=== PATIENT | female | born 1975 | race Caucasian/White ===

== ENCOUNTER 2016-05-30 12:47 | Emergency (ER) | payer OTHER ==
[2016-05-30 13:06] VITALS: BP 102/58
--- NOTE | 2016-05-30 13:10 | EDM.PDOC ---
ED HPI GENERAL MEDICAL PROBLEM - General Chief Complaint: General Stated Complaint: Not feeling well Time Seen by Provider: 05/30/16 13:00 Source of Information: Reports: Patient, Old records ([facility] chart/EMR) History Limitations: Reports: No limitations - History of Present Illness INITIAL COMMENTS - FREE TEXT/NARRATIVE: The patient drove herself to the emergency room for evaluation of nonspecific bilateral frontal 2/10 headache stated with nonspecific fatigue and just not feeling well with symptoms starting about 9 a.m. this morning. Her symptoms are similar to previous episodes with hypokalemia. She states that she has been compliant with all of her medications, including supplements. No recent history of abdominal pain, heartburn, nausea, diarrhea, melena, gross hematochezia, or any food intolerance, including fatty foods, etc.. The patient also denies any recent fever, cough, wheezing, dyspnea, etc.. No history of visual changes, diplopia, change in mental status, or other change in neurological status. The patient denies any chest pain/pressure, heart flutter, orthostasis, orthopnea, diaphoresis, paresthesias, recent decreased exercise tolerance, or any other anginal-type symptoms, although some nonspecific dizziness since this morning. She has not taken any medications for her symptoms this point. The patient did get an influenza booster this past season. Onset: today, gradual Onset Date: 05/30/16 Onset Time: 09:00 Duration: Constant, Getting worse Location: Reports: head Quality: Reports: Ache, Same as previous episode Severity: mild Improves with: Reports: None Worsens with: Reports: None Context: Reports: Other (As above) Associated Symptoms: Reports: headaches. 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 (see below) (None) Bilateral Head Pain Score (Numeric/FACES): 2 - Related Data Allergies Allergy/AdvReac Type Severity Reaction Status Date / Time Latex, Natural Rubber Allergy Hives Verified 05/30/16 12:48 ondansetron Allergy Shaking,Tac Verified 05/30/16 12:50 hycardia promethazine HCl Allergy Irritabilit Verified 05/30/16 12:48 [From Phenergan] y Home Meds: Home Meds Ferrous Sulfate 325 mg PO QPM #100 tablet 05/30/16 [Rx] Folic Acid 1 mg PO QPM #100 tablet 05/30/16 [Rx] Levothyroxine [Synthroid] 50 mcg PO ACBREAKFAST #60 tablet 05/30/16 [Rx] Magnesium Oxide 400 mg PO QPM #100 tablet 05/30/16 [Rx] Non-Formulary Medication [NF Drug] 1 tab PO DAILY 05/30/16 [History] Non-Formulary Medication [NF Drug] 2 tab PO DAILY 05/30/16 [History] Potassium Chloride 20 meq PO TID #20 tablet.er 05/30/16 [Rx] Past Medical History HEENT History: Reports: Impaired vision, Sinusitis, Other (see below). Denies: Allergic rhinitis, Cataract, Glaucoma, Hard of hearing, Macular degeneration, Otitis media, Retinal detachment Other HEENT History: Soft contact lenses, glasses Cardiovascular History: Reports: High cholesterol, Syncope, Other (see below). Denies: Afib, Aneurysm, Arrhythmia, Blood clots/VTE/DVT, CAD, Heart Failure, Heart murmur, Hypertension, AR, PVD Other Cardiovascular History: History of obesity and hyperlipidemia with fatty liver including post gastric bypass, previous recurrent syncope of unknown etiology with last episode in July 2014, chronic hypotension Respiratory History: Reports: Intubation, previous, Other (see below). Denies: Asthma, COPD, Intubation, difficult, PE, Pneumothorax, Sleep apnea Other Respiratory History: Right lower lobe stable benign pulmonary nodules Gastrointestinal History: Reports: Bowel obstruction, Chronic diarrhea, Gastritis, GERD, GI bleed, PUD, Other (see below). Denies: Celiac disease, Cholelithiasis, Chronic constipation, Colon polyp, Diverticulosis, Hepatitis, Helicobacter pylori, Hiatal hernia, Irritable bowel syndrome, Jaundice, Pancreatitis Other Gastrointestinal History: History of fatty liver with LFTs elevation including post gastric bypass surgery, upper GI bleed secondary to gastric ulcer in her mid 30s with no blood transfusion required, multiple previous small bowel obstruction secondary to previous gastric bypass surgery, nonspecific malabsorption syndrome Genitourinary History: Reports: None. Denies: Acute renal failure, Chronic renal insuffiency, Renal calculus, STD, Urinary incontinence, UTI, recurrent HYBRID [employer]IC History: Reports: . Denies: Dysfunctional uterine bleeding, Endometriosis, Spontaneous : 3 Para: 3 (Full term deliveries by as below without complications during pregnancies or deliveries) LMP (Approximate): other Other OB/BYN History: Bilateral ovarian cysts Musculoskeletal History: Reports: None. Denies: Amputation, Arthritis, Back pain, chronic, Fracture, Gout, Neck pain, chronic, Osteoarthritis, RA, SLE Neurological History: Reports: None. Denies: Cerebral aneurysms, Concussion, CVA, Headaches, chronic, Head trauma, Migraines, Seizure, TIA Psychiatric History: Reports: Anxiety, Depression. Denies: Abuse, victim of, ADD, ADHD, Addiction, Panic attack, Psych Hospitalization(s), PTSD, Suicide attempt, Suicidal ideation Endocrine/Metabolic History: Reports: Hypothyroidism, Multinodular thyroid, Obesity/BMI 30+, Other (see below). Denies: Diabetes, type I, Diabetes, type II , IDDM Other Endocrine/Metabolic History: Previous borderline hyperglycemia secondary to obesity, hypokalemia, vitamin D deficiency, borderline hypothyroidism with history of multiple benign thyroid nodules Hematologic History: Reports: Anemia, B12 deficiency, Iron deficiency. Denies: Blood transfusion(s) Immunologic History: Reports: None. Denies: AIDS, SLE Oncologic (Cancer) History: Reports: None. Denies: Basal cell carcinoma, Cervix , Hodgkin's Lymphoma, Lymphoma, Malignant melanoma, Non-Hodgkin's Lymphoma, Squamous cell carcinoma Dermatologic History: Reports: None. Denies: Eczema, Psoriasis - Infectious Disease History Infectious Disease History: Reports: Chicken pox. Denies: C-difficile, Helicobacter pylori, Measles, Meningitis, Mononucleosis, MRSA, Mumps, Pertussis (whooping cough), Rubella, Scarlet fever, Shingles, TB, VRE - Past Surgical History Head Surgeries/Procedures: Reports: None HEENT Surgical History: Reports: Oral surgery, Other (see below). Denies: Adenoidectomy, Cataract surgery, Eye surgery, Laser surgery, LASIK, Myringotomy w tube(s), Naso-sinus surgery, Tonsillectomy Other HEENT Surgeries/Procedures: Collins teeth extraction x2 at age 20 Cardiovascular Surgical History: Reports: None. Denies: Varicose, Vascular surgery Respiratory Surgical History: Reports: None. Denies: Lung Biopsies, Thoracentesis GI Surgical History: Reports: Bariatric procedure, Cholecystectomy, EGD, Hernia , abdominal, Hernia, inguinal, Hernia repair/other, Other (see below). Denies: Colonoscopy Other GI Surgeries/Procedures: Gastric bypass surgery with concomitant cholecystectomy in August 2006, patient denies previous gastric bypass revisions as per medical records although evidence of anastomosis dilatations in the past by EGD, last EGD in 2015 with previous evaluation in 2007 with concomitant gastric feeding tube placement at that time, umbilical hernia repair in November 2015, right inguinal hernia repair in 2004 Female Surgical History: Reports: section, Other (see below). Denies: Tubal ligation Other Female Surgeries/Procedures: in 1996, 1999, 2000, patient denies previous tubal ligation despite medical records Endocrine Surgical History: Reports: Thyroid biopsy, Other (see below) Other Endocrine Surgeries/Procedures: Thyroid biopsy in 2014 Neurological Surgical History: Reports: None Musculoskeletal Surgical History: Reports: None Oncologic Surgical History: Reports: None Dermatological Surgical History: Reports: None - Past Imaging History Past Imaging History: Reports: Cardiac echo (07/29/09 with ejection fraction of 68 %), CAT scan (CT of the brain on 06/20/08, CT of the abdomen and pelvis with contrast on 06/12/11, 09/08/10, and 06/20/08, CT of the head and cervical region on 07/24/09), Ultrasound ([place] ultrasound on 11/06/08) Social & Family History - Family History Cardiac: Reports: High cholesterol, Hypertension, Other (see below) Other Cardiac Family History: Father with hyperlipidemia, hypertension in father and maternal grandfather GI: Reports: GERD, Other (see below) Other GI Family History: GERD in mother Psychiatric: Reports: Anxiety, Depression, Other (see below) Other Psychiatric Family History: Anxiety depression disorder in mother, maternal great grandmother and paternal great-grandmother Endocrine/Metabolic: Reports: Diabetes, type II, IDDM, Other (see below) Other Endocrine/Metabolic Family History: IDDM in paternal grandmother, maternal grandfather, and maternal great-grandmother with brother with possible hyperglycemia Oncologic: Reports: Leukemia, Other (see below) Other Oncologic Family History: Cousins with leukemia, mother with multiple myeloma - Tobacco Use Smoking Status *Q: Never Smoker Smoking Cessation Information Provided To Patient: No Second Hand Smoke Exposure: No Second Hand Smoke Education Provided: No - Caffeine Use Caffeine Use: Reports: Soda (2 sodas per day). 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 Denies: fever, chills, malaise , weakness, night sweats, diaphoresis, decreased appetite, weight loss, weight gain HEENT: Reports: Contact Lenses. Denies: Dental pain, Ear discharge, Ear pain, Eye discharge, Eye pain, Glasses, Hearing loss, Nosebleed, Nose pain, Rhinitis, Sinus problem, Throat pain, Vertigo Cardiovascular: Reports: Lightheadedness. Denies: Chest pain, Blood pressure problem, Claudication, Dyspnea on exertion, Edema, Orthopnea, Palpitations, PND , Syncope Endocrine: Reports: fatigue GI/Abdominal: Reports: No symptoms. Denies: Abdominal pain, Anorexia, Black stool, Bloody stool, Constipation, Diarrhea, Decreased appetite, Difficulty swallowing, Distension, Flatus, Hematemesis, Hematochezia, Melena, Nausea, Stool incontinence, Vomiting : Reports: no symptoms. Denies: discharge, dysuria, flank pain, frequency, hematuria, incontinence, irregular menses, pain, urgency, urinary retention Musculoskeletal: Reports: no symptoms. Denies: neck pain, shoulder pain, arm pain, back pain, leg pain Skin: Reports: no symptoms. Denies: jaundice, pallor, diaphoresis, bruising, pruritis, wound Neurological: Reports: Dizziness, Headache, Weakness (Nonspecific). Denies: Confusion, Numbness, Paresthesia, Syncope, Tingling, Trouble Speaking, Difficulty Walking, Change in Speech Psychiatric: Reports: No symptoms. Denies: Agitation, Anxiety, Confusion, Depression, Hallucinations Hematologic/Lymphatic: Reports: no symptoms Immunologic: Reports: no symptoms ED EXAM, GENERAL - Physical Exam Exam: See Below Exam Limited By: No limitations General Appearance: alert, WD/WN, no apparent distress, anxious (Mild) Eye Exam: bilateral eye: EOMI, normal inspection (No nystagmus), PERRL Ears: normal external exam, normal canal, hearing grossly normal, normal TMs Nose: normal inspection, normal mucosa, no blood. No: clear rhinorrhea Throat/Mouth: Normal inspection, Normal lips, Normal teeth, Normal gums, Normal oropharynx, Normal voice, No airway compromise. No: Dysphagia, Perioral cyanosis Head: atraumatic, normocephalic. No: facial swelling, facial tenderness, sinus tenderness Neck: normal inspection, supple, non-tender, full range of motion. No: carotid bruit, lymphadenopathy (L), lymphadenopathy (R), thyromegaly Respiratory/Chest: no respiratory distress, lungs clear, normal breath sounds, no accessory muscle use, chest non-tender. No: pleural rub, retractions Cardiovascular: normal peripheral pulses, regular rate, rhythm, no edema, no gallop, no JVD, no murmur, no rub. No: gallop/S3, gallop/S4, friction rub Peripheral Pulses: 4+: radial (L), radial (R) GI/Abdominal: normal bowel sounds, soft, non tender, no organomegaly, no distention, no abnormal bruit, no mass. No: guarding (Female) Exam: Deferred Rectal (Female) Exam: Deferred Back Exam: normal inspection, full range of motion. No: CVA tenderness (L), CVA tenderness (R), muscle spasm Extremities: normal inspection, normal range of motion, non-tender, normal capillary refill, no pedal edema Neurological: alert, oriented, CN II-XII intact, normal cognition, normal gait, no motor/sensory deficits, other (No clinical orthostasis) Psychiatric: anxious (Mild), depressed mood (Borderline with adequate eye contact) Skin Exam: Warm, Dry, Intact, No rash, Pallor (Mild). No: Diaphoretic, Ecchymosis, Jaundice, Petechiae, Wound/incision Lymphatic: no adenopathy Course - Vital Signs Last Recorded V/S: Last Vital Signs Temp 36.6 C 05/30/16 13:05 Pulse 80 05/30/16 13:05 Resp 16 05/30/16 13:05 BP 102/58 L 05/30/16 13:05 Pulse Ox 100 05/30/16 13:05 Vital Signs - 24 hr 05/30/16 13:05 Temperature [ 36.6 C Oral] Pulse, 80 Peripheral [ Right Pulse Oximetry] Respiratory 16 Rate Blood Pressure 102/58 L [Left Upper Arm ] O2 Sat by Pulse 100 Oximetry - Orders/Labs/Meds Orders: Active Orders 24 hr Category Date Time Status Obtain Past Medical Record [OM.PC] Routine Oth 05/30/16 13:11 Active Labs: Laboratory Tests 05/30/16 05/30/16 05/30/16 Range/Units 13:20 13:20 13:20 WBC 6.3 (4.0-10.2) K/uL RBC 3.90 (3.77-5.09) M/uL Hgb 9.3 L (11.7-15.5) g/dL Hct 30.4 L (34.0-46.0) % MCV 77.9 L (84.0-98.0) fL MCH 23.8 L (28.2-33.3) pg MCHC 30.6 L (31.7-36.0) g/dL RDW 16.9 H (11.2-14.1) % Plt Count 295 (150-350) K/uL Neut % (Auto) 63.3 (45.0-80.0) % Lymph % (Auto) 26.9 (10.0-50.0) % Zapata % (Auto) 7.6 (2.0-14.0) % Eos % (Auto) 1.7 (0.0-5.0) % Baso % (Auto) 0.5 (0.0-2.0) % Neut # (Auto) 3.98 (1.40-7.00) K/uL Lymph # (Auto) 1.69 (0.50-3.50) K/uL [place] # (Auto) 0.48 (0.00-1.00) K/uL Eos # (Auto) 0.11 (0.00-0.50) K/uL Baso # (Auto) 0.03 (0.00-0.20) K/uL Sodium 140 (136-145) mmol/L Potassium 2.9 L* (3.5-5.1) mmol/L Chloride 106 (98-107) mmol/L Carbon Dioxide 24.1 (21.0-32.0) mmol/L BUN 9 (7-18) mg/dL Creatinine 0.75 (0.51-1.17) mg/dL Est Cr Clr Drug Dosing TNP Estimated GFR (MDRD) > 60 mL/min Glucose 94 (74-106) mg/dL Lactic Acid (0.4-2.0) mmol/L Uric Acid (2.6-7.2) mg/dL Calcium 8.1 L (8.5-10.1) mg/dL Magnesium (1.8-2.4) mg/dL Iron 18 L (50-175) ug/dL TIBC 439 (250-450) ug/dL % Saturation 4.66876 Ferritin 4 L (8-388) ng/mL Total Bilirubin 0.4 (0.2-1.0) mg/dL AST 37 (15-37) U/L ALT 59 (12-78) U/L Alkaline Phosphatase 114 (46-116) IU/L Total Protein 6.5 (6.4-8.2) g/dL Albumin 3.2 L (3.4-5.0) g/dL Vitamin B12 (193-986) pg/mL Folate 7.9 L (8.6-58.9) ng/mL TSH, Ultra Sensitive (0.358-3.740) mIU/mL 05/30/16 05/30/16 Range/Units 13:20 13:20 WBC (4.0-10.2) K/uL RBC (3.77-5.09) M/uL Hgb (11.7-15.5) g/dL Hct (34.0-46.0) % MCV (84.0-98.0) fL MCH (28.2-33.3) pg MCHC (31.7-36.0) g/dL RDW (11.2-14.1) % Plt Count (150-350) K/uL Neut % (Auto) (45.0-80.0) % Lymph % (Auto) (10.0-50.0) % Zapata % (Auto) (2.0-14.0) % Eos % (Auto) (0.0-5.0) % Baso % (Auto) (0.0-2.0) % Neut # (Auto) (1.40-7.00) K/uL Lymph # (Auto) (0.50-3.50) K/uL Z[place]ata # (Auto) (0.00-1.00) K/uL Eos # (Auto) (0.00-0.50) K/uL Baso # (Auto) (0.00-0.20) K/uL Sodium (136-145) mmol/L Potassium (3.5-5.1) mmol/L Chloride (98-107) mmol/L Carbon Dioxide (21.0-32.0) mmol/L BUN (7-18) mg/dL Creatinine (0.51-1.17) mg/dL Est Cr Clr Drug Dosing Estimated GFR (MDRD) mL/min Glucose (74-106) mg/dL Lactic Acid 1.0 (0.4-2.0) mmol/L Uric Acid 3.9 (2.6-7.2) mg/dL Calcium (8.5-10.1) mg/dL Magnesium 1.5 L (1.8-2.4) mg/dL Iron (50-175) ug/dL TIBC (250-450) ug/dL % Saturation Ferritin (8-388) ng/mL Total Bilirubin (0.2-1.0) mg/dL AST (15-37) U/L ALT (12-78) U/L Alkaline Phosphatase (46-116) IU/L Total Protein (6.4-8.2) g/dL Albumin (3.4-5.0) g/dL Vitamin B12 365 (193-986) pg/mL Folate (8.6-58.9) ng/mL TSH, Ultra Sensitive 4.328 H (0.358-3.740) mIU/mL Meds: Medications Discontinued Medications Generic Name Dose Route Start Last Admin Trade Name Freq PRN Reason Stop Dose Admin Potassium Chloride 40 meq 05/30/16 14:04 05/30/16 14:16 Klor-Con M20 PO 05/30/16 14:05 40 meq ONETIME ONE Administration - Radiology Interpretation Free Text/Narrative:: None Departure - Departure Time of Disposition: 14:45 Disposition: Home, Self-Care 01 Condition: good Clinical Impression: Hypokalemia, Hypothyroidism, Hypomagnesemia, Hypoalbuminemia, Peptic reflux disease, Mixed anxiety depressive disorder, Hyperlipidemia, Folic acid deficiency, Iron deficiency Anemia Qualifiers: Anemia type: other cause Other causes of anemia: nutritional, unspecified Qualified Code(s): D53.9 - Nutritional anemia, unspecified Prescriptions: Ferrous Sulfate 325 mg PO QPM #100 tablet Folic Acid 1 mg PO QPM #100 tablet Levothyroxine [Synthroid] 50 mcg PO ACBREAKFAST #60 tablet Magnesium Oxide 400 mg PO QPM #100 tablet Potassium Chloride 20 meq PO TID #20 tablet.er Instructions: Potassium Content of Foods, Hypokalemia, Iron Deficiency Anemia, Adult, Hypothyroidism Referrals: PCP,None [Primary Care Provider] - Forms: ED Department Discharge, Return to Work/School Form Additional Instructions: 1. Followup with your regular provider in 2 days as directed for reevaluation and recommended CBC, magnesium level, and basic metabolic panel. 2. Work excuse- See Form 3. Discuss further instructions for your potassium supplementation including adjusted recommended long-term use, multiple supplemental changes today, etc. as discussed at time of the above followup visit with your regular provider 4. TSH, folic acid, magnesium level, CBC and iron studies should also be repeated in 4 weeks - Problem List & Annotations (1) Hypothyroidism SNOMED Code(s): 22226040 Code(s): E03.9 - HYPOTHYROIDISM, UNSPECIFIED Status: Acute Current Visit : Yes Onset Date: 12/06/13 Annotation/Comment:: Initially diagnosed in this facility on 12/06/13 with no apparent medical therapy to this point. Various therapeutic options were discussed with the patient, who now agrees to initiation of low-dose thyroid supplementation. Close followup by her regular provider, including repeat TSH, etc. in about 4 weeks as per discharge instructions. (2) Hypokalemia SNOMED Code(s): 03717029 Code(s): E87.6 - HYPOKALEMIA Status: Acute Priority: High Current Visit : Yes Onset Date: 05/30/16 Annotation/Comment:: Previous history of nonspecific malabsorption syndrome with recurrent hypokalemia. Patient's current post gastric bypass multivitamin preparations aren't sufficient at this point. Various therapeutic options were discussed with the patient, who has elected to initiate aggressive outpatient therapy for the time being. Potassium chloride 40 mg given in the emergency room with additional potassium supplementation as per discharge instructions with close followup by her regular provider (3) Anemia SNOMED Code(s): 349602019 Code(s): D64.9 - ANEMIA, UNSPECIFIED Status: Acute Priority: High Current Visit: Yes Onset Date: ~05/30/16 Annotation/Comment:: Multifactorial etiologies to patient's current anemia, including malabsorption syndrome, iron deficiency, vitamin D B12 deficiency, and folic acid deficiency with status post gastric bypass surgery as above. Her vitamin B 12 level is normal today, although the patient will need additional folic acid and iron supplementation in addition to her current gastric bypass supplement regimen. Close followup by her regular providers as per discharge instructions with decreased iron levels and folic acid levels today Qualifiers: Anemia type: other cause Other causes of anemia: nutritional, unspecified Qualified Code(s): D53.9 - Nutritional anemia, unspecified (4) Hypomagnesemia SNOMED Code(s): 717229398 Code(s): E83.42 - HYPOMAGNESEMIA Status: Acute Priority: Medium Current Visit: Yes Onset Date: 05/30/16 Annotation/Comment:: Initiate magnesium oxide therapy with close followup by regular provider (5) Hypoalbuminemia SNOMED Code(s): 374992976 Code(s): E88.09 - OTH DISORDERS OF PLASMA-PROTEIN METABOLISM, NEC Status: Chronic Priority: Medium Current Visit: Yes Annotation/Comment:: Consider high-protein Glucerna supplements with close followup by regular provider (6) Folic acid deficiency SNOMED Code(s): 260103178 Code(s): E53.8 - DEFICIENCY OF OTHER SPECIFIED B GROUP VITAMINS Status: Acute Priority: High Current Visit: Yes Onset Date: 05/30/16 Annotation/ Comment:: As above (7) Hyperlipidemia SNOMED Code(s): 95092970 Code(s): E78.5 - HYPERLIPIDEMIA, UNSPECIFIED Status: Chronic Current Visit: Yes Annotation/Comment:: Not currently under therapy with history of fatty liver and previous LFTs elevation including after gastric bypass surgery. Consider lipid profile by her regular providers in the near future Qualifiers: Hyperlipidemia type: unspecified Qualified Code(s): E78.5 - Hyperlipidemia , unspecified (8) Iron deficiency SNOMED Code(s): 23950084 Code(s): E61.1 - IRON DEFICIENCY Status: Acute Priority: High Current Visit: Yes Onset Date: 05/30/16 Annotation/Comment:: As above (9) Mixed anxiety depressive disorder SNOMED Code(s): 660284522 Code(s): F41.8 - OTHER SPECIFIED ANXIETY DISORDERS Status: Chronic Priority: Medium Current Visit: Yes Annotation/Comment:: Stable by patient history (10) Peptic reflux disease SNOMED Code(s): 45073252 Code(s): K21.9 - GASTRO-ESOPHAGEAL REFLUX DISEASE WITHOUT ESOPHAGITIS Status: Acute Current Visit: Yes Annotation/Comment:: Stable by patient history - Problem List Review Problem List Initiated/Reviewed/Updated: Yes - My Orders Last 24 Hours: My Active Orders 05/30/16 13:11 Obtain Past Medical Record [OM.PC] Routine - Assessment/Plan Last 24 Hours: My Active Orders 05/30/16 13:11 Obtain Past Medical Record [OM.PC] Routine Assessment:: As above Plan: As above. Extensive precautions were given to the patient, who is in agreement with the treatment plan. See Patient Instructions for further treatment and plan.
[2016-05-30 13:56] LABS: CHLORIDE,CL 106 mmol/L (98-107); SODIUM,NA 140 mmol/L (136-145)
[2016-05-30] MEDS ORDERED: Potassium Chloride 20 MEQ Tab.ER PO ONE (14:04)
== END 2016-05-30 14:45 | disposition home or self-care (01) ==
LOC: LL.ED 12:47
DX: E87.6 Hypokalemia (principal); E03.9 Hypothyroidism, unspecified; E83.42 Hypomagnesemia; E78.5 Hyperlipidemia, unspecified; D64.9 Anemia, unspecified; K21.9 Gastro-esophageal reflux disease without esophagitis; E53.8 Deficiency of other specified B group vitamins; Z91.040 Latex allergy status; Z88.8 Allergy status to other drugs, medicaments and biological substances; Z79.899 Other long term (current) drug therapy; H54.7 Unspecified visual loss; E78.00 Pure hypercholesterolemia, unspecified
CPT/HCPCS: 36415; 80053; 82607; 82728; 82746; 83540; 83550; 83605; 83735; 84443; 84550; 85025; 99284; A9270

== ENCOUNTER 2016-09-19 21:47 | Inpatient (IN) | payer OTHER ==
[2016-09-19] MEDS ORDERED: Lactated Ringers 1,000 ML IV ONE (21:49)
[2016-09-19] MEDS ORDERED: Famotidine 20 MG/2 ML SDV IVPUSH ONE (21:49)
[2016-09-19] MEDS ORDERED: Pantoprazole 40 MG Vial IVPUSH ONE (21:49)
--- NOTE | 2016-09-19 21:49 | EDM.PDOC ---
ED HPI GENERAL MEDICAL PROBLEM - General Chief Complaint: Abdominal Pain Stated Complaint: BOWEL OBSTRUCTION Time Seen by Provider: 09/19/16 21:49 Source of Information: Reports: Patient, Family (Daughter), Old Records ([facility] chart/EMR) History Limitations: Reports: No Limitations - History of Present Illness INITIAL COMMENTS - FREE TEXT/NARRATIVE: Patient was brought to the emergency room via private automobile by her daughter for evaluation of progressive diffuse abdominal cramping since about 16 :30 hours this afternoon with symptoms usually occurring after oral intake. She has been noncompliant with multiple medications. The patient did have an excellent bowel movement earlier this morning and has not taken any medications for her symptoms to this point. No recent history of heartburn, nausea, melena, gross hematochezia, or any food intolerance, including fatty foods, etc.. Her symptoms are typical for previous bowel obstructions. She normally has chronic diarrhea with patient averaging 3-6 bowel movements per day with patient taking one dose of Imodium 2 days ago. The patient also denies any recent fever, cough , wheezing, dyspnea, etc.. She currently rates her pain at 7/10 with previous episodes of 10/10 earlier this afternoon Onset: Today, Gradual Onset Date: 09/19/16 Onset Time: 16:30 Duration: Constant, Getting Worse Location: Reports: Abdomen. 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) Upper Abdominal Pain Score (Numeric/FACES): 7 - Related Data Allergies Allergy/AdvReac Type Severity Reaction Status Date / Time Latex, Natural Rubber Allergy Hives Verified 09/19/16 21:53 ondansetron Allergy Shaking,Tac Verified 09/19/16 21:53 hycardia promethazine HCl Allergy Irritabilit Verified 09/19/16 21:53 [From Phenergan] y Home Meds: Home Meds Folic Acid 1 mg PO QPM #100 tablet 05/30/16 [Rx] Levothyroxine [Synthroid] 50 mcg PO ACBREAKFAST #60 tablet 05/30/16 [Rx] Magnesium Oxide 400 mg PO QPM #100 tablet 05/30/16 [Rx] Non-Formulary Medication [NF Drug] 1 tab PO DAILY 05/30/16 [History] Non-Formulary Medication [NF Drug] 2 tab PO DAILY 05/30/16 [History] Potassium Chloride 20 meq PO TID #20 tablet.er 05/30/16 [Rx] Past Medical History HEENT History: Reports: Impaired Vision, Sinusitis, Other (See Below). Denies: Allergic Rhinitis, Cataract, Glaucoma, Hard of Hearing, Macular Degeneration, Retinal Detachment Other HEENT History: Soft contact lenses, glasses Cardiovascular History: Reports: High Cholesterol, Syncope, Other (See Below). Denies: Afib, Aneurysm, Arrhythmia, Blood Clots/VTE/DVT, CAD, Heart Murmur, Hypertension, IN, PVD Other Cardiovascular History: History of obesity and hyperlipidemia with fatty liver including post gastric bypass, previous recurrent syncope of unknown etiology with last episode in July 2014, chronic hypotension Respiratory History: Reports: Asthma, Intubation, Previous, Other (See Below). Denies: COPD, PE, Pneumothorax, Sleep Apnea Other Respiratory History: Right lower lobe stable benign pulmonary nodules Gastrointestinal History: Reports: Bowel Obstruction, Chronic Diarrhea, Gastritis, GERD, GI Bleed, PUD, Other (See Below). Denies: Celiac Disease, Cholelithiasis, Chronic Constipation, Colon Polyp, Fecal Incontinence, Hepatitis , Hiatal Hernia, Inflammatory Bowel Disease, Irritable Bowel Syndrome, Jaundice , Pancreatitis Other Gastrointestinal History: History of fatty liver with LFTs elevation including post gastric bypass surgery, upper GI bleed secondary to gastric ulcer in her mid 30s with no blood transfusion required, multiple previous small bowel obstruction secondary to previous gastric bypass surgery, nonspecific malabsorption syndrome Genitourinary History: Reports: None. 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 Denies: Dysfunctional Uterine Bleeding, Endometriosis, Spontaneous : 3 Para: 3 (Full term without complications during pregnancies or deliveries) LMP (Approximate): 2 Weeks (Normal by patient history) Other OB/BYN History: Bilateral ovarian cysts Musculoskeletal History: Reports: None. Denies: Amputation, Arthritis, Back Pain, Chronic, Fracture, Gout, Neck Pain, Chronic, Osteoarthritis, RA, SLE Neurological History: Reports: None. Denies: Cerebral Aneurysms, Concussion, CVA, Headaches, Chronic, Head Trauma, Migraines, Seizure, TIA Psychiatric History: Reports: Anxiety, Depression. Denies: Abuse, Victim of, ADD, ADHD, Addiction, Panic Attack, Psych Hospitalization(s), PTSD, Suicide Attempt, Suicidal Ideation Endocrine/Metabolic History: Reports: Hypothyroidism, Multinodular Thyroid, Obesity/BMI 30+, Other (See Below). Denies: Diabetes, Type I, Diabetes, Type II , IDDM Other Endocrine/Metabolic History: Previous borderline hyperglycemia secondary to obesity, hypokalemia, vitamin D deficiency, borderline hypothyroidism with history of multiple benign thyroid nodules Hematologic History: Reports: Anemia, B12 Deficiency, Folic Acid, Iron Deficiency. Denies: Blood Transfusion(s) Immunologic History: Reports: None. Denies: AIDS, HIV, SLE Oncologic (Cancer) History: Reports: None. Denies: Basal Cell Carcinoma, Cervix , Hodgkin's Lymphoma, Lymphoma, Malignant Melanoma, Non-Hodgkin's Lymphoma, Squamous Cell Carcinoma Dermatologic History: Reports: None. Denies: Eczema, Psoriasis - Infectious Disease History Infectious Disease History: Reports: Chicken Pox. Denies: C-Difficile, Helicobacter Pylori, Measles, Meningitis, Mononucleosis, MRSA, Mumps, Pertussis (Whooping Cough), Rubella, Scarlet Fever, Shingles, TB - Past Surgical History Head Surgeries/Procedures: Reports: None HEENT Surgical History: Reports: Oral Surgery, Other (See Below). Denies: Adenoidectomy, Cataract Surgery, Eye Surgery, Laser Surgery, LASIK, Myringotomy w Tube(s), Naso-Sinus Surgery, Tonsillectomy Other HEENT Surgeries/Procedures: [place] teeth extraction 2 at age 20 Cardiovascular Surgical History: Reports: None. Denies: Varicose, Vascular Surgery Respiratory Surgical History: Reports: None. Denies: Lung Biopsies, Thoracentesis GI Surgical History: Reports: Bariatric Procedure, Cholecystectomy, EGD, Hernia , Abdominal, Hernia, Inguinal, Hernia Repair/Other, Other (See Below). Denies: Appendectomy, Colonoscopy Other GI Surgeries/Procedures: Gastric bypass surgery with concomitant cholecystectomy in August 2006, patient denies previous gastric bypass revisions as per medical records although evidence of anastomosis dilatations in the past EGD, last EGD in 2015 with previous evaluation in 2007 with concomitant gastric feeding tube placement at that time, umbilical hernia repair in November 2015, right inguinal hernia repair in 2004 Female Surgical History: Reports: Section, Other (See Below). Denies: Hysterectomy, Salpingo-Oophorectomy, Tubal Ligation Other Female Surgeries/Procedures: in 1996, 1999, 2000, patient denies previous tubal ligation despite medical records Endocrine Surgical History: Reports: Thyroid Biopsy, Other (See Below) Other Endocrine Surgeries/Procedures: Thyroid biopsy in 2014 Neurological Surgical History: Reports: None. Denies: C-Spine, Discectomy, Laminectomy, Lumbar Spine, Spinal Fusion, Vertebroplasty Musculoskeletal Surgical History: Reports: None. Denies: Arthroscopic Procedure , Carpal Tunnel, Ganglion Cyst, Joint Replacement, ORIF, Shoulder Surgery Oncologic Surgical History: Reports: None Dermatological Surgical History: Reports: None - Past Imaging History Past Imaging History: Reports: Cardiac Echo (07/29/09 with ejection fraction of 68 %), CAT Scan (CT of the brain on 06/20/08, CT of the abdomen and pelvis with contrast on 06/12/11, 09/08/10, and 06/20/08, CT of the head and cervical region on 07/24/09), Ultrasound (Abdominal ultrasound on 11/06/08) Social & Family History - Family History HEENT: Reports: None. Denies: Allergic Rhinitis, Glaucoma, Macular Degeneration , Retinal Detachment Cardiac: Reports: High Cholesterol, Hypertension, Other (See Below). Denies: Afib, Aneurysm, Arrhythmia, Blood Clots/VTE/DVT, CAD, Heart Failure, IN, PVD/COD , Syncope Other Cardiac Family History: Father with hyperlipidemia, hypertension in father and maternal grandfather Respiratory: Reports: Sleep Apnea, Other (See Below). Denies: Asthma, COPD, PE Other Respiratory Family Hisory: Father with sleep apnea and history of tobacco use GI: Reports: Colon Polyps, GERD, PUD, Other (See Below). Denies: Bowel Obstruction, Celiac Disease, Cholelithiasis, Chronic Constipation, Chronic Diarrhea, Diverticulosis, GI bleed, Inflammatory Bowel Disease, Irritable Bowel Syndrome Other GI Family History: GERD in mother, father with colonic polyps and peptic ulcer disease : Denies: Dialysis, Renal Calculus, Renal Disease/Insufficiency OBGYN: Reports: Dysfunctional uterine bleeding, Fibroids, Recurrent Spontaneous , Other (See Below). Denies: Endometriosis Other OBGYN Family History: Other with dysfunctional uterine bleeding requiring hysterectomy with additional history of recurrent SAB Musculoskeletal: Reports: Gout, Osteoarthritis, Other (See Below). Denies: RA, SLE Other Musculoskeletal Family History: Father with gout Neurological: Reports: None. Denies: Alzheimers Disease, Cerebral Aneurysms, CVA, Dementia, Migraines, MS, Parkinson's, Seizure, TIA Psychiatric: Reports: Anxiety, Depression, Other (See Below) Other Psychiatric Family History: Anxiety depression disorder in mother, maternal great grandmother and paternal great-grandmother Endocrine/Metabolic: Reports: Diabetes, type II, Hypothyroidism, IDDM, Other ( See Below) Other Endocrine/Metabolic Family History: IDDM in maternal grandmother, paternal grandmother, maternal grandfather, and maternal great-grandmother with brother with possible hyperglycemia, father with hypothyroidism secondary to thyroid resection from metastatic renal cancer as below Hematologic: Reports: Anemia. Denies: SLE, Transfusion Reaction Immunologic: Reports: None. Denies: AIDS, HIV, SLE Dermatologic: Reports: None. Denies: Eczema, Psoriasis Oncologic: Reports: Leukemia, Metastatic, Renal, Skin, Thyroid, Other (See Below ). Denies: Breast, Colon, Hodgkin's Lymphoma, Lymphoma, Non-Hodgkin's Lymphoma , Ovarian, Prostate, Uterine Other Oncologic Family History: Mother with melanoma, paternal grandmother with basal cell carcinoma, maternal aunt with basal cell carcinoma, Cousin with leukemia, mother with multiple myeloma, father with metastatic renal cancer with metastases to the thyroid gland and lungs - Tobacco Use Smoking Status *Q: Never Smoker Smoking Cessation Information Provided To Patient: No Second Hand Smoke Exposure: No Second Hand Smoke Education Provided: No - Caffeine Use Caffeine Use: Reports: Soda (2 sodas per day). 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 Denies: Fever, Chills, Malaise, Weakness , Fatigue, Night Sweats, Diaphoresis, Decreased Appetite, Weight Loss, Weight Gain HEENT: Reports: Glasses. Denies: Dental Pain, Ear Discharge, Ear Pain, Eye Discharge, Eye Pain, Hearing Loss, Rhinitis, Throat Pain, Throat Swelling, Vertigo, Vision Change Respiratory: Reports: No Symptoms. Denies: Shortness of Breath, Wheezing, Pleuritic Chest Pain, Cough Cardiovascular: Reports: No Symptoms. Denies: Chest Pain, Blood Pressure Problem, Claudication, Dyspnea on Exertion, Edema, Lightheadedness, Orthopnea, Palpitations, PND, Syncope Endocrine: Reports: No Symptoms. Denies: Fatigue GI/Abdominal: Reports: Abdominal Pain. Denies: Anorexia, Black Stool, Bloody Stool, Constipation, Diarrhea, Decreased Appetite, Difficulty Swallowing, Distension, Flatus, Hematemesis, Hematochezia, Melena, Mucous in Stool, Nausea, Stool Incontinence, Vomiting : Reports: No Symptoms. Denies: Discharge, Dysuria, Flank Pain, Frequency, Hematuria, Incontinence, Irregular Menses, Pain, Urgency, Urinary Retention Musculoskeletal: Reports: No Symptoms. Denies: Neck Pain, Shoulder Pain, Arm Pain, Back Pain, Leg Pain, Joint Swelling Skin: Reports: No Symptoms. Denies: Cyanosis, Jaundice, Pallor, Diaphoresis, Bruising, Wound Neurological: Reports: No Symptoms. Denies: Confusion, Dizziness, Headache, Numbness, Paresthesia, Syncope, Tingling, Weakness Psychiatric: Reports: No Symptoms. Denies: Agitation, Anxiety, Confusion, Depression, Hallucinations, Mood Lability Hematologic/Lymphatic: Reports: No Symptoms Immunologic: Reports: No Symptoms ED EXAM, GI/ABD - Physical Exam Exam: See Below Exam Limited By: No Limitations General Appearance: Alert, WD/WN, No Apparent Distress Eyes: Bilateral: Normal Appearance (No nystagmus, glasses), EOMI (PERRLA) Ears: Normal External Exam, Normal Canal, Hearing Grossly Normal, Normal TMs Nose: Normal Inspection, Normal Mucosa, No Blood. No: Clear Rhinorrhea Throat/Mouth: Normal Inspection, Normal Lips, Normal Teeth, Normal Gums, Normal Oropharynx, Normal Voice, No Airway Compromise. No: Dysphagia, Perioral Cyanosis Head: Atraumatic, Normocephalic. No: Facial Swelling, Facial Tenderness, Sinus Tenderness Neck: Normal Inspection, Supple, Non-Tender, Full Range of Motion. No: Carotid Bruit, Lymphadenopathy (L), Lymphadenopathy (R), Thyromegaly Respiratory/Chest: No Respiratory Distress, No Accessory Muscle Use, Chest Non- Tender, Rhonchi (Very occasional), Wheezing (Very occasional). No: Rales, Pleural Rub, Retractions Cardiovascular: Normal Peripheral Pulses, Regular Rate, Rhythm, No Edema, No Gallop, No JVD, No Murmur, No Rub. No: Gallop/S3, Gallop/S4, Friction Rub GI/Abdominal Exam: No Organomegaly, No Distention, No Abnormal Bruit, No Mass, Pelvis Stable, Tender (Mild diffuse nonspecific palpation pain), Abnormal Bowel Sounds (Somewhat hyperreactive diffuse bowel sounds not high-pitched in nature) , Other (Multiple abdominal incisions). No: Guarding, Rebound, Hernia (Female) Exam: Deferred Rectal (Female) Exam: Heme - Stool (Minimal stool in rectal vault). No: Normal Rectal Tone (Mild rectal canal stenosis), Black Stool, Bloody Stool, Fecal Impaction, Hemorrhoids, Mass, Perirectal Abscess, Rectal Fissure, Tenderness ( No Gabriel space tenderness) Back Exam: Normal Inspection, Full Range of Motion. No: CVA Tenderness (L), CVA Tenderness (R), Muscle Spasm Extremities: Normal Inspection, Normal Range of Motion, Non-Tender, No Pedal Edema, Normal Capillary Refill. No: Saturnino's Sign Neurological: Alert, Oriented, CN II-XII Intact, Normal Cognition, Normal Gait, No Motor/Sensory Deficits Psychiatric: Normal Affect, Normal Mood Skin Exam: Warm, Dry, Intact, Normal Color, No Rash. No: Diaphoretic, Ecchymosis, Jaundice, Pallor, Wound/Incision Lymphatic: No Adenopathy Course - Vital Signs Last Recorded V/S: Last Vital Signs Temp 36.6 C 09/20/16 08:00 Pulse 95 09/20/16 08:00 Resp 20 09/20/16 01:06 BP 114/66 09/20/16 08:00 Pulse Ox 98 09/20/16 08:00 - Orders/Labs/Meds Orders: Active Orders 24 hr Category Date Time Status Peripheral IV Care [RC] . DIRECTED Care 09/19/16 21:49 Active Abdomen Series w Chest 1V [CR] Stat Exams 09/19/16 21:49 Taken CULTURE URINE [RM] Stat Lab 09/19/16 22:05 Received Sodium Chloride 0.9% [Saline Flush] Med 09/19/16 21:49 Active 10 ml FLUSH ASDIRECTED PRN Nasogastric Orogastric Tube Insertion [OM.PC] Routine Oth 09/19/16 23:34 Ordered Peripheral IV Insertion Adult [OM.PC] Stat Oth 09/19/16 21:49 Ordered Resuscitation Status Stat Resus Stat 09/19/16 21:49 Ordered Medication Orders Diazepam (Valium) 2.5 mg IVPUSH Q4H PRN PRN Reason: Agitation Last Admin: 09/20/16 09:13 Dose: 2.5 mg Admin: 09/20/16 03:56 Dose: 2.5 mg Famotidine (Pepcid) 20 mg IVPUSH Q12H [facility] Potassium Chloride/Dextrose/Sod Cl (D5 1/2 Ns W/ 40 Meq/L Kcl) 1,000 mls @ 100 mls/hr IV ASDIRECTED [facility] Last Admin: 09/20/16 01:51 Dose: 100 mls/hr Ceftriaxone Sodium 1 gm/ (Sodium Chloride) 100 mls @ 200 mls/hr IV Q12H [facility] Last Admin: 09/20/16 01:54 Dose: 200 mls/hr Metronidazole 500 mg/ Premix 100 mls @ 100 mls/hr IV Q8H [facility] Last Admin: 09/20/16 02:56 Dose: 100 mls/hr Pantoprazole Sodium (Protonix Iv) 40 mg IVPUSH Q12H [facility] Phenol/Menthol (Chloraseptic Throat [place]) 1 ml MUCMEM Q2H PRN PRN Reason: Pain Last Admin: 09/20/16 09:11 Dose: 1 spray Admin: 09/20/16 01:53 Dose: 1 spray Sodium Chloride (Saline Flush) 10 ml FLUSH ASDIRECTED PRN PRN Reason: Keep Vein Open Last Admin: 09/20/16 09:12 Dose: 10 ml Sodium Chloride (Saline Flush) 10 ml FLUSH Q12HR [facility] Labs: Laboratory Tests 09/19/16 09/19/16 09/19/16 Range/Units 21:49 22:05 22:20 WBC 7.7 (4.0-10.2) K/uL RBC 3.75 L (3.77-5.09) M/uL Hgb 9.1 L (11.7-15.5) g/dL Hct 28.9 L (34.0-46.0) % MCV 77.1 L (84.0-98.0) fL MCH 24.3 L (28.2-33.3) pg MCHC 31.5 L (31.7-36.0) g/dL RDW 15.2 H (11.2-14.1) % Plt Count 249 (150-350) K/uL Neut % (Auto) 53.3 (45.0-80.0) % Lymph % (Auto) 34.5 (10.0-50.0) % [place] % (Auto) 10.1 (2.0-14.0) % Eos % (Auto) 1.7 (0.0-5.0) % Baso % (Auto) 0.4 (0.0-2.0) % Neut # (Auto) 4.10 (1.40-7.00) K/uL Lymph # (Auto) 2.65 (0.50-3.50) K/uL [place] # (Auto) 0.78 (0.00-1.00) K/uL Eos # (Auto) 0.13 (0.00-0.50) K/uL Baso # (Auto) 0.03 (0.00-0.20) K/uL PT (9.8-11.7) SEC INR APTT (23.5-30.0) SEC Sodium (136-145) mmol/L Potassium (3.5-5.1) mmol/L Chloride (98-107) mmol/L Carbon Dioxide (21.0-32.0) mmol/L BUN (7-18) mg/dL Creatinine (0.51-1.17) mg/dL Est Cr Clr Drug Dosing mL/min Estimated GFR (MDRD) mL/min Glucose (74-106) mg/dL Lactic Acid (0.4-2.0) mmol/L Uric Acid (2.6-7.2) mg/dL Calcium (8.5-10.1) mg/dL Magnesium (1.8-2.4) mg/dL Total Bilirubin (0.2-1.0) mg/dL AST (15-37) U/L ALT (12-78) U/L Alkaline Phosphatase (46-116) IU/L Total Protein (6.4-8.2) g/dL Albumin (3.4-5.0) g/dL Amylase 72 (25-115) U/L Lipase (73-393) U/L TSH, Ultra Sensitive (0.358-3.740) mIU/mL HCG, Qual (NEGATIVE) Specimen Type Urincc Urine Color Yellow Urine Appearance Clear Urine pH 5.5 (5.0-9.0) Ur Specific [place] 1.020 (1.005-1.030) Urine Protein Negative (NEGATIVE) mg/dL Urine Glucose (UA) Negative (NEGATIVE) mg/dL Urine Ketones Negative (NEGATIVE) mg/dL Urine Occult Blood Negative (NEGATIVE) Urine Nitrite Negative (NEGATIVE) Urine Bilirubin Negative (NEGATIVE) Urine Urobilinogen 0.2 (0.2-1.0) E.U./dL Ur Leukocyte Esterase Negative (NEGATIVE) Urine RBC 0-5 /HPF Urine WBC 0-5 /HPF Ur Epithelial Cells Few /LPF Urine Bacteria Occasional (NONE TO FEW) /HPF Hyaline Casts Occasional H (NEGATIVE) /LPF 09/19/16 09/19/16 09/19/16 Range/Units 22:20 22:20 22:20 WBC (4.0-10.2) K/uL RBC (3.77-5.09) M/uL Hgb (11.7-15.5) g/dL Hct (34.0-46.0) % MCV (84.0-98.0) fL MCH (28.2-33.3) pg MCHC (31.7-36.0) g/dL RDW (11.2-14.1) % Plt Count (150-350) K/uL Neut % (Auto) (45.0-80.0) % Lymph % (Auto) (10.0-50.0) % [place] % (Auto) (2.0-14.0) % Eos % (Auto) (0.0-5.0) % Baso % (Auto) (0.0-2.0) % Neut # (Auto) (1.40-7.00) K/uL Lymph # (Auto) (0.50-3.50) K/uL [place] # (Auto) (0.00-1.00) K/uL Eos # (Auto) (0.00-0.50) K/uL Baso # (Auto) (0.00-0.20) K/uL PT 10.5 (9.8-11.7) SEC INR 1.0 APTT [id number] H* (23.5-30.0) SEC Sodium 138 (136-145) mmol/L Potassium 3.5 (3.5-5.1) mmol/L Chloride 107 (98-107) mmol/L Carbon Dioxide 22.0 (21.0-32.0) mmol/L BUN 18 (7-18) mg/dL Creatinine 0.71 (0.51-1.17) mg/dL Est Cr Clr Drug Dosing 83.30 mL/min Estimated GFR (MDRD) > 60 mL/min Glucose 102 (74-106) mg/dL Lactic Acid 0.5 (0.4-2.0) mmol/L Uric Acid 3.3 (2.6-7.2) mg/dL Calcium 8.2 L (8.5-10.1) mg/dL Magnesium 1.4 L (1.8-2.4) mg/dL Total Bilirubin 0.2 (0.2-1.0) mg/dL AST 36 (15-37) U/L ALT 43 (12-78) U/L Alkaline Phosphatase 113 (46-116) IU/L Total Protein 6.8 (6.4-8.2) g/dL Albumin 3.3 L (3.4-5.0) g/dL Amylase (25-115) U/L Lipase 138 (73-393) U/L TSH, Ultra Sensitive 8.906 H (0.358-3.740) mIU/mL HCG, Qual (NEGATIVE) Specimen Type Urine Color Urine Appearance Urine pH (5.0-9.0) Ur Specific [place] (1.005-1.030) Urine Protein (NEGATIVE) mg/dL Urine Glucose (UA) (NEGATIVE) mg/dL Urine Ketones (NEGATIVE) mg/dL Urine Occult Blood (NEGATIVE) Urine Nitrite (NEGATIVE) Urine Bilirubin (NEGATIVE) Urine Urobilinogen (0.2-1.0) E.U./dL Ur Leukocyte Esterase (NEGATIVE) Urine RBC /HPF Urine WBC /HPF Ur Epithelial Cells /LPF Urine Bacteria (NONE TO FEW) /HPF Hyaline Casts (NEGATIVE) /LPF 09/19/16 Range/Units 22:20 WBC (4.0-10.2) K/uL RBC (3.77-5.09) M/uL Hgb (11.7-15.5) g/dL Hct (34.0-46.0) % MCV (84.0-98.0) fL MCH (28.2-33.3) pg MCHC (31.7-36.0) g/dL RDW (11.2-14.1) % Plt Count (150-350) K/uL Neut % (Auto) (45.0-80.0) % Lymph % (Auto) (10.0-50.0) % [place] % (Auto) (2.0-14.0) % Eos % (Auto) (0.0-5.0) % Baso % (Auto) (0.0-2.0) % Neut # (Auto) (1.40-7.00) K/uL Lymph # (Auto) (0.50-3.50) K/uL [place] # (Auto) (0.00-1.00) K/uL Eos # (Auto) (0.00-0.50) K/uL Baso # (Auto) (0.00-0.20) K/uL PT (9.8-11.7) SEC INR APTT (23.5-30.0) SEC Sodium (136-145) mmol/L Potassium (3.5-5.1) mmol/L Chloride (98-107) mmol/L Carbon Dioxide (21.0-32.0) mmol/L BUN (7-18) mg/dL Creatinine (0.51-1.17) mg/dL Est Cr Clr Drug Dosing mL/min Estimated GFR (MDRD) mL/min Glucose (74-106) mg/dL Lactic Acid (0.4-2.0) mmol/L Uric Acid (2.6-7.2) mg/dL Calcium (8.5-10.1) mg/dL Magnesium (1.8-2.4) mg/dL Total Bilirubin (0.2-1.0) mg/dL AST (15-37) U/L ALT (12-78) U/L Alkaline Phosphatase (46-116) IU/L Total Protein (6.4-8.2) g/dL Albumin (3.4-5.0) g/dL Amylase (25-115) U/L Lipase (73-393) U/L TSH, Ultra Sensitive (0.358-3.740) mIU/mL HCG, Qual Negative (NEGATIVE) Specimen Type Urine Color Urine Appearance Urine pH (5.0-9.0) Ur Specific [place] (1.005-1.030) Urine Protein (NEGATIVE) mg/dL Urine Glucose (UA) (NEGATIVE) mg/dL Urine Ketones (NEGATIVE) mg/dL Urine Occult Blood (NEGATIVE) Urine Nitrite (NEGATIVE) Urine Bilirubin (NEGATIVE) Urine Urobilinogen (0.2-1.0) E.U./dL Ur Leukocyte Esterase (NEGATIVE) Urine RBC /HPF Urine WBC /HPF Ur Epithelial Cells /LPF Urine Bacteria (NONE TO FEW) /HPF Hyaline Casts (NEGATIVE) /LPF Urine specimen set up for culture and sensitivity Microbiology 09/19/16 21:49 Stool Occult Blood (DAVID) - Final Stool / Feces NEGATIVE OCCULT BLOOD Meds: Medications Generic Name Dose Route Start Last Admin Trade Name Freq PRN Reason Stop Dose Admin Diazepam 2.5 mg 09/20/16 03:39 09/20/16 09:13 Valium IVPUSH 2.5 mg Q4H PRN Administration Agitation Famotidine 20 mg 09/20/16 21:00 Pepcid IVPUSH Q12H [facility] Potassium Chloride/Dextrose/Sod Cl 1,000 mls @ 100 mls/hr 09/20/16 01:15 03/08 01:51 D5 1/2 Ns W/ 40 Meq/L Kcl IV 100 mls/hr ASDIRECTED [facility] Administration Ceftriaxone Sodium 1 gm/ 100 mls @ 200 mls/hr 09/20/16 01:28 09/20/16 01:54 Sodium Chloride IV 200 mls/hr Q12H [facility] Administration Metronidazole 500 mg/ Premix 100 mls @ 100 mls/hr 09/20/16 02:00 09/20/16 02: 56 IV 100 mls/hr Q8H [facility] Administration Pantoprazole Sodium 40 mg 09/20/16 10:00 Protonix Iv IVPUSH Q12H [facility] Phenol/Menthol 1 ml 09/20/16 01:04 09/20/16 09:11 Chloraseptic Throat [place] MUCMEM 1 spray Q2H PRN Administration Pain Sodium Chloride 10 ml 09/19/16 21:49 09/20/16 09:12 Saline Flush FLUSH 10 ml ASDIRECTED PRN Administration Keep Vein Open Sodium Chloride 10 ml 09/20/16 08:00 Saline Flush FLUSH Q12HR [facility] Discontinued Medications Generic Name Dose Route Start Last Admin Trade Name Freq PRN Reason Stop Dose Admin Diazepam 2.5 mg 09/19/16 23:51 09/19/16 23:58 Valium IVPUSH 09/19/16 23:52 2.5 mg ONETIME ONE Administration Famotidine 40 mg 09/19/16 21:49 09/19/16 22:19 Pepcid IVPUSH 09/19/16 21:50 40 mg ONETIME ONE Administration Lactated Ringer's 1,000 mls @ 999 mls/hr 09/19/16 21:49 09/19/16 22:20 Ringers, Lactated IV 09/19/16 22:49 999 mls/hr .BOLUS ONE Administration Ceftriaxone Sodium 1 gm/ 100 mls @ 200 mls/hr 09/21/16 01:06 Sodium Chloride IV Q12H [facility] Metronidazole 500 mg/ Premix 100 mls @ 100 mls/hr 09/21/16 01:06 IV Q8H [facility] Pantoprazole Sodium 40 mg 09/19/16 21:49 09/19/16 22:19 Protonix Iv IVPUSH 09/19/16 21:50 40 mg ONETIME ONE Administration - Radiology Interpretation Free Text/Narrative:: Acute abdominal x-rays showed severe diffuse bowel gaseous distention including multiple fluid levels, however no free air. Probable threatening obstruction versus ileus with status post gastric bypass. Otherwise moderate pulmonary obstructive disease with no cardiomegaly, CHF, or pulmonary infiltrates Departure - Departure Time of Disposition: 01:00 Disposition: Admitted As Inpatient 67 Condition: Good Clinical Impression: Abdominal pain, Hypothyroidism, Peptic reflux disease, Mixed anxiety depressive disorder, Hypomagnesemia, Anemia, Hypoalbuminemia, Folic acid deficiency, Iron deficiency, Asthma - Discharge Information - Problem List & Annotations (1) Abdominal pain SNOMED Code(s): 39996957 Code(s): R10.9 - UNSPECIFIED ABDOMINAL PAIN Status: Acute Priority: High Current Visit: Yes Onset Date: 09/19/16 Annotation/Comment:: Threatening ileus/bowel obstruction by x-rays today. Initiated NG tube therapy in the emergency room with consideration of CT scan of the abdomen and pelvis depending on her clinical course. GI/surgical consultation as needed. The patient was counseled extensively on the importance of medication compliance especially in light of her previous history of gastric bypass, etc. She apparently has a GI consult already scheduled in October 2016. Possibility of colonoscopy with serial biopsies, which she has not had to this point, and additional repeat EGD with serial biopsies was extensively discussed. She has had a negative workup for celiac disease to this point by her history. Qualifiers: Abdominal location: generalized Qualified Code(s): R10.84 - Generalized abdominal pain (2) Hypothyroidism SNOMED Code(s): 38043991 Code(s): E03.9 - HYPOTHYROIDISM, UNSPECIFIED Status: Acute Current Visit : Yes Onset Date: 12/06/13 Annotation/Comment:: Initially diagnosed in this facility on 12/06/13 with patient noncompliant with medical therapy recently. Close followup by her regular provider. (3) Peptic reflux disease SNOMED Code(s): 45485314 Code(s): K21.9 - GASTRO-ESOPHAGEAL REFLUX DISEASE WITHOUT ESOPHAGITIS Status: Chronic Priority: Medium Current Visit: Yes Annotation/Comment:: Otherwise Stable by patient history with patient given high dose IV Pepcid and IV Protonix in the emergency room as GI prophylaxis (4) Mixed anxiety depressive disorder SNOMED Code(s): 179758852 Code(s): F41.8 - OTHER SPECIFIED ANXIETY DISORDERS Status: Chronic Priority: Medium Current Visit: Yes Annotation/Comment:: Stable by patient history (5) Anemia SNOMED Code(s): 999361023 Code(s): D64.9 - ANEMIA, UNSPECIFIED Status: Acute Priority: High Current Visit: Yes Onset Date: ~05/30/16 Annotation/Comment:: Multifactorial etiologies to patient's current anemia, including malabsorption syndrome, iron deficiency, vitamin D B12 deficiency, and folic acid deficiency with status post gastric bypass surgery as above. Compliance with medical therapy including additional folic acid and iron supplementation once again encouraged. Close followup by her regular providers as per discharge instructions with recommended repeat iron levels, vitamin B-12 level, and folic acid levels depending on her clinical course. Qualifiers: Anemia type: other cause Other causes of anemia: nutritional, unspecified Qualified Code(s): D53.9 - Nutritional anemia, unspecified (6) Hypomagnesemia SNOMED Code(s): 291864512 Code(s): E83.42 - HYPOMAGNESEMIA Status: Acute Priority: Medium Current Visit: Yes Onset Date: 05/30/16 Annotation/Comment:: Compliance with magnesium oxide therapy once again strongly encouraged (7) Hypoalbuminemia SNOMED Code(s): 192473985 Code(s): E88.09 - OTH DISORDERS OF PLASMA-PROTEIN METABOLISM, NEC Status: Chronic Priority: Medium Current Visit: Yes Annotation/Comment:: Recommend high-protein Glucerna supplements as snacks after NG tube therapy has been completed with close followup by regular provider. (8) Folic acid deficiency SNOMED Code(s): 061225737 Code(s): E53.8 - DEFICIENCY OF OTHER SPECIFIED B GROUP VITAMINS Status: Chronic Priority: High Current Visit: Yes Onset Date: 05/30/16 Annotation/Comment:: As above (9) Iron deficiency SNOMED Code(s): 97117945 Code(s): E61.1 - IRON DEFICIENCY Status: Acute Priority: High Current Visit: Yes Onset Date: 05/30/16 Annotation/Comment:: As above (10) Asthma SNOMED Code(s): 768528135 Code(s): J45.909 - UNSPECIFIED ASTHMA, UNCOMPLICATED Status: Chronic Priority: Medium Current Visit: Yes Annotation/Comment:: No recent fever or bronchitic type symptoms Qualifiers: Asthma severity: mild intermittent Asthma complication type: uncomplicated Qualified Code(s): J45.20 - Mild intermittent asthma, uncomplicated - Problem List Review Problem List Initiated/Reviewed/Updated: Yes - My Orders Last 24 Hours: My Active Orders 09/19/16 21:49 Peripheral IV Care [RC] . DIRECTED Abdomen Series w Chest 1V [CR] Stat Sodium Chloride 0.9% [Saline Flush] 10 ml FLUSH ASDIRECTED PRN Peripheral IV Insertion Adult [OM.PC] Stat Resuscitation Status Stat 09/19/16 22:05 CULTURE URINE [RM] Stat 09/19/16 23:34 Nasogastric Orogastric Tube Insertion [OM.PC] Routine - Assessment/Plan Admission H&P: Please use this note as an admission H&P Last 24 Hours: My Active Orders 09/19/16 21:49 Peripheral IV Care [RC] . DIRECTED Abdomen Series w Chest 1V [CR] Stat Sodium Chloride 0.9% [Saline Flush] 10 ml FLUSH ASDIRECTED PRN Peripheral IV Insertion Adult [OM.PC] Stat Resuscitation Status Stat 09/19/16 22:05 CULTURE URINE [RM] Stat 09/19/16 23:34 Nasogastric Orogastric Tube Insertion [OM.PC] Routine Assessment:: As above Plan: As above. Extensive precautions were given to the patient and her daughter, who are in agreement with the treatment plan. The patient will require about 3-4 days of inpatient/acute care secondary to multiple health problems as above.
[2016-09-19 22:56] LABS: CHLORIDE,CL 107 mmol/L (98-107); SODIUM,NA 138 mmol/L (136-145)
[2016-09-20] MEDS ORDERED: D5 1/2 NS w/ 40 mEq/L KCl 1,000 ML IV SCH ×2 (01:15→10:08)
[2016-09-20] MEDS: Phenol 1.4% Oral Spray 177 ML Bottle MUCMEM PRN ×2 (01:53→09:11)
[2016-09-20] MEDS: cefTRIAXone 1 GM in Sodium Chloride 0.9% 100 ML IV SCH ×2 (01:54→13:38)
[2016-09-20] MEDS: metroNIDAZOLE/Normal Saline 500 MG in Premix Bag 1 BAG IV SCH ×3 (02:56→18:02)
[2016-09-20] MEDS: Sodium Chloride 0.9% 10 ML Syringe FLUSH PRN ×2 (09:12→10:36)
[2016-09-20] MEDS ORDERED: Pantoprazole 40 MG Vial IVPUSH SCH (10:00)
--- NOTE | 2016-09-20 10:00 | PCM.SN ---
- Free Text/Narrative Note: Patient admitted after midnight. Excellent results with NG tube therapy, although patient did require IV diazepam therapy to tolerate this yesterday evening. She has had 2 large bowel movements since admission with significantly improved abdominal x-rays today. NG tube is somewhat coiled and deep, although it will be removed this morning. X-rays and blood work already ordered for tomorrow. Physical exam is stable with exception of significantly improved abdominal status with no increased bowel sounds, palpation pain, etc. Start strict clear liquid diet at noon today with IV fluids to be decreased. Acute abdominal x-rays this morning shows somewhat deep NG tube as above with no significant fluid levels and only mild gaseous distention. No free air with status post gastric bypass surgery. Extensive precautions were given to the patient and her daughter, who are in agreement with the treatment plan.
[2016-09-20] MEDS ORDERED: Magnesium Citrate Solution 296 ML Bottle PO ONE (10:04)
[2016-09-20] MEDS ORDERED: Polyethylene Glycol 3350 Powder 17 GM Packet PO ONE (10:04)
--- NOTE | 2016-09-20 10:06 | PCM.PN ---
- General Info Date of Service: 09/20/16 Admission Dx/Problem (Free Text): Abdominal pain Functional Status: Reports: Pain Controlled, Tolerating Diet, Ambulating, Urinating. Denies: New Symptoms - Patient Data Vitals - Most Recent: Last Vital Signs Temp 36.6 C 09/20/16 08:00 Pulse 95 09/20/16 08:00 Resp 20 09/20/16 01:06 BP 114/66 09/20/16 08:00 Pulse Ox 98 09/20/16 08:00 Weight - Most Recent: 61.235 kg I&O - Last 24 Hours: Intake & Output 09/19/16 09/20/16 09/20/16 22:59 06:59 14:59 Output Total 250 Balance -250 [place] Results Last 24 Hours: Microbiology 09/20/16 01:06 Stool Occult Blood ([place]) - Final Stool / Feces NEGATIVE OCCULT BLOOD Med Orders - Current: Current Medications Diazepam (Valium) 2.5 mg IVPUSH Q4H PRN PRN Reason: Agitation Last Admin: 09/20/16 09:13 Dose: 2.5 mg Famotidine (Pepcid) 20 mg IVPUSH Q12H [facility] Potassium Chloride/Dextrose/Sod Cl (D5 1/2 Ns W/ 40 Meq/L Kcl) 1,000 mls @ 100 mls/hr IV ASDIRECTED [facility] Last Admin: 09/20/16 01:51 Dose: 100 mls/hr Ceftriaxone Sodium 1 gm/ (Sodium Chloride) 100 mls @ 200 mls/hr IV Q12H [facility] Last Admin: 09/20/16 01:54 Dose: 200 mls/hr Metronidazole 500 mg/ Premix 100 mls @ 100 mls/hr IV Q8H [facility] Last Admin: 09/20/16 02:56 Dose: 100 mls/hr Pantoprazole Sodium (Protonix Iv) 40 mg IVPUSH Q12H [facility] Phenol/Menthol (Chloraseptic Throat [place]) 1 ml MUCMEM Q2H PRN PRN Reason: Pain Last Admin: 09/20/16 09:11 Dose: 1 spray Sodium Chloride (Saline Flush) 10 ml FLUSH ASDIRECTED PRN PRN Reason: Keep Vein Open Last Admin: 09/20/16 09:12 Dose: 10 ml Sodium Chloride (Saline Flush) 10 ml FLUSH Q12HR [facility] Discontinued Medications Diazepam (Valium) 2.5 mg IVPUSH ONETIME ONE Stop: 09/19/16 23:52 Last Admin: 09/19/16 23:58 Dose: 2.5 mg Famotidine (Pepcid) 40 mg IVPUSH ONETIME ONE Stop: 09/19/16 21:50 Last Admin: 09/19/16 22:19 Dose: 40 mg Lactated Ringer's (Ringers, Lactated) 1,000 mls @ 999 mls/hr IV .BOLUS ONE Stop: 09/19/16 22:49 Last Admin: 09/19/16 22:20 Dose: 999 mls/hr Ceftriaxone Sodium 1 gm/ (Sodium Chloride) 100 mls @ 200 mls/hr IV Q12H [facility] Metronidazole 500 mg/ Premix 100 mls @ 100 mls/hr IV Q8H [facility] Pantoprazole Sodium (Protonix Iv) 40 mg IVPUSH ONETIME ONE Stop: 09/19/16 21:50 Last Admin: 09/19/16 22:19 Dose: 40 mg - Problem List & Annotations (1) Abdominal pain SNOMED Code(s): 16044240 Code(s): R10.9 - UNSPECIFIED ABDOMINAL PAIN Status: Acute Priority: High Current Visit: Yes Onset Date: 09/19/16 Qualifiers: Abdominal location: generalized Qualified Code(s): R10.84 - Generalized abdominal pain Annotation/Comment:: Threatening ileus/bowel obstruction by x-rays today. Initiated NG tube therapy in the emergency room with consideration of CT scan of the abdomen and pelvis depending on her clinical course. GI/surgical consultation as needed. The patient was counseled extensively on the importance of medication compliance especially in light of her previous history of gastric bypass, etc. She apparently has a GI consult already scheduled in October 2016. Possibility of colonoscopy with serial biopsies, which she has not had to this point, and additional repeat EGD with serial biopsies was extensively discussed. She has had a negative workup for celiac disease to this point by her history. (2) Hypothyroidism SNOMED Code(s): 51341147 Code(s): E03.9 - HYPOTHYROIDISM, UNSPECIFIED Status: Acute Current Visit : Yes Onset Date: 12/06/13 Annotation/Comment:: Initially diagnosed in this facility on 12/06/13 with patient noncompliant with medical therapy recently. Close followup by her regular provider. (3) Peptic reflux disease SNOMED Code(s): 36983312 Code(s): K21.9 - GASTRO-ESOPHAGEAL REFLUX DISEASE WITHOUT ESOPHAGITIS Status: Chronic Priority: Medium Current Visit: Yes Annotation/Comment:: Otherwise Stable by patient history with patient given high dose IV Pepcid and IV Protonix in the emergency room as GI prophylaxis (4) Mixed anxiety depressive disorder SNOMED Code(s): 958767834 Code(s): F41.8 - OTHER SPECIFIED ANXIETY DISORDERS Status: Chronic Priority: Medium Current Visit: Yes Annotation/Comment:: Stable by patient history (5) Anemia SNOMED Code(s): 411634771 Code(s): D64.9 - ANEMIA, UNSPECIFIED Status: Acute Priority: High Current Visit: Yes Onset Date: ~05/30/16 Qualifiers: Anemia type: other cause Other causes of anemia: nutritional, unspecified Qualified Code(s): D53.9 - Nutritional anemia, unspecified Annotation/Comment:: Multifactorial etiologies to patient's current anemia, including malabsorption syndrome, iron deficiency, vitamin D B12 deficiency, and folic acid deficiency with status post gastric bypass surgery as above. Compliance with medical therapy including additional folic acid and iron supplementation once again encouraged. Close followup by her regular providers as per discharge instructions with recommended repeat iron levels, vitamin B-12 level, and folic acid levels depending on her clinical course. (6) Hypomagnesemia SNOMED Code(s): 936816249 Code(s): E83.42 - HYPOMAGNESEMIA Status: Acute Priority: Medium Current Visit: Yes Onset Date: 05/30/16 Annotation/Comment:: Compliance with magnesium oxide therapy once again strongly encouraged (7) Hypoalbuminemia SNOMED Code(s): 837630625 Code(s): E88.09 - OTH DISORDERS OF PLASMA-PROTEIN METABOLISM, NEC Status: Chronic Priority: Medium Current Visit: Yes Annotation/Comment:: Recommend high-protein Glucerna supplements as snacks after NG tube therapy has been completed with close followup by regular provider. (8) Folic acid deficiency SNOMED Code(s): 971189561 Code(s): E53.8 - DEFICIENCY OF OTHER SPECIFIED B GROUP VITAMINS Status: Chronic Priority: High Current Visit: Yes Onset Date: 05/30/16 Annotation/Comment:: As above (9) Iron deficiency SNOMED Code(s): 19150908 Code(s): E61.1 - IRON DEFICIENCY Status: Acute Priority: High Current Visit: Yes Onset Date: 05/30/16 Annotation/Comment:: As above (10) Asthma SNOMED Code(s): 050593670 Code(s): J45.909 - UNSPECIFIED ASTHMA, UNCOMPLICATED Status: Chronic Priority: Medium Current Visit: Yes Qualifiers: Asthma severity: mild intermittent Asthma complication type: uncomplicated Qualified Code(s): J45.20 - Mild intermittent asthma, uncomplicated Annotation/Comment:: No recent fever or bronchitic type symptoms - My Orders Last 24 Hours: My Active Orders 09/20/16 01:04 Phenol [Chloraseptic Throat [place]] 1 ml MUCMEM Q2H PRN 09/20/16 01:06 Communication Order [RC] ROUTINE Communication Order [RC] ROUTINE Height and Weight [RC] DAILY Intake and Output Strict [RC] ASDIRECTED Oxygen Therapy [RC] PRN Pulse Oximetry [RC] ASDIRECTED Up With Assistance [RC] ASDIRECTED VTE Risk Score [RC] UPON Vaccines to be Administered [RC] PER UNIT ROUTINE Vital Signs [RC] Q4HR C DIFFICILE TOXIN BY PCR [MREF] Routine GM Immunization Reflex [OM.PC] Click To Edit 09/20/16 01:15 D5 1/2 NS w/ 40 mEq/L KCl 1,000 ml IV ASDIRECTED 09/20/16 01:28 cefTRIAXone [Rocephin] 1 gm Sodium Chloride 0.9% [Normal Saline] 100 ml IV Q12H 09/20/16 02:00 metroNIDAZOLE/Normal Saline [Flagyl 500 MG in NS 100 ML] 500 mg Premix Bag 1 bag IV Q8H 09/20/16 03:39 Diazepam [Valium] 2.5 mg IVPUSH Q4H PRN 09/20/16 05:11 Abdomen Series w Chest 1V [CR] Routine 09/20/16 08:00 Sodium Chloride 0.9% [Saline Flush] 10 ml FLUSH Q12HR 09/20/16 09:56 Nasogastric Orogastric Tube Removal [OM.PC] Routine 09/20/16 10:00 Pantoprazole [ProTONIX IV] 40 mg IVPUSH Q12H 09/20/16 10:04 Magnesium Citrate [Citrate of Magnesia] See Dose Instructions PO ONETIME ONE Polyethylene Glycol 3350 [MiraLAX] 17 gm PO ONETIME ONE 09/20/16 21:00 Famotidine [Pepcid] 20 mg IVPUSH Q12H 09/20/16 Lunch Clear Liquid Diet [DIET] 09/21/16 05:11 Abdomen Series w Chest 1V [CR] Routine AMYLASE [CHEM] Routine CBC WITH AUTO DIFF [HEME] Routine COMPREHENSIVE METABOLIC PN,CMP [CHEM] Routine LIPASE [CHEM] Routine MAGNESIUM [CHEM] Routine
[2016-09-20] MEDS: Sodium Chloride 0.9% 10 ML Syringe FLUSH SCH ×2 (10:15→21:15)
[2016-09-20] MEDS ORDERED: Lidocaine 2% Viscous Solution 15 ML Cup PO ONE (10:24)
[2016-09-20] MEDS: Potassium Chloride 20 MEQ Tab.ER PO SCH (20:30)
[2016-09-20] MEDS ORDERED: Famotidine 20 MG/2 ML SDV IVPUSH SCH (21:00)
[2016-09-20] MEDS ORDERED: metroNIDAZOLE 500 MG Tab PO SCH (21:06)
[2016-09-20] MEDS: Pantoprazole 40 MG Tab.CR PO SCH (21:39)
[2016-09-20] MEDS: Ferrous Sulfate 325 MG Tab PO SCH (21:39)
[2016-09-20] MEDS: Famotidine 20 MG Tab PO SCH (21:39)
[2016-09-20] MEDS: Amoxicillin/Clavulanate K 875-125 MG Tab PO SCH (21:39)
[2016-09-20] MEDS: metroNIDAZOLE 500 MG Tab PO SCH (22:29)
[2016-09-21] MEDS ORDERED: cefTRIAXone 1 GM in Sodium Chloride 0.9% 100 ML IV SCH (01:06)
[2016-09-21] MEDS ORDERED: metroNIDAZOLE/Normal Saline 500 MG in Premix Bag 1 BAG IV SCH (01:06)
[2016-09-21] MEDS: Amoxicillin/Clavulanate K 875-125 MG Tab PO SCH (07:21)
[2016-09-21] MEDS: metroNIDAZOLE 500 MG Tab PO SCH (07:22)
[2016-09-21] MEDS: Ferrous Sulfate 325 MG Tab PO SCH (07:22)
[2016-09-21] MEDS: Famotidine 20 MG Tab PO SCH (07:22)
[2016-09-21 07:23] LABS: CHLORIDE,CL 108 mmol/L (98-107); SODIUM,NA 142 mmol/L (136-145)
[2016-09-21] MEDS: Potassium Chloride 20 MEQ Tab.ER PO SCH (07:28)
[2016-09-21] MEDS: Pantoprazole 40 MG Tab.CR PO SCH (07:28)
[2016-09-21 07:59] VITALS: BP 107/68
--- NOTE | 2016-09-21 08:36 | PCM.DCSUM1 ---
Discharge Summary - Hospital Course HPI Initial Comments: See emergency room note/admission H&P Brief History: See emergency room note/admission H&P - Discharge Data Discharge Date: 09/21/16 Discharge Disposition: Home, Self-Care 01 Condition: Good - Discharge Diagnosis/Problem(s) (1) Abdominal pain SNOMED Code(s): 39461751 ICD Code: R10.9 - UNSPECIFIED ABDOMINAL PAIN Status: Acute Priority: High Current Visit: Yes Onset Date: 09/19/16 Problem Details: NG tube was discontinued yesterday with patient tolerating strict clear liquid diet prior to discharge. She did have a normal bowel movement earlier this morning with bowel movements yesterday with no recent abdominal pain, nausea, melena, etc.. Some difficulty with removal of NG tube yesterday morning secondary to curling in the left naris as per simple provider note yesterday. No complications from NG tube removal including epistaxis, current nasal discomfort, etc. Threatening ileus/bowel obstruction by x-rays on admission with excellent results with NG tube therapy. The patient was counseled extensively on the importance of medication compliance especially in light of her previous history of gastric bypass, etc. She was also once again extensively counseled today concerning avoidance of Imodium and concentration on dietary measures with food diary, symptoms, and record of bowel movements to be recorded on a daily basis. She apparently has a GI consult already scheduled in October 2016. Possibility of colonoscopy with serial biopsies, which she has not had to this point, and additional repeat EGD with serial biopsies was extensively discussed. She has had a negative workup for celiac disease to this point by her history. Qualifiers: Abdominal location: generalized Qualified Code(s): R10.84 - Generalized abdominal pain (2) Hypothyroidism SNOMED Code(s): 25587666 ICD Code: E03.9 - HYPOTHYROIDISM, UNSPECIFIED Status: Acute Current Visit : Yes Onset Date: 12/06/13 Problem Details: Initially diagnosed in this facility on 12/06/13 with patient noncompliant with medical therapy recently. Close followup by her regular provider with TSH to be repeated in 4 weeks. Medication compliance once again strongly encouraged (3) Peptic reflux disease SNOMED Code(s): 64464183 ICD Code: K21.9 - GASTRO-ESOPHAGEAL REFLUX DISEASE WITHOUT ESOPHAGITIS Status: Chronic Priority: Medium Current Visit: Yes Problem Details: Otherwise Stable by patient history with patient given high dose IV Pepcid and IV Protonix in the emergency room as GI prophylaxis, which was continued during this hospitalization. IV access was lost yesterday evening with patient tolerating oral antibiotics, oral Protonix and oral Pepcid well prior to discharge. No further antibiotics at discharge secondary to resolve symptoms and no evidence of significant colitis, etc.. No evidence of GI bleed, etc. with stable hemoglobin at discharge. H. pylori stool antigen was negative (4) Mixed anxiety depressive disorder SNOMED Code(s): 755156826 ICD Code: F41.8 - OTHER SPECIFIED ANXIETY DISORDERS Status: Chronic Priority: Medium Current Visit: Yes Problem Details: Stable by patient history (5) Anemia SNOMED Code(s): 817427106 ICD Code: D64.9 - ANEMIA, UNSPECIFIED Status: Acute Priority: High Current Visit: Yes Onset Date: ~05/30/16 Problem Details: Multifactorial etiologies to patient's current anemia, including malabsorption syndrome, iron deficiency, vitamin D B12 deficiency, and folic acid deficiency with status post gastric bypass surgery as above. Compliance with medical therapy including additional folic acid and iron supplementation once again encouraged. Close followup by her regular providers as per discharge instructions with recommended repeat iron levels, vitamin B-12 level, and folic acid levels recommended at 4 week follow-up with CBC, etc. to be repeated at one week follow -up. Qualifiers: Anemia type: other cause Other causes of anemia: nutritional, unspecified Qualified Code(s): D53.9 - Nutritional anemia, unspecified (6) Hypomagnesemia SNOMED Code(s): 801318250 ICD Code: E83.42 - HYPOMAGNESEMIA Status: Acute Priority: Medium Current Visit: Yes Onset Date: 05/30/16 Problem Details: Magnesium level still low today. Compliance with magnesium oxide therapy once again strongly encouraged (7) Hypoalbuminemia SNOMED Code(s): 610488104 ICD Code: E88.09 - OTH DISORDERS OF PLASMA-PROTEIN METABOLISM, NEC Status: Chronic Priority: Medium Current Visit: Yes Problem Details: Recommend high-protein Glucerna supplements as snacks after NG tube therapy has been completed with close followup by regular provider. (8) Folic acid deficiency SNOMED Code(s): 930267745 ICD Code: E53.8 - DEFICIENCY OF OTHER SPECIFIED B GROUP VITAMINS Status: Chronic Priority: High Current Visit: Yes Onset Date: 05/30/16 Problem Details: As above (9) Iron deficiency SNOMED Code(s): 56607348 ICD Code: E61.1 - IRON DEFICIENCY Status: Acute Priority: High Current Visit: Yes Onset Date: 05/30/16 Problem Details: As above (10) Asthma SNOMED Code(s): 622560871 ICD Code: J45.909 - UNSPECIFIED ASTHMA, UNCOMPLICATED Status: Chronic Priority: Medium Current Visit: Yes Problem Details: No recent fever or bronchitic type symptoms Qualifiers: Asthma severity: mild intermittent Asthma complication type: uncomplicated Qualified Code(s): J45.20 - Mild intermittent asthma, uncomplicated - Patient Summary/Data Operative Procedure(s) Performed: None other than NG tube therapy Complications: NG tube curling in the left naris with Santamaria' view required and gentle removal of NG tube by this provider after nasal speculum exam, etc. as per simple provider note Consults: None Labs Pending at D/C: Urine culture and sensitivity and stool for C. difficile toxin Recommended Follow-up Testing/Procedures: As per discharge instructions Planned Operative Procedure(s) after DC: As per discharge instructions Hospital Course: Patient was admitted to inpatient/acute care for threatening ileus and obstruction with NG tube therapy initiated in the emergency room. Excellent results with this therapy with NG tube discontinued within 24 hours of hospitalization. Mild NG tube complication as above without sequelae. Patient was treated prophylactically with high-dose IV Pepcid, IV Protonix, IV Flagyl, IV fluids, and IV Rocephin with no abdominal pain or other complications during this hospitalization - Patient Instructions Diet: Regular Diet as Tolerated Diet, Other: As per discharge instructions Activity: As Tolerated Driving: May Drive Today Showering/Bathing: May Shower Notify Provider of: Fever, Increased Pain, Nausea and/or Vomiting Other/Special Instructions: 1. Follow-up with your regular provider in one week for reevaluation and recommended repeat CBC, comprehensive metabolic panel, and magnesium level. 2. Follow-up with your GI specialist as already scheduled in October with discussion of possible colonoscopy with serial biopsies and also possible repeat EGD with serial biopsies at that time. Notify him of this hospitalization including borderline ileus/obstruction. 3. Bring these discharge instructions with you both to your follow-up visit with your regular provider and your GI specialist. 4. Strict discontinuation of Imodium and/or other similar products. 5. Maintain a strict daily food diary as discussed, including types of foods, symptoms, number of bowel movements, etc. Use dietary measures to control your alternating constipation and diarrhea as discussed, including bananas, etc. 6. Strict compliance with all medical therapy as discussed. 7. Recommend additional follow-up with your regular provider in about 4 weeks for reevaluation and repeat CBC, comprehensive metabolic panel, magnesium level, vitamin B 12 level, folic acid level, TIBC panel, Transferrin, and ferritin levels at that time. 8. Kay diet including encouragement of oral fluids such as sports drinks, etc. for 24-48 hours as directed. Advance to regular high fiber and diverticulosis diet as tolerated thereafter. 9. Work excuse- See Form - Discharge Plan Home Medications: Home Meds Folic Acid 1 mg PO QPM #100 tablet 05/30/16 [Rx] Levothyroxine [Synthroid] 50 mcg PO ACBREAKFAST #60 tablet 05/30/16 [Rx] Magnesium Oxide 400 mg PO QPM #100 tablet 05/30/16 [Rx] Ferrous Sulfate 650 mg PO QPM #60 tablet 09/21/16 [Rx] Non-Formulary Medication [NF Drug] 1 tab PO DAILY #100 09/21/16 [Rx] Non-Formulary Medication [NF Drug] 2 tab PO DAILY #100 09/21/16 [Rx] Potassium Chloride [Klor-Con M20] 20 meq PO BID tab.er 09/21/16 [Rx] Patient Handouts: Abdominal Pain, Adult, [id number] Forms: ED Department Discharge Referrals: Eleanor Glover PA [Primary Care Provider] - - Discharge Summary/Plan Comment DC Time >30 min.: Yes (Coordination of care) Discharge Summary/Plan Comment: As above. Extensive precautions were given to the patient, who is in agreement with the treatment plan. See Patient Instructions for further treatment and plan. - General Info Admission Dx/Problem (Free Text: 1. Abdominal pain 2. Threatening ileus/obstruction with history of chronic diarrhea Functional Status: Reports: Pain Controlled, Tolerating Diet, Ambulating, Urinating. Denies: New Symptoms, Incentive Spirometry Numeric/FACES Score: 0 - Review of Systems General: Reports: No Symptoms. Denies: Fever, Weakness, Fatigue, Malaise, Chills, Night Sweats, Appetite (Good) HEENT: Reports: No Symptoms, Other (No epistaxis or nasal discomfort, right lateral nasal stud). Denies: Dysphasia, Ear Pain, Eye Pain, Headaches, Post Nasal Drip, Sinus Congestion, Sore Throat, Rhinitis, Visual Changes Pulmonary: Reports: No Symptoms. Denies: Shortness of Breath, Pleuritic Chest Pain, Cough, Hemoptysis, Wheezing Cardiovascular: Reports: No Symptoms. Denies: Chest Pain, Palpitations, Dyspnea on Exertion, Orthopnea, PND, Edema, Lightheadedness Gastrointestinal: Reports: No Symptoms. Denies: Abdominal Pain, Constipation, Decreased Appetite, Diarrhea, Difficulty Swallowing, Flatus, Hematochezia, Melena, Nausea, Vomiting Genitourinary: Reports: No Symptoms. Denies: Dysuria, Frequency, Burning, Pain , Urgency, Incontinence, Hematuria, Retention, Flank Pain Musculoskeletal: Reports: No Symptoms. Denies: Neck Pain, Shoulder Pain, Arm Pain, Back Pain, Leg Pain Skin: Reports: Pallor (Mild). Denies: Jaundice, Diaphoresis, Bruising Neurological: Reports: No Symptoms. Denies: Confusion, Dizziness, Headache, Numbness, Paresthesia, Syncope, Tingling, Weakness Psychiatric: Reports: No Symptoms. Denies: Confusion, Depression, Anxiety, Agitation, Cravings, Hallucinations - Patient Data Vitals - Most Recent: Last Vital Signs Temp 36.6 C 09/21/16 07:56 Pulse 77 09/21/16 07:56 Resp 16 09/21/16 07:56 BP 107/68 09/21/16 07:56 Pulse Ox 98 09/21/16 07:56 Vital Signs - 24 hr 09/20/16 09/20/16 09/20/16 11:25 16:00 21:50 Temperature [ 36.1 C 37.6 C 36.3 C Oral] Pulse, 74 70 72 Peripheral [ Left Pulse Oximetry] Respiratory 16 12 Rate Blood Pressure 106/65 104/56 L 117/69 [Right Upper Arm] O2 Sat by Pulse 100 99 100 Oximetry 09/20/16 09/21/16 23:51 07:56 Temperature [ 36.8 C 36.6 C Oral] Pulse, 73 77 Peripheral [ Left Pulse Oximetry] Respiratory 20 16 Rate Blood Pressure 117/74 107/68 [Right Upper Arm] O2 Sat by Pulse 100 98 Oximetry Weight - Most Recent: 59.466 kg I&O - Last 24 hours: Intake & Output 09/20/16 09/21/16 09/21/16 22:59 06:59 14:59 Intake Total 390 900 100 Balance 390 900 100 Imaging Impressions - Last 24 hrs: Acute abdominal x-rays on day of discharge showed evidence of mild to moderate pulmonary obstructive disease consistent with her asthma with no pulmonary infiltrates, cardiomegaly, CHF, pneumothorax, fluid levels, ileus, obstruction, etc. Note status post gastric bypass changes. Complete resolution of previous significant bowel gaseous distention with multiple fluid levels at time of admission Lab Results - Last 24 hrs: Laboratory Results - last 24 hr 09/21/16 09/21/16 Range/Units 06:40 06:40 WBC 5.3 (4.0-10.2) K/uL RBC 3.73 L (3.77-5.09) M/uL Hgb 9.1 L (11.7-15.5) g/dL Hct 29.0 L (34.0-46.0) % MCV 77.7 L (84.0-98.0) fL MCH 24.4 L (28.2-33.3) pg MCHC 31.4 L (31.7-36.0) g/dL RDW 15.7 H (11.2-14.1) % Plt Count 235 (150-350) K/uL Neut % (Auto) 43.8 L (45.0-80.0) % Lymph % (Auto) 40.2 (10.0-50.0) % [place] % (Auto) 12.5 (2.0-14.0) % Eos % (Auto) 2.6 (0.0-5.0) % Baso % (Auto) 0.9 (0.0-2.0) % Neut # (Auto) 2.32 (1.40-7.00) K/uL Lymph # (Auto) 2.13 (0.50-3.50) K/uL [place] # (Auto) 0.66 (0.00-1.00) K/uL Eos # (Auto) 0.14 (0.00-0.50) K/uL Baso # (Auto) 0.05 (0.00-0.20) K/uL Sodium 142 (136-145) mmol/L Potassium 3.5 (3.5-5.1) mmol/L Chloride 108 H (98-107) mmol/L Carbon Dioxide 23.8 (21.0-32.0) mmol/L BUN 4 L (7-18) mg/dL Creatinine 0.67 (0.51-1.17) mg/dL Est Cr Clr Drug Dosing 87.51 mL/min Estimated GFR (MDRD) > 60 mL/min Glucose 98 (74-106) mg/dL Calcium 8.2 L (8.5-10.1) mg/dL Magnesium 1.4 L (1.8-2.4) mg/dL Total Bilirubin 0.4 (0.2-1.0) mg/dL AST 26 (15-37) U/L ALT 35 (12-78) U/L Alkaline Phosphatase 103 (46-116) IU/L Total Protein 6.3 L (6.4-8.2) g/dL Albumin 3.0 L (3.4-5.0) g/dL Amylase 56 (25-115) U/L Lipase 79 (73-393) U/L Laboratory Tests 09/19/16 09/19/16 09/19/16 Range/Units 21:49 22:05 22:20 WBC 7.7 (4.0-10.2) K/uL RBC 3.75 L (3.77-5.09) M/uL Hgb 9.1 L (11.7-15.5) g/dL Hct 28.9 L (34.0-46.0) % MCV 77.1 L (84.0-98.0) fL MCH 24.3 L (28.2-33.3) pg MCHC 31.5 L (31.7-36.0) g/dL RDW 15.2 H (11.2-14.1) % Plt Count 249 (150-350) K/uL Neut % (Auto) 53.3 (45.0-80.0) % Lymph % (Auto) 34.5 (10.0-50.0) % [place] % (Auto) 10.1 (2.0-14.0) % Eos % (Auto) 1.7 (0.0-5.0) % Baso % (Auto) 0.4 (0.0-2.0) % Neut # (Auto) 4.10 (1.40-7.00) K/uL Lymph # (Auto) 2.65 (0.50-3.50) K/uL [place] # (Auto) 0.78 (0.00-1.00) K/uL Eos # (Auto) 0.13 (0.00-0.50) K/uL Baso # (Auto) 0.03 (0.00-0.20) K/uL PT (9.8-11.7) SEC INR APTT (23.5-30.0) SEC Sodium (136-145) mmol/L Potassium (3.5-5.1) mmol/L Chloride (98-107) mmol/L Carbon Dioxide (21.0-32.0) mmol/L BUN (7-18) mg/dL Creatinine (0.51-1.17) mg/dL Est Cr Clr Drug Dosing mL/min Estimated GFR (MDRD) mL/min Glucose (74-106) mg/dL Lactic Acid (0.4-2.0) mmol/L Uric Acid (2.6-7.2) mg/dL Calcium (8.5-10.1) mg/dL Magnesium (1.8-2.4) mg/dL Total Bilirubin (0.2-1.0) mg/dL AST (15-37) U/L ALT (12-78) U/L Alkaline Phosphatase (46-116) IU/L Total Protein (6.4-8.2) g/dL Albumin (3.4-5.0) g/dL Amylase 72 (25-115) U/L Lipase (73-393) U/L TSH, Ultra Sensitive (0.358-3.740) mIU/mL HCG, Qual (NEGATIVE) Specimen Type Urincc Urine Color Yellow Urine Appearance Clear Urine pH 5.5 (5.0-9.0) Ur Specific [place] 1.020 (1.005-1.030) Urine Protein Negative (NEGATIVE) mg/dL Urine Glucose (UA) Negative (NEGATIVE) mg/dL Urine Ketones Negative (NEGATIVE) mg/dL Urine Occult Blood Negative (NEGATIVE) Urine Nitrite Negative (NEGATIVE) Urine Bilirubin Negative (NEGATIVE) Urine Urobilinogen 0.2 (0.2-1.0) E.U./dL Ur Leukocyte Esterase Negative (NEGATIVE) Urine RBC 0-5 /HPF Urine WBC 0-5 /HPF Ur Epithelial Cells Few /LPF Urine Bacteria Occasional (NONE TO FEW) /HPF Hyaline Casts Occasional H (NEGATIVE) /LPF 09/19/16 09/19/16 09/19/16 Range/Units 22:20 22:20 22:20 WBC (4.0-10.2) K/uL RBC (3.77-5.09) M/uL Hgb (11.7-15.5) g/dL Hct (34.0-46.0) % MCV (84.0-98.0) fL MCH (28.2-33.3) pg MCHC (31.7-36.0) g/dL RDW (11.2-14.1) % Plt Count (150-350) K/uL Neut % (Auto) (45.0-80.0) % Lymph % (Auto) (10.0-50.0) % [place] % (Auto) (2.0-14.0) % Eos % (Auto) (0.0-5.0) % Baso % (Auto) (0.0-2.0) % Neut # (Auto) (1.40-7.00) K/uL Lymph # (Auto) (0.50-3.50) K/uL [place] # (Auto) (0.00-1.00) K/uL Eos # (Auto) (0.00-0.50) K/uL Baso # (Auto) (0.00-0.20) K/uL PT 10.5 (9.8-11.7) SEC INR 1.0 APTT 26.4 (23.5-30.0) SEC Sodium 138 (136-145) mmol/L Potassium 3.5 (3.5-5.1) mmol/L Chloride 107 (98-107) mmol/L Carbon Dioxide 22.0 (21.0-32.0) mmol/L BUN 18 (7-18) mg/dL Creatinine 0.71 (0.51-1.17) mg/dL Est Cr Clr Drug Dosing 83.30 mL/min Estimated GFR (MDRD) > 60 mL/min Glucose 102 (74-106) mg/dL Lactic Acid 0.5 (0.4-2.0) mmol/L Uric Acid 3.3 (2.6-7.2) mg/dL Calcium 8.2 L (8.5-10.1) mg/dL Magnesium 1.4 L (1.8-2.4) mg/dL Total Bilirubin 0.2 (0.2-1.0) mg/dL AST 36 (15-37) U/L ALT 43 (12-78) U/L Alkaline Phosphatase 113 (46-116) IU/L Total Protein 6.8 (6.4-8.2) g/dL Albumin 3.3 L (3.4-5.0) g/dL Amylase (25-115) U/L Lipase 138 (73-393) U/L TSH, Ultra Sensitive 8.906 H (0.358-3.740) mIU/mL HCG, Qual (NEGATIVE) Specimen Type Urine Color Urine Appearance Urine pH (5.0-9.0) Ur Specific [place] (1.005-1.030) Urine Protein (NEGATIVE) mg/dL Urine Glucose (UA) (NEGATIVE) mg/dL Urine Ketones (NEGATIVE) mg/dL Urine Occult Blood (NEGATIVE) Urine Nitrite (NEGATIVE) Urine Bilirubin (NEGATIVE) Urine Urobilinogen (0.2-1.0) E.U./dL Ur Leukocyte Esterase (NEGATIVE) Urine RBC /HPF Urine WBC /HPF Ur Epithelial Cells /LPF Urine Bacteria (NONE TO FEW) /HPF Hyaline Casts (NEGATIVE) /LPF 09/19/16 09/21/16 09/21/16 Range/Units 22:20 06:40 06:40 WBC 5.3 (4.0-10.2) K/uL RBC 3.73 L (3.77-5.09) M/uL Hgb 9.1 L (11.7-15.5) g/dL Hct 29.0 L (34.0-46.0) % MCV 77.7 L (84.0-98.0) fL MCH 24.4 L (28.2-33.3) pg MCHC 31.4 L (31.7-36.0) g/dL RDW 15.7 H (11.2-14.1) % Plt Count 235 (150-350) K/uL Neut % (Auto) 43.8 L (45.0-80.0) % Lymph % (Auto) 40.2 (10.0-50.0) % [place] % (Auto) 12.5 (2.0-14.0) % Eos % (Auto) 2.6 (0.0-5.0) % Baso % (Auto) 0.9 (0.0-2.0) % Neut # (Auto) 2.32 (1.40-7.00) K/uL Lymph # (Auto) 2.13 (0.50-3.50) K/uL [place] # (Auto) 0.66 (0.00-1.00) K/uL Eos # (Auto) 0.14 (0.00-0.50) K/uL Baso # (Auto) 0.05 (0.00-0.20) K/uL PT (9.8-11.7) SEC INR APTT (23.5-30.0) SEC Sodium 142 (136-145) mmol/L Potassium 3.5 (3.5-5.1) mmol/L Chloride 108 H (98-107) mmol/L Carbon Dioxide 23.8 (21.0-32.0) mmol/L BUN 4 L (7-18) mg/dL Creatinine 0.67 (0.51-1.17) mg/dL Est Cr Clr Drug Dosing 87.51 mL/min Estimated GFR (MDRD) > 60 mL/min Glucose 98 (74-106) mg/dL Lactic Acid (0.4-2.0) mmol/L Uric Acid (2.6-7.2) mg/dL Calcium 8.2 L (8.5-10.1) mg/dL Magnesium 1.4 L (1.8-2.4) mg/dL Total Bilirubin 0.4 (0.2-1.0) mg/dL AST 26 (15-37) U/L ALT 35 (12-78) U/L Alkaline Phosphatase 103 (46-116) IU/L Total Protein 6.3 L (6.4-8.2) g/dL Albumin 3.0 L (3.4-5.0) g/dL Amylase 56 (25-115) U/L Lipase 79 (73-393) U/L TSH, Ultra Sensitive (0.358-3.740) mIU/mL HCG, Qual Negative (NEGATIVE) Specimen Type Urine Color Urine Appearance Urine pH (5.0-9.0) Ur Specific [place] (1.005-1.030) Urine Protein (NEGATIVE) mg/dL Urine Glucose (UA) (NEGATIVE) mg/dL Urine Ketones (NEGATIVE) mg/dL Urine Occult Blood (NEGATIVE) Urine Nitrite (NEGATIVE) Urine Bilirubin (NEGATIVE) Urine Urobilinogen (0.2-1.0) E.U./dL Ur Leukocyte Esterase (NEGATIVE) Urine RBC /HPF Urine WBC /HPF Ur Epithelial Cells /LPF Urine Bacteria (NONE TO FEW) /HPF Hyaline Casts (NEGATIVE) /LPF DAVID Results - Last 24 hrs: Microbiology 09/20/16 01:06 Stool Occult Blood (DAVID) - Final Stool / Feces NEGATIVE OCCULT BLOOD Microbiology 09/19/16 01:06 Stool / Feces Helicobacter pylori Antigen - Final, which was negative 09/20/16 01:06 Stool / Feces Stool Occult Blood (DAVID) - Final NEGATIVE OCCULT BLOOD 09/19/16 21:49 Stool / Feces Stool Occult Blood (DAVID) - Final NEGATIVE OCCULT BLOOD Urine culture and sensitivity still pending Stool for C. difficile toxin still pending Med Orders - Current: Current Medications Amoxicillin/Clavulanate Potassium (Augmentin 875 Mg/125 Mg) 1 tab PO BIDAC [facility] Last Admin: 09/21/16 07:21 Dose: 1 tab Famotidine (Pepcid) 20 mg PO BID [facility] Last Admin: 09/21/16 07:22 Dose: 20 mg Ferrous Sulfate (Ferrous Sulfate) 325 mg PO TIDMEALS [facility] Last Admin: 09/21/16 07:22 Dose: 325 mg Metronidazole (Flagyl) 500 mg PO TID [facility] Last Admin: 09/21/16 07:22 Dose: 500 mg Pantoprazole Sodium (Protonix) 40 mg PO BIDAC [facility] Last Admin: 09/21/16 07:28 Dose: 40 mg Potassium Chloride (Klor-Con M20) 20 meq PO TID [facility] Last Admin: 09/21/16 07:28 Dose: 20 meq Discontinued Medications Diazepam (Valium) 2.5 mg IVPUSH ONETIME ONE Stop: 09/19/16 23:52 Last Admin: 09/19/16 23:58 Dose: 2.5 mg Diazepam (Valium) 2.5 mg IVPUSH Q4H PRN PRN Reason: Agitation Last Admin: 09/20/16 09:13 Dose: 2.5 mg Famotidine (Pepcid) 40 mg IVPUSH ONETIME ONE Stop: 09/19/16 21:50 Last Admin: 09/19/16 22:19 Dose: 40 mg Famotidine (Pepcid) 20 mg IVPUSH Q12H [facility] Last Admin: 09/20/16 21:18 Dose: Not Given Lactated Ringer's (Ringers, Lactated) 1,000 mls @ 999 mls/hr IV .BOLUS ONE Stop: 09/19/16 22:49 Last Admin: 09/19/16 22:20 Dose: 999 mls/hr Ceftriaxone Sodium 1 gm/ (Sodium Chloride) 100 mls @ 200 mls/hr IV Q12H [facility] Metronidazole 500 mg/ Premix 100 mls @ 100 mls/hr IV Q8H [facility] Potassium Chloride/Dextrose/Sod Cl (D5 1/2 Ns W/ 40 Meq/L Kcl) 1,000 mls @ 100 mls/hr IV ASDIRECTED [facility] Last Admin: 09/20/16 01:51 Dose: 100 mls/hr Ceftriaxone Sodium 1 gm/ (Sodium Chloride) 100 mls @ 200 mls/hr IV Q12H [facility] Last Admin: 09/20/16 13:38 Dose: 200 mls/hr Metronidazole 500 mg/ Premix 100 mls @ 100 mls/hr IV Q8H [facility] Last Admin: 09/20/16 18:02 Dose: 100 mls/hr Potassium Chloride/Dextrose/Sod Cl (D5 1/2 Ns W/ 40 Meq/L Kcl) 1,000 mls @ 80 mls/hr IV ASDIRECTED [facility] Last Admin: 09/20/16 11:04 Dose: 80 mls/hr Lidocaine HCl (Xylocaine 2% Viscous) 15 ml PO ONETIME ONE Stop: 09/20/16 10:25 Last Admin: 09/20/16 10:32 Dose: 15 ml Metronidazole (Flagyl) 500 mg PO Q8H [facility] Last Admin: 09/20/16 22:29 Dose: Not Given Pantoprazole Sodium (Protonix Iv) 40 mg IVPUSH ONETIME ONE Stop: 09/19/16 21:50 Last Admin: 09/19/16 22:19 Dose: 40 mg Pantoprazole Sodium (Protonix Iv) 40 mg IVPUSH Q12H [facility] Last Admin: 09/20/16 11:04 Dose: 40 mg Phenol/Menthol (Chloraseptic Throat [place]) 1 ml MUCMEM Q2H PRN PRN Reason: Pain Last Admin: 09/20/16 09:11 Dose: 1 spray Sodium Chloride (Saline Flush) 10 ml FLUSH ASDIRECTED PRN PRN Reason: Keep Vein Open Last Admin: 09/20/16 10:36 Dose: 10 ml Sodium Chloride (Saline Flush) 10 ml FLUSH Q12HR [facility] Last Admin: 09/20/16 21:15 Dose: Not Given - Exam Quality Assessment: Reports: DVT Prophylaxis. Denies: Supplemental Oxygen, Central Line/PICC, Urine Catheter, Skin Breakdown, Restraints General: Reports: Alert, Oriented, Cooperative, No Acute Distress HEENT: Reports: Pupils Equal, Pupils Reactive, EOMI, Mucous Membr. Moist/[place], Other (No nasal injury, epistaxis, etc. right lateral nasal stud) Neck: Reports: Supple, Trachea Midline, No JVD, No Thyromegaly. Denies: Lymphadenopathy Lungs: Reports: Clear to Auscultation, Normal Respiratory Effort. Denies: Rub Cardiovascular: Reports: Regular Rate, Regular Rhythm, No Murmurs. Denies: Murmurs, Gallops GI/Abdominal Exam: Normal Bowel Sounds, Soft, Non-Tender, No Organomegaly, No Distention, No Abnormal Bruit, No Mass, Pelvis Stable. No: Guarding (Female) Exam: Deferred Rectal (Female) Exam: Deferred Back Exam: Reports: Normal Inspection, Full Range of Motion. Denies: CVA Tenderness (L), CVA Tenderness (R), Muscle Spasm Extremities: Normal Inspection, Normal Range of Motion, Non-Tender, No Pedal Edema, Normal Capillary Refill Skin: Reports: Warm, Dry, Intact, Other (Mild pallor secondary to anemia stable from admission). Denies: Ecchymosis Neurological: Reports: No New Focal Deficit, Other (No clinical orthostasis) Psy/Mental Status: Reports: Alert, Normal Affect, Normal Mood. Denies: Agitated , Withdrawal Symptoms *Q Meaningful Use (DIS) - VTE *Q VTE Criteria *Q: - Stroke *Q Stroke Criteria *Q: - AMI *Q AMI Criteria *Q:
--- NOTE | 2016-09-21 09:43 | PCM.SN ---
- Free Text/Narrative Note: Note that hypoalbuminemia was not indicated in Discharge Summary. This was discussed extensively with the patient prior to discharge with initiation of additional high-protein Glucerna supplements as snacks on a twice a day basis.
== END 2016-09-21 09:50 | disposition home or self-care (01) | DRG 390 ==
LOC: LL.ED 21:47 → LL.MS 09-20 00:20
PROVIDERS: ADMIT Family Medicine; ATTEND Family Medicine
DX: K56.60 Unspecified intestinal obstruction (principal); K56.7 Ileus, unspecified; R10.9 Unspecified abdominal pain; J45.20 Mild intermittent asthma, uncomplicated; Z98.84 Bariatric surgery status; E03.9 Hypothyroidism, unspecified; E53.8 Deficiency of other specified B group vitamins; K21.9 Gastro-esophageal reflux disease without esophagitis; F41.8 Other specified anxiety disorders; D53.9 Nutritional anemia, unspecified; E83.42 Hypomagnesemia; E88.09 Other disorders of plasma-protein metabolism, not elsewhere classified; H54.7 Unspecified visual loss; H91.90 Unspecified hearing loss, unspecified ear; H35.30 Unspecified macular degeneration; Z91.040 Latex allergy status; Z88.8 Allergy status to other drugs, medicaments and biological substances
CPT/HCPCS: 36415; 74022; 80053; 81001; 82150; 82272; 83605; 83690; 83735; 84443; 84550; 84703; 85025; 85610; 85730; 87086; 96361; 96374; 96375; 99285; C9113; J3360; J7120; 87338; 87493; A9270-GY; J0696; J3480; J7050; S0028

== ENCOUNTER 2017-09-08 12:24 | Emergency (ER) | payer OTHER ==
[2017-09-08 12:32] VITALS: BP 124/87
--- NOTE | 2017-09-08 13:13 | EDM.PDOC ---
ED HPI GENERAL MEDICAL PROBLEM - General Chief Complaint: ENT Problem Stated Complaint: eye discomfort, blurred vision Time Seen by Provider: 09/08/17 13:00 Source of Information: Reports: Patient History Limitations: Reports: No Limitations - History of Present Illness INITIAL COMMENTS - FREE TEXT/NARRATIVE: Acute right eye pain. Initially symptoms started as blurry vision and clear tearing last night. Eye pain developed this morning. 06/29 currently. No headache/fever. No other HEENT complaints. Similar episode several weeks ago as well as another one several months ago. Was seen by primary provider once and given eye drops to cover for possible conjunctivitis. Symptoms previously resolved after several days with both other episodes. She tried the drops again today but no change/drops burned. Has not been evaluated by an eye provider over this time frame. Treatments DESIGN ARCHITECT: Reports: Other (see below) Other Treatments DESIGN ARCHITECT: eye drops at home Right eye Pain Score (Numeric/FACES): 5 - Related Data Allergies Allergy/AdvReac Type Severity Reaction Status Date / Time Latex, Natural Rubber Allergy Hives Verified 09/08/17 12:27 ondansetron Allergy Shaking,Tac Verified 09/08/17 12:27 hycardia promethazine HCl Allergy Irritabilit Verified 09/08/17 12:27 [From Phenergan] y Home Meds: Home Meds Folic Acid 1 mg PO QPM #100 tablet 05/30/16 [Rx] Levothyroxine [Synthroid] 50 mcg PO ACBREAKFAST #60 tablet 05/30/16 [Rx] Magnesium Oxide 400 mg PO QPM #100 tablet 05/30/16 [Rx] Non-Formulary Medication [NF Drug] 1 tab PO DAILY #100 09/21/16 [Rx] Non-Formulary Medication [NF Drug] 2 tab PO DAILY #100 09/21/16 [Rx] Potassium Chloride [Klor-Con M20] 20 meq PO BID tab.er 09/21/16 [Rx] Past Medical History HEENT History: Reports: Impaired Vision, Sinusitis, Other (See Below) Other HEENT History: Soft contact lenses, glasses Cardiovascular History: Reports: High Cholesterol, Syncope, Other (See Below) Other Cardiovascular History: History of obesity and hyperlipidemia with fatty liver including post gastric bypass, previous recurrent syncope of unknown etiology with last episode in July 2014, chronic hypotension Respiratory History: Reports: Asthma, Intubation, Previous, Other (See Below) Other Respiratory History: Right lower lobe stable benign pulmonary nodules Gastrointestinal History: Reports: Bowel Obstruction, Chronic Diarrhea, Gastritis, GERD, GI Bleed, PUD, Other (See Below) Other Gastrointestinal History: History of fatty liver with LFTs elevation including post gastric bypass surgery, upper GI bleed secondary to gastric ulcer in her mid 30s with no blood transfusion required, multiple previous small bowel obstruction secondary to previous gastric bypass surgery, nonspecific malabsorption syndrome Genitourinary History: Reports: None PER DIEM NURSE History: Reports: Other PER DIEM NURSE History: Bilateral ovarian cysts Musculoskeletal History: Reports: None Neurological History: Reports: None Psychiatric History: Reports: Anxiety, Depression Endocrine/Metabolic History: Reports: Hypothyroidism, Multinodular Thyroid, Obesity/BMI 30+, Other (See Below) Other Endocrine/Metabolic History: Previous borderline hyperglycemia secondary to obesity, hypokalemia, vitamin D deficiency, borderline hypothyroidism with history of multiple benign thyroid nodules Hematologic History: Reports: Anemia, B12 Deficiency, Folic Acid, Iron Deficiency Immunologic History: Reports: None Oncologic (Cancer) History: Reports: None Dermatologic History: Reports: None - Infectious Disease History Infectious Disease History: Reports: Chicken Pox - Past Surgical History Head Surgeries/Procedures: Reports: None HEENT Surgical History: Reports: Oral Surgery, Other (See Below) Other HEENT Surgeries/Procedures: [place] teeth extraction 2 at age 20 Cardiovascular Surgical History: Reports: None Respiratory Surgical History: Reports: None GI Surgical History: Reports: Bariatric Procedure, Cholecystectomy, EGD, Hernia , Abdominal, Hernia, Inguinal, Hernia Repair/Other, Other (See Below) Other GI Surgeries/Procedures: Gastric bypass surgery with concomitant cholecystectomy in August 2006, patient denies previous gastric bypass revisions as per medical records although evidence of anastomosis dilatations in the past EGD, last EGD in 2015 with previous evaluation in 2007 with concomitant gastric feeding tube placement at that time, umbilical hernia repair in November 2015, right inguinal hernia repair in 2004 Female Surgical History: Reports: Section, Other (See Below) Other Female Surgeries/Procedures: in 1996, 1999, 2000, patient denies previous tubal ligation despite medical records Endocrine Surgical History: Reports: Thyroid Biopsy, Other (See Below) Other Endocrine Surgeries/Procedures: Thyroid biopsy in 2014 Neurological Surgical History: Reports: None Musculoskeletal Surgical History: Reports: None Oncologic Surgical History: Reports: None Dermatological Surgical History: Reports: None - Past Imaging History Past Imaging History: Reports: Cardiac Echo (07/29/09 with ejection fraction of 68 %), CAT Scan (CT of the brain on 06/20/08, CT of the abdomen and pelvis with contrast on 06/12/11, 09/08/10, and 06/20/08, CT of the head and cervical region on 07/24/09), Ultrasound (Abdominal ultrasound on 11/06/08) Social & Family History - Family History HEENT: Reports: None Cardiac: Reports: High Cholesterol, Hypertension, Other (See Below) Other Cardiac Family History: Father with hyperlipidemia, hypertension in father and maternal grandfather Respiratory: Reports: Sleep Apnea, Other (See Below) Other Respiratory Family Hisory: Father with sleep apnea and history of tobacco use GI: Reports: Colon Polyps, GERD, PUD, Other (See Below) Other GI Family History: GERD in mother, father with colonic polyps and peptic ulcer disease OBGYN: Reports: Dysfunctional uterine bleeding, Fibroids, Recurrent Spontaneous , Other (See Below) Other OBGYN Family History: Other with dysfunctional uterine bleeding requiring hysterectomy with additional history of recurrent SAB Musculoskeletal: Reports: Gout, Osteoarthritis, Other (See Below) Other Musculoskeletal Family History: Father with gout Neurological: Reports: None Psychiatric: Reports: Anxiety, Depression, Other (See Below) Other Psychiatric Family History: Anxiety depression disorder in mother, maternal great grandmother and paternal great-grandmother Endocrine/Metabolic: Reports: Diabetes, type II, Hypothyroidism, IDDM, Other ( See Below) Other Endocrine/Metabolic Family History: IDDM in maternal grandmother, paternal grandmother, maternal grandfather, and maternal great-grandmother with brother with possible hyperglycemia, father with hypothyroidism secondary to thyroid resection from metastatic renal cancer as below Hematologic: Reports: Anemia Immunologic: Reports: None Dermatologic: Reports: None Oncologic: Reports: Leukemia, Metastatic, Renal, Skin, Thyroid, Other (See Below ) Other Oncologic Family History: Mother with melanoma, paternal grandmother with basal cell carcinoma, maternal aunt with basal cell carcinoma, Cousin with leukemia, mother with multiple myeloma, father with metastatic renal cancer with metastases to the thyroid gland and lungs - Tobacco Use Smoking Status *Q: Never Smoker Second Hand Smoke Exposure: No - Caffeine Use Caffeine Use: Reports: Soda Caffeine Use Comment: DAILY 2BOTTLES - Recreational Drug Use Recreational Drug Use: No - Living Situation & Occupation Living situation: Reports: (1997, 3 children), with Family ( and 3 children) 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 ED EXAM GENERAL W FULL EYE - Physical Exam Exam: See Below Exam Limited By: No Limitations General Appearance: Alert, WD/WN, No Apparent Distress Eye Exam: Right Eye: Vision Changes (Patient did not bring her glasses. Vision checked by nursing staff but difficult to fully assess due to lack of corrective lenses. ), Bilateral Eye: EOMI, Normal Fundi (unable to fully assess due to pupillary constriction/photophobia), PERRL Visual Acuity (R) 20/: 140 Visual Acuity (L) 20/: 100 With Correction: No Eyelids: Bilateral: Normal Appearance Conjunctiva & Sclera: Bilateral: Normal Appearance Cornea Exam: Bilateral: Normal Appearance Extraocular Movements: Bilateral: Intact Pupils: Miotic Pupillary Size: Bilateral: 3 mm Pupillary Reaction: Bilateral: Brisk Anterior Chamber: Bilateral: Normal Appearance Posterior Chamber: Bilateral: Unable to Examine Throat/Mouth: Normal Lips, Normal Voice, No Airway Compromise Head: Atraumatic, Normocephalic Neck: Supple Respiratory/Chest: No Respiratory Distress Neurological: Alert, Oriented, Normal Cognition, Normal Gait, No Motor/Sensory Deficits Psychiatric: Normal Affect, Normal Mood Course - Vital Signs Last Recorded V/S: Last Vital Signs Temp 36.6 C 09/08/17 12:30 Pulse 81 09/08/17 12:30 Resp 20 09/08/17 12:30 BP 124/87 09/08/17 12:30 Pulse Ox 100 09/08/17 12:30 - Re-Assessments/Exams Free Text/Narrative Re-Assessment/Exam: 09/08/17 13:20 Given multiple episodes as well as vision changes/pain, it was felt that best option was to have patient receive slit lamp evaluation as well as intraocular pressure testing performed to rule out more severe potential causes of patient' s complaint. Local eye provider office closed. Call placed to patient's eye clinic in [place]. Appointment obtained with for 3:20 this afternoon (in two hours) Patient agrees to drive directly to [place] to see her eye doctor for this appointment. To follow up here as needed. Departure - Departure Time of Disposition: 13:11 Disposition: Home, Self-Care 01 Condition: Good Clinical Impression: Acute right eye pain - Discharge Information *PRESCRIPTION DRUG MONITORING PROGRAM REVIEWED*: Not Applicable *COPY OF PRESCRIPTION DRUG MONITORING REPORT IN PATIENT SAM: Not Applicable Referrals: Moriah Albrecht PA-C [Primary Care Provider] - Forms: ED Department Discharge Additional Instructions: Drive directly to your eye clinic in [place] to see at 3:20 for more comprehensive eye exam and pressure testing.
== END 2017-09-08 13:30 | disposition home or self-care (01) ==
LOC: LL.ED 12:24
DX: H57.11 Ocular pain, right eye (principal); E78.00 Pure hypercholesterolemia, unspecified; J45.909 Unspecified asthma, uncomplicated; F41.9 Anxiety disorder, unspecified; F32.9 Major depressive disorder, single episode, unspecified; D64.9 Anemia, unspecified; E03.9 Hypothyroidism, unspecified; Z91.040 Latex allergy status; Z88.8 Allergy status to other drugs, medicaments and biological substances; Z79.899 Other long term (current) drug therapy
CPT/HCPCS: 99283

== ENCOUNTER 2018-07-27 19:18 | Emergency (ER) | payer OTHER ==
[2018-07-27 19:24] VITALS: BP 112/82
[2018-07-27] MEDS ORDERED: Acyclovir 200 MG Cap PO ONE (19:44)
--- NOTE | 2018-07-27 19:52 | EDM.PDOC ---
ED HPI GENERAL MEDICAL PROBLEM - General Chief Complaint: Skin Complaint Stated Complaint: rash Time Seen by Provider: 07/27/18 19:34 Source of Information: Reports: Patient History Limitations: Reports: No Limitations - History of Present Illness INITIAL COMMENTS - FREE TEXT/NARRATIVE: Patient here for evaluation of right. Rash noticed first around July 19. Located right posterior neck and right clavicular region. Unilateral. Skin pruritic before rash noted. Now has burning/itching in areas of rash. No fevers/chills. No history of similar rash in past. No drainage. No other complaints. Treatments BOLT SAWYER: Reports: NSAIDS Bilateral Upper Clavicle Pain Score (Numeric/FACES): 6 - Related Data Allergies Allergy/AdvReac Type Severity Reaction Status Date / Time Latex, Natural Rubber Allergy Hives Verified 07/27/18 19:24 ondansetron Allergy Shaking,Tac Verified 07/27/18 19:24 hycardia promethazine HCl Allergy Irritabilit Verified 07/27/18 19:24 [From Phenergan] y Home Meds: Home Meds Folic Acid 1 mg PO QPM #100 tablet 05/30/16 [Rx] Levothyroxine [Synthroid] 50 mcg PO ACBREAKFAST #60 tablet 05/30/16 [Rx] Magnesium Oxide 400 mg PO QPM #100 tablet 05/30/16 [Rx] Non-Formulary Medication [NF Drug] 1 tab PO DAILY #100 09/21/16 [Rx] Non-Formulary Medication [NF Drug] 2 tab PO DAILY #100 09/21/16 [Rx] Potassium Chloride [Klor-Con M20] 20 meq PO BID tab.er 09/21/16 [Rx] Acyclovir 800 mg PO TID #20 tablet 07/27/18 [Rx] Cyanocobalamin (Vitamin B12) [Vitamin B12] 1,000 mcg IM Q30D 07/27/18 [History] FLUoxetine HCl [Fluoxetine HCl] 20 mg PO DAILY 07/27/18 [History] Mupirocin Oint [Bactroban Oint] 22 gm .XX ASDIRECTED PRN #1 tube 07/27/18 [Rx] Past Medical History HEENT History: Reports: Impaired Vision, Sinusitis, Other (See Below) Other HEENT History: Soft contact lenses, glasses Cardiovascular History: Reports: High Cholesterol, Syncope, Other (See Below) Other Cardiovascular History: History of obesity and hyperlipidemia with fatty liver including post gastric bypass, previous recurrent syncope of unknown etiology with last episode in July 2014, chronic hypotension Respiratory History: Reports: Asthma, Intubation, Previous, Other (See Below) Other Respiratory History: Right lower lobe stable benign pulmonary nodules Gastrointestinal History: Reports: Bowel Obstruction, Chronic Diarrhea, Gastritis, GERD, GI Bleed, PUD, Other (See Below) Other Gastrointestinal History: History of fatty liver with LFTs elevation including post gastric bypass surgery, upper GI bleed secondary to gastric ulcer in her mid 30s with no blood transfusion required, multiple previous small bowel obstruction secondary to previous gastric bypass surgery, nonspecific malabsorption syndrome Genitourinary History: Reports: None METER TESTER POLYPHASE History: Reports: Other METER TESTER POLYPHASE History: Bilateral ovarian cysts Musculoskeletal History: Reports: None Neurological History: Reports: None Psychiatric History: Reports: Anxiety, Depression Endocrine/Metabolic History: Reports: Hypothyroidism, Multinodular Thyroid, Obesity/BMI 30+, Other (See Below) Other Endocrine/Metabolic History: Previous borderline hyperglycemia secondary to obesity, hypokalemia, vitamin D deficiency, borderline hypothyroidism with history of multiple benign thyroid nodules Hematologic History: Reports: Anemia, B12 Deficiency, Folic Acid, Iron Deficiency Immunologic History: Reports: None Oncologic (Cancer) History: Reports: None Dermatologic History: Reports: None - Infectious Disease History Infectious Disease History: Reports: Chicken Pox, Shingles - Past Surgical History Head Surgeries/Procedures: Reports: None HEENT Surgical History: Reports: Oral Surgery, Other (See Below) Other HEENT Surgeries/Procedures: [place] teeth extraction 2 at age 20 Cardiovascular Surgical History: Reports: None Respiratory Surgical History: Reports: None GI Surgical History: Reports: Bariatric Procedure, Cholecystectomy, EGD, Hernia , Abdominal, Hernia, Inguinal, Hernia Repair/Other, Other (See Below) Other GI Surgeries/Procedures: Gastric bypass surgery with concomitant cholecystectomy in August 2006, patient denies previous gastric bypass revisions as per medical records although evidence of anastomosis dilatations in the past EGD, last EGD in 2015 with previous evaluation in 2007 with concomitant gastric feeding tube placement at that time, umbilical hernia repair in November 2015, right inguinal hernia repair in 2004 Female Surgical History: Reports: Section, Other (See Below) Other Female Surgeries/Procedures: in 1996, 1999, 2000, patient denies previous tubal ligation despite medical records Endocrine Surgical History: Reports: Thyroid Biopsy, Other (See Below) Other Endocrine Surgeries/Procedures: Thyroid biopsy in 2015 Neurological Surgical History: Reports: None Musculoskeletal Surgical History: Reports: None Oncologic Surgical History: Reports: None Dermatological Surgical History: Reports: None - Past Imaging History Past Imaging History: Reports: Cardiac Echo (07/29/09 with ejection fraction of 68 %), CAT Scan (CT of the brain on 06/20/08, CT of the abdomen and pelvis with contrast on 06/12/11, 09/08/10, and 06/20/08, CT of the head and cervical region on 07/24/09), Ultrasound (Abdominal ultrasound on 11/06/08) Social & Family History - Family History HEENT: Reports: None Cardiac: Reports: High Cholesterol, Hypertension, Other (See Below) Other Cardiac Family History: Father with hyperlipidemia, hypertension in father and maternal grandfather Respiratory: Reports: Sleep Apnea, Other (See Below) Other Respiratory Family Hisory: Father with sleep apnea and history of tobacco use GI: Reports: Colon Polyps, GERD, PUD, Other (See Below) Other GI Family History: GERD in mother, father with colonic polyps and peptic ulcer disease OBGYN: Reports: Dysfunctional uterine bleeding, Fibroids, Recurrent Spontaneous , Other (See Below) Other OBGYN Family History: Other with dysfunctional uterine bleeding requiring hysterectomy with additional history of recurrent SAB Musculoskeletal: Reports: Gout, Osteoarthritis, Other (See Below) Other Musculoskeletal Family History: Father with gout Neurological: Reports: None Psychiatric: Reports: Anxiety, Depression, Other (See Below) Other Psychiatric Family History: Anxiety depression disorder in mother, maternal great grandmother and paternal great-grandmother Endocrine/Metabolic: Reports: Diabetes, type II, Hypothyroidism, IDDM, Other ( See Below) Other Endocrine/Metabolic Family History: IDDM in maternal grandmother, paternal grandmother, maternal grandfather, and maternal great-grandmother with brother with possible hyperglycemia, father with hypothyroidism secondary to thyroid resection from metastatic renal cancer as below Hematologic: Reports: Anemia Immunologic: Reports: None Dermatologic: Reports: None Oncologic: Reports: Leukemia, Metastatic, Renal, Skin, Thyroid, Other (See Below ) Other Oncologic Family History: Mother with melanoma, paternal grandmother with basal cell carcinoma, maternal aunt with basal cell carcinoma, Cousin with leukemia, mother with multiple myeloma, father with metastatic renal cancer with metastases to the thyroid gland and lungs - Tobacco Use Smoking Status *Q: Never Smoker Second Hand Smoke Exposure: No - Caffeine Use Caffeine Use: Reports: Soda Caffeine Use Comment: DAILY 2BOTTLES - Recreational Drug Use Recreational Drug Use: No - Living Situation & Occupation Living situation: Reports: (1997, 3 children), with Family ( and 3 children) 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 ED EXAM, SKIN/RASH Exam: See Below Exam Limited By: No Limitations General Appearance: Alert, WD/WN, No Apparent Distress Eye Exam: Bilateral Eye: EOMI, PERRL Head: Atraumatic, Normocephalic Neck: Supple Respiratory/Chest: No Respiratory Distress Neurological: Alert, Oriented, Normal Cognition, Normal Gait Psychiatric: Normal Affect, Normal Mood Skin: Warm, Dry, Other (macular-papular erruption noted around right clavicle. No obvious blisters however. No drainage noted. Linear in some areas, otherwise scattered small areas of redness. One spot also noted on right side of back of neck. ) Course - Vital Signs Last Recorded V/S: Last Vital Signs Temp Pulse 72 07/27/18 19:19 Resp 20 07/27/18 19:19 BP 112/82 07/27/18 19:19 Pulse Ox 98 07/27/18 19:19 - Orders/Labs/Meds Meds: Medications Discontinued Medications Generic Name Dose Route Start Last Admin Trade Name Grantq PRN Reason Stop Dose Admin Acyclovir 800 mg 07/27/18 19:44 07/27/18 19:47 Zovirax PO 07/27/18 19:45 800 mg ONETIME ONE Administration - Re-Assessments/Exams Free Text/Narrative Re-Assessment/Exam: 07/27/18 19:56 Rash's appearance, confinement to a dermatome, and accompanying symptoms strongly suspicious for shingles. Cannot rule out a contact dermatitis. Does not appear to be consistent with bacterial infection. For now will initiate Acyclovir and topical Bactroban. She is to observe for changes. Given her job, recommended keeping affected area covered and good handwashing routine. To follow up as needed. Departure - Departure Time of Disposition: 19:50 Disposition: Home, Self-Care 01 Condition: Good Clinical Impression: Shingles Qualifiers: Herpes zoster complications: without complications Qualified Code(s): B02.9 - Zoster without complications - Discharge Information *PRESCRIPTION DRUG MONITORING PROGRAM REVIEWED*: Not Applicable *COPY OF PRESCRIPTION DRUG MONITORING REPORT IN PATIENT SAM: Not Applicable Prescriptions: Acyclovir 800 mg PO TID #20 tablet Mupirocin Oint [Bactroban Oint] 22 gm .XX ASDIRECTED PRN #1 tube PRN Reason: Rash Instructions: Shingles Referrals: Moriah Albrecht PA-C [Primary Care Provider] - Forms: ED Department Discharge Additional Instructions: Keep area covered/hands washed as discussed. Call your mother's Oncology clinic tomorrow to see if they wish for her to take prophylactic medication or have any other specific recommendations. Follow up as needed if you have any worsening problems.
== END 2018-07-27 20:05 | disposition home or self-care (01) ==
LOC: LL.ED 19:18
DX: B02.9 Zoster without complications (principal); J45.909 Unspecified asthma, uncomplicated; F41.9 Anxiety disorder, unspecified; F32.9 Major depressive disorder, single episode, unspecified; E03.9 Hypothyroidism, unspecified; E78.00 Pure hypercholesterolemia, unspecified; Z79.899 Other long term (current) drug therapy; Z91.040 Latex allergy status; Z88.8 Allergy status to other drugs, medicaments and biological substances
CPT/HCPCS: 99282; A9270

== ENCOUNTER 2018-09-28 07:51 | Observation (INO) | payer OTHER ==
[2018-09-28] MEDS ORDERED: Famotidine 20 MG/2 ML SDV IVPUSH ONE (07:56)
--- NOTE | 2018-09-28 07:56 | EDM.PDOC ---
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 No history of fall or injury with similar episode occurring at about 15:00 hours on 09/26. 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 Note that she has had some nonspecific blurred vision in the left eye for the last 6 months with her local tow motor driver noticing retinal changes at time of exam on 09/24 with referral to retinal specialist as above. The patient apparently had some recent blood work with hemoglobin of 8.5 on 09/25 per [facility] records. She does have a known history of her deficiency anemia of unknown etiology with no significant workup to this point by her history. The patient denies any chest pain/pressure , heart flutter, orthopnea, diaphoresis, paresthesias, recent decreased exercise tolerance, or any other anginal-type symptoms. No recent history of abdominal pain, heartburn, nausea, diarrhea, melena, gross hematochezia, or any food intolerance, including fatty foods, etc.. She denies any gross hematuria, colic, UTI symptoms. The patient also denies any recent fever, cough, wheezing, dyspnea, etc.. No history of recent headaches, diplopia, change in mental status , or other change in neurological status stable visual changes of the left eye since recent eye evaluations as above. She denies any pain at this time. Onset: Today, Sudden Onset Date: 09/28/18 Onset Time: 07:20 Duration: Constant (Dizziness as above), Other (No pain) Quality: Reports: Same as Previous Episode Severity: Severe Improves with: Reports: Rest Worsens with: Reports: Movement Context: Reports: Other (As above) Associated Symptoms: Reports: Syncope (Near syncope as above). Denies: Confusion, Chest Pain, Cough, Diaphoresis, Fever/Chills, Headaches, Loss of Appetite, Malaise, Nausea/Vomiting, Seizure, Shortness of Breath, Weakness Treatments SOLID PLASTERER: Reports: Other (see below) (None) - Related Data Allergies Allergy/AdvReac Type Severity Reaction Status Date / Time Latex, Natural Rubber Allergy Hives Verified 09/28/18 08:04 ondansetron Allergy Shaking,Tac Verified 09/28/18 08:04 hycardia promethazine HCl Allergy Irritabilit Verified 09/28/18 08:04 [From Phenergan] y Home Meds: Home Meds Folic Acid 1 mg PO QPM #100 tablet 05/30/16 [Rx] Levothyroxine [Synthroid] 50 mcg PO ACBREAKFAST #60 tablet 05/30/16 [Rx] Magnesium Oxide 400 mg PO QPM #100 tablet 05/30/16 [Rx] Non-Formulary Medication [NF Drug] 1 tab PO DAILY #100 09/21/16 [Rx] Non-Formulary Medication [NF Drug] 2 tab PO DAILY #100 09/21/16 [Rx] Potassium Chloride [Klor-Con M20] 20 meq PO BID tab.er 09/21/16 [Rx] Cyanocobalamin (Vitamin B12) [Vitamin B12] 1,000 mcg IM Q30D 07/27/18 [History] FLUoxetine HCl [Fluoxetine HCl] 20 mg PO DAILY 07/27/18 [History] Past Medical History HEENT History: Reports: Cataract, Impaired Vision, Sinusitis, Other (See Below) . Denies: Allergic Rhinitis, Glaucoma, Hard of Hearing, Macular Degeneration, Otitis Media, Retinal Detachment Other HEENT History: 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 Soft contact lenses, glasses. Bilateral cataractsmild. Cardiovascular History: Reports: High Cholesterol, Syncope, Other (See Below). Denies: Afib, Aneurysm, Arrhythmia, Blood Clots/VTE/DVT, CAD, Heart Failure, Heart Murmur, Hypertension, DC, PVD Other Cardiovascular History: History of obesity and hyperlipidemia with fatty liver including post gastric bypass, previous recurrent syncope of unknown etiology with last episode in July 2014, chronic hypotension Respiratory History: Reports: Asthma, Bronchitis, Recurrent, Intubation, Previous, Other (See Below). Denies: COPD, Croup, Intubation, Difficult, PE, Pneumonia, Recurrent, Pneumothorax, Sleep Apnea, TB Other Respiratory History: Right lower lobe stable benign pulmonary nodules Gastrointestinal History: Reports: Bowel Obstruction, Chronic Diarrhea, Gastritis, GERD, GI Bleed, PUD, Other (See Below). Denies: Celiac Disease, Cholelithiasis, Chronic Constipation, Colon Polyp, Diverticulosis, Fecal Incontinence, Hepatitis, Helicobacter Pylori, Hiatal Hernia, Inflammatory Bowel Disease, Irritable Bowel Syndrome, Jaundice, Pancreatitis Other Gastrointestinal History: History of fatty liver with LFTs elevation including post gastric bypass surgery with secondary malabsorption syndrome as below, upper GI bleed secondary to gastric ulcer in her mid 30s with no blood transfusion required, multiple previous small bowel obstruction secondary to previous gastric bypass surgery, Genitourinary History: Reports: None. 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 Bilateral ovarian cysts. LMP on 09/23/18 which was normal. Musculoskeletal History: Reports: None. Denies: Arthritis, Back Pain, Chronic, Fracture, Gout, Neck Pain, Chronic, Osteoarthritis, RA, SLE Neurological History: Reports: Headaches, Chronic, Other (See Below). Denies: Cerebral Aneurysms, Concussion, CVA, Head Trauma, Migraines, Neuropathy, Peripheral, Parkinson's, Seizure, TIA, Vertigo Other Neuro History: Near syncopal/syncopal episodes as above. Psychiatric History: Reports: Anxiety, Depression. Denies: Abuse, Victim of, ADD, ADHD, Addiction, Psych Hospitalization(s), PTSD, Suicide Attempt, Suicidal Ideation Endocrine/Metabolic History: Reports: Hypothyroidism, Multinodular Thyroid, Obesity/BMI 30+, Vitamin D Deficiency, Other (See Below). Denies: Diabetes, Gestational, Diabetes, Type I, Diabetes, Type II, Diabetes Mellitus, Type 3c Other Endocrine/Metabolic History: Previous borderline hyperglycemia secondary to obesity, hypokalemia, vitamin D deficiency, borderline hypothyroidism with history of multiple benign thyroid nodules. Hypomagnesemia. Hypoalbuminemia. Hematologic History: Reports: Anemia, B12 Deficiency, Folic Acid, Iron Deficiency, Other (See Below) Other Hematologic History: Malabsorption syndrome secondary to her gastric bypass resulting in severe iron deficiency with additional vitamin B-12 and folic acid deficiency. Immunologic History: Reports: None. Denies: AIDS, HIV, SLE Oncologic (Cancer) History: Reports: None. Denies: Basal Cell Carcinoma, Breast , Cervix, Colon, Hodgkin's Lymphoma, Leukemia, Lymphoma, Malignant Melanoma, Non -Hodgkin's Lymphoma, Ovarian, Squamous Cell Carcinoma, Thyroid, Uterine Dermatologic History: Reports: None. Denies: Eczema, Psoriasis - Infectious Disease History Infectious Disease History: Reports: Chicken Pox, Shingles (Right clavicular region and 07/27/18.). Denies: C-Difficile, Helicobacter Pylori, Measles, Meningitis, Mononucleosis, MRSA, Mumps, Pertussis (Whooping Cough), Rheumatic Fever, Rubella, Scarlet Fever, TB, VRE - Past Surgical History Head Surgeries/Procedures: Reports: None HEENT Surgical History: Reports: Eye Surgery, Oral Surgery, Other (See Below). Denies: Cataract Surgery, Detached Retina, Laser Surgery, LASIK, Myringotomy w Tube(s), Naso-Sinus Surgery, Tonsillectomy Other HEENT Surgeries/Procedures: Left eye intravitrial injection of Sepproc on 08/26/18. [place] teeth extraction 2 at age 20 Cardiovascular Surgical History: Reports: None. Denies: Varicose, Vascular Surgery Respiratory Surgical History: Reports: None. Denies: Thoracentesis GI Surgical History: Reports: Bariatric Procedure, Cholecystectomy, EGD, Hernia , Abdominal, Hernia, Inguinal, Hernia Repair/Other, Other (See Below). Denies: Appendectomy Other GI Surgeries/Procedures: Gastric bypass surgery with concomitant cholecystectomy on 09/09/07, patient denies previous gastric bypass revisions as per medical records although evidence of anastomosis dilatations in the past EGD , last EGD and colonoscopy on 12/07/16 with previous EGDs on 11/27/15 and . EGD in 2007 with concomitant gastric feeding tube placement at that time, laparoscopic umbilical hernia repair with mesh placement on 12/03/15, right inguinal hernia repair in 2004 Female Surgical History: Reports: Section, Tubal Ligation, Other ( See Below) Other Female Surgeries/Procedures: in 1996, 1999, 2000, Endocrine Surgical History: Reports: Thyroid Biopsy, Other (See Below) Other Endocrine Surgeries/Procedures: Thyroid biopsy on 02/19/14. Neurological Surgical History: Reports: None Musculoskeletal Surgical History: Reports: None Oncologic Surgical History: Reports: None Dermatological Surgical History: Reports: Skin Biopsy, Other (See Below) Other Dermatological Surgeries/Procedures: Initiate biopsies from the right back and right hand on 09/03/18. - Past Imaging History Past Imaging History: Reports: Cardiac Echo (07/29/09 with ejection fraction of 68 %), CAT Scan (CT of the brain on 06/20/08, CT of the abdomen and pelvis with contrast on 06/12/11, 09/08/10, and 06/20/08, CT of the head and cervical region on 07/24/09), Mammogram (Last on 09/22/17.), Ultrasound (Right breast ultrasound on 09/22. Thyroid ultrasounds on 06/30/16 and 12/09/13. Abdominal ultrasound on ) Social & Family History - Family History HEENT: Reports: None. Denies: Glaucoma, Macular Degeneration, Retinal Detachment Cardiac: Reports: High Cholesterol, Hypertension, Other (See Below). Denies: Afib, Aneurysm, Arrhythmia, Blood Clots/VTE/DVT, CAD, Heart Failure, DC, PVD/COD , Syncope Other Cardiac Family History: Father with hyperlipidemia, hypertension in father and maternal grandfather Respiratory: Reports: Sleep Apnea, Other (See Below). Denies: Asthma, COPD, Cystic Fibrosis, Interstitial Lung Disease, PE, Pneumothorax Other Respiratory Family Hisory: Father with sleep apnea and history of tobacco use GI: Reports: Colon Polyps, GERD, PUD, Other (See Below). Denies: Celiac Disease , Cholelithiasis, GI bleed, Hepatitis, Inflammatory Bowel Disease, Irritable Bowel Syndrome, Pancreatitis Other GI Family History: GERD in mother, father with colonic polyps and peptic ulcer disease : Reports: None. Denies: Renal Calculus, Renal Disease/Insufficiency OBGYN: Reports: Dysfunctional uterine bleeding, Fibroids, Recurrent Spontaneous , Other (See Below). Denies: Endometriosis Other OBGYN Family History: Other with dysfunctional uterine bleeding requiring hysterectomy with additional history of recurrent SAB Musculoskeletal: Reports: Arthritis, Gout, Osteoarthritis, Other (See Below). Denies: RA, SLE Other Musculoskeletal Family History: Father with gout Neurological: Reports: None. Denies: Alzheimers Disease, Cerebral Aneurysms, CVA, Dementia, Migraines, MS, Neuropathy, Diabetic, Neuropathy, Peripheral, Parkinson's, Seizure, TIA Psychiatric: Reports: Anxiety, Depression, Other (See Below). Denies: Abuse, Victim of, ADD, ADHD, Psych Hospitalization(s), PTSD, Suicide Attempt Other Psychiatric Family History: Anxiety depression disorder in mother, maternal great grandmother and paternal great-grandmother Endocrine/Metabolic: Reports: Diabetes, type II, Hypothyroidism, IDDM, Other ( See Below). Denies: Diabetes, Type I, Diabetes Mellitus, Type 3c Other Endocrine/Metabolic Family History: IDDM in maternal grandmother, paternal grandmother, maternal grandfather, and maternal great-grandmother with brother with possible hyperglycemia, father with hypothyroidism secondary to thyroid resection from metastatic renal cancer as below Hematologic: Reports: Anemia. Denies: SLE Immunologic: Reports: None. Denies: AIDS, HIV, SLE Dermatologic: Reports: None. Denies: Eczema, Psoriasis Oncologic: Reports: Leukemia, Metastatic, Renal, Skin, Thyroid, Other (See Below ). Denies: Cervix, Colon, Lymphoma, Ovarian, Uterine Other Oncologic Family History: Mother with melanoma, paternal grandmother with basal cell carcinoma, maternal aunt with basal cell carcinoma, Cousin with leukemia, mother with multiple myeloma, father with metastatic renal cancer with metastases to the thyroid gland and lungs - Tobacco Use Smoking Status *Q: Never Smoker Tobacco Use Within Last Twelve Months: No Used Tobacco, but Quit: No Smoking Cessation Information Provided To Patient: No Second Hand Smoke Exposure: No Second Hand Smoke Education Provided: No - Caffeine Use Caffeine Use: Reports: Soda (2 sodas per day). Denies: Coffee, Energy Drinks, Tea - Alcohol Use Alcohol Use History: No Days Per Week of Alcohol Use: 0 Number of Drinks Per Day: 0 Number of Drinks Per Day Comment: No previous DWIs, problems with alcohol abuse , etc. 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 ED EXAM, GENERAL - Physical Exam Exam: See Below Exam Limited By: No Limitations General Appearance: Alert, WD/WN, No Apparent Distress Eye Exam: Left Eye: Normal Fundi (Physical exam difficult however no significant retinal hemorrhages. No nystagmus. Patient wearing glasses.), Bilateral Eye: EOMI, PERRL Ears: Normal External Exam, Normal Canal, Hearing Grossly Normal, Normal TMs Nose: Normal Inspection, Normal Mucosa, No Blood, Other (Right nasal stud) Throat/Mouth: Normal Inspection, Normal Lips, Normal Teeth, Normal Gums, Normal Oropharynx, Normal Voice, No Airway Compromise. No: Dysphagia, Perioral Cyanosis Head: Atraumatic, Normocephalic. No: Facial Swelling, Facial Tenderness, Sinus Tenderness Neck: Normal Inspection, Supple, Non-Tender, Full Range of Motion. No: Carotid Bruit, Lymphadenopathy (L), Lymphadenopathy (R), Thyromegaly Respiratory/Chest: No Respiratory Distress, Lungs Clear, Normal Breath Sounds, No Accessory Muscle Use, Chest Non-Tender. No: Pleural Rub, Retractions Cardiovascular: Normal Peripheral Pulses, Regular Rate, Rhythm, No Edema, No Gallop, No JVD, No Murmur, No Rub. No: Gallop/S3, Gallop/S4, Friction Rub Peripheral Pulses: 2+: Radial (L), Radial (R), Dorsalis Pedis (L), Dorsalis Pedis (R) GI/Abdominal: Normal Bowel Sounds, Soft, Non-Tender, No Organomegaly, No Distention, No Abnormal Bruit, No Mass. No: Pelvis Stable, Guarding (Female) Exam: Deferred Rectal (Female) Exam: Normal Exam, Normal Rectal Tone, Deferred, Heme - Stool. No: Bloody Stool, Rectal Fissure, Tenderness (No Gabriel space tenderness) Back Exam: Normal Inspection, Full Range of Motion. No: CVA Tenderness (L), CVA Tenderness (R) Extremities: Normal Range of Motion, Non-Tender, No Pedal Edema, Normal Capillary Refill, Pallor. No: Saturnino's Sign Neurological: Alert, Oriented, CN II-XII Intact, Normal Cognition, Normal Gait, Normal Reflexes (Negative Babinski's, finger to nose, and pronator rotation tests. No evidence of facial paresis, tongue deviation, orthostasis, etc.. Excellent reverse thought processes.), No Motor/Sensory Deficits, Other (Mild clinical orthostasis) Psychiatric: Normal Affect, Normal Mood Skin Exam: Warm, Dry, Intact, No Rash, Pallor (Moderate to severe), Stud(s) (As above), Tattoo(s). No: Diaphoretic, Ecchymosis, Jaundice, Wound/Incision Lymphatic: No Adenopathy EKG INTERPRETATION EKG Date: 09/28/18 Time: 08:22 Rhythm: NSR Rate (Beats/Min): 73 Opal: Normal (Left) P-Wave: Present (Mild diffuse biphasic P waves) QRS: Normal (0.08 seconds) ST-T: Normal QT: Normal VA/PQ Interval: 0.11 seconds representing a short VA interval with no delta waves Comparison: NA - No Prior EKG EKG Interpretation Comments: 1. No acute ischemic changes 2. Short VA interval Course - Vital Signs Last Recorded V/S: Last Vital Signs Temp 36.3 C 09/28/18 09:56 Pulse 70 09/28/18 09:56 Resp 16 09/28/18 09:56 BP 109/67 09/28/18 09:56 Pulse Ox 100 09/28/18 09:56 Vital Signs - 24 hr 09/28/18 09/28/18 09/28/18 08:09 08:20 09:56 Temperature [ 36.3 C 36.6 C 36.3 C Temporal] Pulse, 75 70 Peripheral [ Right Pulse Oximetry] Respiratory 14 16 16 Rate Blood Pressure 103/69 99/63 109/67 [Right Upper Arm] O2 Sat by Pulse 100 99 100 Oximetry - Orders/Labs/Meds Orders: Active Orders 24 hr Category Date Time Status Cardiac Monitoring [RC] . DIRECTED Care 09/28/18 07:56 Active EKG Documentation Completion [RC] ASDIRECTED Care 09/28/18 07:56 Active Oxygen Therapy, ED [RC] PRN Care 09/28/18 07:56 Active Peripheral IV Care [RC] . DIRECTED Care 09/28/18 07:56 Active Pulse Oximetry [RC] CONTINUOUS Care 09/28/18 07:56 Active Up With Assistance [RC] PFP Care 09/28/18 07:56 Active Vital Signs [RC] PFP Care 09/28/18 07:56 Active Nothing per Oral Now Diet [DIET] Diet 09/28/18 Breakfast Active Chest 1V Frontal [CR] Stat Exams 09/28/18 07:56 Taken Head wo Cont [CT] Stat Exams 09/28/18 07:58 Taken Sodium Chloride 0.9% [Saline Flush] Med 09/28/18 07:56 Active 10 ml FLUSH ASDIRECTED PRN Obtain Past Medical Record [OM.PC] Urgent Oth 09/28/18 07:56 Active Peripheral IV Insertion Adult [OM.PC] Stat Oth 09/28/18 07:56 Ordered Resuscitation Status Stat Resus Stat 09/28/18 07:56 Ordered Medication Orders Sodium Chloride (Saline Flush) 10 ml FLUSH ASDIRECTED PRN PRN Reason: Keep Vein Open Last Admin: 09/28/18 09:25 Dose: 10 ml Labs: Laboratory Tests 09/28/18 09/28/18 09/28/18 Range/Units 08:00 08:00 08:00 WBC 6.5 (4.0-10.2) K/uL RBC 3.13 L (3.77-5.09) M/uL Hgb 7.9 L (11.7-15.5) g/dL Hct 25.9 L (34.0-46.0) % MCV 82.7 L D (84.0-98.0) fL MCH 25.2 L (28.2-33.3) pg MCHC 30.5 L (31.7-36.0) g/dL RDW 13.8 (11.2-14.1) % Plt Count 410 H D (150-350) K/uL Neut % (Auto) 60.4 (45.0-80.0) % Lymph % (Auto) 25.7 (10.0-50.0) % Jasper % (Auto) 10.4 (2.0-14.0) % Eos % (Auto) 2.9 (0.0-5.0) % Baso % (Auto) 0.6 (0.0-2.0) % Neut # (Auto) 3.91 (1.40-7.00) K/uL Lymph # (Auto) 1.66 (0.50-3.50) K/uL Jasper # (Auto) 0.67 (0.00-1.00) K/uL Eos # (Auto) 0.19 (0.00-0.50) K/uL Baso # (Auto) 0.04 (0.00-0.20) K/uL PT 10.9 (9.5-12.0) SEC INR 1.0 APTT 21.7 (21.0-31.3) SEC D-Dimer, Quantitative 150 (0-400) ng/mL Sodium (136-145) mmol/L Potassium (3.5-5.1) mmol/L Chloride (98-107) mmol/L Carbon Dioxide (21.0-32.0) mmol/L BUN (7-18) mg/dL Creatinine (0.51-1.17) mg/dL Est Cr Clr Drug Dosing mL/min Estimated GFR (MDRD) mL/min Glucose (74-106) mg/dL Lactic Acid (0.4-2.0) mmol/L Uric Acid (2.6-7.2) mg/dL Calcium (8.5-10.1) mg/dL Magnesium (1.8-2.4) mg/dL Iron (50-175) ug/dL TIBC (250-450) ug/dL % Saturation Total Bilirubin (0.2-1.0) mg/dL AST (15-37) U/L ALT (12-78) U/L Alkaline Phosphatase (46-116) IU/L Creatine Kinase (26-308) U/L Creatine Kinase Index (0.0-2.5) % CK-MB (CK-2) (0.00-3.60) ng/mL Troponin I (0.000-0.056) ng/mL NT-Pro-B Natriuret Pep (0-125) pg/mL Total Protein (6.4-8.2) g/dL Albumin (3.4-5.0) g/dL TSH, Ultra Sensitive (0.358-3.740) mIU/mL 08/09/19 08/09/19 08/09/19 Range/Units 08:00 08:00 08:00 WBC (4.0-10.2) K/uL RBC (3.77-5.09) M/uL Hgb (11.7-15.5) g/dL Hct (34.0-46.0) % MCV (84.0-98.0) fL MCH (28.2-33.3) pg MCHC (31.7-36.0) g/dL RDW (11.2-14.1) % Plt Count (150-350) K/uL Neut % (Auto) (45.0-80.0) % Lymph % (Auto) (10.0-50.0) % Jasper % (Auto) (2.0-14.0) % Eos % (Auto) (0.0-5.0) % Baso % (Auto) (0.0-2.0) % Neut # (Auto) (1.40-7.00) K/uL Lymph # (Auto) (0.50-3.50) K/uL Jasper # (Auto) (0.00-1.00) K/uL Eos # (Auto) (0.00-0.50) K/uL Baso # (Auto) (0.00-0.20) K/uL PT (9.5-12.0) SEC INR APTT (21.0-31.3) SEC D-Dimer, Quantitative (0-400) ng/mL Sodium 139 (136-145) mmol/L Potassium 2.5 L* (3.5-5.1) mmol/L Chloride 103 (98-107) mmol/L Carbon Dioxide 26.6 (21.0-32.0) mmol/L BUN 14 (7-18) mg/dL Creatinine 0.74 (0.51-1.17) mg/dL Est Cr Clr Drug Dosing 78.01 mL/min Estimated GFR (MDRD) > 60 mL/min Glucose 120 H (74-106) mg/dL Lactic Acid 2.7 H (0.4-2.0) mmol/L Uric Acid 4.5 (2.6-7.2) mg/dL Calcium 8.3 L (8.5-10.1) mg/dL Magnesium 1.6 L (1.8-2.4) mg/dL Iron 17 L (50-175) ug/dL TIBC 517 H (250-450) ug/dL % Saturation 3.81377 Total Bilirubin 0.3 (0.2-1.0) mg/dL AST 50 H (15-37) U/L ALT 77 (12-78) U/L Alkaline Phosphatase 115 (46-116) IU/L Creatine Kinase 60 (26-308) U/L Creatine Kinase Index 1.2 (0.0-2.5) % CK-MB (CK-2) 0.70 (0.00-3.60) ng/mL Troponin I 0.019 (0.000-0.056) ng/mL NT-Pro-B Natriuret Pep 108 (0-125) pg/mL Total Protein 6.7 (6.4-8.2) g/dL Albumin 3.2 L (3.4-5.0) g/dL TSH, Ultra Sensitive 7.494 H (0.358-3.740) mIU/mL Microbiology 09/28/18 09:30 Stool Occult Blood (DAVID) - Final Stool / Feces Hemoccult was negative. Meds: Medications Generic Name Dose Route Start Last Admin Trade Name Freq PRN Reason Stop Dose Admin Sodium Chloride 10 ml 09/28/18 07:56 09/28/18 09:25 Saline Flush FLUSH 10 ml ASDIRECTED PRN Administration Keep Vein Open Discontinued Medications Generic Name Dose Route Start Last Admin Trade Name Freq PRN Reason Stop Dose Admin Famotidine 40 mg 09/28/18 07:56 09/28/18 09:24 Pepcid IVPUSH 09/28/18 07:57 40 mg ONETIME ONE Administration Lactated Ringer's 1,000 mls @ 999 mls/hr 09/28/18 08:11 09/28/18 09:24 Ringers, Lactated IV 09/28/18 09:11 999 mls/hr .BOLUS ONE Administration Potassium Chloride 40 meq 09/28/18 08:54 09/28/18 09:24 Klor-Con M20 PO 09/28/18 08:55 40 meq ONETIME ONE Administration - Radiology Interpretation Free Text/Narrative:: Heart monitor shows normal sinus rhythm with heart rate in the 70s-80s with no ectopy or arrhythmia Departure - Departure Time of Disposition: 10:10 Disposition: Refer to Observation Condition: Good Clinical Impression: Hypothyroidism, Hypokalemia, Mixed anxiety depressive disorder, Hypoalbuminemia , Anemia, Peptic reflux disease, Asthma, Syncope, Elevated LFTs, Elevated lactic acid level Referrals: Moriah Albrecht PA-C [Primary Care Provider] - Forms: ED Department Discharge Care Plan Goals: See plan - Problem List & Annotations (1) Syncope SNOMED Code(s): 804325132 Code(s): R55 - SYNCOPE AND COLLAPSE Status: Acute Priority: High Current Visit: Yes Onset Date: 09/28/18 Annotation/Comment:: Near syncopal episode with known history of chronic hypotension. Blood pressures stable in the emergency room. Note normal EKG and cardiac enzymes with exception of nonspecific change in her troponin I. No chest pain or anginal complaints. Likely symptomatic iron deficiency anemia as below. Initiate standard rule out DC orders as a precaution. Note no chest pain and therefore chest pain protocol was not initiated in the emergency room. MRI has been scheduled by [facility] for , however will attempt to schedule this evaluation in this facility on 10/01 secondary to recent left eye retinal vein thrombosis, etc.. Various therapeutic options were discussed with patient and her , who do agree to stay in this facility for further treatment at this time. Qualifiers: Syncope type: unspecified Qualified Code(s): R55 - Syncope and collapse (2) Anemia SNOMED Code(s): 873822370 Code(s): D64.9 - ANEMIA, UNSPECIFIED Status: Acute Priority: High Current Visit: Yes Onset Date: ~05/30/16 Annotation/Comment:: Multifactorial etiologies to patient's current anemia, including malabsorption syndrome, iron deficiency, vitamin D B12 deficiency, and folic acid deficiency with status post gastric bypass surgery as above. Anemia is symptomatic at this time including near syncopal episode as above. Initiate IV iron supplementation with close follow-up by regular providers. Note recent extensive iron, etc. studies conducted at [facility] including significantly decreased ferritin level on 09/25/18. Qualifiers: Anemia type: other cause Other causes of anemia: nutritional, unspecified Qualified Code(s): D53.9 - Nutritional anemia, unspecified (3) Hypothyroidism SNOMED Code(s): 41304024 Code(s): E03.9 - HYPOTHYROIDISM, UNSPECIFIED Status: Acute Current Visit : Yes Onset Date: 12/06/13 Annotation/Comment:: TSH mildly elevated today. Note malabsorption syndrome and current iron supplementation. Increase thyroid supplementation with recommended repeat TSH in 4 weeks by regular provider. (4) Hypokalemia SNOMED Code(s): 34288907 Code(s): E87.6 - HYPOKALEMIA Status: Acute Priority: High Current Visit : Yes Onset Date: 05/30/16 Annotation/Comment:: No history of medication noncompliance, significant diarrhea, nausea/emesis, etc. IV lactated Ringer's initiated in the emergency room with additional high-dose oral dose of potassium chloride. Increase current potassium chloride supplementation. Previous history of malabsorption syndrome as above with recurrent hypokalemia. Patient's current post gastric bypass multivitamin preparations aren't sufficient at this point. (5) Hypomagnesemia SNOMED Code(s): 151545624 Code(s): E83.42 - HYPOMAGNESEMIA Status: Acute Priority: Medium Current Visit: No Onset Date: 05/30/16 Annotation/Comment:: Magnesium level is normal today. Continue current supplementation. (6) Hypoalbuminemia SNOMED Code(s): 825350725 Code(s): E88.09 - OTH DISORDERS OF PLASMA-PROTEIN METABOLISM, NEC Status: Chronic Priority: Medium Current Visit: Yes Annotation/Comment:: Reinitiate high-protein Glucerna supplements as snacks with the patient noncompliant with this supplement to this point. Compliance with recommended therapy strongly encouraged. (7) Peptic reflux disease SNOMED Code(s): 898192100 Code(s): K21.9 - GASTRO-ESOPHAGEAL REFLUX DISEASE WITHOUT ESOPHAGITIS Status: Chronic Priority: Medium Current Visit: Yes Annotation/Comment:: Stable by patient history. High-dose IV Pepcid given as GI prophylaxis. (8) Mixed anxiety depressive disorder SNOMED Code(s): 679620027 Code(s): F41.8 - OTHER SPECIFIED ANXIETY DISORDERS Status: Chronic Priority: Medium Current Visit: Yes Annotation/Comment:: Stable by patient history (9) Asthma SNOMED Code(s): 110469595 Code(s): J45.909 - UNSPECIFIED ASTHMA, UNCOMPLICATED Status: Chronic Priority: Medium Current Visit: Yes Annotation/Comment:: No recent fever or bronchitic type symptoms Qualifiers: Asthma severity: mild Asthma persistence: intermittent Asthma complication type: uncomplicated Qualified Code(s): J45.20 - Mild intermittent asthma, uncomplicated (10) Elevated LFTs SNOMED Code(s): 741173510, 513646600 Code(s): R94.5 - ABNORMAL RESULTS OF LIVER FUNCTION STUDIES Status: Acute Priority: Medium Current Visit: Yes Onset Date: 09/28/18 Annotation/ Comment:: Nonspecific LFTs elevation. Nonsymptomatic. Observe for now. (11) Elevated lactic acid level SNOMED Code(s): 4379251 Code(s): R79.89 - OTHER SPECIFIED ABNORMAL FINDINGS OF BLOOD CHEMISTRY Status: Acute Priority: High Current Visit: Yes Onset Date: 09/28/18 Annotation/Comment:: No evidence of sepsis, fever, leukocytosis, etc. IV lactated Ringer's initiated in the emergency room. Repeat lactic acid level with next set of cardiac enzymes and in the a.m. - Problem List Review Problem List Initiated/Reviewed/Updated: Yes - My Orders Last 24 Hours: My Active Orders 09/28/18 07:56 Cardiac Monitoring [RC] . DIRECTED EKG Documentation Completion [RC] ASDIRECTED Oxygen Therapy, ED [RC] PRN Peripheral IV Care [RC] . DIRECTED Pulse Oximetry [RC] CONTINUOUS Up With Assistance [RC] PFP Vital Signs [RC] PFP Chest 1V Frontal [CR] Stat Sodium Chloride 0.9% [Saline Flush] 10 ml FLUSH ASDIRECTED PRN Obtain Past Medical Record [OM.PC] Urgent Peripheral IV Insertion Adult [OM.PC] Stat Resuscitation Status Stat 09/28/18 07:58 Head wo Cont [CT] Stat 09/28/18 Breakfast Nothing per Oral Now Diet [DIET] - Assessment/Plan Admission H&P: Please use this note as an admission H&P Last 24 Hours: My Active Orders 09/28/18 07:56 Cardiac Monitoring [RC] . DIRECTED EKG Documentation Completion [RC] ASDIRECTED Oxygen Therapy, ED [RC] PRN Peripheral IV Care [RC] . DIRECTED Pulse Oximetry [RC] CONTINUOUS Up With Assistance [RC] PFP Vital Signs [RC] PFP Chest 1V Frontal [CR] Stat Sodium Chloride 0.9% [Saline Flush] 10 ml FLUSH ASDIRECTED PRN Obtain Past Medical Record [OM.PC] Urgent Peripheral IV Insertion Adult [OM.PC] Stat Resuscitation Status Stat 09/28/18 07:58 Head wo Cont [CT] Stat 09/28/18 Breakfast Nothing per Oral Now Diet [DIET] Assessment:: As above Plan: As above. Extensive precautions were given to the patient and her , who are in agreement with the treatment plan. The patient's condition is stable enough for observation status and general supervision.
[2018-09-28] MEDS ORDERED: Lactated Ringers 1,000 ML IV ONE (08:11)
[2018-09-28 08:37] LABS: CHLORIDE,CL 103 mmol/L (98-107); SODIUM,NA 139 mmol/L (136-145)
[2018-09-28] MEDS ORDERED: Potassium Chloride 20 MEQ Tab.ER PO ONE (08:54)
[2018-09-28] MEDS: Sodium Chloride 0.9% 10 ML Syringe FLUSH PRN ×2 (09:25→12:18)
[2018-09-28] MEDS ORDERED: Temazepam 15 MG Cap PO PRN (11:47)
[2018-09-28] MEDS ORDERED: Sodium Chloride 0.9% 10 ML Syringe FLUSH PRN (11:47)
[2018-09-28] MEDS ORDERED: Acetaminophen 325 MG Tab PO PRN (12:00)
[2018-09-28] MEDS ORDERED: Furosemide 40 MG/4 ML VIAL IVPUSH SCH (12:00)
[2018-09-28] MEDS ORDERED: Cyanocobalamin (Vitamin B12) 1,000 MCG/ML SDV IM SCH (14:00)
[2018-09-28] MEDS: Lactated Ringers 1,000 ML IV SCH ×2 (14:44→23:06)
[2018-09-28] MEDS: Potassium Chloride 10% 20 MEQ/15 ML Soln 15 ML UD Cup PO SCH (17:24)
[2018-09-28] MEDS ORDERED: Folic Acid 1 MG Tab PO SCH (18:00)
[2018-09-28] MEDS ORDERED: Magnesium Oxide 400 MG Tab PO SCH ×2 (18:00)
[2018-09-29] MEDS ORDERED: Levothyroxine 100 MCG Tab PO SCH (07:30)
[2018-09-29 07:39] LABS: CHLORIDE,CL 105 mmol/L (98-107); SODIUM,NA 141 mmol/L (136-145)
[2018-09-29] MEDS: Potassium Chloride 10% 20 MEQ/15 ML Soln 15 ML UD Cup PO SCH ×2 (07:54→11:29)
[2018-09-29] MEDS ORDERED: Multivitamin Tab PO SCH (08:00)
[2018-09-29] MEDS ORDERED: FLUoxetine 20 MG Cap PO SCH (08:00)
[2018-09-29] MEDS ORDERED: VITRON C PO SCH (08:00)
--- NOTE | 2018-09-29 11:24 | PCM.DCSUM1 ---
Discharge Summary - Hospital Course Free Text/Narrative:: Patient admitted because of generalized weakness and fatigue history of anemia. Brief History: Patient admitted to hospital,worked up diagnosed with anemia which is a chronic condition for her since she had gastric bypass appeared that she was deficient in iron at this time and infusion with iron patient feeling much better today her hemoglobin is down to 7.3 possibly secondary to hydration. Diagnosis: Stroke: No - Discharge Data Discharge Date: 09/29/18 Discharge Disposition: Home, Self-Care 01 Condition: Good - Discharge Plan *PRESCRIPTION DRUG MONITORING PROGRAM REVIEWED*: No *COPY OF PRESCRIPTION DRUG MONITORING REPORT IN PATIENT SAM: No Home Medications: Home Meds Folic Acid 1 mg PO QPM #100 tablet 05/30/16 [Rx] Levothyroxine [Synthroid] 50 mcg PO ACBREAKFAST #60 tablet 05/30/16 [Rx] Magnesium Oxide 400 mg PO QPM #100 tablet 05/30/16 [Rx] Non-Formulary Medication [NF Drug] 1 tab PO DAILY #100 09/21/16 [Rx] Non-Formulary Medication [NF Drug] 2 tab PO DAILY #100 09/21/16 [Rx] Potassium Chloride [Klor-Con M20] 20 meq PO BID tab.er 09/21/16 [Rx] Cyanocobalamin (Vitamin B12) [Vitamin B12] 1,000 mcg IM Q30D 07/27/18 [History] FLUoxetine HCl [Fluoxetine HCl] 20 mg PO DAILY 07/27/18 [History] Forms: ED Department Discharge Referrals: Moriah Albrecht PA-C [Primary Care Provider] - - Discharge Summary/Plan Comment DC Time >30 min.: No Discharge Summary/Plan Comment: Patient will be sent home we'll increase in thyroid medication as per Dr. Londono we will order iron infusion next week - General Info Date of Service: 09/29/18 Admission Dx/Problem (Free Text: Anemia hypothyroidism Functional Status: Reports: Tolerating Diet - Review of Systems General: Reports: Fatigue HEENT: Reports: No Symptoms Pulmonary: Reports: No Symptoms Cardiovascular: Reports: No Symptoms Gastrointestinal: Reports: No Symptoms Genitourinary: Reports: No Symptoms Musculoskeletal: Reports: No Symptoms Skin: Reports: No Symptoms Neurological: Reports: No Symptoms Psychiatric: Reports: No Symptoms - Patient Data Vitals - Most Recent: Last Vital Signs Temp 98.5 F 09/29/18 08:00 Pulse 72 09/29/18 08:00 Resp 16 09/29/18 08:00 BP 98/55 L 09/29/18 08:00 Pulse Ox 100 09/29/18 08:00 Weight - Most Recent: 109 lb 15.994 oz I&O - Last 24 hours: Intake & Output 09/28/18 09/29/18 09/29/18 22:59 06:59 14:59 Intake Total 2756 240 Output Total 400 400 Balance -400 2756 -160 Lab Results - Last 24 hrs: Laboratory Results - last 24 hr 09/28/18 09/28/18 09/28/18 Range/Units 08:00 14:00 19:36 WBC (4.0-10.2) K/uL RBC (3.77-5.09) M/uL Hgb (11.7-15.5) g/dL Hct (34.0-46.0) % MCV (84.0-98.0) fL MCH (28.2-33.3) pg MCHC (31.7-36.0) g/dL RDW (11.2-14.1) % Plt Count (150-350) K/uL Neut % (Auto) (45.0-80.0) % Lymph % (Auto) (10.0-50.0) % [place]borne % (Auto) (2.0-14.0) % Eos % (Auto) (0.0-5.0) % Baso % (Auto) (0.0-2.0) % Neut # (Auto) (1.40-7.00) K/uL Lymph # (Auto) (0.50-3.50) K/uL [place] # (Auto) (0.00-1.00) K/uL Eos # (Auto) (0.00-0.50) K/uL Baso # (Auto) (0.00-0.20) K/uL Sodium (136-145) mmol/L Potassium (3.5-5.1) mmol/L Chloride (98-107) mmol/L Carbon Dioxide (21.0-32.0) mmol/L BUN (7-18) mg/dL Creatinine (0.51-1.17) mg/dL Est Cr Clr Drug Dosing mL/min Estimated GFR (MDRD) mL/min Glucose (74-106) mg/dL Lactic Acid 1.0 (0.4-2.0) mmol/L Calcium (8.5-10.1) mg/dL Total Bilirubin (0.2-1.0) mg/dL AST (15-37) U/L ALT (12-78) U/L Alkaline Phosphatase (46-116) IU/L Creatine Kinase 59 58 (26-308) U/L Creatine Kinase Index 1.2 1.2 (0.0-2.5) % CK-MB (CK-2) 0.70 0.70 (0.00-3.60) ng/mL Troponin I 0.019 0.014 (0.000-0.056) ng/mL Total Protein (6.4-8.2) g/dL Albumin (3.4-5.0) g/dL 09/29/18 09/29/18 09/29/18 Range/Units 07:02 07:02 07:02 WBC 5.2 (4.0-10.2) K/uL RBC 2.92 L (3.77-5.09) M/uL Hgb 7.3 L* (11.7-15.5) g/dL Hct 24.3 L* (34.0-46.0) % MCV 83.2 L (84.0-98.0) fL MCH 25.0 L (28.2-33.3) pg MCHC 30.0 L (31.7-36.0) g/dL RDW 13.9 (11.2-14.1) % Plt Count 342 (150-350) K/uL Neut % (Auto) 43.1 L (45.0-80.0) % Lymph % (Auto) 42.3 (10.0-50.0) % Osborne % (Auto) 9.9 (2.0-14.0) % Eos % (Auto) 3.6 (0.0-5.0) % Baso % (Auto) 1.1 (0.0-2.0) % Neut # (Auto) 2.25 (1.40-7.00) K/uL Lymph # (Auto) 2.21 (0.50-3.50) K/uL Osborne # (Auto) 0.52 (0.00-1.00) K/uL Eos # (Auto) 0.19 (0.00-0.50) K/uL Baso # (Auto) 0.06 (0.00-0.20) K/uL Sodium 141 (136-145) mmol/L Potassium 3.0 L (3.5-5.1) mmol/L Chloride 105 (98-107) mmol/L Carbon Dioxide 31.2 (21.0-32.0) mmol/L BUN 9 (7-18) mg/dL Creatinine 0.69 (0.51-1.17) mg/dL Est Cr Clr Drug Dosing 83.28 mL/min Estimated GFR (MDRD) > 60 mL/min Glucose 96 (74-106) mg/dL Lactic Acid 1.3 (0.4-2.0) mmol/L Calcium 8.4 L (8.5-10.1) mg/dL Total Bilirubin 0.3 (0.2-1.0) mg/dL AST 34 (15-37) U/L ALT 60 (12-78) U/L Alkaline Phosphatase 103 (46-116) IU/L Creatine Kinase 45 (26-308) U/L Creatine Kinase Index 1.3 (0.0-2.5) % CK-MB (CK-2) 0.60 (0.00-3.60) ng/mL Troponin I 0.018 (0.000-0.056) ng/mL Total Protein 5.8 L (6.4-8.2) g/dL Albumin 2.7 L (3.4-5.0) g/dL DAVID Results - Last 24 hrs: Microbiology 09/29/18 08:30 Stool Occult Blood (DAVID) - Final Stool / Feces 09/28/18 17:01 Stool Occult Blood (DAVID) - Final Stool / Feces 09/28/18 09:30 Stool Occult Blood (DAVID) - Final Stool / Feces Med Orders - Current: Current Medications Acetaminophen (Tylenol) 650 mg PO Q4H PRN PRN Reason: Pain Last Admin: 09/28/18 15:03 Dose: 650 mg Cyanocobalamin (Vitamin B12) 1,000 mcg IM Q30D [facility]TER Last Admin: 09/28/18 14:24 Dose: 1,000 mcg Fluoxetine HCl (Prozac) 20 mg PO DAILY [facility]TER Last Admin: 09/29/18 07:54 Dose: 20 mg Folic Acid (Folic Acid) 1 mg PO QPM [facility] Last Admin: 09/28/18 17:25 Dose: 1 mg Lactated Ringer's (Ringers, Lactated) 1,000 mls @ 125 mls/hr IV ASDIRECTED [facility] Last Admin: 09/28/18 23:06 Dose: 125 mls/hr Levothyroxine Sodium (Synthroid) 100 mcg PO ACBREAKFAST [facility] Last Admin: 09/29/18 07:54 Dose: 100 mcg Magnesium Oxide (Magnesium Oxide) 800 mg PO QPM [facility] Last Admin: 09/28/18 17:25 Dose: 800 mg Multivitamins/Minerals/Vitamin C (Tab-A-Moon) 1 tab PO DAILY [facility] Last Admin: 09/29/18 07:54 Dose: 1 tab Vitron C Tablet Pt (Own Med) 1 each PO DAILY [facility] Last Admin: 09/29/18 07:54 Dose: 1 each Potassium Chloride (Potassium Chloride Solution) 40 meq PO TID [facility] Last Admin: 09/29/18 07:54 Dose: 40 meq Sodium Chloride (Saline Flush) 10 ml FLUSH ASDIRECTED PRN PRN Reason: Keep Vein Open Last Admin: 09/28/18 12:18 Dose: 10 ml Sodium Chloride (Saline Flush) 10 ml FLUSH Q12HR PRN PRN Reason: Keep Vein Open Temazepam (Restoril) 15 mg PO BEDTIME PRN PRN Reason: Insomnia Discontinued Medications Famotidine (Pepcid) 40 mg IVPUSH ONETIME ONE Stop: 09/28/18 07:57 Last Admin: 09/28/18 09:24 Dose: 40 mg Furosemide (Lasix) 40 mg IVPUSH Q8H [facility] Last Admin: 09/28/18 12:16 Dose: 40 mg Lactated Ringer's (Ringers, Lactated) 1,000 mls @ 999 mls/hr IV .BOLUS ONE Stop: 09/28/18 09:11 Last Admin: 09/28/18 09:24 Dose: 999 mls/hr Ferumoxytol 510 mg/ Sodium (Chloride) 117 mls @ 400 mls/hr IV ONETIME ONE Stop: 09/28/18 14:17 Last Admin: 09/28/18 14:19 Dose: 400 mls/hr Magnesium Oxide (Magnesium Oxide) 400 mg PO QPM [facility] Potassium Chloride (Klor-Con M20) 40 meq PO ONETIME ONE Stop: 09/28/18 08:55 Last Admin: 09/28/18 09:24 Dose: 40 meq - Exam General: Reports: Alert, Oriented HEENT: Reports: Pupils Equal, Pupils Reactive, EOMI, Mucous Membr. Moist/[place] Neck: Reports: Supple Lungs: Reports: Clear to Auscultation, Normal Respiratory Effort Cardiovascular: Reports: Regular Rate, Regular Rhythm GI/Abdominal Exam: Normal Bowel Sounds, Soft, Non-Tender, No Organomegaly, No Distention, No Abnormal Bruit, No Mass, Pelvis Stable (Female) Exam: Normal External Exam, Normal Speculum Exam, Normal Bimanual Exam Rectal (Female) Exam: Normal Exam, Normal Rectal Tone Back Exam: Reports: Normal Inspection, Full Range of Motion Extremities: Normal Inspection, Normal Range of Motion, Non-Tender, No Pedal Edema, Normal Capillary Refill Skin: Reports: Warm, Dry, Intact Wound/Incisions: Reports: Healing Well Neurological: Reports: No New Focal Deficit Psy/Mental Status: Reports: Alert, Normal Affect, Normal Mood Physical Findings Comments:: Patient seen at this time patient would like to go home I reviewed her labs and feel that she needs a second infusion of iron which will be done on the and increase her Synthroid at this time follow-up with primary
[2018-09-29 12:43] VITALS: BP 96/62; PULSE 73
== END 2018-09-29 12:15 | disposition home or self-care (01) ==
LOC: LL.ED 07:51 → LL.MS 10:14
PROVIDERS: ADMIT Family Medicine; ATTEND Family Medicine
DX: R55 Syncope and collapse (principal); D53.9 Nutritional anemia, unspecified; E03.9 Hypothyroidism, unspecified; E87.6 Hypokalemia; E83.42 Hypomagnesemia; K21.9 Gastro-esophageal reflux disease without esophagitis; F41.8 Other specified anxiety disorders; J45.20 Mild intermittent asthma, uncomplicated; R94.5 Abnormal results of liver function studies; R79.89 Other specified abnormal findings of blood chemistry; E88.09 Other disorders of plasma-protein metabolism, not elsewhere classified; F41.9 Anxiety disorder, unspecified; F32.9 Major depressive disorder, single episode, unspecified; Z98.84 Bariatric surgery status; Z79.899 Other long term (current) drug therapy; Z88.8 Allergy status to other drugs, medicaments and biological substances; Z91.040 Latex allergy status
CPT/HCPCS: 36415; 70450; 71045; 80053; 82272; 82550; 82553; 83540; 83550; 83605; 83735; 83880; 84443; 84484; 84550; 85025; 85379; 85610; 85730; 87338; 93005; 96361; 96372; 96374; 96375; 99285; A9270; G0378; J1940; J3420; J3490; J7050; J7120; Q0138; 93010; 99217; 99218

== ENCOUNTER 2019-02-22 09:34 | Emergency (ER) | payer OTHER ==
[2019-02-22 10:22] LABS: CHLORIDE,CL 105 mmol/L (98-107); SODIUM,NA 139 mmol/L (136-145)
[2019-02-22] MEDS: Potassium Chloride 20 MEQ Tab.ER PO ONE (10:44)
[2019-02-22] MEDS: Potassium Chloride 10 MEQ in Premix Bag 1 BAG IV ONE (10:45)
--- NOTE | 2019-02-22 11:52 | EDM.PDOC ---
ED HPI GENERAL MEDICAL PROBLEM - General Chief Complaint: General Stated Complaint: heart racing, SOB, dizzy Time Seen by Provider: 02/22/19 09:45 Source of Information: Reports: Patient History Limitations: Reports: No Limitations - History of Present Illness INITIAL COMMENTS - FREE TEXT/NARRATIVE: Pt with palpitations Has been going on several weeks Worse today Has resolved prior to ER No chest pain No SOB Has hx/o anemia and hypokalemia Onset: Gradual Duration: Day(s): Location: Reports: Chest Associated Symptoms: Reports: Shortness of Breath - Related Data Allergies Allergy/AdvReac Type Severity Reaction Status Date / Time Latex, Natural Rubber Allergy Hives Verified 02/22/19 09:44 ondansetron Allergy Shaking,Tac Verified 02/22/19 09:44 hycardia promethazine HCl Allergy Irritabilit Verified 02/22/19 09:44 [From Phenergan] y Home Meds: Home Meds Folic Acid 1 mg PO QPM #100 tablet 05/30/16 [Rx] Non-Formulary Medication [NF Drug] 1 tab PO DAILY #100 09/21/16 [Rx] Potassium Chloride [Klor-Con M20] 20 meq PO BID tab.er 09/21/16 [Rx] FLUoxetine HCl [Fluoxetine HCl] 20 mg PO DAILY 07/27/18 [History] Cyanocobalamin (Vitamin B12) [Vitamin B12] 1,000 mcg IM Q30D sdv 09/29/18 [Rx] Levothyroxine [Synthroid] 100 mcg PO ACBREAKFAST 30 Days #30 tablet 09/29/18 [Rx ] Magnesium Oxide 800 mg PO QPM 30 Days #30 tablet 09/29/18 [Rx] Past Medical History HEENT History: Reports: Cataract, Impaired Vision, Sinusitis, Other (See Below) Other HEENT History: 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 Soft contact lenses, glasses. Bilateral cataractsmild. Cardiovascular History: Reports: High Cholesterol, Syncope, Other (See Below) Other Cardiovascular History: History of obesity and hyperlipidemia with fatty liver including post gastric bypass, previous recurrent syncope of unknown etiology with last episode in July 2014, chronic hypotension Respiratory History: Reports: Asthma, Bronchitis, Recurrent, Intubation, Previous, Other (See Below) Other Respiratory History: Right lower lobe stable benign pulmonary nodules Gastrointestinal History: Reports: Bowel Obstruction, Chronic Diarrhea, Gastritis, GERD, GI Bleed, PUD, Other (See Below) Other Gastrointestinal History: History of fatty liver with LFTs elevation including post gastric bypass surgery with secondary malabsorption syndrome as below, upper GI bleed secondary to gastric ulcer in her mid 30s with no blood transfusion required, multiple previous small bowel obstruction secondary to previous gastric bypass surgery, Genitourinary History: Reports: None MANAGER ANALYSIS History: Reports: Other MANAGER ANALYSIS History: Full term without complications during pregnancies or deliveries. Bilateral ovarian cysts. LMP on 09/23/18 which was normal. Musculoskeletal History: Reports: None Neurological History: Reports: Headaches, Chronic, Other (See Below) Other Neuro History: Near syncopal/syncopal episodes as above. Psychiatric History: Reports: Anxiety, Depression Endocrine/Metabolic History: Reports: Hypothyroidism, Multinodular Thyroid, Obesity/BMI 30+, Vitamin D Deficiency, Other (See Below) Other Endocrine/Metabolic History: Previous borderline hyperglycemia secondary to obesity, hypokalemia, vitamin D deficiency, borderline hypothyroidism with history of multiple benign thyroid nodules. Hypomagnesemia. Hypoalbuminemia. Hematologic History: Reports: Anemia, B12 Deficiency, Folic Acid, Iron Deficiency, Other (See Below) Other Hematologic History: Malabsorption syndrome secondary to her gastric bypass resulting in severe iron deficiency with additional vitamin B-12 and folic acid deficiency. Immunologic History: Reports: None Oncologic (Cancer) History: Reports: None Dermatologic History: Reports: None - Infectious Disease History Infectious Disease History: Reports: Chicken Pox, Shingles - Past Surgical History Head Surgeries/Procedures: Reports: None HEENT Surgical History: Reports: Eye Surgery, Oral Surgery, Other (See Below) Other HEENT Surgeries/Procedures: Left eye intravitrial injection of Sepproc on 08/26/18. Holcomb teeth extraction 2 at age 20 Cardiovascular Surgical History: Reports: None Respiratory Surgical History: Reports: None GI Surgical History: Reports: Bariatric Procedure, Cholecystectomy, EGD, Hernia , Abdominal, Hernia, Inguinal, Hernia Repair/Other, Other (See Below) Other GI Surgeries/Procedures: Gastric bypass surgery with concomitant cholecystectomy on 09/09/07, patient denies previous gastric bypass revisions as per medical records although evidence of anastomosis dilatations in the past EGD , last EGD and colonoscopy on 12/07/16 with previous EGDs on 11/27/15 and . EGD in 2007 with concomitant gastric feeding tube placement at that time, laparoscopic umbilical hernia repair with mesh placement on 12/03/15, right inguinal hernia repair in 2004 Female Surgical History: Reports: Section, Tubal Ligation, Other ( See Below) Other Female Surgeries/Procedures: in 1996, 1999, 2000, Endocrine Surgical History: Reports: Thyroid Biopsy, Other (See Below) Other Endocrine Surgeries/Procedures: Thyroid biopsy on 02/19/14. Neurological Surgical History: Reports: None Musculoskeletal Surgical History: Reports: None Oncologic Surgical History: Reports: None Dermatological Surgical History: Reports: Skin Biopsy, Other (See Below) - Past Imaging History Past Imaging History: Reports: Cardiac Echo (07/29/09 with ejection fraction of 68 %), CAT Scan (CT of the brain on 06/20/08, CT of the abdomen and pelvis with contrast on 06/12/11, 09/08/10, and 06/20/08, CT of the head and cervical region on 07/24/09), Mammogram (Last on 09/22/17.), Ultrasound (Right breast ultrasound on 09/22. Thyroid ultrasounds on 06/30/16 and 12/09/13. Abdominal ultrasound on ) Social & Family History - Family History HEENT: Reports: None Cardiac: Reports: High Cholesterol, Hypertension, Other (See Below) Other Cardiac Family History: Father with hyperlipidemia, hypertension in father and maternal grandfather Respiratory: Reports: Sleep Apnea, Other (See Below) Other Respiratory Family Hisory: Father with sleep apnea and history of tobacco use GI: Reports: Colon Polyps, GERD, PUD, Other (See Below) Other GI Family History: GERD in mother, father with colonic polyps and peptic ulcer disease : Reports: None OBGYN: Reports: Dysfunctional uterine bleeding, Fibroids, Recurrent Spontaneous , Other (See Below) Other OBGYN Family History: Other with dysfunctional uterine bleeding requiring hysterectomy with additional history of recurrent SAB Musculoskeletal: Reports: Arthritis, Gout, Osteoarthritis, Other (See Below) Other Musculoskeletal Family History: Father with gout Neurological: Reports: None Psychiatric: Reports: Anxiety, Depression, Other (See Below) Other Psychiatric Family History: Anxiety depression disorder in mother, maternal great grandmother and paternal great-grandmother Endocrine/Metabolic: Reports: Diabetes, type II, Hypothyroidism, IDDM, Other ( See Below) Other Endocrine/Metabolic Family History: IDDM in maternal grandmother, paternal grandmother, maternal grandfather, and maternal great-grandmother with brother with possible hyperglycemia, father with hypothyroidism secondary to thyroid resection from metastatic renal cancer as below Hematologic: Reports: Anemia Immunologic: Reports: None Dermatologic: Reports: None Oncologic: Reports: Leukemia, Metastatic, Renal, Skin, Thyroid, Other (See Below ) Other Oncologic Family History: Mother with melanoma, paternal grandmother with basal cell carcinoma, maternal aunt with basal cell carcinoma, Cousin with leukemia, mother with multiple myeloma, father with metastatic renal cancer with metastases to the thyroid gland and lungs - Tobacco Use Smoking Status *Q: Never Smoker Second Hand Smoke Exposure: No - Caffeine Use Caffeine Use: Reports: Soda Caffeine Use Comment: DAILY 2BOTTLES - Recreational Drug Use Recreational Drug Use: No - Living Situation & Occupation Living situation: Reports: (1997, 3 children), with Family ( and 3 children) Occupation: Employed ([employer] at [employer]. 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) ED ROS GENERAL - Review of Systems Review Of Systems: See Below Respiratory: Reports: Shortness of Breath Cardiovascular: Reports: Palpitations GI/Abdominal: Reports: No Symptoms Musculoskeletal: Reports: No Symptoms Neurological: Reports: No Symptoms ED EXAM, GENERAL - Physical Exam Exam: See Below Exam Limited By: No Limitations General Appearance: No Apparent Distress Throat/Mouth: Normal Oropharynx Neck: Supple Respiratory/Chest: Lungs Clear Cardiovascular: Regular Rate, Rhythm GI/Abdominal: Non-Tender Extremities: No Pedal Edema EKG INTERPRETATION Rhythm: NSR Course - Vital Signs Last Recorded V/S: Last Vital Signs Temp 36.5 C 02/22/19 09:47 Pulse 75 02/22/19 10:25 Resp 24 H 02/22/19 10:25 BP 114/81 02/22/19 10:25 Pulse Ox 100 02/22/19 10:25 - Orders/Labs/Meds Orders: Active Orders 24 hr Category Date Time Status EKG Documentation Completion [RC] ASDIRECTED Care 02/22/19 09:46 Active Labs: Laboratory Tests 02/22/19 02/22/19 Range/Units 09:55 09:55 WBC 5.8 (4.0-10.2) K/uL RBC 3.15 L (3.77-5.09) M/uL Hgb 7.1 L* (11.7-15.5) g/dL Hct 24.5 L* (34.0-46.0) % MCV 77.8 L D (84.0-98.0) fL MCH 22.5 L (28.2-33.3) pg MCHC 29.0 L (31.7-36.0) g/dL RDW 14.3 H (11.2-14.1) % Plt Count 293 (150-350) K/uL Neut % (Auto) 64.7 (45.0-80.0) % Lymph % (Auto) 23.9 (10.0-50.0) % Levy % (Auto) 8.8 (2.0-14.0) % Eos % (Auto) 2.1 (0.0-5.0) % Baso % (Auto) 0.5 (0.0-2.0) % Neut # (Auto) 3.74 (1.40-7.00) K/uL Lymph # (Auto) 1.38 (0.50-3.50) K/uL Levy # (Auto) 0.51 (0.00-1.00) K/uL Eos # (Auto) 0.12 (0.00-0.50) K/uL Baso # (Auto) 0.03 (0.00-0.20) K/uL Sodium 139 (136-145) mmol/L Potassium 2.7 L* (3.5-5.1) mmol/L Chloride 105 (98-107) mmol/L Carbon Dioxide 23.6 (21.0-32.0) mmol/L BUN 10 (7-18) mg/dL Creatinine 0.72 (0.51-1.17) mg/dL Est Cr Clr Drug Dosing 80.50 mL/min Estimated GFR (MDRD) > 60 mL/min Glucose 103 (74-106) mg/dL Calcium 8.1 L (8.5-10.1) mg/dL Total Bilirubin 0.2 (0.2-1.0) mg/dL AST 31 (15-37) U/L ALT 38 (12-78) U/L Alkaline Phosphatase 131 H (46-116) IU/L Troponin I 0.000 (0.000-0.056) ng/mL Total Protein 6.4 (6.4-8.2) g/dL Albumin 3.1 L (3.4-5.0) g/dL Meds: Medications Discontinued Medications Generic Name Dose Route Start Last Admin Trade Name Jesus PRN Reason Stop Dose Admin Potassium Chloride 10 meq/ 50 mls @ 50 mls/hr 02/22/19 10:28 02/22/19 10:45 Premix IV 02/22/19 11:27 50 mls/hr ONETIME ONE Administration Potassium Chloride 40 meq 02/22/19 10:29 02/22/19 10:44 Klor-Con M20 PO 02/22/19 10:30 40 meq ONETIME ONE Administration - Re-Assessments/Exams Free Text/Narrative Re-Assessment/Exam: 02/22/19 11:49 Pt given Kcl 10 mEq Iv and 40 mEq PO in ER Will follow up in clinic re anemia May need transfusion in future Will double PO Kcl for 3 days Departure - Departure Time of Disposition: 12:00 Disposition: Home, Self-Care 01 Clinical Impression: Palpitations, Hypokalemia - Discharge Information *PRESCRIPTION DRUG MONITORING PROGRAM REVIEWED*: Not Applicable *COPY OF PRESCRIPTION DRUG MONITORING REPORT IN PATIENT SAM: Not Applicable Instructions: Hypokalemia, Palpitations, [id number] Referrals: Moriah Albrecht PA-C [Primary Care Provider] - Additional Instructions: Double usual potassium dose for 3 days Follow up in clinic for recheck Sepsis Event Note - Evaluation Sepsis Screening Result: No Definite Risk - Focused Exam Vital Signs: Vital Signs Temp Pulse Resp BP Pulse Ox 02/22/19 10:25 75 24 H 114/81 100 02/22/19 10:10 74 15 109/64 100 02/22/19 10:00 73 18 107/70 100 02/22/19 09:47 36.5 C 77 19 112/70 100 Date Exam was Performed: 02/22/19 Time Exam was Performed: 11:47 - My Orders Last 24 Hours: My Active Orders 02/22/19 09:46 EKG Documentation Completion [RC] ASDIRECTED - Assessment/Plan Last 24 Hours: My Active Orders 02/22/19 09:46 EKG Documentation Completion [RC] ASDIRECTED
[2019-02-22 19:41] VITALS: BP 101/65; PULSE 71
== END 2019-02-22 12:00 | disposition home or self-care (01) ==
LOC: LL.ED 09:34
DX: E87.6 Hypokalemia (principal); E78.00 Pure hypercholesterolemia, unspecified; F41.9 Anxiety disorder, unspecified; F32.9 Major depressive disorder, single episode, unspecified; E03.9 Hypothyroidism, unspecified; E66.9 Obesity, unspecified; Z91.040 Latex allergy status; Z88.8 Allergy status to other drugs, medicaments and biological substances
CPT/HCPCS: 36415; 80053; 84484; 85025; 93005; 93010; 96360; 99284; 99285-25; A9270-GY; J3480

== ENCOUNTER 2019-02-25 08:16 | Emergency (ER) | payer OTHER ==
[2019-02-25] MEDS ORDERED: Sodium Chloride 0.9% 10 ML Syringe FLUSH PRN (08:36)
[2019-02-25] MEDS ORDERED: Famotidine 20 MG/2 ML SDV IVPUSH ONE (08:36)
--- NOTE | 2019-02-25 08:36 | EDM.PDOC ---
ED HPI GENERAL MEDICAL PROBLEM - General Chief Complaint: Respiratory Problem Stated Complaint: SOB Time Seen by Provider: 02/25/19 08:30 Source of Information: Reports: Patient, Family (), Old Records ([facility] chart/EMR), Other ([place] EMR reviewed on .) History Limitations: Reports: No Limitations - History of Present Illness INITIAL COMMENTS - FREE TEXT/NARRATIVE: The patient was brought to the emergency room via private automobile by her for evaluation of persistent and somewhat progressive intermittent moderate dizziness associated with possible heart flutter and dyspnea with symptoms not significantly improved after previous emergency room evaluation in this facility on 02/22/19. Patient was hypokalemic and anemic at that time with both IV and oral potassium supplementation given during that ER visit. Patient did not follow-up with regular provider as previously directed. Note patient has had these symptoms for several weeks and does have a known history of iron deficiency anemia with last IV iron infusion on 10/01/18. 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 She had a very light menses one month ago, however patient just started her period yesterday with significant hypermenorrhea including one soaked pad per hour with clots. The patient denies any chest pain/pressure, orthopnea, diaphoresis, paresthesias, recent decreased exercise tolerance, or any other anginal-type symptoms, although intermittent dizziness and possible heart flutter as above. No recent history of abdominal pain, heartburn, nausea, diarrhea, melena, gross hematochezia, or any food intolerance, including fatty foods, etc.. She denies any gross hematuria, colic, or other UTI symptoms. The patient also denies any recent fever, cough, wheezing, etc.. She also denies any current significant pain or discomfort. Onset: Other (As above) Onset Date: 02/22/19 Duration: Week(s):, Getting Worse Location: Reports: Other (No pain) Quality: Reports: Same as Previous Episode Severity: Moderate (Dizziness, etc. as above) Improves with: Reports: Rest Worsens with: Reports: Movement Context: Reports: Other (As above). Denies: Sick Contact, Trauma Associated Symptoms: Reports: Shortness of Breath. Denies: Confusion, Chest Pain, Cough, Diaphoresis, Fever/Chills, Headaches, Loss of Appetite, Malaise, Nausea/Vomiting, Rash, Seizure, Syncope, Weakness Treatments INSIDE WIREMAN: Reports: Other (see below) (None) - Related Data Allergies Allergy/AdvReac Type Severity Reaction Status Date / Time Latex, Natural Rubber Allergy Hives Verified 02/25/19 08:24 ondansetron Allergy Shaking,Tac Verified 02/25/19 08:24 hycardia promethazine HCl Allergy Irritabilit Verified 02/25/19 08:24 [From Phenergan] y Home Meds: Home Meds Folic Acid 1 mg PO QPM #100 tablet 05/30/16 [Rx] Non-Formulary Medication [NF Drug] 1 tab PO DAILY #100 09/21/16 [Rx] Potassium Chloride [Klor-Con M20] 20 meq PO BID tab.er 09/21/16 [Rx] FLUoxetine HCl [Fluoxetine HCl] 20 mg PO DAILY 07/27/18 [History] Cyanocobalamin (Vitamin B12) [Vitamin B12] 1,000 mcg IM Q30D sdv 09/29/18 [Rx] Levothyroxine [Synthroid] 100 mcg PO ACBREAKFAST 30 Days #30 tablet 09/29/18 [Rx ] Magnesium Oxide 800 mg PO QPM 30 Days #30 tablet 09/29/18 [Rx] Past Medical History HEENT History: Reports: Cataract, Impaired Vision, Sinusitis, Other (See Below) . Denies: Allergic Rhinitis, Glaucoma, Hard of Hearing, Macular Degeneration Other HEENT History: 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 Soft contact lenses, glasses. Bilateral cataractsmild. Cardiovascular History: Reports: Arrhythmia, High Cholesterol, Syncope, Other ( See Below). Denies: Afib, Aneurysm, Blood Clots/VTE/DVT, CAD, Cardiomyopathy, Heart Murmur, Hypertension, SD, PVD Other Cardiovascular History: Short WV interval. History of obesity and hyperlipidemia with fatty liver including post gastric bypass, previous recurrent syncope of unknown etiology with last episode in July 2014, chronic hypotension Respiratory History: Reports: Asthma, Bronchitis, Recurrent, Intubation, Previous, Other (See Below). Denies: COPD, Intubation, Difficult, PE, Pneumonia , Recurrent, Pneumothorax, Sleep Apnea, TB Other Respiratory History: Right lower lobe stable benign pulmonary nodules Gastrointestinal History: Reports: Bowel Obstruction, Chronic Diarrhea, Fatty Liver, Gastritis, GERD, GI Bleed, PUD, Other (See Below). Denies: Celiac Disease, Cholelithiasis, Colon Polyp, Fecal Incontinence, Hepatitis, Hiatal Hernia, Inflammatory Bowel Disease, Irritable Bowel Syndrome, Jaundice, Pancreatitis Other Gastrointestinal History: History of fatty liver with LFTs elevation including post gastric bypass surgery with secondary malabsorption syndrome as below, upper GI bleed secondary to gastric ulcer in her mid 30s with no blood transfusion required, multiple previous small bowel obstructions secondary to previous gastric bypass surgery, Genitourinary History: Reports: None. Denies: Acute Renal Failure, Chronic Renal Insuffiency, Renal Calculus, Retention, Urinary, STD, Urinary Incontinence , UTI, Recurrent METER ATTENDANT History: Reports: Dysfunctional Uterine Bleeding, Polycystic Ovaries, . Denies: Endometriosis, Fibroids, Spontaneous : 3 Para: 3 Other METER ATTENDANT History: Hypermenorrhea since 2018 with menses lasting usually about 7 days with probable secondary anemia with no workup to this point. Full term without complications during pregnancies or deliveries. Bilateral ovarian cysts. LMP on with significant bleeding as above 09/23/18 which was normal. Musculoskeletal History: Reports: Other (See Below). Denies: Amputation, Arthritis, Back Pain, Chronic, Fracture, Gout, Neck Pain, Chronic, Osteoarthritis, RA, SLE Other Musculoskeletal History: Mild scoliosis. Neurological History: Reports: Headaches, Chronic, Vertigo, Other (See Below). Denies: Cerebral Aneurysms, Concussion, CVA, Head Trauma, Migraines, MS, Parkinson's, Seizure, TIA Other Neuro History: Chronic vertigo/car sickness. Near syncopal/syncopal episodes as above. Psychiatric History: Reports: Anxiety, Depression. 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 Denies: Diabetes, Gestational, Diabetes, Type I, Diabetes, Type II, Diabetes Mellitus, Type 3c Other Endocrine/Metabolic History: Previous borderline hyperglycemia secondary to obesity; borderline hypothyroidism with history of multiple benign thyroid nodules. Hypomagnesemia. Hypoalbuminemia. Hematologic History: Reports: Anemia, B12 Deficiency, Folic Acid, Iron Deficiency, Other (See Below). Denies: Blood Transfusion(s) Other Hematologic History: Malabsorption syndrome secondary to her gastric bypass resulting in severe iron deficiency with additional vitamin B-12 and folic acid deficiency. Note hypermenorrhea as above also contributing to her iron deficiency. Immunologic History: Reports: None. Denies: AIDS, HIV, SLE Oncologic (Cancer) History: Reports: None. Denies: Basal Cell Carcinoma, Breast , Cervix, Colon, Hodgkin's Lymphoma, Leukemia, Lymphoma, Malignant Melanoma, Non -Hodgkin's Lymphoma, Ovarian, Squamous Cell Carcinoma, Uterine Dermatologic History: Reports: None. Denies: Eczema, Melanoma - Infectious Disease History Infectious Disease History: Reports: Chicken Pox, Shingles (Right clavicular region on 07/27/18.). Denies: C-Difficile, Measles, Meningitis, Mononucleosis, MRSA, Mumps, Pertussis (Whooping Cough), Rheumatic Fever, Rubella, Scarlet Fever , TB, VRE - Past Surgical History Head Surgeries/Procedures: Reports: None HEENT Surgical History: Reports: Eye Surgery, Oral Surgery, Other (See Below). Denies: Adenoidectomy, Cataract Surgery, Detached Retina, Radiocarotid Ectomy, Tonsillectomy Other HEENT Surgeries/Procedures: Left eye intravitrial injection of Sepproc initiated on 08/26/18 secondary to macular edema as above. [place] teeth extraction 2 at age 20 Cardiovascular Surgical History: Reports: None. Denies: Varicose Respiratory Surgical History: Reports: None. Denies: Thoracentesis GI Surgical History: Reports: Bariatric Procedure, Cholecystectomy, Colonoscopy , EGD, Hernia, Abdominal, Hernia, Inguinal, Hernia Repair/Other, Other (See Below). Denies: Appendectomy, Polypectomy Other GI Surgeries/Procedures: Gastric bypass surgery with concomitant cholecystectomy on 09/09/07, patient denies previous gastric bypass revisions as per medical records although evidence of anastomosis dilatations in the past EGD , last EGD and colonoscopy on 12/07/16 with previous EGDs on 11/27/15 and . EGD in 2007 with concomitant gastric feeding tube placement at that time, laparoscopic umbilical hernia repair with mesh placement on 12/03/15, right inguinal hernia repair in 2004. Female Surgical History: Reports: Section, Tubal Ligation, Other ( See Below). Denies: Breast Biopsy, Hysterectomy, Oophorectomy, Salpingo- Oophorectomy Other Female Surgeries/Procedures: in 1996, 1999, 2000; tubal ligation in 2000. Endocrine Surgical History: Reports: Thyroid Biopsy, Other (See Below) Other Endocrine Surgeries/Procedures: Thyroid biopsy on 02/19/14. Neurological Surgical History: Reports: None. Denies: C-Spine, Discectomy, Laminectomy, Lumbar Spine, Sacral Spine, Spinal Fusion, Thoracic Spine, Vertebroplasty Musculoskeletal Surgical History: Reports: None. Denies: Arthroscopic Procedure , Carpal Tunnel, Ganglion Cyst, Joint Replacement, ORIF, Shoulder Surgery Oncologic Surgical History: Reports: None Dermatological Surgical History: Reports: Skin Biopsy, Other (See Below) Other Dermatological Surgeries/Procedures: Multiple biopsies for benign disease from the right back and right hand on 09/03/18. - Past Imaging History Past Imaging History: Reports: Cardiac Echo (07/29/09 with ejection fraction of 68 %), CAT Scan (CT of the brain on 09/28/18 and 06/20/08, CT of the abdomen and pelvis with contrast on 06/12/11, 09/08/10, and 06/20/08, CT of the head and cervical region on 07/24/09), Mammogram (Last on 12/17/18.), Ultrasound (Right breast ultrasound on 09/22/17. Thyroid ultrasounds on 06/30/16 and 12/09/13. Abdominal ultrasound on 11/06/08) Social & Family History - Family History HEENT: Reports: None, Cataract. Denies: Glaucoma, Macular Degeneration, Retinal Detachment Cardiac: Reports: High Cholesterol, Hypertension, Other (See Below). Denies: Afib, Aneurysm, Arrhythmia, Blood Clots/VTE/DVT, CAD, Heart Failure, SD, PVD/COD , Syncope Other Cardiac Family History: Father with hyperlipidemia, hypertension in father and maternal grandfather Respiratory: Reports: Sleep Apnea, Other (See Below). Denies: Asthma, COPD, PE , Pneumothorax Other Respiratory Family Hisory: Father with sleep apnea and history of tobacco use GI: Reports: Colon Polyps, GERD, PUD, Other (See Below). Denies: Celiac Disease , Cholelithiasis, GI bleed, Inflammatory Bowel Disease, Irritable Bowel Syndrome Other GI Family History: GERD in mother, father with colonic polyps and peptic ulcer disease : Reports: None. Denies: Renal Calculus, Renal Disease/Insufficiency OBGYN: Reports: Dysfunctional uterine bleeding, Fibroids, Recurrent Spontaneous , Other (See Below). Denies: Endometriosis Other OBGYN Family History: Mother with dysfunctional uterine bleeding requiring hysterectomy with additional history of recurrent SAB Musculoskeletal: Reports: Arthritis, Gout, Osteoarthritis, Other (See Below). Denies: RA, SLE Other Musculoskeletal Family History: Father with gout Neurological: Reports: None. Denies: Alzheimers Disease, CVA, Dementia, Migraines, MS, Neuropathy, Peripheral, Parkinson's, Seizure, TIA Psychiatric: Reports: Anxiety, Depression, Other (See Below). Denies: Abuse, Victim of, ADD, ADHD, Psych Hospitalization(s), PTSD, Suicide Attempt Other Psychiatric Family History: Anxiety depression disorder in mother, maternal great grandmother and paternal great-grandmother Endocrine/Metabolic: Reports: Diabetes, type II, Hypothyroidism, IDDM, Other ( See Below). Denies: Chambers's Disease Other Endocrine/Metabolic Family History: IDDM in maternal grandmother, paternal grandmother, maternal grandfather, and maternal great-grandmother with brother with possible hyperglycemia, father with hypothyroidism secondary to thyroid resection from metastatic renal cancer as below Hematologic: Reports: Anemia Immunologic: Reports: None. Denies: AIDS, HIV, SLE Dermatologic: Reports: None. Denies: Eczema, Psoriasis Oncologic: Reports: Leukemia, Metastatic, Renal, Skin, Thyroid, Other (See Below ). Denies: Breast, Cervix, Colon, Hodgkin's Lymphoma, Lymphoma, Ovarian, Uterine Other Oncologic Family History: Mother with melanoma, paternal grandmother with basal cell carcinoma, maternal aunt with basal cell carcinoma, Cousin with leukemia, mother with multiple myeloma, father with metastatic renal cancer with metastases to the thyroid gland and lungs - Tobacco Use Smoking Status *Q: Never Smoker Tobacco Use Within Last Twelve Months: No Used Tobacco, but Quit: No Smoking Cessation Information Provided To Patient: No Second Hand Smoke Exposure: No Second Hand Smoke Education Provided: No - Caffeine Use Caffeine Use: Reports: Soda (2 sodas per day). Denies: Coffee, Energy Drinks, Tea - Alcohol Use Alcohol Use History: No Days Per Week of Alcohol Use: 0 Number of Drinks Per Day: 0 Number of Drinks Per Day Comment: No previous DWIs, problems with alcohol abuse , etc. Total Drinks Per Week: 0 Alcohol Use in Last Twelve Months: No - Recreational Drug Use Recreational Drug Use: No Drug Use in Last 12 Months: No Recreational Drug Type: Denies: Amphetamines (Speed), Cocaine, Heroin, Inhalants (Glues, Solvents, Aerosols), LSD (Acid), Marijuana/Hashish, Methamphetamine, Morphine, Oxycodone - Living Situation & Occupation Living situation: Reports: (1997, 3 children), with Family ( and 3 children) Occupation: Employed ([employer] at [employer]. 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 ED EXAM, GENERAL - Physical Exam Exam: See Below Exam Limited By: No Limitations General Appearance: Alert, No Apparent Distress Eye Exam: Bilateral Eye: EOMI, Normal Inspection (No nystagmus. Patient wearing glasses.), PERRL Ears: Normal External Exam, Other (Scopolamine patch noted in the right retroauricular region) Nose: Normal Inspection, Normal Mucosa, No Blood, Other (Right nasal stud) Throat/Mouth: Normal Inspection, Normal Lips, Normal Teeth, Normal Gums, Normal Oropharynx, Normal Voice, No Airway Compromise. No: Dysphagia, Perioral Cyanosis Head: Atraumatic, Normocephalic. No: Facial Swelling, Facial Tenderness, Sinus Tenderness Neck: Normal Inspection, Supple, Non-Tender, Full Range of Motion. No: Carotid Bruit, Lymphadenopathy (L), Lymphadenopathy (R), Thyromegaly Respiratory/Chest: No Respiratory Distress, Lungs Clear, Normal Breath Sounds, No Accessory Muscle Use, Chest Non-Tender. No: Accessory Muscle Use, Retractions Cardiovascular: Normal Peripheral Pulses, Regular Rate, Rhythm, No Edema, No Gallop, No JVD, No Murmur, No Rub. No: Gallop/S3, Gallop/S4, Friction Rub Peripheral Pulses: 2+: Radial (L), Radial (R), Dorsalis Pedis (L), Dorsalis Pedis (R) GI/Abdominal: Normal Bowel Sounds, Soft, Non-Tender, No Organomegaly, No Distention, No Abnormal Bruit, No Mass, Pelvis Stable. No: Guarding (Female) Exam: Deferred Rectal (Female) Exam: Deferred Back Exam: Full Range of Motion, CVA Tenderness (L), CVA Tenderness (R), Other ( Scoliosismild). No: Muscle Spasm, Paraspinal Tenderness, Vertebral Tenderness Extremities: Normal Inspection, Normal Range of Motion, Non-Tender, No Pedal Edema, Normal Capillary Refill. No: Saturnino's Sign Neurological: Alert, Oriented, CN II-XII Intact, Normal Cognition, Normal Gait, Normal Reflexes (Negative Babinski's), No Motor/Sensory Deficits Psychiatric: Normal Affect, Normal Mood Skin Exam: Warm, Dry, Intact, No Rash, Pallor (Moderate), Stud(s) (As above), Tattoo(s) (Multiple). No: Diaphoretic, Ecchymosis, Petechiae Lymphatic: No Adenopathy EKG INTERPRETATION EKG Date: 02/25/19 Time: 08:43 Rhythm: NSR Rate (Beats/Min): 75 [place]: Normal (Left cardiac axis) P-Wave: Present QRS: Normal (0.08 seconds representing some repolarization changes versus border line beginning incomplete right bundle branch block/lead placement) ST-T: Other (New T wave inversion in leads V1 and V2) QT: Normal WV/PQ Interval: Progressive short WV interval of 0.09 seconds with no delta waves noted. Stable extreme poor R-wave progression in the anterior leads. Comparison: Change From Previous EKG (As above since 09/29/18) EKG Interpretation Comments: 1. Questionable anterior wall cardiac ischemia versus lead placement 2. Progressive short WV interval 3. Repolarization changes Course - Vital Signs Last Recorded V/S: Last Vital Signs Temp 36.8 C 02/25/19 08:20 Pulse 65 02/25/19 09:30 Resp 16 02/25/19 09:30 BP 99/60 02/25/19 09:30 Pulse Ox 100 02/25/19 09:30 - Orders/Labs/Meds Orders: Active Orders 24 hr Category Date Time Status Cardiac Monitoring [RC] . DIRECTED Care 02/25/19 08:36 Active EKG Documentation Completion [RC] ASDIRECTED Care 02/25/19 08:37 Active Oxygen Therapy, ED [RC] PRN Care 02/25/19 08:36 Active Peripheral IV Care [RC] . DIRECTED Care 02/25/19 08:37 Active Pulse Oximetry [RC] CONTINUOUS Care 02/25/19 08:36 Active Up With Assistance [RC] PFP Care 02/25/19 08:36 Active Vital Signs [RC] PFP Care 02/25/19 08:36 Active Nothing per Oral Now Diet [DIET] Diet 02/25/19 Breakfast Active Chest 1V Frontal [CR] Stat Exams 02/25/19 08:36 Ordered Chest PE [Ang Chest] [CT] Stat Exams 02/25/19 09:30 Ordered Pelvis Non OB Comp [US] Stat Exams 02/25/19 09:35 Ordered Pelvis Non OB Comp [US] Stat Exams 02/25/19 09:35 Stop Req Venous Doppler Lwr Ext Bi [US] Urgent Exams 02/25/19 09:34 Ordered FERRITIN [CHEM] Routine Lab 02/25/19 09:58 Ordered IRON/TIBC [CHEM] Routine Lab 02/25/19 09:58 Ordered Lactated Ringers [Ringers, Lactated] 1,000 ml Med 02/25/19 09:33 Ordered IV .BOLUS Sodium Chloride 0.9% [Saline Flush] Med 02/25/19 08:36 Active 10 ml FLUSH ASDIRECTED PRN Obtain Past Medical Record [OM.PC] Urgent Oth 02/25/19 08:36 Active Peripheral IV Insertion Adult [OM.PC] Stat Oth 02/25/19 08:36 Ordered Resuscitation Status Stat Resus Stat 02/25/19 08:36 Ordered Medication Orders Lactated Ringer's (Ringers, Lactated) 1,000 mls @ 999 mls/hr IV .BOLUS ONE Stop: 02/25/19 10:33 Last Admin: 02/25/19 09:41 Dose: 999 mls/hr Sodium Chloride (Saline Flush) 10 ml FLUSH ASDIRECTED PRN PRN Reason: Keep Vein Open Labs: Laboratory Tests 02/25/19 02/25/19 02/25/19 Range/Units 08:40 08:40 08:40 WBC 5.3 (4.0-10.2) K/uL RBC 3.56 L (3.77-5.09) M/uL Hgb 7.9 L (11.7-15.5) g/dL Hct 27.5 L (34.0-46.0) % MCV 77.2 L (84.0-98.0) fL MCH 22.2 L (28.2-33.3) pg MCHC 28.7 L (31.7-36.0) g/dL RDW 14.6 H (11.2-14.1) % Plt Count 353 H (150-350) K/uL Neut % (Auto) 66.6 (45.0-80.0) % Lymph % (Auto) 23.3 (10.0-50.0) % Nance % (Auto) 7.1 (2.0-14.0) % Eos % (Auto) 2.4 (0.0-5.0) % Baso % (Auto) 0.6 (0.0-2.0) % Neut # (Auto) 3.55 (1.40-7.00) K/uL Lymph # (Auto) 1.24 (0.50-3.50) K/uL Nance # (Auto) 0.38 (0.00-1.00) K/uL Eos # (Auto) 0.13 (0.00-0.50) K/uL Baso # (Auto) 0.03 (0.00-0.20) K/uL PT 10.6 (9.5-12.0) SEC INR 1.0 APTT 21.7 (21.0-31.3) SEC D-Dimer, Quantitative 674 H (0-400) ng/mL Sodium (136-145) mmol/L Potassium (3.5-5.1) mmol/L Chloride (98-107) mmol/L Carbon Dioxide (21.0-32.0) mmol/L BUN (7-18) mg/dL Creatinine (0.51-1.17) mg/dL Est Cr Clr Drug Dosing mL/min Estimated GFR (MDRD) mL/min Glucose (74-106) mg/dL Lactic Acid (0.4-2.0) mmol/L Uric Acid (2.6-7.2) mg/dL Calcium (8.5-10.1) mg/dL Magnesium (1.8-2.4) mg/dL Total Bilirubin (0.2-1.0) mg/dL AST (15-37) U/L ALT (12-78) U/L Alkaline Phosphatase (46-116) IU/L Creatine Kinase (26-308) U/L Creatine Kinase Index (0.0-2.5) % CK-MB (CK-2) (0.00-3.60) ng/mL Troponin I (0.000-0.056) ng/mL NT-Pro-B Natriuret Pep (0-125) pg/mL Total Protein (6.4-8.2) g/dL Albumin (3.4-5.0) g/dL TSH, Ultra Sensitive (0.358-3.740) mIU/mL HCG, Qual (NEGATIVE) 02/25/19 02/25/19 02/25/19 Range/Units 08:40 08:40 08:40 WBC (4.0-10.2) K/uL RBC (3.77-5.09) M/uL Hgb (11.7-15.5) g/dL Hct (34.0-46.0) % MCV (84.0-98.0) fL MCH (28.2-33.3) pg MCHC (31.7-36.0) g/dL RDW (11.2-14.1) % Plt Count (150-350) K/uL Neut % (Auto) (45.0-80.0) % Lymph % (Auto) (10.0-50.0) % Nance % (Auto) (2.0-14.0) % Eos % (Auto) (0.0-5.0) % Baso % (Auto) (0.0-2.0) % Neut # (Auto) (1.40-7.00) K/uL Lymph # (Auto) (0.50-3.50) K/uL Nance # (Auto) (0.00-1.00) K/uL Eos # (Auto) (0.00-0.50) K/uL Baso # (Auto) (0.00-0.20) K/uL PT (9.5-12.0) SEC INR APTT (21.0-31.3) SEC D-Dimer, Quantitative (0-400) ng/mL Sodium 141 (136-145) mmol/L Potassium 3.3 L (3.5-5.1) mmol/L Chloride 107 (98-107) mmol/L Carbon Dioxide 23.2 (21.0-32.0) mmol/L BUN 11 (7-18) mg/dL Creatinine 0.63 (0.51-1.17) mg/dL Est Cr Clr Drug Dosing 92.00 mL/min Estimated GFR (MDRD) > 60 mL/min Glucose 89 (74-106) mg/dL Lactic Acid 1.6 (0.4-2.0) mmol/L Uric Acid 3.8 (2.6-7.2) mg/dL Calcium 8.6 (8.5-10.1) mg/dL Magnesium 1.5 L (1.8-2.4) mg/dL Total Bilirubin 0.2 (0.2-1.0) mg/dL AST 50 H (15-37) U/L ALT 54 (12-78) U/L Alkaline Phosphatase 150 H (46-116) IU/L Creatine Kinase 69 (26-308) U/L Creatine Kinase Index 1.0 (0.0-2.5) % CK-MB (CK-2) 0.70 (0.00-3.60) ng/mL Troponin I 0.000 (0.000-0.056) ng/mL NT-Pro-B Natriuret Pep 235 H (0-125) pg/mL Total Protein 7.3 (6.4-8.2) g/dL Albumin 3.5 (3.4-5.0) g/dL TSH, Ultra Sensitive 4.584 H (0.358-3.740) mIU/mL HCG, Qual Negative (NEGATIVE) Meds: Medications Generic Name Dose Route Start Last Admin Trade Name Freq PRN Reason Stop Dose Admin Lactated Ringer's 1,000 mls @ 999 mls/hr 02/25/19 09:33 02/25/19 09:41 Ringers, Lactated IV 02/25/19 10:33 999 mls/hr .BOLUS ONE Administration Sodium Chloride 10 ml 02/25/19 08:36 Saline Flush FLUSH ASDIRECTED PRN Keep Vein Open Discontinued Medications Generic Name Dose Route Start Last Admin Trade Name Freq PRN Reason Stop Dose Admin Famotidine 40 mg 02/25/19 08:36 02/25/19 08:53 Pepcid IVPUSH 02/25/19 08:37 40 mg ONETIME ONE Administration Iopamidol 100 ml 02/25/19 09:36 Isovue-370 (76%) IVPUSH 02/25/19 09:37 ONETIME ONE Potassium Chloride 40 meq 02/25/19 09:34 02/25/19 09:40 Klor-Con M20 PO 02/25/19 09:35 40 meq ONETIME ONE Administration - Radiology Interpretation Free Text/Narrative:: 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 Chest x-ray, portable, shows mild pulmonary obstructive disease with no cardiomegaly, CHF, pulmonary infiltrates, pneumothorax, etc. Mild scoliosis noted. Departure - Departure Time of Disposition: 10:05 Disposition: Still A Patient 30 Condition: Good Clinical Impression: Elevated LFTs, Hypomagnesemia, Hypokalemia, Hypothyroidism, Asthma, Peptic reflux disease, Mixed anxiety depressive disorder, Anemia, Hypermenorrhea, Dizziness, D-dimer, elevated - Discharge Information *PRESCRIPTION DRUG MONITORING PROGRAM REVIEWED*: Not Applicable *COPY OF PRESCRIPTION DRUG MONITORING REPORT IN PATIENT SAM: Not Applicable Forms: ED Department Discharge Sepsis Event Note - Evaluation Sepsis Screening Result: No Definite Risk - Focused Exam Vital Signs: Vital Signs Temp Pulse Resp BP Pulse Ox 02/25/19 09:30 65 16 99/60 100 02/25/19 09:00 69 15 115/61 100 02/25/19 08:30 71 15 103/59 L 99 02/25/19 08:20 36.8 C 81 18 111/69 100 Date Exam was Performed: 02/25/19 Time Exam was Performed: 10:03 - Problem List & Annotations (1) Anemia SNOMED Code(s): 143426312 Code(s): D64.9 - ANEMIA, UNSPECIFIED Status: Acute Priority: High Current Visit: Yes Onset Date: ~05/30/16 Annotation/Comment:: Multifactorial etiologies to patient's current anemia, including hypermenorrhea , malabsorption syndrome, iron deficiency, vitamin D B12 deficiency, and folic acid deficiency with status post gastric bypass surgery as above. Anemia is symptomatic, however has been long-standing. Hypermenorrhea seems to be a significant contributing factor with the patient and her counseled on various treatment options including LOWERATOR OPERATOR referral for possible hysterectomy versus endometrial biopsy with subsequent endometrial ablation, which may be a better option second the patient's previous multiple abdominal surgeries and probable adhesions. Pelvic ultrasound has been ordered with results pending. Endometrial ablation may not be an option,if significant fibroids are noted in the pelvic ultrasound, however. Note previous IV iron supplementation with close follow-up by regular providers. TIBC panel and ferritin level have been ordered with results pending. Patient's hemoglobin has actually improved since with the patient not yet a candidate for blood transfusion. Qualifiers: Anemia type: other cause Other causes of anemia: nutritional, unspecified Qualified Code(s): D53.9 - Nutritional anemia, unspecified (2) D-dimer, elevated SNOMED Code(s): 045953526 Code(s): R79.89 - OTHER SPECIFIED ABNORMAL FINDINGS OF BLOOD CHEMISTRY Status: Acute Priority: High Current Visit: Yes Onset Date: 02/25/19 Annotation/Comment:: No previous d-dimer elevation by our records. CTA of the chest with PE protocol and venous Doppler studies have been ordered with results pending. (3) Dizziness SNOMED Code(s): 652788412, 140186715 Code(s): R42 - DIZZINESS AND GIDDINESS Status: Chronic Priority: High Current Visit: Yes Annotation/Comment:: Note chronic vertigo/carsickness as above, however current symptoms likely secondary to her chronic anemia. No chest pain or anginal type symptoms. Mild BNP elevation and non- specific EKG changes as above with no direct evidence of cardiac etiology of patient's symptoms. Dr. Delaney to determine whether further hospitalization/observation is required. (4) Elevated LFTs SNOMED Code(s): 632225309, 683030691 Code(s): R94.5 - ABNORMAL RESULTS OF LIVER FUNCTION STUDIES Status: Acute Priority: Medium Current Visit: Yes Onset Date: 09/28/18 Annotation/ Comment:: Nonspecific LFTs elevation with previous history of fatty liver and secondary LFTs elevation. Note mild BNP elevation as above, however no significant clinical evidence of CHF. Observe for now. (5) Hypermenorrhea SNOMED Code(s): 058954370 Code(s): N92.0 - EXCESSIVE AND FREQUENT MENSTRUATION WITH REGULAR CYCLE Status: Chronic Priority: High Current Visit: Yes Annotation/Comment:: As above. LOWERATOR OPERATOR referral advisable. Qualifiers: Menorrahagia type: with regular cycle Qualified Code(s): N92.0 - Excessive and frequent menstruation with regular cycle (6) Hypokalemia SNOMED Code(s): 76839205 Code(s): E87.6 - HYPOKALEMIA Status: Acute Priority: High Current Visit : Yes Onset Date: 05/30/16 Annotation/Comment:: Patient given 1 L bolus of IV lactated Ringer's with additional 40 mEq of oral potassium chloride. Patient' s potassium supplementation will need to be increased at discharge. (7) Hypomagnesemia SNOMED Code(s): 894359207 Code(s): E83.42 - HYPOMAGNESEMIA Status: Acute Priority: Medium Current Visit: Yes Onset Date: 05/30/16 Annotation/Comment:: Magnesium level is decreased once again normal today. increase current supplementation with close follow-up by her regular provider. No history of medication noncompliance. (8) Hypothyroidism SNOMED Code(s): 33308111 Code(s): E03.9 - HYPOTHYROIDISM, UNSPECIFIED Status: Acute Current Visit : Yes Onset Date: 12/06/13 Annotation/Comment:: TSH mildly elevated today. Note malabsorption syndrome and current iron and magnesium supplementation. Increased thyroid supplementation recommended with repeat TSH in 4 weeks by regular provider. (9) Asthma SNOMED Code(s): 783889762 Code(s): J45.909 - UNSPECIFIED ASTHMA, UNCOMPLICATED Status: Chronic Priority: Medium Current Visit: Yes Annotation/Comment:: No recent fever or bronchitic type symptoms Qualifiers: Asthma severity: mild Asthma persistence: intermittent Asthma complication type: uncomplicated Qualified Code(s): J45.20 - Mild intermittent asthma, uncomplicated (10) Mixed anxiety depressive disorder SNOMED Code(s): 032860270 Code(s): F41.8 - OTHER SPECIFIED ANXIETY DISORDERS Status: Chronic Priority: Medium Current Visit: Yes Annotation/Comment:: Stable by patient history (11) Peptic reflux disease SNOMED Code(s): 555996765 Code(s): K21.9 - GASTRO-ESOPHAGEAL REFLUX DISEASE WITHOUT ESOPHAGITIS Status: Chronic Priority: Medium Current Visit: Yes Annotation/Comment:: Stable by patient history with no evidence of recent GI bleed despite previous history of peptic ulcer disease. High-dose IV Pepcid given as GI prophylaxis in the emergency room. - Problem List Review Problem List Initiated/Reviewed/Updated: Yes - My Orders Last 24 Hours: My Active Orders 02/25/19 08:36 Cardiac Monitoring [RC] . DIRECTED Oxygen Therapy, ED [RC] PRN Pulse Oximetry [RC] CONTINUOUS Up With Assistance [RC] PFP Vital Signs [RC] PFP Chest 1V Frontal [CR] Stat Sodium Chloride 0.9% [Saline Flush] 10 ml FLUSH ASDIRECTED PRN Obtain Past Medical Record [OM.PC] Urgent Peripheral IV Insertion Adult [OM.PC] Stat Resuscitation Status Stat 02/25/19 08:37 EKG Documentation Completion [RC] ASDIRECTED Peripheral IV Care [RC] . DIRECTED 02/25/19 09:30 Chest PE [Ang Chest] [CT] Stat 02/25/19 09:33 Lactated Ringers [Ringers, Lactated] 1,000 ml IV .BOLUS 02/25/19 09:34 Venous Doppler Lwr Ext Bi [US] Urgent 02/25/19 09:35 Pelvis Non OB Comp [US] Stat Pelvis Non OB Comp [US] Stat 02/25/19 09:58 FERRITIN [CHEM] Routine IRON/TIBC [CHEM] Routine 02/25/19 Breakfast Nothing per Oral Now Diet [DIET] - Assessment/Plan Last 24 Hours: My Active Orders 02/25/19 08:36 Cardiac Monitoring [RC] . DIRECTED Oxygen Therapy, ED [RC] PRN Pulse Oximetry [RC] CONTINUOUS Up With Assistance [RC] PFP Vital Signs [RC] PFP Chest 1V Frontal [CR] Stat Sodium Chloride 0.9% [Saline Flush] 10 ml FLUSH ASDIRECTED PRN Obtain Past Medical Record [OM.PC] Urgent Peripheral IV Insertion Adult [OM.PC] Stat Resuscitation Status Stat 02/25/19 08:37 EKG Documentation Completion [RC] ASDIRECTED Peripheral IV Care [RC] . DIRECTED 02/25/19 09:30 Chest PE [Ang Chest] [CT] Stat 02/25/19 09:33 Lactated Ringers [Ringers, Lactated] 1,000 ml IV .BOLUS 02/25/19 09:34 Venous Doppler Lwr Ext Bi [US] Urgent 02/25/19 09:35 Pelvis Non OB Comp [US] Stat Pelvis Non OB Comp [US] Stat 02/25/19 09:58 FERRITIN [CHEM] Routine IRON/TIBC [CHEM] Routine 02/25/19 Breakfast Nothing per Oral Now Diet [DIET] Assessment:: As above. Plan: As above. Various treatment options and changes in medical therapy were discussed with the patient and her by me prior to Dr. Delaney assuming care. Dr. Delaney was updated concerning patient's needed further work, etc. as above.
[2019-02-25 09:18] LABS: CHLORIDE,CL 107 mmol/L (98-107); SODIUM,NA 141 mmol/L (136-145)
[2019-02-25] MEDS ORDERED: Lactated Ringers 1,000 ML IV ONE (09:33)
[2019-02-25] MEDS ORDERED: Potassium Chloride 20 MEQ Tab.ER PO ONE (09:34)
[2019-02-25] MEDS ORDERED: Iopamidol 755 Mg/ML 100 ML Bottle IVPUSH ONE (09:36)
--- NOTE | 2019-02-25 14:02 | EDM.PDOC ---
ED HPI GENERAL MEDICAL PROBLEM - General Chief Complaint: Respiratory Problem Stated Complaint: SOB Time Seen by Provider: 02/25/19 08:30 Source of Information: Reports: Patient, Family (), Old Records ([facility] chart/EMR), Other ([facility] reviewed on .) History Limitations: Reports: No Limitations - History of Present Illness INITIAL COMMENTS - FREE TEXT/NARRATIVE: The patient was brought to the emergency room via private automobile by her for evaluation of persistent and somewhat progressive intermittent moderate dizziness associated with possible heart flutter and dyspnea with symptoms not significantly improved after previous emergency room evaluation in this facility on 02/22/19. Patient was hypokalemic and anemic at that time with both IV and oral potassium supplementation given during that ER visit. Patient did not follow-up with regular provider as previously directed. Note patient has had these symptoms for several weeks and does have a known history of iron deficiency anemia with last IV iron infusion on 10/01/18. She does have a history of hypermenorrhea with no previous SUPERVISOR DITCHING consultation or workup with last month's. She had a very light menses one month ago, however patient just started her period yesterday with significant hypermenorrhea including one soaked pad per hour with clots. The patient denies any chest pain/pressure, orthopnea, diaphoresis, paresthesias, recent decreased exercise tolerance, or any other anginal-type symptoms, although intermittent dizziness and possible heart flutter as above. No recent history of abdominal pain, heartburn, nausea, diarrhea, melena, gross hematochezia, or any food intolerance, including fatty foods, etc.. She denies any gross hematuria, colic, or other UTI symptoms. The patient also denies any recent fever, cough, wheezing, etc.. She also denies any current significant pain or discomfort. Onset: Other (As above) Onset Date: 02/22/19 Duration: Week(s):, Getting Worse Location: Reports: Other (No pain) Quality: Reports: Same as Previous Episode Severity: Moderate (Dizziness, etc. as above) Improves with: Reports: Rest Worsens with: Reports: Movement Context: Reports: Other (As above). Denies: Sick Contact, Trauma Associated Symptoms: Reports: Shortness of Breath. Denies: Confusion, Chest Pain, Cough, Diaphoresis, Fever/Chills, Headaches, Loss of Appetite, Malaise, Nausea/Vomiting, Rash, Seizure, Syncope, Weakness Treatments RESOURCE DIRECTOR: Reports: Other (see below) (None) - Related Data Allergies Allergy/AdvReac Type Severity Reaction Status Date / Time Latex, Natural Rubber Allergy Hives Verified 02/25/19 08:24 ondansetron Allergy Shaking,Tac Verified 02/25/19 08:24 hycardia promethazine HCl Allergy Irritabilit Verified 02/25/19 08:24 [From Phenergan] y Home Meds: Home Meds Folic Acid 1 mg PO QPM #100 tablet 05/30/16 [Rx] Non-Formulary Medication [NF Drug] 1 tab PO DAILY #100 09/21/16 [Rx] Potassium Chloride [Klor-Con M20] 20 meq PO BID tab.er 09/21/16 [Rx] FLUoxetine HCl [Fluoxetine HCl] 20 mg PO DAILY 07/27/18 [History] Cyanocobalamin (Vitamin B12) [Vitamin B12] 1,000 mcg IM Q30D sdv 09/29/18 [Rx] Levothyroxine [Synthroid] 100 mcg PO ACBREAKFAST 30 Days #30 tablet 09/29/18 [Rx ] Magnesium Oxide 800 mg PO QPM 30 Days #30 tablet 09/29/18 [Rx] Past Medical History HEENT History: Reports: Cataract, Impaired Vision, Sinusitis, Other (See Below) . Denies: Allergic Rhinitis, Glaucoma, Hard of Hearing, Macular Degeneration Other HEENT History: 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 Soft contact lenses, glasses. Bilateral cataractsmild. Cardiovascular History: Reports: Arrhythmia, High Cholesterol, Syncope, Other ( See Below). Denies: Afib, Aneurysm, Blood Clots/VTE/DVT, CAD, Cardiomyopathy, Heart Murmur, Hypertension, OH, PVD Other Cardiovascular History: Short SD interval. History of obesity and hyperlipidemia with fatty liver including post gastric bypass, previous recurrent syncope of unknown etiology with last episode in July 2014, chronic hypotension Respiratory History: Reports: Asthma, Bronchitis, Recurrent, Intubation, Previous, Other (See Below). Denies: COPD, Intubation, Difficult, PE, Pneumonia , Recurrent, Pneumothorax, Sleep Apnea, TB Other Respiratory History: Right lower lobe stable benign pulmonary nodules Gastrointestinal History: Reports: Bowel Obstruction, Chronic Diarrhea, Fatty Liver, Gastritis, GERD, GI Bleed, PUD, Other (See Below). Denies: Celiac Disease, Cholelithiasis, Colon Polyp, Fecal Incontinence, Hepatitis, Hiatal Hernia, Inflammatory Bowel Disease, Irritable Bowel Syndrome, Jaundice, Pancreatitis Other Gastrointestinal History: History of fatty liver with LFTs elevation including post gastric bypass surgery with secondary malabsorption syndrome as below, upper GI bleed secondary to gastric ulcer in her mid 30s with no blood transfusion required, multiple previous small bowel obstructions secondary to previous gastric bypass surgery, Genitourinary History: Reports: None. 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 Denies: Endometriosis, Fibroids, Spontaneous Other COCOA ROOM OPERATOR History: Hypermenorrhea since 2018 with menses lasting usually about 7 days with probable secondary anemia with no workup to this point. Full term without complications during pregnancies or deliveries. Bilateral ovarian cysts. LMP on with significant bleeding as above 09/23/18 which was normal. Musculoskeletal History: Reports: Other (See Below). Denies: Amputation, Arthritis, Back Pain, Chronic, Fracture, Gout, Neck Pain, Chronic, Osteoarthritis, RA, SLE Other Musculoskeletal History: Mild scoliosis. Neurological History: Reports: Headaches, Chronic, Vertigo, Other (See Below). Denies: Cerebral Aneurysms, Concussion, CVA, Head Trauma, Migraines, MS, Parkinson's, Seizure, TIA Other Neuro History: Chronic vertigo/car sickness. Near syncopal/syncopal episodes as above. Psychiatric History: Reports: Anxiety, Depression. 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 Denies: Diabetes, Gestational, Diabetes, Type I, Diabetes, Type II, Diabetes Mellitus, Type 3c Other Endocrine/Metabolic History: Previous borderline hyperglycemia secondary to obesity; borderline hypothyroidism with history of multiple benign thyroid nodules. Hypomagnesemia. Hypoalbuminemia. Hematologic History: Reports: Anemia, B12 Deficiency, Folic Acid, Iron Deficiency, Other (See Below). Denies: Blood Transfusion(s) Other Hematologic History: Malabsorption syndrome secondary to her gastric bypass resulting in severe iron deficiency with additional vitamin B-12 and folic acid deficiency. Note hypermenorrhea as above also contributing to her iron deficiency. Immunologic History: Reports: None. Denies: AIDS, HIV, SLE Oncologic (Cancer) History: Reports: None. Denies: Basal Cell Carcinoma, Breast , Cervix, Colon, Hodgkin's Lymphoma, Leukemia, Lymphoma, Malignant Melanoma, Non -Hodgkin's Lymphoma, Ovarian, Squamous Cell Carcinoma, Uterine Dermatologic History: Reports: None. Denies: Eczema, Melanoma - Infectious Disease History Infectious Disease History: Reports: Chicken Pox, Shingles (Right clavicular region on 07/27/18.). Denies: C-Difficile, Measles, Meningitis, Mononucleosis, MRSA, Mumps, Pertussis (Whooping Cough), Rheumatic Fever, Rubella, Scarlet Fever , TB, VRE - Past Surgical History Head Surgeries/Procedures: Reports: None HEENT Surgical History: Reports: Eye Surgery, Oral Surgery, Other (See Below). Denies: Adenoidectomy, Cataract Surgery, Detached Retina, Radiocarotid Ectomy, Tonsillectomy Other HEENT Surgeries/Procedures: Left eye intravitrial injection of Sepproc initiated on 08/26/18 secondary to macular edema as above. [place] teeth extraction 2 at age 20 Cardiovascular Surgical History: Reports: None. Denies: Varicose Respiratory Surgical History: Reports: None. Denies: Thoracentesis GI Surgical History: Reports: Bariatric Procedure, Cholecystectomy, Colonoscopy , EGD, Hernia, Abdominal, Hernia, Inguinal, Hernia Repair/Other, Other (See Below). Denies: Appendectomy, Polypectomy Other GI Surgeries/Procedures: Gastric bypass surgery with concomitant cholecystectomy on 09/09/07, patient denies previous gastric bypass revisions as per medical records although evidence of anastomosis dilatations in the past EGD , last EGD and colonoscopy on 12/07/16 with previous EGDs on 11/27/15 and . EGD in 2007 with concomitant gastric feeding tube placement at that time, laparoscopic umbilical hernia repair with mesh placement on 12/03/15, right inguinal hernia repair in 2004. Female Surgical History: Reports: Section, Tubal Ligation, Other ( See Below). Denies: Breast Biopsy, Hysterectomy, Oophorectomy, Salpingo- Oophorectomy Other Female Surgeries/Procedures: in 1996, 1999, 2000; tubal ligation in 2000. Endocrine Surgical History: Reports: Thyroid Biopsy, Other (See Below) Other Endocrine Surgeries/Procedures: Thyroid biopsy on 02/19/14. Neurological Surgical History: Reports: None. Denies: C-Spine, Discectomy, Laminectomy, Lumbar Spine, Sacral Spine, Spinal Fusion, Thoracic Spine, Vertebroplasty Musculoskeletal Surgical History: Reports: None. Denies: Arthroscopic Procedure , Carpal Tunnel, Ganglion Cyst, Joint Replacement, ORIF, Shoulder Surgery Oncologic Surgical History: Reports: None Dermatological Surgical History: Reports: Skin Biopsy, Other (See Below) Other Dermatological Surgeries/Procedures: Multiple biopsies for benign disease from the right back and right hand on 09/03/18. - Past Imaging History Past Imaging History: Reports: Cardiac Echo (07/29/09 with ejection fraction of 68 %), CAT Scan (CT of the brain on 09/28/18 and 06/20/08, CT of the abdomen and pelvis with contrast on 06/12/11, 09/08/10, and 06/20/08, CT of the head and cervical region on 07/24/09), Mammogram (Last on 12/17/18.), Ultrasound (Right breast ultrasound on 09/22/17. Thyroid ultrasounds on 06/30/16 and 12/09/13. Abdominal ultrasound on 11/06/08) Social & Family History - Family History HEENT: Reports: None, Cataract. Denies: Glaucoma, Macular Degeneration, Retinal Detachment Cardiac: Reports: High Cholesterol, Hypertension, Other (See Below). Denies: Afib, Aneurysm, Arrhythmia, Blood Clots/VTE/DVT, CAD, Heart Failure, OH, PVD/COD , Syncope Other Cardiac Family History: Father with hyperlipidemia, hypertension in father and maternal grandfather Respiratory: Reports: Sleep Apnea, Other (See Below). Denies: Asthma, COPD, PE , Pneumothorax Other Respiratory Family Hisory: Father with sleep apnea and history of tobacco use GI: Reports: Colon Polyps, GERD, PUD, Other (See Below). Denies: Celiac Disease , Cholelithiasis, GI bleed, Inflammatory Bowel Disease, Irritable Bowel Syndrome Other GI Family History: GERD in mother, father with colonic polyps and peptic ulcer disease : Reports: None. Denies: Renal Calculus, Renal Disease/Insufficiency OBGYN: Reports: Dysfunctional uterine bleeding, Fibroids, Recurrent Spontaneous , Other (See Below). Denies: Endometriosis Other OBGYN Family History: Mother with dysfunctional uterine bleeding requiring hysterectomy with additional history of recurrent SAB Musculoskeletal: Reports: Arthritis, Gout, Osteoarthritis, Other (See Below). Denies: RA, SLE Other Musculoskeletal Family History: Father with gout Neurological: Reports: None. Denies: Alzheimers Disease, CVA, Dementia, Migraines, MS, Neuropathy, Peripheral, Parkinson's, Seizure, TIA Psychiatric: Reports: Anxiety, Depression, Other (See Below). Denies: Abuse, Victim of, ADD, ADHD, Psych Hospitalization(s), PTSD, Suicide Attempt Other Psychiatric Family History: Anxiety depression disorder in mother, maternal great grandmother and paternal great-grandmother Endocrine/Metabolic: Reports: Diabetes, type II, Hypothyroidism, IDDM, Other ( See Below). Denies: Luis Alberto's Disease Other Endocrine/Metabolic Family History: IDDM in maternal grandmother, paternal grandmother, maternal grandfather, and maternal great-grandmother with brother with possible hyperglycemia, father with hypothyroidism secondary to thyroid resection from metastatic renal cancer as below Hematologic: Reports: Anemia Immunologic: Reports: None. Denies: AIDS, HIV, SLE Dermatologic: Reports: None. Denies: Eczema, Psoriasis Oncologic: Reports: Leukemia, Metastatic, Renal, Skin, Thyroid, Other (See Below ). Denies: Breast, Cervix, Colon, Hodgkin's Lymphoma, Lymphoma, Ovarian, Uterine Other Oncologic Family History: Mother with melanoma, paternal grandmother with basal cell carcinoma, maternal aunt with basal cell carcinoma, Cousin with leukemia, mother with multiple myeloma, father with metastatic renal cancer with metastases to the thyroid gland and lungs - Tobacco Use Smoking Status *Q: Never Smoker Used Tobacco, but Quit: No Second Hand Smoke Exposure: No - Caffeine Use Caffeine Use: Reports: Soda (2 sodas per day). 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 Patient was hypokalemic and anemic at that time with both IV and oral potassium supplementation given during that ER visit. Patient did not follow-up with regular provider as previously directed. Note patient has had these symptoms for several weeks and does have a known history of iron deficiency anemia with last IV iron infusion on 10/01/18. She does have a history of hypermenorrhea with no previous SUPERVISOR DITCHING consultation or workup with last month's. She had a very light menses one month ago, however patient just started her period yesterday with significant hypermenorrhea including one soaked pad per hour with clots. The patient denies any chest pain/pressure, orthopnea, diaphoresis, paresthesias, recent decreased exercise tolerance, or any other anginal-type symptoms, although intermittent dizziness and possible heart flutter as above. No recent history of abdominal pain, heartburn, nausea, diarrhea, melena, gross hematochezia, or any food intolerance, including fatty foods, etc.. She denies any gross hematuria, colic, or other UTI symptoms. The patient also denies any recent fever, cough, wheezing, etc.. She also denies any current significant pain or discomfort. Exam Limited By: No Limitations General Appearance: Alert, No Apparent Distress Ears: Normal External Exam, Other (Scopolamine patch noted in the right retroauricular region) Nose: Normal Inspection, Normal Mucosa, No Blood, Other (Right nasal stud) Throat/Mouth: Normal Inspection, Normal Lips, Normal Teeth, Normal Gums, Normal Oropharynx, Normal Voice, No Airway Compromise. No: Dysphagia, Perioral Cyanosis Head: Atraumatic, Normocephalic. No: Facial Swelling, Facial Tenderness, Sinus Tenderness Neck: Normal Inspection, Supple, Non-Tender, Full Range of Motion. No: Carotid Bruit, Lymphadenopathy (L), Lymphadenopathy (R), Thyromegaly Respiratory/Chest: No Respiratory Distress, Lungs Clear, Normal Breath Sounds, No Accessory Muscle Use, Chest Non-Tender. No: Accessory Muscle Use, Retractions Cardiovascular: Normal Peripheral Pulses, Regular Rate, Rhythm, No Edema, No Gallop, No JVD, No Murmur, No Rub. No: Gallop/S3, Gallop/S4, Friction Rub Peripheral Pulses: 2+: Radial (L), Radial (R), Dorsalis Pedis (L), Dorsalis Pedis (R) GI/Abdominal: Normal Bowel Sounds, Soft, Non-Tender, No Organomegaly, No Distention, No Abnormal Bruit, No Mass, Pelvis Stable. No: Guarding Back Exam: Full Range of Motion, CVA Tenderness (L), CVA Tenderness (R), Other ( Scoliosismild). No: Muscle Spasm, Paraspinal Tenderness, Vertebral Tenderness Extremities: Normal Inspection, Normal Range of Motion, Non-Tender, No Pedal Edema, Normal Capillary Refill. No: Saturnino's Sign Neurological: Alert, Oriented, CN II-XII Intact, Normal Cognition, Normal Gait, Normal Reflexes (Negative Babinski's), No Motor/Sensory Deficits Psychiatric: Normal Affect, Normal Mood Skin Exam: Warm, Dry, Intact, No Rash, Pallor (Moderate), Stud(s) (As above), Tattoo(s) (Multiple). No: Diaphoretic, Ecchymosis, Petechiae Lymphatic: No Adenopathy Course - Vital Signs Last Recorded V/S: Last Vital Signs Temp 36.8 C 02/25/19 08:20 Pulse 65 02/25/19 09:30 Resp 16 02/25/19 09:30 BP 99/60 02/25/19 09:30 Pulse Ox 100 02/25/19 09:30 - Orders/Labs/Meds Orders: Active Orders 24 hr Category Date Time Status Cardiac Monitoring [RC] . DIRECTED Care 02/25/19 08:36 Active EKG Documentation Completion [RC] ASDIRECTED Care 02/25/19 08:37 Active Oxygen Therapy, ED [RC] PRN Care 02/25/19 08:36 Active Peripheral IV Care [RC] . DIRECTED Care 02/25/19 08:37 Active Pulse Oximetry [RC] CONTINUOUS Care 02/25/19 08:36 Active Up With Assistance [RC] PFP Care 02/25/19 08:36 Active Vital Signs [RC] PFP Care 02/25/19 08:36 Active Nothing per Oral Now Diet [DIET] Diet 02/25/19 Breakfast Active Chest 1V Frontal [CR] Stat Exams 02/25/19 08:36 Taken Chest PE [Ang Chest] [CT] Stat Exams 02/25/19 09:30 Taken Pelvis Non OB Comp [US] Stat Exams 02/25/19 09:35 Ordered Transvaginal Non OB [US] Routine Exams 02/25/19 13:42 Ordered Venous Doppler Lwr Ext Bi [US] Routine Exams 02/25/19 Ordered Venous Doppler Lwr Ext Bi [US] Urgent Exams 02/25/19 09:34 Ordered Sodium Chloride 0.9% [Saline Flush] Med 02/25/19 08:36 Active 10 ml FLUSH ASDIRECTED PRN Obtain Past Medical Record [OM.PC] Urgent Oth 02/25/19 08:36 Active Peripheral IV Insertion Adult [OM.PC] Stat Oth 02/25/19 08:36 Ordered Resuscitation Status Stat Resus Stat 02/25/19 08:36 Ordered Medication Orders Sodium Chloride (Saline Flush) 10 ml FLUSH ASDIRECTED PRN PRN Reason: Keep Vein Open Labs: Laboratory Tests 02/25/19 02/25/19 02/25/19 Range/Units 08:40 08:40 08:40 WBC 5.3 (4.0-10.2) K/uL RBC 3.56 L (3.77-5.09) M/uL Hgb 7.9 L (11.7-15.5) g/dL Hct 27.5 L (34.0-46.0) % MCV 77.2 L (84.0-98.0) fL MCH 22.2 L (28.2-33.3) pg MCHC 28.7 L (31.7-36.0) g/dL RDW 14.6 H (11.2-14.1) % Plt Count 353 H (150-350) K/uL Neut % (Auto) 66.6 (45.0-80.0) % Lymph % (Auto) 23.3 (10.0-50.0) % [place] % (Auto) 7.1 (2.0-14.0) % Eos % (Auto) 2.4 (0.0-5.0) % Baso % (Auto) 0.6 (0.0-2.0) % Neut # (Auto) 3.55 (1.40-7.00) K/uL Lymph # (Auto) 1.24 (0.50-3.50) K/uL [place] # (Auto) 0.38 (0.00-1.00) K/uL Eos # (Auto) 0.13 (0.00-0.50) K/uL Baso # (Auto) 0.03 (0.00-0.20) K/uL PT 10.6 (9.5-12.0) SEC INR 1.0 APTT 21.7 (21.0-31.3) SEC D-Dimer, Quantitative 674 H (0-400) ng/mL Sodium (136-145) mmol/L Potassium (3.5-5.1) mmol/L Chloride (98-107) mmol/L Carbon Dioxide (21.0-32.0) mmol/L BUN (7-18) mg/dL Creatinine (0.51-1.17) mg/dL Est Cr Clr Drug Dosing mL/min Estimated GFR (MDRD) mL/min Glucose (74-106) mg/dL Lactic Acid (0.4-2.0) mmol/L Uric Acid (2.6-7.2) mg/dL Calcium (8.5-10.1) mg/dL Magnesium (1.8-2.4) mg/dL Iron (50-175) ug/dL TIBC (250-450) ug/dL % Saturation Ferritin (8-388) ng/mL Total Bilirubin (0.2-1.0) mg/dL AST (15-37) U/L ALT (12-78) U/L Alkaline Phosphatase (46-116) IU/L Creatine Kinase (26-308) U/L Creatine Kinase Index (0.0-2.5) % CK-MB (CK-2) (0.00-3.60) ng/mL Troponin I (0.000-0.056) ng/mL NT-Pro-B Natriuret Pep (0-125) pg/mL Total Protein (6.4-8.2) g/dL Albumin (3.4-5.0) g/dL TSH, Ultra Sensitive (0.358-3.740) mIU/mL HCG, Qual (NEGATIVE) 02/25/19 02/25/19 02/25/19 Range/Units 08:40 08:40 08:40 WBC (4.0-10.2) K/uL RBC (3.77-5.09) M/uL Hgb (11.7-15.5) g/dL Hct (34.0-46.0) % MCV (84.0-98.0) fL MCH (28.2-33.3) pg MCHC (31.7-36.0) g/dL RDW (11.2-14.1) % Plt Count (150-350) K/uL Neut % (Auto) (45.0-80.0) % Lymph % (Auto) (10.0-50.0) % [place] % (Auto) (2.0-14.0) % Eos % (Auto) (0.0-5.0) % Baso % (Auto) (0.0-2.0) % Neut # (Auto) (1.40-7.00) K/uL Lymph # (Auto) (0.50-3.50) K/uL [place] # (Auto) (0.00-1.00) K/uL Eos # (Auto) (0.00-0.50) K/uL Baso # (Auto) (0.00-0.20) K/uL PT (9.5-12.0) SEC INR APTT (21.0-31.3) SEC D-Dimer, Quantitative (0-400) ng/mL Sodium 141 (136-145) mmol/L Potassium 3.3 L (3.5-5.1) mmol/L Chloride 107 (98-107) mmol/L Carbon Dioxide 23.2 (21.0-32.0) mmol/L BUN 11 (7-18) mg/dL Creatinine 0.63 (0.51-1.17) mg/dL Est Cr Clr Drug Dosing 92.00 mL/min Estimated GFR (MDRD) > 60 mL/min Glucose 89 (74-106) mg/dL Lactic Acid 1.6 (0.4-2.0) mmol/L Uric Acid 3.8 (2.6-7.2) mg/dL Calcium 8.6 (8.5-10.1) mg/dL Magnesium 1.5 L (1.8-2.4) mg/dL Iron (50-175) ug/dL TIBC (250-450) ug/dL % Saturation Ferritin (8-388) ng/mL Total Bilirubin 0.2 (0.2-1.0) mg/dL AST 50 H (15-37) U/L ALT 54 (12-78) U/L Alkaline Phosphatase 150 H (46-116) IU/L Creatine Kinase 69 (26-308) U/L Creatine Kinase Index 1.0 (0.0-2.5) % CK-MB (CK-2) 0.70 (0.00-3.60) ng/mL Troponin I 0.000 (0.000-0.056) ng/mL NT-Pro-B Natriuret Pep 235 H (0-125) pg/mL Total Protein 7.3 (6.4-8.2) g/dL Albumin 3.5 (3.4-5.0) g/dL TSH, Ultra Sensitive 4.584 H (0.358-3.740) mIU/mL HCG, Qual Negative (NEGATIVE) 02/25/19 Range/Units 08:40 WBC (4.0-10.2) K/uL RBC (3.77-5.09) M/uL Hgb (11.7-15.5) g/dL Hct (34.0-46.0) % MCV (84.0-98.0) fL MCH (28.2-33.3) pg MCHC (31.7-36.0) g/dL RDW (11.2-14.1) % Plt Count (150-350) K/uL Neut % (Auto) (45.0-80.0) % Lymph % (Auto) (10.0-50.0) % [place] % (Auto) (2.0-14.0) % Eos % (Auto) (0.0-5.0) % Baso % (Auto) (0.0-2.0) % Neut # (Auto) (1.40-7.00) K/uL Lymph # (Auto) (0.50-3.50) K/uL [place] # (Auto) (0.00-1.00) K/uL Eos # (Auto) (0.00-0.50) K/uL Baso # (Auto) (0.00-0.20) K/uL PT (9.5-12.0) SEC INR APTT (21.0-31.3) SEC D-Dimer, Quantitative (0-400) ng/mL Sodium (136-145) mmol/L Potassium (3.5-5.1) mmol/L Chloride (98-107) mmol/L Carbon Dioxide (21.0-32.0) mmol/L BUN (7-18) mg/dL Creatinine (0.51-1.17) mg/dL Est Cr Clr Drug Dosing mL/min Estimated GFR (MDRD) mL/min Glucose (74-106) mg/dL Lactic Acid (0.4-2.0) mmol/L Uric Acid (2.6-7.2) mg/dL Calcium (8.5-10.1) mg/dL Magnesium (1.8-2.4) mg/dL Iron 115 (50-175) ug/dL TIBC 570 H (250-450) ug/dL % Saturation 20.46698 Ferritin 3 L (8-388) ng/mL Total Bilirubin (0.2-1.0) mg/dL AST (15-37) U/L ALT (12-78) U/L Alkaline Phosphatase (46-116) IU/L Creatine Kinase (26-308) U/L Creatine Kinase Index (0.0-2.5) % CK-MB (CK-2) (0.00-3.60) ng/mL Troponin I (0.000-0.056) ng/mL NT-Pro-B Natriuret Pep (0-125) pg/mL Total Protein (6.4-8.2) g/dL Albumin (3.4-5.0) g/dL TSH, Ultra Sensitive (0.358-3.740) mIU/mL HCG, Qual (NEGATIVE) Meds: Medications Generic Name Dose Route Start Last Admin Trade Name Freq PRN Reason Stop Dose Admin Sodium Chloride 10 ml 02/25/19 08:36 Saline Flush FLUSH ASDIRECTED PRN Keep Vein Open Discontinued Medications Generic Name Dose Route Start Last Admin Trade Name Freq PRN Reason Stop Dose Admin Famotidine 40 mg 02/25/19 08:36 02/25/19 08:53 Pepcid IVPUSH 02/25/19 08:37 40 mg ONETIME ONE Administration Lactated Ringer's 1,000 mls @ 999 mls/hr 02/25/19 09:33 02/25/19 09:41 Ringers, Lactated IV 02/25/19 10:33 999 mls/hr .BOLUS ONE Administration Iopamidol 100 ml 02/25/19 09:36 02/25/19 10:06 Isovue-370 (76%) IVPUSH 02/25/19 09:37 100 ml ONETIME ONE Administration Potassium Chloride 40 meq 02/25/19 09:34 02/25/19 09:40 Klor-Con M20 PO 02/25/19 09:35 40 meq ONETIME ONE Administration - Re-Assessments/Exams Free Text/Narrative Re-Assessment/Exam: 02/25/19 14:01 See lab and Xray No PE No DVT Pelvic ultrasound without acute findings Departure - Departure Time of Disposition: 14:00 Disposition: Home, Self-Care 01 Condition: Good Clinical Impression: Elevated LFTs, Hypomagnesemia, Hypokalemia, Hypothyroidism, Peptic reflux disease, Mixed anxiety depressive disorder, Dizziness, D-dimer, elevated Asthma Qualifiers: Asthma severity: mild Asthma persistence: intermittent Asthma complication type : uncomplicated Qualified Code(s): J45.20 - Mild intermittent asthma, uncomplicated Anemia Qualifiers: Anemia type: other cause Other causes of anemia: nutritional, unspecified Qualified Code(s): D53.9 - Nutritional anemia, unspecified Hypermenorrhea Qualifiers: Menorrahagia type: with regular cycle Qualified Code(s): N92.0 - Excessive and frequent menstruation with regular cycle - Discharge Information *PRESCRIPTION DRUG MONITORING PROGRAM REVIEWED*: Not Applicable *COPY OF PRESCRIPTION DRUG MONITORING REPORT IN PATIENT SAM: Not Applicable Instructions: Shortness of Breath, Adult, [id number] Referrals: PCP,Unknown [Primary Care Provider] - Forms: ED Department Discharge Additional Instructions: Follow up in clinic Sepsis Event Note - Evaluation Sepsis Screening Result: No Definite Risk - Focused Exam Vital Signs: Vital Signs Temp Pulse Resp BP Pulse Ox 02/25/19 09:30 65 16 99/60 100 02/25/19 09:00 69 15 115/61 100 02/25/19 08:30 71 15 103/59 L 99 02/25/19 08:20 36.8 C 81 18 111/69 100 Date Exam was Performed: 02/25/19 Time Exam was Performed: 14:01
[2019-02-25 16:53] VITALS: PULSE 69
[2019-02-25 16:57] VITALS: BP 101/61
== END 2019-02-25 14:10 | disposition home or self-care (01) ==
LOC: LL.ED 08:16
DX: R42 Dizziness and giddiness (principal); D53.9 Nutritional anemia, unspecified; J45.20 Mild intermittent asthma, uncomplicated; E03.9 Hypothyroidism, unspecified; E87.6 Hypokalemia; E53.8 Deficiency of other specified B group vitamins; N92.0 Excessive and frequent menstruation with regular cycle; R94.5 Abnormal results of liver function studies; E83.42 Hypomagnesemia; K21.9 Gastro-esophageal reflux disease without esophagitis; F41.8 Other specified anxiety disorders; R79.1 Abnormal coagulation profile; Z79.890 Hormone replacement therapy; Z88.8 Allergy status to other drugs, medicaments and biological substances; Z91.040 Latex allergy status
CPT/HCPCS: 36415; 71045; 71275; 76830; 76856; 80053; 82550; 82553; 82728; 83540; 83550; 83605; 83735; 83880; 84443; 84484; 84550; 84703; 85025; 85379; 85610; 85730; 93005; 93970; 96361; 96374; 99284; 99285-25; A9270-GY; J3490; J7120; Q9967

== ENCOUNTER 2019-03-29 08:08 | Observation (INO) | payer OTHER ==
[2019-03-29] MEDS ORDERED: Famotidine 20 MG/2 ML SDV IVPUSH ONE ×2 (08:19→09:07)
--- NOTE | 2019-03-29 08:19 | EDM.PDOC ---
ED HPI GENERAL MEDICAL PROBLEM - General Chief Complaint: Chest Pain Stated Complaint: chest pain Time Seen by Provider: 03/29/19 08:10 Source of Information: Reports: Patient, Old Records ([facility] chart/EMR), Other ([facility] reviewed on 09/28/18.) History Limitations: Reports: No Limitations - History of Present Illness INITIAL COMMENTS - FREE TEXT/NARRATIVE: The patient was brought to the emergency room via wheelchair from the swing bed unit in our facility for evaluation of 07/30 retrosternal chest pressure associated with some nausea, dyspnea, and dizziness with symptoms starting at about 07:30 a.m. this morning. The patient is not performing any vigorous activity at that time. She does have a previous history of previous d-dimer elevation with negative workup as below. Note that the patient did receive an iron infusion yesterday with no complications thereafter. The patient denies any dizziness, orthostasis, orthopnea, diaphoresis, paresthesias, recent decreased exercise tolerance, or any other anginal-type symptoms. No recent history of abdominal pain, heartburn, nausea, diarrhea, melena, gross hematochezia, or any food intolerance, including fatty foods, etc. although she has had some mild loose stools since about 4 AM this morning. She is still having her menses, which is severe as per previous history of hypermenorrhea with secondary anemia, although this is somewhat improved at this time, with LMP of 03/23/18. No recent history of gross hematuria, colic, or other UTI symptoms. The patient also denies any recent fever, cough, wheezing, etc.. Onset: Today, Sudden Onset Time: 07:30 Duration: Improving Location: Reports: Chest, Radiates to (Lower chest bilaterally). Denies: Head, Face, Neck, Abdomen, Back, Upper Extremity, Left, Upper Extremity, Right Quality: Reports: Pressure Severity: Moderate Improves with: Reports: None Worsens with: Reports: None Context: Reports: Other (As above). Denies: Sick Contact, Trauma Associated Symptoms: Reports: Chest Pain. 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) (None) Middle Chest Pain Score (Numeric/FACES): 6 - Related Data Allergies Allergy/AdvReac Type Severity Reaction Status Date / Time Latex, Natural Rubber Allergy Hives Verified 03/29/19 08:20 ondansetron Allergy Shaking,Tac Verified 03/29/19 08:20 hycardia promethazine HCl Allergy Irritabilit Verified 03/29/19 08:20 [From Phenergan] y Home Meds: Home Meds Non-Formulary Medication [NF Drug] 1 tab PO DAILY #100 09/21/16 [Rx] Potassium Chloride [Klor-Con M20] 20 meq PO BID tab.er 09/21/16 [Rx] FLUoxetine HCl [Fluoxetine HCl] 20 mg PO DAILY 07/27/18 [History] Cyanocobalamin (Vitamin B12) [Vitamin B12] 1,000 mcg IM Q30D sdv 09/29/18 [Rx] Levothyroxine [Synthroid] 100 mcg PO ACBREAKFAST 30 Days #30 tablet 09/29/18 [Rx ] Acetaminophen/Diphenhydramine [Tylenol Pm Ex-Strength Caplet] 1 tab PO BEDTIME 03/29/19 [History] Folic Acid 1 mg PO DAILY 03/29/19 [History] Magnesium Oxide 800 mg PO BEDTIME 03/29/19 [History] Past Medical History HEENT History: Reports: Cataract, Impaired Vision, Sinusitis, Other (See Below) . Denies: Allergic Rhinitis, Glaucoma, Hard of Hearing, Macular Degeneration Other HEENT History: 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 Soft contact lenses, glasses. Bilateral cataractsmild. Cardiovascular History: Reports: Arrhythmia, High Cholesterol, Syncope, Other ( See Below). Denies: Afib, Aneurysm, Blood Clots/VTE/DVT, CAD, Cardiomyopathy, Heart Murmur, Hypertension, PA, PVD Other Cardiovascular History: History of d-dimer elevation with extensive negative workup on 02/25/19. Short IA interval. History of obesity and hyperlipidemia with fatty liver including post gastric bypass, previous recurrent syncope of unknown etiology with last episode in July 2014, chronic hypotension Respiratory History: Reports: Asthma, Bronchitis, Recurrent, Intubation, Previous, Other (See Below). Denies: COPD, Intubation, Difficult, PE, Pneumonia , Recurrent, Pneumothorax, Sleep Apnea, TB Other Respiratory History: Newly diagnosed 2 mm left upper lobe and 3 mm right upper lobe benign pulmonary granulomas by CTA of the chest on 02/25/19 with previous stable right lower lobe benign pulmonary nodules/ Gastrointestinal History: Reports: Bowel Obstruction, Chronic Diarrhea, Fatty Liver, Gastritis, GERD, GI Bleed, PUD, Other (See Below). Denies: Celiac Disease, Cholelithiasis, Colon Polyp, Fecal Incontinence, Hepatitis, Hiatal Hernia, Inflammatory Bowel Disease, Irritable Bowel Syndrome, Jaundice, Pancreatitis Other Gastrointestinal History: History of fatty liver with LFTs elevation including post gastric bypass surgery with secondary malabsorption syndrome as below, upper GI bleed secondary to gastric ulcer in her mid 30s with no blood transfusion required, multiple previous small bowel obstructions secondary to previous gastric bypass surgery, Genitourinary History: Reports: None. 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 Denies: Endometriosis, Spontaneous : 3 Para: 3 LMP (Approximate): Other (See Below) Other CONTINUOUS CONVEYOR SCREEN DRIER History: Hypermenorrhea since 2018 with menses lasting usually about 7 days with probable secondary anemia. Uterine fibroid by pelvic ultrasound on 02/25/19. Full term deliveries without complications during pregnancies or deliveries. Bilateral ovarian cysts. LMP on 03/23/19 with significant bleeding as above. Musculoskeletal History: Reports: Other (See Below). Denies: Amputation, Arthritis, Back Pain, Chronic, Fracture, Gout, Neck Pain, Chronic, Osteoarthritis, RA, SLE Other Musculoskeletal History: Mild scoliosis. Neurological History: Reports: Headaches, Chronic, Vertigo, Other (See Below). Denies: Cerebral Aneurysms, Concussion, CVA, Head Trauma, Migraines, MS, Parkinson's, Seizure, TIA Other Neuro History: Chronic vertigo/car sickness. Near syncopal/syncopal episodes as above. Psychiatric History: Reports: Anxiety, Depression. 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 Denies: Diabetes, Gestational, Diabetes, Type I, Diabetes, Type II, Diabetes Mellitus, Type 3c Other Endocrine/Metabolic History: Previous borderline hyperglycemia secondary to obesity; borderline hypothyroidism with history of multiple benign thyroid nodules. Hypomagnesemia. Hypoalbuminemia. Hematologic History: Reports: Anemia, B12 Deficiency, Folic Acid, Iron Deficiency, Other (See Below). Denies: Blood Transfusion(s) Other Hematologic History: Malabsorption syndrome secondary to her gastric bypass resulting in severe iron deficiency with additional component from her hypermenorrhea as above. Additional vitamin B-12 and folic acid deficiency. Immunologic History: Reports: None. Denies: AIDS, HIV, SLE Oncologic (Cancer) History: Reports: None. Denies: Basal Cell Carcinoma, Breast , Cervix, Colon, Hodgkin's Lymphoma, Leukemia, Lymphoma, Malignant Melanoma, Non -Hodgkin's Lymphoma, Ovarian, Squamous Cell Carcinoma, Uterine Dermatologic History: Reports: None. Denies: Eczema, Melanoma - Infectious Disease History Infectious Disease History: Reports: Chicken Pox, Shingles (Right clavicular region on 07/27/18.). Denies: C-Difficile, Measles, Meningitis, Mononucleosis, MRSA, Mumps, Pertussis (Whooping Cough), Rheumatic Fever, Rubella, Scarlet Fever , TB, VRE - Past Surgical History Head Surgeries/Procedures: Reports: None HEENT Surgical History: Reports: Eye Surgery, Oral Surgery, Other (See Below). Denies: Adenoidectomy, Cataract Surgery, Detached Retina, Radiocarotid Ectomy, Tonsillectomy Other HEENT Surgeries/Procedures: Left eye intravitrial injection of Sepproc initiated on 08/26/18 secondary to macular edema as above. [place] teeth extraction 2 at age 20 Cardiovascular Surgical History: Reports: None. Denies: Varicose Respiratory Surgical History: Reports: None. Denies: Thoracentesis GI Surgical History: Reports: Bariatric Procedure, Cholecystectomy, Colonoscopy , EGD, Hernia, Abdominal, Hernia, Inguinal, Hernia Repair/Other, Other (See Below). Denies: Appendectomy, Polypectomy Other GI Surgeries/Procedures: Gastric bypass surgery with concomitant cholecystectomy on 09/09/07, patient denies previous gastric bypass revisions as per medical records although evidence of anastomosis dilatations in the past EGD , last EGD and colonoscopy on 12/07/16 with previous EGDs on 11/27/15 and . EGD in 2007 with concomitant gastric feeding tube placement at that time, laparoscopic umbilical hernia repair with mesh placement on 12/03/15, right inguinal hernia repair in 2004. Female Surgical History: Reports: Section, Tubal Ligation, Other ( See Below). Denies: Breast Biopsy, Hysterectomy, Oophorectomy, Salpingo- Oophorectomy Other Female Surgeries/Procedures: in 1996, 1999, 2000; tubal ligation in 2000. Endocrine Surgical History: Reports: Thyroid Biopsy, Other (See Below) Other Endocrine Surgeries/Procedures: Thyroid biopsy on 02/19/14. Neurological Surgical History: Reports: None. Denies: C-Spine, Discectomy, Laminectomy, Lumbar Spine, Sacral Spine, Spinal Fusion, Thoracic Spine, Vertebroplasty Musculoskeletal Surgical History: Reports: None. Denies: Arthroscopic Procedure , Carpal Tunnel, Ganglion Cyst, Joint Replacement, ORIF, Shoulder Surgery Oncologic Surgical History: Reports: None Dermatological Surgical History: Reports: Skin Biopsy, Other (See Below) Other Dermatological Surgeries/Procedures: Multiple biopsies for benign disease from the right back and right hand on 09/03/18. - Past Imaging History Past Imaging History: Reports: Cardiac Echo (07/29/09 with ejection fraction of 68 %), CAT Scan (Negative CTA of the chest for PE on 02/25/19. CT of the brain on 09/28 and 06/20/08, CT of the abdomen and pelvis with contrast on 06/12/11, 09/08/10, and 06/20/08, CT of the head and cervical region on 07/24/09), Mammogram (Last on .), Ultrasound (Pelvic ultrasound on 02/25/19. Right breast ultrasound on 09/22/17. Thyroid ultrasounds on 06/30/16 and 12/09/13. Abdominal ultrasound on ), Venous Doppler (Negative venous Doppler studies of the legs bilaterally on 02/25/19.) Social & Family History - Family History HEENT: Reports: Cataract, Other (See Below). Denies: Glaucoma, Macular Degeneration, Retinal Detachment Other HEENT Family History: Father with cataracts. Cardiac: Reports: High Cholesterol, Hypertension, Other (See Below). Denies: Afib, Aneurysm, Arrhythmia, Blood Clots/VTE/DVT, CAD, Heart Failure, PA, PVD/COD , Syncope Other Cardiac Family History: Father with hyperlipidemia, hypertension in father and maternal grandfather Respiratory: Reports: Sleep Apnea, Other (See Below). Denies: Asthma, COPD, PE , Pneumothorax Other Respiratory Family Hisory: Father with sleep apnea and history of tobacco use GI: Reports: Colon Polyps, GERD, PUD, Other (See Below). Denies: Celiac Disease , Cholelithiasis, GI bleed, Inflammatory Bowel Disease, Irritable Bowel Syndrome Other GI Family History: GERD in mother, father with colonic polyps and peptic ulcer disease : Reports: None. Denies: Renal Calculus, Renal Disease/Insufficiency OBGYN: Reports: Dysfunctional uterine bleeding, Fibroids, Recurrent Spontaneous , Other (See Below). Denies: Endometriosis Other OBGYN Family History: Mother with dysfunctional uterine bleeding requiring hysterectomy with additional history of recurrent SAB Musculoskeletal: Reports: Arthritis, Gout, Osteoarthritis, Other (See Below). Denies: RA, SLE Other Musculoskeletal Family History: Father with gout Neurological: Reports: None. Denies: Alzheimers Disease, CVA, Dementia, Migraines, MS, Neuropathy, Peripheral, Parkinson's, Seizure, TIA Psychiatric: Reports: Anxiety, Depression, Other (See Below). Denies: Abuse, Victim of, ADD, ADHD, Psych Hospitalization(s), PTSD, Suicide Attempt Other Psychiatric Family History: Anxiety depression disorder in mother, maternal great grandmother and paternal great-grandmother Endocrine/Metabolic: Reports: Diabetes, type II, Hypothyroidism, IDDM, Other ( See Below). Denies: Luis Alberto's Disease, Diabetes, Gestational, Diabetes, Type I , Diabetes Mellitus, Type 3c Other Endocrine/Metabolic Family History: IDDM in maternal grandmother, paternal grandmother, maternal grandfather, and maternal great-grandmother with brother with possible hyperglycemia, father with hypothyroidism secondary to thyroid resection from metastatic renal cancer as below Hematologic: Reports: Anemia Immunologic: Reports: None. Denies: AIDS, HIV, SLE Dermatologic: Reports: None. Denies: Eczema, Psoriasis Oncologic: Reports: Leukemia, Metastatic, Renal, Skin, Thyroid, Other (See Below ). Denies: Breast, Cervix, Colon, Hodgkin's Lymphoma, Lymphoma, Ovarian, Uterine Other Oncologic Family History: Mother with melanoma, paternal grandmother with basal cell carcinoma, maternal aunt with basal cell carcinoma, Cousin with leukemia, mother with multiple myeloma, father with metastatic renal cancer with metastases to the thyroid gland and lungs - Tobacco Use Smoking Status *Q: Never Smoker Tobacco Use Within Last Twelve Months: No Used Tobacco, but Quit: No Smoking Cessation Information Provided To Patient: No Second Hand Smoke Exposure: No - Caffeine Use Caffeine Use: Reports: Soda (2 sodas per day). Denies: Coffee, Energy Drinks, Tea - Alcohol Use Alcohol Use History: No Days Per Week of Alcohol Use: 0 Number of Drinks Per Day: 0 Total Drinks Per Week: 0 Total Drinks Per Week Comment: No previous DWIs, problems with alcohol abuse, etc. 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 ED EXAM, GENERAL - Physical Exam Exam: See Below Exam Limited By: No Limitations General Appearance: Alert, WD/WN, No Apparent Distress Eye Exam: Bilateral Eye: EOMI, Normal Inspection (No Nystagmus. Patient wearing glasses), PERRL Ears: Normal External Exam, Normal Canal, Hearing Grossly Normal, Normal TMs Nose: Normal Inspection, Normal Mucosa, No Blood Throat/Mouth: Normal Inspection, Normal Lips, Normal Teeth, Normal Gums, Normal Oropharynx, Normal Voice, No Airway Compromise. No: Dysphagia, Perioral Cyanosis Head: Atraumatic, Normocephalic. No: Facial Swelling, Facial Tenderness, Sinus Tenderness Neck: Normal Inspection, Supple, Non-Tender, Full Range of Motion. No: Carotid Bruit, Lymphadenopathy (L), Lymphadenopathy (R), Thyromegaly Respiratory/Chest: No Respiratory Distress, Lungs Clear, Normal Breath Sounds, No Accessory Muscle Use, Chest Non-Tender. No: Pleural Rub, Retractions Cardiovascular: Normal Peripheral Pulses, Regular Rate, Rhythm, No Edema, No Gallop, No JVD, No Murmur, No Rub. No: Gallop/S3, Gallop/S4, Friction Rub Peripheral Pulses: 2+: Radial (L), Radial (R), Dorsalis Pedis (L), Dorsalis Pedis (R) GI/Abdominal: Normal Bowel Sounds, Soft, Non-Tender, No Organomegaly, No Distention, No Abnormal Bruit, No Mass. No: Guarding (Female) Exam: Deferred Rectal (Female) Exam: Deferred Back Exam: Full Range of Motion, Other (Mild scoliosis). No: CVA Tenderness (L) , CVA Tenderness (R), Muscle Spasm, Paraspinal Tenderness, Vertebral Tenderness Extremities: Normal Inspection, Normal Range of Motion, Non-Tender, No Pedal Edema, Normal Capillary Refill. No: Saturnino's Sign Neurological: Alert, Oriented, CN II-XII Intact, Normal Cognition, Normal Gait, Normal Reflexes (Negative Babinski's), No Motor/Sensory Deficits Psychiatric: Normal Affect, Normal Mood Skin Exam: Warm, Dry, Intact, Normal Color, No Rash. No: Diaphoretic, Wound/ Incision Lymphatic: No Adenopathy EKG INTERPRETATION EKG Date: 03/29/19 Time: 08:24 Rhythm: NSR Rate (Beats/Min): 79 [place]: Normal (Neutral) P-Wave: Present QRS: Normal (0.07 seconds) ST-T: Other (T wave inversion in lead V1 with resolution of previous T-wave inversion in lead V2) QT: Normal IA/PQ Interval: 0.10 seconds representing a short IA interval with no delta waves noted Comparison: Change From Previous EKG (As above since 02/25/19.) EKG Interpretation Comments: 1. No acute ischemic changes 2. Short IA interval Course - Vital Signs Last Recorded V/S: Last Vital Signs Temp 36.6 C 03/29/19 09:15 Pulse 74 03/29/19 09:33 Resp 16 03/29/19 09:33 BP 100/59 L 03/29/19 09:33 Pulse Ox 100 03/29/19 09:33 Vital Signs - 24 hr 03/29/19 03/29/19 03/29/19 08:08 08:15 08:20 Temperature [ 36.4 C 36.4 C Temporal] Pulse, 82 82 Peripheral [ Left Pulse Oximetry] Respiratory 18 15 Rate Blood Pressure 107/63 104/64 [Left Upper Arm ] O2 Sat by Pulse 100 100 Oximetry O2 Sat by Pulse 100 Oximetry [Room Air] 03/29/19 03/29/19 03/29/19 08:30 08:45 09:15 Temperature [ 36.6 C Temporal] Pulse, 79 73 75 Peripheral [ Left Pulse Oximetry] Respiratory 16 16 16 Rate Blood Pressure 102/65 98/59 L 108/72 [Left Upper Arm ] O2 Sat by Pulse 100 100 99 Oximetry O2 Sat by Pulse Oximetry [Room Air] 03/29/19 09:33 Temperature [ Temporal] Pulse, 74 Peripheral [ Left Pulse Oximetry] Respiratory 16 Rate Blood Pressure 100/59 L [Left Upper Arm ] O2 Sat by Pulse 100 Oximetry O2 Sat by Pulse Oximetry [Room Air] - Orders/Labs/Meds Orders: Active Orders 24 hr Category Date Time Status Cardiac Monitoring [RC] . DIRECTED Care 03/29/19 08:20 Active EKG Documentation Completion [RC] ASDIRECTED Care 03/29/19 08:20 Active Oxygen Therapy, ED [RC] CONTINUOUS Care 03/29/19 08:20 Active Peripheral IV Care [RC] . DIRECTED Care 03/29/19 08:20 Active Pulse Oximetry [RC] CONTINUOUS Care 03/29/19 08:20 Active Up With Assistance [RC] PFP Care 03/29/19 08:20 Active Vital Signs [RC] PFP Care 03/29/19 08:20 Active Nothing per Oral Now Diet [DIET] Diet 03/29/19 Breakfast Active Chest 1V Frontal [CR] Stat Exams 03/29/19 08:20 Taken PACKED CELLS [RED BLOOD CELLS LP] [BBK] Stat Lab 03/29/19 08:15 Results TYPE AND SCREEN [BBK] Stat Lab 03/29/19 08:15 Results Sodium Chloride 0.9% [Saline Flush] Med 03/29/19 08:19 Active 10 ml FLUSH ASDIRECTED PRN Obtain Past Medical Record [OM.PC] Urgent Oth 03/29/19 08:20 Active Peripheral IV Insertion Adult [OM.PC] Stat Oth 03/29/19 08:20 Ordered Transfuse RBC [Transfuse Red Blood Cells] [COMM] Oth 03/29/19 09:00 Ordered Routine Resuscitation Status Stat Resus Stat 03/29/19 08:19 Ordered EKG 12 Lead [EK] Stat Ther 03/29/19 08:20 Ordered Medication Orders Sodium Chloride (Saline Flush) 10 ml FLUSH ASDIRECTED PRN PRN Reason: Keep Vein Open Last Admin: 03/29/19 09:13 Dose: 10 ml Admin: 03/29/19 08:39 Dose: 10 ml Labs: Laboratory Tests 03/29/19 03/29/19 03/29/19 Range/Units 08:15 08:15 08:15 WBC 6.0 (4.0-10.2) K/uL RBC 2.95 L (3.77-5.09) M/uL Hgb 6.2 L* D (11.7-15.5) g/dL Hct 22.4 L* (34.0-46.0) % MCV 75.9 L (84.0-98.0) fL MCH 21.0 L (28.2-33.3) pg MCHC 27.7 L (31.7-36.0) g/dL RDW 15.7 H (11.2-14.1) % Plt Count 455 H D (150-350) K/uL Neut % (Auto) 65.2 (45.0-80.0) % Lymph % (Auto) 21.7 (10.0-50.0) % [place] % (Auto) 10.6 (2.0-14.0) % Eos % (Auto) 2.0 (0.0-5.0) % Baso % (Auto) 0.5 (0.0-2.0) % Neut # (Auto) 3.88 (1.40-7.00) K/uL Lymph # (Auto) 1.29 (0.50-3.50) K/uL [place] # (Auto) 0.63 (0.00-1.00) K/uL Eos # (Auto) 0.12 (0.00-0.50) K/uL Baso # (Auto) 0.03 (0.00-0.20) K/uL PT 10.9 (9.5-12.0) SEC INR 1.0 APTT 23.3 (21.0-31.3) SEC D-Dimer, Quantitative 255 (0-400) ng/mL Sodium (136-145) mmol/L Potassium (3.5-5.1) mmol/L Chloride (98-107) mmol/L Carbon Dioxide (21.0-32.0) mmol/L BUN (7-18) mg/dL Creatinine (0.51-1.17) mg/dL Est Cr Clr Drug Dosing mL/min Estimated GFR (MDRD) mL/min Glucose (74-106) mg/dL Lactic Acid (0.4-2.0) mmol/L Uric Acid (2.6-7.2) mg/dL Calcium (8.5-10.1) mg/dL Magnesium (1.8-2.4) mg/dL Total Bilirubin (0.2-1.0) mg/dL AST (15-37) U/L ALT (12-78) U/L Alkaline Phosphatase (46-116) IU/L Creatine Kinase (26-308) U/L Creatine Kinase Index (0.0-2.5) % CK-MB (CK-2) (0.00-3.60) ng/mL Troponin I (0.000-0.056) ng/mL NT-Pro-B Natriuret Pep (0-125) pg/mL Total Protein (6.4-8.2) g/dL Albumin (3.4-5.0) g/dL TSH, Ultra Sensitive (0.358-3.740) mIU/mL HCG, Qual (NEGATIVE) Blood Type Crossmatch 03/29/19 03/29/19 03/29/19 Range/Units 08:15 08:15 08:15 WBC (4.0-10.2) K/uL RBC (3.77-5.09) M/uL Hgb (11.7-15.5) g/dL Hct (34.0-46.0) % MCV (84.0-98.0) fL MCH (28.2-33.3) pg MCHC (31.7-36.0) g/dL RDW (11.2-14.1) % Plt Count (150-350) K/uL Neut % (Auto) (45.0-80.0) % Lymph % (Auto) (10.0-50.0) % [place] % (Auto) (2.0-14.0) % Eos % (Auto) (0.0-5.0) % Baso % (Auto) (0.0-2.0) % Neut # (Auto) (1.40-7.00) K/uL Lymph # (Auto) (0.50-3.50) K/uL [place] # (Auto) (0.00-1.00) K/uL Eos # (Auto) (0.00-0.50) K/uL Baso # (Auto) (0.00-0.20) K/uL PT (9.5-12.0) SEC INR APTT (21.0-31.3) SEC D-Dimer, Quantitative (0-400) ng/mL Sodium 142 (136-145) mmol/L Potassium 2.8 L* (3.5-5.1) mmol/L Chloride 106 (98-107) mmol/L Carbon Dioxide 22.1 (21.0-32.0) mmol/L BUN 9 (7-18) mg/dL Creatinine 0.68 (0.51-1.17) mg/dL Est Cr Clr Drug Dosing 85.24 mL/min Estimated GFR (MDRD) > 60 mL/min Glucose 99 (74-106) mg/dL Lactic Acid 3.1 H (0.4-2.0) mmol/L Uric Acid 4.8 (2.6-7.2) mg/dL Calcium 8.5 (8.5-10.1) mg/dL Magnesium 1.5 L (1.8-2.4) mg/dL Total Bilirubin 0.2 (0.2-1.0) mg/dL AST 36 (15-37) U/L ALT 51 (12-78) U/L Alkaline Phosphatase 144 H (46-116) IU/L Creatine Kinase 53 (26-308) U/L Creatine Kinase Index 0.8 (0.0-2.5) % CK-MB (CK-2) 0.40 (0.00-3.60) ng/mL Troponin I 0.009 (0.000-0.056) ng/mL NT-Pro-B Natriuret Pep 178 H (0-125) pg/mL Total Protein 6.6 (6.4-8.2) g/dL Albumin 3.3 L (3.4-5.0) g/dL TSH, Ultra Sensitive 3.721 (0.358-3.740) mIU/mL HCG, Qual Negative (NEGATIVE) Blood Type Crossmatch 03/29/19 Range/Units 08:15 WBC (4.0-10.2) K/uL RBC (3.77-5.09) M/uL Hgb (11.7-15.5) g/dL Hct (34.0-46.0) % MCV (84.0-98.0) fL MCH (28.2-33.3) pg MCHC (31.7-36.0) g/dL RDW (11.2-14.1) % Plt Count (150-350) K/uL Neut % (Auto) (45.0-80.0) % Lymph % (Auto) (10.0-50.0) % [place] % (Auto) (2.0-14.0) % Eos % (Auto) (0.0-5.0) % Baso % (Auto) (0.0-2.0) % Neut # (Auto) (1.40-7.00) K/uL Lymph # (Auto) (0.50-3.50) K/uL [place] # (Auto) (0.00-1.00) K/uL Eos # (Auto) (0.00-0.50) K/uL Baso # (Auto) (0.00-0.20) K/uL PT (9.5-12.0) SEC INR APTT (21.0-31.3) SEC D-Dimer, Quantitative (0-400) ng/mL Sodium (136-145) mmol/L Potassium (3.5-5.1) mmol/L Chloride (98-107) mmol/L Carbon Dioxide (21.0-32.0) mmol/L BUN (7-18) mg/dL Creatinine (0.51-1.17) mg/dL Est Cr Clr Drug Dosing mL/min Estimated GFR (MDRD) mL/min Glucose (74-106) mg/dL Lactic Acid (0.4-2.0) mmol/L Uric Acid (2.6-7.2) mg/dL Calcium (8.5-10.1) mg/dL Magnesium (1.8-2.4) mg/dL Total Bilirubin (0.2-1.0) mg/dL AST (15-37) U/L ALT (12-78) U/L Alkaline Phosphatase (46-116) IU/L Creatine Kinase (26-308) U/L Creatine Kinase Index (0.0-2.5) % CK-MB (CK-2) (0.00-3.60) ng/mL Troponin I (0.000-0.056) ng/mL NT-Pro-B Natriuret Pep (0-125) pg/mL Total Protein (6.4-8.2) g/dL Albumin (3.4-5.0) g/dL TSH, Ultra Sensitive (0.358-3.740) mIU/mL HCG, Qual (NEGATIVE) Blood Type A POSITIVE Crossmatch See Detail Meds: Medications Generic Name Dose Route Start Last Admin Trade Name Freq PRN Reason Stop Dose Admin Sodium Chloride 10 ml 03/29/19 08:19 03/29/19 09:13 Saline Flush FLUSH 10 ml ASDIRECTED PRN Administration Keep Vein Open Discontinued Medications Generic Name Dose Route Start Last Admin Trade Name Freq PRN Reason Stop Dose Admin Famotidine 40 mg 03/29/19 08:19 03/29/19 08:38 Pepcid IVPUSH 03/29/19 08:20 40 mg ONETIME ONE Administration Pantoprazole Sodium 40 mg 03/29/19 09:07 03/29/19 09:13 Protonix Iv IVPUSH 03/29/19 09:08 40 mg ONETIME ONE Administration Potassium Chloride 40 meq 03/29/19 09:06 03/29/19 09:31 Potassium Chloride Solution PO 03/29/19 09:07 40 meq ONETIME ONE Administration - Radiology Interpretation Free Text/Narrative:: Lay Out Former shows normal sinus rhythm in the 70s to 90s with no ectopy or arrhythmia. Chest x-ray, portable, shows mild scoliosis with no cardiomegaly, CHF, pulmonary infiltrates, pneumothorax, etc. Departure - Departure Time of Disposition: 10:15 Disposition: Refer to Observation Condition: Good Clinical Impression: D-dimer, elevated, Mixed anxiety depressive disorder, Hyperlipidemia, Anemia, Hypermenorrhea, Hypoalbuminemia, Peptic reflux disease, Hypothyroidism, Elevated lactic acid level, Hypokalemia, Hypomagnesemia, Chest pain Referrals: Moriah Albrecht PA-C [Primary Care Provider] - Forms: ED Department Discharge Sepsis Event Note - Focused Exam Vital Signs: Vital Signs Temp Pulse Resp BP Pulse Ox Pulse Ox 03/29/19 09:33 74 16 100/59 L 100 03/29/19 09:15 36.6 C 75 16 108/72 99 03/29/19 08:45 73 16 98/59 L 100 03/29/19 08:30 79 16 102/65 100 03/29/19 08:20 100 03/29/19 08:15 36.4 C 82 15 104/64 100 03/29/19 08:08 36.4 C 82 18 107/63 100 Date Exam was Performed: 03/29/19 Time Exam was Performed: 10:08 - Problem List & Annotations (1) Chest pain SNOMED Code(s): 70275091 Code(s): R07.9 - CHEST PAIN, UNSPECIFIED Status: Acute Priority: High Current Visit: Yes Onset Date: 03/29/19 Annotation/Comment:: Note similar symptoms at time of ER evaluation on 02/25/19. Chest pain protocol was initiated upon patient's arrival to the emergency room, however ASA and Brilinta were not given secondary to patient's previous history of anemia, peptic ulcer disease, improving symptoms, etc. Patient became completely chest pain-free after administration of IV Pepcid as below. Probable GERD component. Note, however, the patient did have some anterior T-wave inversions on 02/25/19, although this may be related to previous lead placement. Note, however, significant anemia today, which may be an unmasking factor for coronary artery disease. Low threshold for workup on an outpatient basis, including Cardiolite stress test with the patient counseled on this in the emergency room. Cardiology consultation depending on her clinical course. Initiate standard rule out PA orders, although these may be affected by the blood transfusions as below. Dr. Zepeda assumes care later this morning, and she has been updated concerning patient's symptoms, planned workup, etc. Qualifiers: Chest pain type: precordial pain Qualified Code(s): R07.2 - Precordial pain (2) Anemia SNOMED Code(s): 350697768 Code(s): D64.9 - ANEMIA, UNSPECIFIED Status: Chronic Priority: High Current Visit: Yes Onset Date: ~05/30/16 Annotation/Comment:: Multifactorial etiologies to patient's current anemia, including hypermenorrhea , malabsorption syndrome, iron deficiency, vitamin D B12 deficiency, and folic acid deficiency with status post gastric bypass surgery as above. Anemia is symptomatic, and therefore we will initiate 2 units of packed red blood cells transfusion. Patient has not had a transfusion to this point. Note that the patient did receive an IV iron infusion yesterday as above. She has already scheduled a follow-up appointment for endometrial ablation at [facility] on 04/22/19. Note that 2 units will be transfused today secondary to delay of this follow-up treatment. Continue Iron infusions depending on her clinical course and further recommendations from her hemeoncologist. Follow-up lactic acid level and CBC after completion of transfusions as above with additional repeat blood work in the a.m. secondary to her chest pain, etc. Qualifiers: Anemia type: other cause Other causes of anemia: nutritional, unspecified Qualified Code(s): D53.9 - Nutritional anemia, unspecified (3) Hypothyroidism SNOMED Code(s): 13062734 Code(s): E03.9 - HYPOTHYROIDISM, UNSPECIFIED Status: Acute Current Visit : Yes Onset Date: 12/06/13 Annotation/Comment:: TSH normal today with continuation of current supplementation. (4) Hypokalemia SNOMED Code(s): 01465905 Code(s): E87.6 - HYPOKALEMIA Status: Acute Priority: High Current Visit : Yes Onset Date: 05/30/16 Annotation/Comment:: Aggressive potassium chloride oral supplementation initiated in the emergency room. Close follow-up during this hospitalization. (5) Hypomagnesemia SNOMED Code(s): 577251538 Code(s): E83.42 - HYPOMAGNESEMIA Status: Chronic Priority: Medium Current Visit: Yes Onset Date: 05/30/16 Annotation/Comment:: Magnesium level is decreased once again today despite compliance with her recently increased oral supplementation. Consider IV magnesium sulfate infusion. (6) Hypoalbuminemia SNOMED Code(s): 066316611 Code(s): E88.09 - OTH DISORDERS OF PLASMA-PROTEIN METABOLISM, NEC Status: Chronic Priority: Medium Current Visit: Yes Annotation/Comment:: Compliance with high-protein Glucerna supplements as snacks once again strongly encouraged. (7) Peptic reflux disease SNOMED Code(s): 276827209 Code(s): K21.9 - GASTRO-ESOPHAGEAL REFLUX DISEASE WITHOUT ESOPHAGITIS Status: Chronic Priority: Medium Current Visit: Yes Annotation/Comment:: Stable by patient history with no evidence of recent GI bleed despite previous history of peptic ulcer disease. High-dose IV Pepcid and IV Protonix were given as GI prophylaxis in the emergency room. (8) Mixed anxiety depressive disorder SNOMED Code(s): 351009920 Code(s): F41.8 - OTHER SPECIFIED ANXIETY DISORDERS Status: Chronic Priority: Medium Current Visit: Yes Annotation/Comment:: Stable by patient history (9) Hyperlipidemia SNOMED Code(s): 84444175 Code(s): E78.5 - HYPERLIPIDEMIA, UNSPECIFIED Status: Chronic Current Visit: Yes Annotation/Comment:: Not currently under therapy with history of fatty liver and previous LFTs elevation including after gastric bypass surgery. Lipid panel and glycosylated hemoglobin will be conducted in the a.m. Qualifiers: Hyperlipidemia type: unspecified Qualified Code(s): E78.5 - Hyperlipidemia , unspecified (10) Asthma SNOMED Code(s): 449368529 Code(s): J45.909 - UNSPECIFIED ASTHMA, UNCOMPLICATED Status: Chronic Priority: Medium Current Visit: Yes Annotation/Comment:: No recent fever or bronchitic type symptoms Qualifiers: Asthma severity: mild Asthma persistence: intermittent Asthma complication type: uncomplicated Qualified Code(s): J45.20 - Mild intermittent asthma, uncomplicated (11) D-dimer, elevated SNOMED Code(s): 899879789 Code(s): R79.89 - OTHER SPECIFIED ABNORMAL FINDINGS OF BLOOD CHEMISTRY Status: Acute Priority: High Current Visit: Yes Onset Date: 02/25/19 Annotation/Comment:: D-Dimer normal today with negative previous workup for d- dimer elevation as above. - Problem List Review Problem List Initiated/Reviewed/Updated: Yes - My Orders Last 24 Hours: My Active Orders 03/29/19 08:15 PACKED CELLS [RED BLOOD CELLS LP] [BBK] Stat TYPE AND SCREEN [BBK] Stat 03/29/19 08:19 Sodium Chloride 0.9% [Saline Flush] 10 ml FLUSH ASDIRECTED PRN Resuscitation Status Stat 03/29/19 08:20 Cardiac Monitoring [RC] . DIRECTED EKG Documentation Completion [RC] ASDIRECTED Oxygen Therapy, ED [RC] CONTINUOUS Peripheral IV Care [RC] . DIRECTED Pulse Oximetry [RC] CONTINUOUS Up With Assistance [RC] PFP Vital Signs [RC] PFP Chest 1V Frontal [CR] Stat Obtain Past Medical Record [OM.PC] Urgent Peripheral IV Insertion Adult [OM.PC] Stat EKG 12 Lead [EK] Stat 03/29/19 09:00 Transfuse RBC [Transfuse Red Blood Cells] [COMM] Routine 03/29/19 Breakfast Nothing per Oral Now Diet [DIET] - Assessment/Plan Admission H&P: Please use this note as an admission H&P Last 24 Hours: My Active Orders 03/29/19 08:15 PACKED CELLS [RED BLOOD CELLS LP] [BBK] Stat TYPE AND SCREEN [BBK] Stat 03/29/19 08:19 Sodium Chloride 0.9% [Saline Flush] 10 ml FLUSH ASDIRECTED PRN Resuscitation Status Stat 03/29/19 08:20 Cardiac Monitoring [RC] . DIRECTED EKG Documentation Completion [RC] ASDIRECTED Oxygen Therapy, ED [RC] CONTINUOUS Peripheral IV Care [RC] . DIRECTED Pulse Oximetry [RC] CONTINUOUS Up With Assistance [RC] PFP Vital Signs [RC] PFP Chest 1V Frontal [CR] Stat Obtain Past Medical Record [OM.PC] Urgent Peripheral IV Insertion Adult [OM.PC] Stat EKG 12 Lead [EK] Stat 03/29/19 09:00 Transfuse RBC [Transfuse Red Blood Cells] [COMM] Routine 03/29/19 Breakfast Nothing per Oral Now Diet [DIET] Assessment:: As above Plan: As above. Extensive precautions were given to the patient, who is in agreement with the treatment plan. The patient's condition is stable enough for observation status and general supervision.
[2019-03-29] MEDS: Sodium Chloride 0.9% 10 ML Syringe FLUSH PRN ×4 (08:39→17:08)
[2019-03-29 08:52] LABS: CHLORIDE,CL 106 mmol/L (98-107); SODIUM,NA 142 mmol/L (136-145)
[2019-03-29] MEDS ORDERED: Potassium Chloride 10% 20 MEQ/15 ML Soln 15 ML UD Cup PO ONE (09:06)
[2019-03-29] MEDS ORDERED: Pantoprazole 40 MG Vial IVPUSH ONE (09:07)
[2019-03-29] MEDS ORDERED: Temazepam 15 MG Cap PO PRN (10:29)
[2019-03-29] MEDS ORDERED: Sodium Chloride 0.9% 10 ML Syringe FLUSH PRN (10:29)
[2019-03-29] MEDS ORDERED: Cyanocobalamin (Vitamin B12) 1,000 MCG/ML SDV IM SCH (10:30)
[2019-03-29] MEDS: Folic Acid 1 MG Tab PO SCH (11:29)
[2019-03-29] MEDS: Potassium Chloride 10% 20 MEQ/15 ML Soln 15 ML UD Cup PO SCH ×2 (11:30→17:41)
[2019-03-29] MEDS: FLUoxetine 20 MG Cap PO SCH (11:30)
[2019-03-29] MEDS: Levothyroxine 100 MCG Tab PO SCH (11:30)
[2019-03-29] MEDS: Acetaminophen 325 MG Tab PO PRN ×3 (12:17→20:34)
[2019-03-29] MEDS ORDERED: Magnesium Sulfate/Water 100 ML IV ONE (16:00)
[2019-03-29] MEDS ORDERED: Sodium Chloride 0.9% 1,000 ML IV ONE (18:27)
[2019-03-29] MEDS ORDERED: Magnesium Oxide 400 MG Tab PO SCH (20:00)
[2019-03-30] MEDS: FLUoxetine 20 MG Cap PO SCH (07:38)
[2019-03-30] MEDS: Levothyroxine 100 MCG Tab PO SCH (07:38)
[2019-03-30] MEDS: Folic Acid 1 MG Tab PO SCH (07:38)
[2019-03-30] MEDS: Acetaminophen 325 MG Tab PO PRN (07:39)
[2019-03-30] MEDS: Potassium Chloride 10% 20 MEQ/15 ML Soln 15 ML UD Cup PO SCH ×2 (07:40→11:38)
[2019-03-30] MEDS: Sodium Chloride 0.9% 10 ML Syringe FLUSH PRN (07:43)
[2019-03-30 07:51] LABS: HEMOGLOBIN A1C 5.7 % (4.3-5.7)
[2019-03-30] MEDS ORDERED: Non-Formulary Medication 1 Each PO SCH (08:00)
[2019-03-30 08:02] LABS: CHLORIDE,CL 109 mmol/L (98-107); SODIUM,NA 142 mmol/L (136-145)
[2019-03-30 10:16] VITALS: BP 89/52; PULSE 69
--- NOTE | 2019-03-30 15:34 | PCM.DCSUM1 ---
Discharge Summary - Hospital Course Brief History: Admitted for treatment of very low Hgb/K, low mag, chest pain Diagnosis: Stroke: No - Discharge Data Discharge Date: 03/30/19 Discharge Disposition: Home, Self-Care 01 Condition: Good - Referral to Home Health Primary Care Physician: Moriah Albrecht PA-C - Discharge Diagnosis/Problem(s) (1) Chest pain SNOMED Code(s): 56387590 ICD Code: R07.9 - CHEST PAIN, UNSPECIFIED Status: Acute Priority: High Current Visit: Yes Onset Date: 03/29/19 Problem Details: Note similar symptoms at time of ER evaluation on 02/25/19. Serial troponins negative. Unremarkable telemetry. No return of chest pain complaint since admitted. Chest pain protocol was initiated upon patient's arrival to the emergency room, however ASA and Brilinta were not given secondary to patient's previous history of anemia, peptic ulcer disease, improving symptoms, etc. Patient became completely chest pain-free after administration of IV Pepcid as below. Probable GERD component. Note, however, the patient did have some anterior T-wave inversions on 02/25/19, although this may be related to previous lead placement. Significant anemia noted, which may be an unmasking factor for coronary artery disease. Cardiolite stress test recommended as outpatient. Blood transusion given with subsequent improvement of Hgb. Qualifiers: Chest pain type: precordial pain Qualified Code(s): R07.2 - Precordial pain (2) Anemia SNOMED Code(s): 573753827 ICD Code: D64.9 - ANEMIA, UNSPECIFIED Status: Chronic Priority: High Current Visit: Yes Onset Date: ~05/30/16 Problem Details: Recheck of Hgb shows good improvement. Follow up next week with primary proivder. Multifactorial etiologies to patient's current anemia, including hypermenorrhea , malabsorption syndrome, iron deficiency, vitamin D B12 deficiency, and folic acid deficiency with status post gastric bypass surgery as above. Patient has not had a transfusion to this point. Note that the patient did receive an IV iron infusion this week. She has already scheduled a follow-up appointment for endometrial ablation at [facility] on 04/22/19. Note that 2 units will be transfused today secondary to delay of this follow-up treatment. Continue Iron infusions depending on her clinical course and further recommendations from her hemeoncologist. Given chest pain complaint and low level of Hgb, patient received 2 units PRBCs. Qualifiers: Anemia type: other cause Other causes of anemia: nutritional, unspecified Qualified Code(s): D53.9 - Nutritional anemia, unspecified (3) D-dimer, elevated SNOMED Code(s): 842939477 ICD Code: R79.89 - OTHER SPECIFIED ABNORMAL FINDINGS OF BLOOD CHEMISTRY Status: Resolved Priority: High Current Visit: No Onset Date: 02/25/19 Problem Details: History of previous elevated DDimer last month. D-Dimer normal this visit. (4) Elevated lactic acid level SNOMED Code(s): 9952520 ICD Code: R79.89 - OTHER SPECIFIED ABNORMAL FINDINGS OF BLOOD CHEMISTRY Status: Acute Priority: High Current Visit: Yes Onset Date: 09/28/18 Problem Details: No evidence of sepsis, fever, leukocytosis, etc. IV fluids and blood transfusion given to patient. Lactic acid normal today (5) Hypokalemia SNOMED Code(s): 41341170 ICD Code: E87.6 - HYPOKALEMIA Status: Acute Priority: High Current Visit: Yes Onset Date: 05/30/16 Problem Details: Normalized today. Will have patient follow up next week with primary provider to get rechecked. (6) Hypothyroidism SNOMED Code(s): 20063176 ICD Code: E03.9 - HYPOTHYROIDISM, UNSPECIFIED Status: Acute Current Visit : Yes Onset Date: 12/06/13 Problem Details: TSH normal today with continuation of current supplementation. (7) Asthma SNOMED Code(s): 465659978 ICD Code: J45.909 - UNSPECIFIED ASTHMA, UNCOMPLICATED Status: Chronic Priority: Medium Current Visit: Yes Problem Details: No recent fever or bronchitic type symptoms Qualifiers: Asthma severity: mild Asthma persistence: intermittent Asthma complication type: uncomplicated Qualified Code(s): J45.20 - Mild intermittent asthma, uncomplicated (8) Hyperlipidemia SNOMED Code(s): 64868663 ICD Code: E78.5 - HYPERLIPIDEMIA, UNSPECIFIED Status: Resolved Priority: Low Current Visit: No Problem Details: Not currently under therapy with history of fatty liver and previous LFTs elevation including after gastric bypass surgery. Lipid panel and glycosylated hemoglobin conducted. Abnormally low cholesterol level noted. Normal A1c. Qualifiers: Hyperlipidemia type: unspecified Qualified Code(s): E78.5 - Hyperlipidemia , unspecified (9) Hypoalbuminemia SNOMED Code(s): 435044314 ICD Code: E88.09 - OTH DISORDERS OF PLASMA-PROTEIN METABOLISM, NEC Status: Chronic Priority: Medium Current Visit: Yes Problem Details: Compliance with high-protein Glucerna supplements as snacks once again strongly encouraged. (10) Hypomagnesemia SNOMED Code(s): 557535806 ICD Code: E83.42 - HYPOMAGNESEMIA Status: Chronic Priority: Medium Current Visit: Yes Onset Date: 05/30/16 Problem Details: Improved after IV supplementation. Recommend dose increase in daily Mag supplementation at home. (11) Mixed anxiety depressive disorder SNOMED Code(s): 547965175 ICD Code: F41.8 - OTHER SPECIFIED ANXIETY DISORDERS Status: Chronic Priority: Medium Current Visit: Yes Problem Details: Stable by patient history (12) Peptic reflux disease SNOMED Code(s): 882534952 ICD Code: K21.9 - GASTRO-ESOPHAGEAL REFLUX DISEASE WITHOUT ESOPHAGITIS Status: Chronic Priority: Medium Current Visit: Yes Problem Details: Stable by patient history with no evidence of recent GI bleed despite previous history of peptic ulcer disease. High-dose IV Pepcid and IV Protonix were given as GI prophylaxis in the emergency room. Stool + for occult blood but patient does have ongoing issues with dysfunctional uterine bleeding. Up to date with colonoscopy and had had several upper endoscopies. To follow up with primary provider next week for further planning. - Patient Summary/Data Hospital Course: Patient received 2units PRBC and IV Mag. Improved Hgb/Mag today. No recurrence of chest pain. No acute changes on telemetry/EKG. Negative troponins. K corrected easily with oral supplementation. To follow up closely next week with primary provider to get CBC/Mag/K rechecked. Needs to discuss + stool for occult blood. Follow up with hematology also needs to be scheduled. Patient wishes for referral to [facility]. - Patient Instructions Diet: Usual Diet as Tolerated Activity: As Tolerated Driving: May Drive Today Showering/Bathing: May Shower Other/Special Instructions: Follow up with your primary provider next week. Get your Mg, K, and CBC rechecked. Discuss if you need referral to GI again as you did have a + stool for occult blood. You might want to consider repeating that test once a day over 3 days to confirm it is an issue. Discuss follow up with Hematology given your low Hgb issue/transfusion. Given your complex multiple medical issues it is agreed that you would likely benefit from referral to [facility] for a second opinion. Obtain official referral from your primary provider next week. Also discuss arranging for Cardiolyte stress test. This can be done here at our facility. Follow up otherwise as needed if you have any new/worsening problems. - Discharge Plan *PRESCRIPTION DRUG MONITORING PROGRAM REVIEWED*: Not Applicable *COPY OF PRESCRIPTION DRUG MONITORING REPORT IN PATIENT SAM: Not Applicable Home Medications: Home Meds Non-Formulary Medication [NF Drug] 1 tab PO DAILY #100 09/21/16 [Rx] Potassium Chloride [Klor-Con M20] 20 meq PO BID tab.er 09/21/16 [Rx] FLUoxetine HCl [Fluoxetine HCl] 20 mg PO DAILY 07/27/18 [History] Cyanocobalamin (Vitamin B12) [Vitamin B12] 1,000 mcg IM Q30D sdv 09/29/18 [Rx] Levothyroxine [Synthroid] 100 mcg PO ACBREAKFAST 30 Days #30 tablet 09/29/18 [Rx ] Acetaminophen/Diphenhydramine [Tylenol Pm Ex-Strength Caplet] 1 tab PO BEDTIME 03/29/19 [History] Folic Acid 1 mg PO DAILY 03/29/19 [History] Magnesium Oxide 800 mg PO BEDTIME 03/29/19 [History] Forms: ED Department Discharge Referrals: Moriah Albrecht PA-C [Primary Care Provider] - - Discharge Summary/Plan Comment DC Time >30 min.: No - General Info Date of Service: 03/30/19 Admission Dx/Problem (Free Text: Chest pain. Low Hgb/Mg. Subjective Update: Feels better. No pain. Would like to go home. No acute changes. Functional Status: Reports: Pain Controlled, Tolerating Diet, Ambulating, Urinating. Denies: New Symptoms - Review of Systems General: Reports: No Symptoms HEENT: Reports: Glasses. Denies: Ear Pain, Eye Pain, Headaches, Sinus Congestion, Sore Throat, Rhinitis, Visual Changes Pulmonary: Denies: Shortness of Breath, Pleuritic Chest Pain, Cough, Sputum, Hemoptysis, Wheezing Cardiovascular: Denies: Chest Pain, Palpitations, Dyspnea on Exertion, Orthopnea , PND, Edema, Lightheadedness Gastrointestinal: Reports: Other (+ for occult blood in stool when checked). Denies: Abdominal Pain, Diarrhea, Difficulty Swallowing, Nausea, Vomiting Genitourinary: Reports: No Symptoms Musculoskeletal: Reports: No Symptoms (no acute changes from baseline) Skin: Reports: No Symptoms Neurological: Reports: No Symptoms Psychiatric: Reports: No Symptoms - Patient Data Vitals - Most Recent: Last Vital Signs Temp 36.5 C 03/30/19 08:00 Pulse 69 03/30/19 10:00 Resp 16 03/30/19 10:00 BP 89/52 L 03/30/19 10:00 Pulse Ox 99 03/30/19 10:00 Weight - Most Recent: 57.833 kg I&O - Last 24 hours: Intake & Output 03/30/19 03/30/19 03/30/19 06:59 14:59 22:59 Intake Total 1000 600 Output Total 1000 Balance 0 600 Lab Results - Last 24 hrs: Laboratory Results - last 24 hr 03/29/19 03/29/19 03/29/19 Range/Units 08:15 16:33 16:33 WBC 8.5 (4.0-10.2) K/uL RBC 3.41 L (3.77-5.09) M/uL Hgb 8.3 L D (11.7-15.5) g/dL Hct 27.8 L (34.0-46.0) % MCV 81.5 L D (84.0-98.0) fL MCH 24.3 L (28.2-33.3) pg MCHC 29.9 L (31.7-36.0) g/dL RDW 18.7 H (11.2-14.1) % Plt Count 389 H (150-350) K/uL Neut % (Auto) 61.1 (45.0-80.0) % Lymph % (Auto) 27.4 (10.0-50.0) % [place] % (Auto) 9.5 (2.0-14.0) % Eos % (Auto) 1.5 (0.0-5.0) % Baso % (Auto) 0.5 (0.0-2.0) % Neut # (Auto) 5.17 (1.40-7.00) K/uL Lymph # (Auto) 2.32 (0.50-3.50) K/uL [place] # (Auto) 0.80 (0.00-1.00) K/uL Eos # (Auto) 0.13 (0.00-0.50) K/uL Baso # (Auto) 0.04 (0.00-0.20) K/uL Sodium (136-145) mmol/L Potassium (3.5-5.1) mmol/L Chloride (98-107) mmol/L Carbon Dioxide (21.0-32.0) mmol/L BUN (7-18) mg/dL Creatinine (0.51-1.17) mg/dL Est Cr Clr Drug Dosing mL/min Estimated GFR (MDRD) mL/min Glucose (74-106) mg/dL Hemoglobin A1c (4.3-5.7) % Lactic Acid 3.4 H (0.4-2.0) mmol/L Calcium (8.5-10.1) mg/dL Magnesium (1.8-2.4) mg/dL Total Bilirubin (0.2-1.0) mg/dL AST (15-37) U/L ALT (12-78) U/L Alkaline Phosphatase (46-116) IU/L Creatine Kinase (26-308) U/L Creatine Kinase Index (0.0-2.5) % CK-MB (CK-2) (0.00-3.60) ng/mL Troponin I (0.000-0.056) ng/mL Total Protein (6.4-8.2) g/dL Albumin (3.4-5.0) g/dL Triglycerides (30-150) mg/dL Cholesterol (100-200) mg/dL LDL Cholesterol, Calc (0-100) mg/dL HDL Cholesterol (40-60) mg/dL Specimen Type Urine Color Urine Appearance Urine pH (5.0-9.0) Ur Specific [place] (1.005-1.030) Urine Protein (NEGATIVE) mg/dL Urine Glucose (UA) (NEGATIVE) mg/dL Urine Ketones (NEGATIVE) mg/dL Urine Occult Blood (NEGATIVE) Urine Nitrite (NEGATIVE) Urine Bilirubin (NEGATIVE) Urine Urobilinogen (0.2-1.0) E.U./dL Ur Leukocyte Esterase (NEGATIVE) Urine RBC /HPF Urine WBC /HPF Ur Epithelial Cells /LPF Urine Bacteria (NONE TO FEW) /HPF Crossmatch See Detail 03/29/19 03/29/19 03/30/19 Range/Units 16:33 18:05 07:20 WBC 7.3 (4.0-10.2) K/uL RBC 3.54 L (3.77-5.09) M/uL Hgb 8.5 L (11.7-15.5) g/dL Hct 28.8 L (34.0-46.0) % MCV 81.4 L (84.0-98.0) fL MCH 24.0 L (28.2-33.3) pg MCHC 29.5 L (31.7-36.0) g/dL RDW 18.4 H (11.2-14.1) % Plt Count 413 H (150-350) K/uL Neut % (Auto) 61.2 (45.0-80.0) % Lymph % (Auto) 25.8 (10.0-50.0) % [place] % (Auto) 9.9 (2.0-14.0) % Eos % (Auto) 2.1 (0.0-5.0) % Baso % (Auto) 1.0 (0.0-2.0) % Neut # (Auto) 4.47 (1.40-7.00) K/uL Lymph # (Auto) 1.88 (0.50-3.50) K/uL [place] # (Auto) 0.72 (0.00-1.00) K/uL Eos # (Auto) 0.15 (0.00-0.50) K/uL Baso # (Auto) 0.07 (0.00-0.20) K/uL Sodium (136-145) mmol/L Potassium (3.5-5.1) mmol/L Chloride (98-107) mmol/L Carbon Dioxide (21.0-32.0) mmol/L BUN (7-18) mg/dL Creatinine (0.51-1.17) mg/dL Est Cr Clr Drug Dosing mL/min Estimated GFR (MDRD) mL/min Glucose (74-106) mg/dL Hemoglobin A1c (4.3-5.7) % Lactic Acid (0.4-2.0) mmol/L Calcium (8.5-10.1) mg/dL Magnesium (1.8-2.4) mg/dL Total Bilirubin (0.2-1.0) mg/dL AST (15-37) U/L ALT (12-78) U/L Alkaline Phosphatase (46-116) IU/L Creatine Kinase 45 (26-308) U/L Creatine Kinase Index 0.9 (0.0-2.5) % CK-MB (CK-2) 0.40 (0.00-3.60) ng/mL Troponin I 0.011 (0.000-0.056) ng/mL Total Protein (6.4-8.2) g/dL Albumin (3.4-5.0) g/dL Triglycerides (30-150) mg/dL Cholesterol (100-200) mg/dL LDL Cholesterol, Calc (0-100) mg/dL HDL Cholesterol (40-60) mg/dL Specimen Type Urinvoid Urine Color Yellow Urine Appearance Clear Urine pH 5.5 (5.0-9.0) Ur Specific [place] 1.025 (1.005-1.030) Urine Protein Negative (NEGATIVE) mg/dL Urine Glucose (UA) Negative (NEGATIVE) mg/dL Urine Ketones Negative (NEGATIVE) mg/dL Urine Occult Blood Trace-intact H (NEGATIVE) Urine Nitrite Negative (NEGATIVE) Urine Bilirubin Negative (NEGATIVE) Urine Urobilinogen 0.2 (0.2-1.0) E.U./dL Ur Leukocyte Esterase Negative (NEGATIVE) Urine RBC 0-5 /HPF Urine WBC 0-5 /HPF Ur Epithelial Cells Few /LPF Urine Bacteria Moderate H (NONE TO FEW) /HPF Crossmatch 03/30/19 03/30/19 03/30/19 Range/Units 07:20 07:20 07:20 WBC (4.0-10.2) K/uL RBC (3.77-5.09) M/uL Hgb (11.7-15.5) g/dL Hct (34.0-46.0) % MCV (84.0-98.0) fL MCH (28.2-33.3) pg MCHC (31.7-36.0) g/dL RDW (11.2-14.1) % Plt Count (150-350) K/uL Neut % (Auto) (45.0-80.0) % Lymph % (Auto) (10.0-50.0) % [place] % (Auto) (2.0-14.0) % Eos % (Auto) (0.0-5.0) % Baso % (Auto) (0.0-2.0) % Neut # (Auto) (1.40-7.00) K/uL Lymph # (Auto) (0.50-3.50) K/uL [place] # (Auto) (0.00-1.00) K/uL Eos # (Auto) (0.00-0.50) K/uL Baso # (Auto) (0.00-0.20) K/uL Sodium 142 (136-145) mmol/L Potassium 4.2 (3.5-5.1) mmol/L Chloride 109 H (98-107) mmol/L Carbon Dioxide 25.0 (21.0-32.0) mmol/L BUN 6 L (7-18) mg/dL Creatinine 0.66 (0.51-1.17) mg/dL Est Cr Clr Drug Dosing 89.44 mL/min Estimated GFR (MDRD) > 60 mL/min Glucose 88 (74-106) mg/dL Hemoglobin A1c 5.7 (4.3-5.7) % Lactic Acid 1.1 (0.4-2.0) mmol/L Calcium 8.2 L (8.5-10.1) mg/dL Magnesium 2.0 (1.8-2.4) mg/dL Total Bilirubin 0.4 (0.2-1.0) mg/dL AST 30 (15-37) U/L ALT 45 (12-78) U/L Alkaline Phosphatase 136 H (46-116) IU/L Creatine Kinase 40 (26-308) U/L Creatine Kinase Index 0.5 (0.0-2.5) % CK-MB (CK-2) 0.20 (0.00-3.60) ng/mL Troponin I 0.010 (0.000-0.056) ng/mL Total Protein 5.7 L (6.4-8.2) g/dL Albumin 2.8 L (3.4-5.0) g/dL Triglycerides 36 (30-150) mg/dL Cholesterol 66 L (100-200) mg/dL LDL Cholesterol, Calc 31 (0-100) mg/dL HDL Cholesterol 28 L (40-60) mg/dL Specimen Type Urine Color Urine Appearance Urine pH (5.0-9.0) Ur Specific [place] (1.005-1.030) Urine Protein (NEGATIVE) mg/dL Urine Glucose (UA) (NEGATIVE) mg/dL Urine Ketones (NEGATIVE) mg/dL Urine Occult Blood (NEGATIVE) Urine Nitrite (NEGATIVE) Urine Bilirubin (NEGATIVE) Urine Urobilinogen (0.2-1.0) E.U./dL Ur Leukocyte Esterase (NEGATIVE) Urine RBC /HPF Urine WBC /HPF Ur Epithelial Cells /LPF Urine Bacteria (NONE TO FEW) /HPF Crossmatch DAVID Results - Last 24 hrs: Microbiology 03/30/19 08:35 Stool Occult Blood (DAVID) - Final Stool / Feces Med Orders - Current: Current Medications Acetaminophen (Tylenol) 650 mg PO Q4H PRN PRN Reason: Pain Last Admin: 03/30/19 07:39 Dose: 650 mg Cyanocobalamin (Vitamin B12) 1,000 mcg IM Q30D [facility] Last Admin: 03/29/19 12:16 Dose: 1,000 mcg Fluoxetine HCl (Prozac) 20 mg PO DAILY [facility] Last Admin: 03/30/19 07:38 Dose: 20 mg Folic Acid (Folic Acid) 1 mg PO DAILY [facility] Last Admin: 03/30/19 07:38 Dose: 1 mg Levothyroxine Sodium (Synthroid) 100 mcg PO ACBREAKFAST [facility] Last Admin: 03/30/19 07:38 Dose: 100 mcg Magnesium Oxide (Magnesium Oxide) 800 mg PO BEDTIME [facility] Last Admin: 03/29/19 20:29 Dose: 800 mg Non-Formulary Medication (Nf Drug) 1 each PO DAILY [facility] Potassium Chloride (Potassium Chloride Solution) 40 meq PO TID [facility] Last Admin: 03/30/19 11:38 Dose: 40 meq Sodium Chloride (Saline Flush) 10 ml FLUSH ASDIRECTED PRN PRN Reason: Keep Vein Open Last Admin: 03/30/19 07:43 Dose: 10 ml Sodium Chloride (Saline Flush) 10 ml FLUSH Q12HR PRN PRN Reason: Keep Vein Open Temazepam (Restoril) 15 mg PO BEDTIME PRN PRN Reason: Insomnia Last Admin: 03/29/19 20:35 Dose: 15 mg Discontinued Medications Famotidine (Pepcid) 40 mg IVPUSH ONETIME ONE Stop: 03/29/19 08:20 Last Admin: 03/29/19 08:38 Dose: 40 mg Magnesium Sulfate (Magnesium Sulfate In Water Premix) 100 mls @ 100 mls/hr IV ONETIME ONE Stop: 03/29/19 16:59 Last Infusion: 03/29/19 17:07 Dose: Infused Sodium Chloride (Normal Saline) 1,000 mls @ 125 mls/hr IV .BOLUS ONE Stop: 03/30/19 02:26 Last Admin: 03/29/19 20:27 Dose: 125 mls/hr Pantoprazole Sodium (Protonix Iv) 40 mg IVPUSH ONETIME ONE Stop: 03/29/19 09:08 Last Admin: 03/29/19 09:13 Dose: 40 mg Potassium Chloride (Potassium Chloride Solution) 40 meq PO ONETIME ONE Stop: 03/29/19 09:07 Last Admin: 03/29/19 09:31 Dose: 40 meq - Exam General: Reports: Alert, Oriented, Cooperative, No Acute Distress HEENT: Reports: Pupils Equal, Pupils Reactive, EOMI, Mucous Membr. Moist/[place] Neck: Reports: Supple Lungs: Reports: Clear to Auscultation, Normal Respiratory Effort Cardiovascular: Reports: Regular Rate, Regular Rhythm, No Murmurs GI/Abdominal Exam: Normal Bowel Sounds, Soft, Non-Tender, No Distention (Female) Exam: Deferred Rectal (Female) Exam: Deferred Back Exam: Denies: CVA Tenderness (L), CVA Tenderness (R), Muscle Spasm Extremities: Normal Inspection, No Pedal Edema, Normal Capillary Refill Skin: Reports: Warm, Dry Neurological: Reports: No New Focal Deficit Psy/Mental Status: Reports: Alert, Normal Affect, Normal Mood EKG INTERPRETATION EKG Date: 03/30/19 Time: 08:25 Rhythm: Other (Sinus rhythm) [place]: Normal P-Wave: Present QRS: Other (low voltage) ST-T: Normal QT: Normal Comparison: Other: (No significant change noted)
== END 2019-03-30 16:15 | disposition home or self-care (01) ==
LOC: LL.ED 08:08 → UNDOADMOB 10:18 → LL.MS 10:18
PROVIDERS: ADMIT Family Medicine; ATTEND Emergency Medicine
DX: R07.2 Precordial pain (principal); D53.9 Nutritional anemia, unspecified; R79.89 Other specified abnormal findings of blood chemistry; E87.6 Hypokalemia; E03.9 Hypothyroidism, unspecified; J45.20 Mild intermittent asthma, uncomplicated; E78.5 Hyperlipidemia, unspecified; E88.09 Other disorders of plasma-protein metabolism, not elsewhere classified; E83.42 Hypomagnesemia; E53.8 Deficiency of other specified B group vitamins; F41.8 Other specified anxiety disorders; K21.9 Gastro-esophageal reflux disease without esophagitis; E78.00 Pure hypercholesterolemia, unspecified; Z91.040 Latex allergy status; Z88.8 Allergy status to other drugs, medicaments and biological substances; Z79.899 Other long term (current) drug therapy
CPT/HCPCS: 36415; 36430; 71045; 80053; 80061; 81001; 82272; 82550; 82553; 83036; 83605; 83735; 83880; 84443; 84484; 84550; 84703; 85025; 85379; 85610; 85730; 86850; 86900; 86901; 86920; 86922; 87338; 93005; 96361; 96365; 96372; 96374; 96375; 99285-25; A9270-GY; C9113; G0378; J3420; J3475; J3490; J7030; P9016

== ENCOUNTER 2019-05-09 06:55 | Emergency (ER) | payer OTHER ==
[2019-05-09 07:35] LABS: CHLORIDE,CL 107 mmol/L (98-107); SODIUM,NA 143 mmol/L (136-145)
[2019-05-09] MEDS: Sodium Chloride 0.9% 1,000 ML IV ONE (08:16)
[2019-05-09] MEDS: Iopamidol 612 MG/ML 100 ML Bottle IVPUSH STA (08:32)
--- NOTE | 2019-05-09 09:05 | EDM.PDOC ---
ED HPI GENERAL MEDICAL PROBLEM - General Chief Complaint: Gastrointestinal Problem Stated Complaint: "I think I have a bowel obstruction" Time Seen by Provider: 05/09/19 07:10 Source of Information: Reports: Patient History Limitations: Reports: No Limitations - History of Present Illness INITIAL COMMENTS - FREE TEXT/NARRATIVE: Pt with abdominal pain Extends to back No fever No trauma Has hx/o bowel obstructions in past S/P gastric bypass 12 years ago Still passing gas No emesis Onset: Gradual Duration: Day(s): Location: Reports: Abdomen Bilateral Upper Abdomen Pain Score (Numeric/FACES): 8 - Related Data Allergies Allergy/AdvReac Type Severity Reaction Status Date / Time Latex, Natural Rubber Allergy Hives Verified 03/29/19 08:20 ondansetron Allergy Shaking,Tac Verified 03/29/19 08:20 hycardia promethazine HCl Allergy Irritabilit Verified 03/29/19 08:20 [From Phenergan] y Home Meds: Home Meds Non-Formulary Medication [NF Drug] 1 tab PO DAILY #100 09/21/16 [Rx] Potassium Chloride [Klor-Con M20] 20 meq PO BID tab.er 09/21/16 [Rx] FLUoxetine HCl [Fluoxetine HCl] 20 mg PO DAILY 07/27/18 [History] Cyanocobalamin (Vitamin B12) [Vitamin B12] 1,000 mcg IM Q30D sdv 09/29/18 [Rx] Levothyroxine [Synthroid] 100 mcg PO ACBREAKFAST 30 Days #30 tablet 09/29/18 [Rx ] Acetaminophen/Diphenhydramine [Tylenol Pm Ex-Strength Caplet] 1 tab PO BEDTIME 03/29/19 [History] Folic Acid 1 mg PO DAILY 03/29/19 [History] Magnesium Oxide 800 mg PO BEDTIME 03/29/19 [History] Past Medical History HEENT History: Reports: Cataract, Impaired Vision, Sinusitis, Other (See Below) Other HEENT History: 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 Soft contact lenses, glasses. Bilateral cataractsmild. Cardiovascular History: Reports: Arrhythmia, High Cholesterol, Syncope, Other ( See Below) Other Cardiovascular History: History of d-dimer elevation with extensive negative workup on 02/25/19. Short GA interval. History of obesity and hyperlipidemia with fatty liver including post gastric bypass, previous recurrent syncope of unknown etiology with last episode in July 2014, chronic hypotension Respiratory History: Reports: Asthma, Bronchitis, Recurrent, Intubation, Previous, Other (See Below) Other Respiratory History: Newly diagnosed 2 mm left upper lobe and 3 mm right upper lobe benign pulmonary granulomas by CTA of the chest on 02/25/19 with previous stable right lower lobe benign pulmonary nodules/ Gastrointestinal History: Reports: Bowel Obstruction, Chronic Diarrhea, Fatty Liver, Gastritis, GERD, GI Bleed, PUD, Other (See Below) Other Gastrointestinal History: History of fatty liver with LFTs elevation including post gastric bypass surgery with secondary malabsorption syndrome as below, upper GI bleed secondary to gastric ulcer in her mid 30s with no blood transfusion required, multiple previous small bowel obstructions secondary to previous gastric bypass surgery, Genitourinary History: Reports: None QUALITY ASSURANCE MONITOR CHASSIS History: Reports: Dysfunctional Uterine Bleeding, Fibroids, Polycystic Ovaries, Other QUALITY ASSURANCE MONITOR CHASSIS History: Hypermenorrhea since 2018 with menses lasting usually about 7 days with probable secondary anemia. Uterine fibroid by pelvic ultrasound on 02/25/19. Full term deliveries without complications during pregnancies or deliveries. Bilateral ovarian cysts. LMP on 03/23/19 with significant bleeding as above. Musculoskeletal History: Reports: Other (See Below) Other Musculoskeletal History: Mild scoliosis. Neurological History: Reports: Headaches, Chronic, Vertigo, Other (See Below) Other Neuro History: Chronic vertigo/car sickness. Near syncopal/syncopal episodes as above. 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 Hypomagnesemia. Hypoalbuminemia. Hematologic History: Reports: Anemia, B12 Deficiency, Folic Acid, Iron Deficiency, Other (See Below) Other Hematologic History: Malabsorption syndrome secondary to her gastric bypass resulting in severe iron deficiency with additional component from her hypermenorrhea as above. Additional vitamin B-12 and folic acid deficiency. Immunologic History: Reports: None Oncologic (Cancer) History: Reports: None Dermatologic History: Reports: None - Infectious Disease History Infectious Disease History: Reports: Chicken Pox, Shingles - Past Surgical History Head Surgeries/Procedures: Reports: None HEENT Surgical History: Reports: Eye Surgery, Oral Surgery, Other (See Below) Other HEENT Surgeries/Procedures: Left eye intravitrial injection of Sepproc initiated on 08/26/18 secondary to macular edema as above. [place] teeth extraction 2 at age 20 Cardiovascular Surgical History: Reports: None Respiratory Surgical History: Reports: None GI Surgical History: Reports: Bariatric Procedure, Cholecystectomy, Colonoscopy , EGD, Hernia, Abdominal, Hernia, Inguinal, Hernia Repair/Other, Other (See Below) Other GI Surgeries/Procedures: Gastric bypass surgery with concomitant cholecystectomy on 09/09/07, patient denies previous gastric bypass revisions as per medical records although evidence of anastomosis dilatations in the past EGD , last EGD and colonoscopy on 12/07/16 with previous EGDs on 11/27/15 and . EGD in 2007 with concomitant gastric feeding tube placement at that time, laparoscopic umbilical hernia repair with mesh placement on 12/03/15, right inguinal hernia repair in 2004. Female Surgical History: Reports: Section, Tubal Ligation, Other ( See Below) Other Female Surgeries/Procedures: in 1996, 1999, 2000; tubal ligation in 2000. Endocrine Surgical History: Reports: Thyroid Biopsy, Other (See Below) Other Endocrine Surgeries/Procedures: Thyroid biopsy on 02/19/14. Neurological Surgical History: Reports: None Musculoskeletal Surgical History: Reports: None Oncologic Surgical History: Reports: None Dermatological Surgical History: Reports: Skin Biopsy, Other (See Below) - Past Imaging History Past Imaging History: Reports: Cardiac Echo (07/29/09 with ejection fraction of 68 %), CAT Scan (Negative CTA of the chest for PE on 02/25/19. CT of the brain on 09/28 and 06/20/08, CT of the abdomen and pelvis with contrast on 06/12/11, 09/08/10, and 06/20/08, CT of the head and cervical region on 07/24/09), Mammogram (Last on .), Ultrasound (Pelvic ultrasound on 02/25/19. Right breast ultrasound on 09/22/17. Thyroid ultrasounds on 06/30/16 and 12/09/13. Abdominal ultrasound on ), Venous Doppler (Negative venous Doppler studies of the legs bilaterally on 02/25/19.) Social & Family History - Family History Family Medical History: Noncontributory HEENT: Reports: Cataract, Other (See Below) Other HEENT Family History: Father with cataracts. Cardiac: Reports: High Cholesterol, Hypertension, Other (See Below) Other Cardiac Family History: Father with hyperlipidemia, hypertension in father and maternal grandfather Respiratory: Reports: Sleep Apnea, Other (See Below) Other Respiratory Family Hisory: Father with sleep apnea and history of tobacco use GI: Reports: Colon Polyps, GERD, PUD, Other (See Below) Other GI Family History: GERD in mother, father with colonic polyps and peptic ulcer disease : Reports: None OBGYN: Reports: Dysfunctional uterine bleeding, Fibroids, Recurrent Spontaneous , Other (See Below) Other OBGYN Family History: Mother with dysfunctional uterine bleeding requiring hysterectomy with additional history of recurrent SAB Musculoskeletal: Reports: Arthritis, Gout, Osteoarthritis, Other (See Below) Other Musculoskeletal Family History: Father with gout Neurological: Reports: None Psychiatric: Reports: Anxiety, Depression, Other (See Below) Other Psychiatric Family History: Anxiety depression disorder in mother, maternal great grandmother and paternal great-grandmother Endocrine/Metabolic: Reports: Diabetes, type II, Hypothyroidism, IDDM, Other ( See Below) Other Endocrine/Metabolic Family History: IDDM in maternal grandmother, paternal grandmother, maternal grandfather, and maternal great-grandmother with brother with possible hyperglycemia, father with hypothyroidism secondary to thyroid resection from metastatic renal cancer as below Hematologic: Reports: Anemia Immunologic: Reports: None Dermatologic: Reports: None Oncologic: Reports: Leukemia, Metastatic, Renal, Skin, Thyroid, Other (See Below ) Other Oncologic Family History: Mother with melanoma, paternal grandmother with basal cell carcinoma, maternal aunt with basal cell carcinoma, Cousin with leukemia, mother with multiple myeloma, father with metastatic renal cancer with metastases to the thyroid gland and lungs - Tobacco Use Smoking Status *Q: Never Smoker Second Hand Smoke Exposure: No - Caffeine Use Caffeine Use: Reports: Soda Other Caffeine Use: 2 per day Caffeine Use Comment: DAILY 2BOTTLES - Recreational Drug Use Recreational Drug Use: No - Living Situation & Occupation Living situation: Reports: (1997, 3 children), with Family ( and 3 children) 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) ED ROS GENERAL - Review of Systems Review Of Systems: See Below Respiratory: Reports: No Symptoms Cardiovascular: Reports: No Symptoms GI/Abdominal: Reports: Abdominal Pain ED EXAM, GI/ABD - Physical Exam Exam: See Below General Appearance: No Apparent Distress GI/Abdominal Exam: Soft, Tender Extremities: Normal Inspection Course - Vital Signs Last Recorded V/S: Last Vital Signs Temp 98.3 F 05/09/19 06:59 Pulse 65 05/09/19 06:59 Resp 18 05/09/19 06:59 BP 91/53 L 05/09/19 06:59 Pulse Ox 100 05/09/19 06:59 - Orders/Labs/Meds Orders: Active Orders 24 hr Category Date Time Status Abdomen 2V AP Flat Upright [CR] Stat Exams 05/09/19 07:20 Taken Abdomen 2V AP Flat Upright [CR] Stat Exams 05/09/19 07:58 Taken Abdomen Pelvis w Cont [CT] Stat Exams 05/09/19 08:00 Taken Labs: Laboratory Tests 05/09/19 05/09/19 05/09/19 Range/Units 07:15 07:15 07:15 WBC 5.5 (4.0-10.2) K/uL RBC 3.32 L (3.77-5.09) M/uL Hgb 10.1 L D (11.7-15.5) g/dL Hct 31.7 L (34.0-46.0) % MCV 95.5 D (84.0-98.0) fL MCH 30.4 (28.2-33.3) pg MCHC 31.9 (31.7-36.0) g/dL RDW 19.3 H (11.2-14.1) % Plt Count 226 D (150-350) K/uL Neut % (Auto) 53.3 (45.0-80.0) % Lymph % (Auto) 29.7 (10.0-50.0) % [place] % (Auto) 7.6 (2.0-14.0) % Eos % (Auto) 8.5 H (0.0-5.0) % Baso % (Auto) 0.9 (0.0-2.0) % Neut # (Auto) 2.95 (1.40-7.00) K/uL Lymph # (Auto) 1.64 (0.50-3.50) K/uL [place] # (Auto) 0.42 (0.00-1.00) K/uL Eos # (Auto) 0.47 (0.00-0.50) K/uL Baso # (Auto) 0.05 (0.00-0.20) K/uL Sodium 143 (136-145) mmol/L Potassium 3.2 L (3.5-5.1) mmol/L Chloride 107 (98-107) mmol/L Carbon Dioxide 27.2 (21.0-32.0) mmol/L BUN 11 (7-18) mg/dL Creatinine 0.69 (0.51-1.17) mg/dL Est Cr Clr Drug Dosing 84.00 mL/min Estimated GFR (MDRD) > 60 mL/min Glucose 87 (74-106) mg/dL Calcium 8.1 L (8.5-10.1) mg/dL Total Bilirubin 0.2 (0.2-1.0) mg/dL AST 42 H (15-37) U/L ALT 76 (12-78) U/L Alkaline Phosphatase 129 H (46-116) IU/L Total Protein 5.9 L (6.4-8.2) g/dL Albumin 3.2 L (3.4-5.0) g/dL Specimen Type Urincc Urine Color Yellow Urine Appearance Clear Urine pH 6.5 (5.0-9.0) Ur Specific [place] 1.020 (1.005-1.030) Urine Protein Negative (NEGATIVE) mg/dL Urine Glucose (UA) Negative (NEGATIVE) mg/dL Urine Ketones Negative (NEGATIVE) mg/dL Urine Occult Blood Negative (NEGATIVE) Urine Nitrite Negative (NEGATIVE) Urine Bilirubin Negative (NEGATIVE) Urine Urobilinogen 0.2 (0.2-1.0) E.U./dL Ur Leukocyte Esterase Negative (NEGATIVE) Urine RBC Not seen /HPF Urine WBC Not seen /HPF Ur Epithelial Cells Few /LPF Urine Mucus Rare H (NEGATIVE) /LPF Urine Yeast Rare H (NEGATIVE) /HPF Meds: Medications Discontinued Medications Generic Name Dose Route Start Last Admin Trade Name Freq PRN Reason Stop Dose Admin Sodium Chloride 1,000 mls @ 1,000 mls/hr 05/09/19 07:59 05/09/19 08:16 Normal Saline IV 05/09/19 08:58 1,000 mls/hr .BOLUS ONE Administration Iopamidol 100 ml 05/09/19 08:03 05/09/19 08:32 Isovue-300 (61%) IVPUSH 05/09/19 08:04 100 ml ONETIME STA Administration - Re-Assessments/Exams Free Text/Narrative Re-Assessment/Exam: 05/09/19 09:[address] reports No acute findings Departure - Departure Time of Disposition: :20 Disposition: Home, Self-Care 01 Clinical Impression: Abdominal pain - Discharge Information *PRESCRIPTION DRUG MONITORING PROGRAM REVIEWED*: Not Applicable *COPY OF PRESCRIPTION DRUG MONITORING REPORT IN PATIENT SAM: Not Applicable Instructions: Abdominal Pain, Adult, [id number] Additional Instructions: Follow up in clinic Sepsis Event Note - Evaluation Sepsis Screening Result: No Definite Risk - Focused Exam Vital Signs: Vital Signs Temp Pulse Resp BP Pulse Ox 05/09/19 06:59 98.3 F 65 18 91/53 L 100 Date Exam was Performed: 05/09/19 Time Exam was Performed: 09:01 - My Orders Last 24 Hours: My Active Orders 05/09/19 07:20 Abdomen 2V AP Flat Upright [CR] Stat 05/09/19 07:58 Abdomen 2V AP Flat Upright [CR] Stat 05/09/19 08:00 Abdomen Pelvis w Cont [CT] Stat - Assessment/Plan Last 24 Hours: My Active Orders 05/09/19 07:20 Abdomen 2V AP Flat Upright [CR] Stat 05/09/19 07:58 Abdomen 2V AP Flat Upright [CR] Stat 05/09/19 08:00 Abdomen Pelvis w Cont [CT] Stat
[2019-05-09 09:51] VITALS: BP 96/75; PULSE 57
== END 2019-05-09 09:45 | disposition home or self-care (01) ==
LOC: LL.ED 06:55
DX: R10.11 Right upper quadrant pain (principal); R10.12 Left upper quadrant pain; J45.909 Unspecified asthma, uncomplicated; E03.9 Hypothyroidism, unspecified; E66.9 Obesity, unspecified; Z68.23 Body mass index [BMI] 23.0-23.9, adult; Z90.49 Acquired absence of other specified parts of digestive tract; Z98.84 Bariatric surgery status; Z88.8 Allergy status to other drugs, medicaments and biological substances; Z91.040 Latex allergy status; Z79.899 Other long term (current) drug therapy
CPT/HCPCS: 36415; 74019; 74177; 80053; 81001; 85025; 99284; J7030; Q9967

== ENCOUNTER 2019-05-21 18:59 | Emergency (ER) | payer OTHER ==
[2019-05-21 19:21] VITALS: BP 107/68; PULSE 83
[2019-05-21 19:28] LABS: CHLORIDE,CL 105 mmol/L (98-107); SODIUM,NA 138 mmol/L (136-145)
[2019-05-21] MEDS ORDERED: Sodium Chloride 0.9% 1,000 ML IV ONE (19:35)
[2019-05-21] MEDS: Iopamidol 612 MG/ML 100 ML Bottle IVPUSH ONE ×2 (20:23→20:24)
[2019-05-21] MEDS ORDERED: Iopamidol 612 MG/ML 100 ML Bottle IVPUSH ONE (20:25)
[2019-05-21] MEDS ORDERED: Ketorolac 30 MG/ML SDV IVPUSH ONE (20:32)
--- NOTE | 2019-05-21 20:32 | EDM.PDOC ---
ED HPI GENERAL MEDICAL PROBLEM - General Chief Complaint: General Stated Complaint: abdominal pain Time Seen by Provider: 05/21/19 19:01 Source of Information: Reports: Patient History Limitations: Reports: No Limitations - History of Present Illness INITIAL COMMENTS - FREE TEXT/NARRATIVE: Pt has hx/o previous SBO and now with increased abdominal pain over past several days No fever No BM for 3 days No dysuria Has previous gastric bypass surgery Was seen for same several weeks ago CT at that time did not show SBO Onset: Gradual Duration: Day(s):, Getting Worse Location: Reports: Abdomen Quality: Reports: Dull Severity: Moderate Abdominal Pain Score (Numeric/FACES): 7 - Related Data Allergies Allergy/AdvReac Type Severity Reaction Status Date / Time Latex, Natural Rubber Allergy Hives Verified 03/29/19 08:20 ondansetron Allergy Shaking,Tac Verified 03/29/19 08:20 hycardia promethazine HCl Allergy Irritabilit Verified 03/29/19 08:20 [From Phenergan] y Home Meds: Home Meds Non-Formulary Medication [NF Drug] 1 tab PO DAILY #100 09/21/16 [Rx] Potassium Chloride [Klor-Con M20] 20 meq PO BID tab.er 09/21/16 [Rx] FLUoxetine HCl [Fluoxetine HCl] 20 mg PO DAILY 07/27/18 [History] Cyanocobalamin (Vitamin B12) [Vitamin B12] 1,000 mcg IM Q30D sdv 09/29/18 [Rx] Levothyroxine [Synthroid] 100 mcg PO ACBREAKFAST 30 Days #30 tablet 09/29/18 [Rx ] Acetaminophen/Diphenhydramine [Tylenol Pm Ex-Strength Caplet] 1 tab PO BEDTIME 03/29/19 [History] Folic Acid 1 mg PO DAILY 03/29/19 [History] Magnesium Oxide 800 mg PO BEDTIME 03/29/19 [History] Past Medical History HEENT History: Reports: Cataract, Impaired Vision, Sinusitis, Other (See Below) Other HEENT History: 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 Soft contact lenses, glasses. Bilateral cataractsmild. Cardiovascular History: Reports: Arrhythmia, High Cholesterol, Syncope, Other ( See Below) Other Cardiovascular History: History of d-dimer elevation with extensive negative workup on 02/25/19. Short [place] interval. History of obesity and hyperlipidemia with fatty liver including post gastric bypass, previous recurrent syncope of unknown etiology with last episode in July 2014, chronic hypotension Respiratory History: Reports: Asthma, Bronchitis, Recurrent, Intubation, Previous, Other (See Below) Other Respiratory History: Newly diagnosed 2 mm left upper lobe and 3 mm right upper lobe benign pulmonary granulomas by CTA of the chest on 02/25/19 with previous stable right lower lobe benign pulmonary nodules/ Gastrointestinal History: Reports: Bowel Obstruction, Chronic Diarrhea, Fatty Liver, Gastritis, GERD, GI Bleed, PUD, Other (See Below) Other Gastrointestinal History: History of fatty liver with LFTs elevation including post gastric bypass surgery with secondary malabsorption syndrome as below, upper GI bleed secondary to gastric ulcer in her mid 30s with no blood transfusion required, multiple previous small bowel obstructions secondary to previous gastric bypass surgery, Genitourinary History: Reports: None LAST PULLER History: Reports: Dysfunctional Uterine Bleeding, Fibroids, Polycystic Ovaries, Other LAST PULLER History: Hypermenorrhea since 2018 with menses lasting usually about 7 days with probable secondary anemia. Uterine fibroid by pelvic ultrasound on 02/25/19. Full term deliveries without complications during pregnancies or deliveries. Bilateral ovarian cysts. LMP on 03/23/19 with significant bleeding as above. Musculoskeletal History: Reports: Other (See Below) Other Musculoskeletal History: Mild scoliosis. Neurological History: Reports: Headaches, Chronic, Vertigo, Other (See Below) Other Neuro History: Chronic vertigo/car sickness. Near syncopal/syncopal episodes as above. 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 Hypomagnesemia. Hypoalbuminemia. Hematologic History: Reports: Anemia, B12 Deficiency, Folic Acid, Iron Deficiency, Other (See Below) Other Hematologic History: Malabsorption syndrome secondary to her gastric bypass resulting in severe iron deficiency with additional component from her hypermenorrhea as above. Additional vitamin B-12 and folic acid deficiency. Immunologic History: Reports: None Oncologic (Cancer) History: Reports: None Dermatologic History: Reports: None - Infectious Disease History Infectious Disease History: Reports: Chicken Pox, Shingles - Past Surgical History Head Surgeries/Procedures: Reports: None HEENT Surgical History: Reports: Eye Surgery, Oral Surgery, Other (See Below) Other HEENT Surgeries/Procedures: Left eye intravitrial injection of Sepproc initiated on 08/26/18 secondary to macular edema as above. Bon[place]arte teeth extraction 2 at age 20 Cardiovascular Surgical History: Reports: None Respiratory Surgical History: Reports: None GI Surgical History: Reports: Bariatric Procedure, Cholecystectomy, Colonoscopy , EGD, Hernia, Abdominal, Hernia, Inguinal, Hernia Repair/Other, Other (See Below) Other GI Surgeries/Procedures: Gastric bypass surgery with concomitant cholecystectomy on 09/09/07, patient denies previous gastric bypass revisions as per medical records although evidence of anastomosis dilatations in the past EGD , last EGD and colonoscopy on 12/07/16 with previous EGDs on 11/27/15 and . EGD in 2007 with concomitant gastric feeding tube placement at that time, laparoscopic umbilical hernia repair with mesh placement on 12/03/15, right inguinal hernia repair in 2004. Female Surgical History: Reports: Section, Tubal Ligation, Other ( See Below) Other Female Surgeries/Procedures: in 1996, 1999, 2000; tubal ligation in 2000. Endocrine Surgical History: Reports: Thyroid Biopsy, Other (See Below) Other Endocrine Surgeries/Procedures: Thyroid biopsy on 02/19/14. Neurological Surgical History: Reports: None Musculoskeletal Surgical History: Reports: None Oncologic Surgical History: Reports: None Dermatological Surgical History: Reports: Skin Biopsy, Other (See Below) - Past Imaging History Past Imaging History: Reports: Cardiac Echo (07/29/09 with ejection fraction of 68 %), CAT Scan (Negative CTA of the chest for PE on 02/25/19. CT of the brain on 09/28 and 06/20/08, CT of the abdomen and pelvis with contrast on 06/12/11, 09/08/10, and 06/20/08, CT of the head and cervical region on 07/24/09), Mammogram (Last on .), Ultrasound (Pelvic ultrasound on 02/25/19. Right breast ultrasound on 09/22/17. Thyroid ultrasounds on 06/30/16 and 12/09/13. Abdominal ultrasound on ), Venous Doppler (Negative venous Doppler studies of the legs bilaterally on 02/25/19.) Social & Family History - Family History Family Medical History: Noncontributory HEENT: Reports: Cataract, Other (See Below) Other HEENT Family History: Father with cataracts. Cardiac: Reports: High Cholesterol, Hypertension, Other (See Below) Other Cardiac Family History: Father with hyperlipidemia, hypertension in father and maternal grandfather Respiratory: Reports: Sleep Apnea, Other (See Below) Other Respiratory Family Hisory: Father with sleep apnea and history of tobacco use GI: Reports: Colon Polyps, GERD, PUD, Other (See Below) Other GI Family History: GERD in mother, father with colonic polyps and peptic ulcer disease : Reports: None OBGYN: Reports: Dysfunctional uterine bleeding, Fibroids, Recurrent Spontaneous , Other (See Below) Other OBGYN Family History: Mother with dysfunctional uterine bleeding requiring hysterectomy with additional history of recurrent SAB Musculoskeletal: Reports: Arthritis, Gout, Osteoarthritis, Other (See Below) Other Musculoskeletal Family History: Father with gout Neurological: Reports: None Psychiatric: Reports: Anxiety, Depression, Other (See Below) Other Psychiatric Family History: Anxiety depression disorder in mother, maternal great grandmother and paternal great-grandmother Endocrine/Metabolic: Reports: Diabetes, type II, Hypothyroidism, IDDM, Other ( See Below) Other Endocrine/Metabolic Family History: IDDM in maternal grandmother, paternal grandmother, maternal grandfather, and maternal great-grandmother with brother with possible hyperglycemia, father with hypothyroidism secondary to thyroid resection from metastatic renal cancer as below Hematologic: Reports: Anemia Immunologic: Reports: None Dermatologic: Reports: None Oncologic: Reports: Leukemia, Metastatic, Renal, Skin, Thyroid, Other (See Below ) Other Oncologic Family History: Mother with melanoma, paternal grandmother with basal cell carcinoma, maternal aunt with basal cell carcinoma, Cousin with leukemia, mother with multiple myeloma, father with metastatic renal cancer with metastases to the thyroid gland and lungs - Tobacco Use Smoking Status *Q: Never Smoker Second Hand Smoke Exposure: No - Caffeine Use Caffeine Use: Reports: Soda Other Caffeine Use: 2 per day Caffeine Use Comment: DAILY 2BOTTLES - Recreational Drug Use Recreational Drug Use: No - Living Situation & Occupation Living situation: Reports: (1997, 3 children), with Family ( and 3 children) 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) ED ROS GENERAL - Review of Systems Review Of Systems: See Below Respiratory: Reports: No Symptoms Cardiovascular: Reports: No Symptoms GI/Abdominal: Reports: Abdominal Pain, Constipation Musculoskeletal: Reports: No Symptoms ED EXAM, GENERAL - Physical Exam Exam: See Below Exam Limited By: No Limitations Throat/Mouth: Normal Oropharynx Neck: Supple GI/Abdominal: Soft, No Distention, Tender Extremities: No Pedal Edema Neurological: Alert, Oriented Course - Vital Signs Last Recorded V/S: Last Vital Signs Temp 97.0 F 05/21/19 19:16 Pulse 83 05/21/19 19:16 Resp 16 05/21/19 19:16 BP 107/68 05/21/19 19:16 Pulse Ox 100 05/21/19 19:16 - Orders/Labs/Meds Orders: Active Orders 24 hr Category Date Time Status Abdomen Pelvis w Cont [CT] Stat Exams 05/21/19 19:01 Taken Iopamidol [Isovue-300 (61%)] Med 05/21/19 20:25 Once 100 ml IVPUSH ONETIME ONE Sodium Chloride 0.9% [Normal Saline] 1,000 ml Med 05/21/19 19:35 Active IV .BOLUS Medication Orders Sodium Chloride (Normal Saline) 1,000 mls @ 1,000 mls/hr IV .BOLUS ONE Stop: 05/21/19 20:34 Last Admin: 05/21/19 19:42 Dose: 1,000 mls/hr Iopamidol (Isovue-300 (61%)) 100 ml IVPUSH ONETIME ONE Stop: 05/21/19 20:26 Labs: Laboratory Tests 05/21/19 05/21/19 Range/Units 19:10 19:10 WBC 5.8 (4.0-10.2) K/uL RBC 3.10 L (3.77-5.09) M/uL Hgb 9.6 L (11.7-15.5) g/dL Hct 29.7 L (34.0-46.0) % MCV 95.8 (84.0-98.0) fL MCH 31.0 (28.2-33.3) pg MCHC 32.3 (31.7-36.0) g/dL RDW 15.7 H (11.2-14.1) % Plt Count 331 D (150-350) K/uL Neut % (Auto) 49.8 (45.0-80.0) % Lymph % (Auto) 37.6 (10.0-50.0) % Boundary % (Auto) 8.1 (2.0-14.0) % Eos % (Auto) 3.6 (0.0-5.0) % Baso % (Auto) 0.9 (0.0-2.0) % Neut # (Auto) 2.87 (1.40-7.00) K/uL Lymph # (Auto) 2.17 (0.50-3.50) K/uL Boundary # (Auto) 0.47 (0.00-1.00) K/uL Eos # (Auto) 0.21 (0.00-0.50) K/uL Baso # (Auto) 0.05 (0.00-0.20) K/uL Sodium 138 (136-145) mmol/L Potassium 4.2 (3.5-5.1) mmol/L Chloride 105 (98-107) mmol/L Carbon Dioxide 23.8 (21.0-32.0) mmol/L BUN 18 (7-18) mg/dL Creatinine 0.73 (0.51-1.17) mg/dL Est Cr Clr Drug Dosing 79.40 mL/min Estimated GFR (MDRD) > 60 mL/min Glucose 87 (74-106) mg/dL Calcium 8.5 (8.5-10.1) mg/dL Total Bilirubin 0.2 (0.2-1.0) mg/dL AST 60 H (15-37) U/L ALT 85 H (12-78) U/L Alkaline Phosphatase 132 H (46-116) IU/L Total Protein 6.7 (6.4-8.2) g/dL Albumin 3.5 (3.4-5.0) g/dL Meds: Medications Generic Name Dose Route Start Last Admin Trade Name Freq PRN Reason Stop Dose Admin Sodium Chloride 1,000 mls @ 1,000 mls/hr 05/21/19 19:35 05/21/19 19:42 Normal Saline IV 05/21/19 20:34 1,000 mls/hr .BOLUS ONE Administration Iopamidol 100 ml 05/21/19 20:25 Isovue-300 (61%) IVPUSH 05/21/19 20:26 ONETIME ONE Discontinued Medications Generic Name Dose Route Start Last Admin Trade Name Jesus PRN Reason Stop Dose Admin Iopamidol 100 ml 05/21/19 20:12 05/21/19 20:24 Isovue-300 (61%) IVPUSH 05/21/19 20:13 100 ml ONETIME ONE Administration - Re-Assessments/Exams Free Text/Narrative Re-Assessment/Exam: 05/21/19 20:[address] per radiologist No acute findings Mildly dilated small bowel but no obstruction noted Pt given IVF and IV Toradol in ER Departure - Departure Time of Disposition: 21:00 Disposition: Home, Self-Care 01 Clinical Impression: Abdominal pain - Discharge Information *PRESCRIPTION DRUG MONITORING PROGRAM REVIEWED*: Not Applicable *COPY OF PRESCRIPTION DRUG MONITORING REPORT IN PATIENT SAM: Not Applicable Instructions: Abdominal Pain, Adult, [id number] Referrals: Moriah Albrecht PA-C [Primary Care Provider] - Additional Instructions: [place] diet Follow up in clinic Sepsis Event Note - Evaluation Sepsis Screening Result: No Definite Risk - Focused Exam Vital Signs: Vital Signs Temp Pulse Resp BP Pulse Ox 05/21/19 19:16 97.0 F 83 16 107/68 100 Date Exam was Performed: 05/21/19 Time Exam was Performed: 20:28 - My Orders Last 24 Hours: My Active Orders 05/21/19 19:01 Abdomen Pelvis w Cont [CT] Stat 05/21/19 19:35 Sodium Chloride 0.9% [Normal Saline] 1,000 ml IV .BOLUS 05/21/19 20:25 Iopamidol [Isovue-300 (61%)] 100 ml IVPUSH ONETIME ONE - Assessment/Plan Last 24 Hours: My Active Orders 05/21/19 19:01 Abdomen Pelvis w Cont [CT] Stat 05/21/19 19:35 Sodium Chloride 0.9% [Normal Saline] 1,000 ml IV .BOLUS 05/21/19 20:25 Iopamidol [Isovue-300 (61%)] 100 ml IVPUSH ONETIME ONE
== END 2019-05-21 21:00 | disposition home or self-care (01) ==
LOC: LL.ED 18:59
DX: R10.9 Unspecified abdominal pain (principal); J45.909 Unspecified asthma, uncomplicated; F41.9 Anxiety disorder, unspecified; F32.9 Major depressive disorder, single episode, unspecified; E03.9 Hypothyroidism, unspecified; E66.9 Obesity, unspecified; Z68.23 Body mass index [BMI] 23.0-23.9, adult; Z90.49 Acquired absence of other specified parts of digestive tract; Z91.040 Latex allergy status; Z88.8 Allergy status to other drugs, medicaments and biological substances; Z79.899 Other long term (current) drug therapy
CPT/HCPCS: 36415; 74177; 80053; 85025; 96361; 96374; 99284-25; J1885; J7030; Q9967

== ENCOUNTER 2019-06-28 10:25 | Observation (INO) | payer OTHER ==
[2019-06-28] MEDS ORDERED: Sodium Chloride 0.9% 10 ML Syringe FLUSH PRN (10:39)
[2019-06-28 11:07] LABS: CHLORIDE,CL 102 mmol/L (98-107); SODIUM,NA 137 mmol/L (136-145)
[2019-06-28] MEDS ORDERED: Iopamidol 755 Mg/ML 100 ML Bottle IVPUSH STA (11:30)
--- NOTE | 2019-06-28 11:41 | EDM.PDOC ---
ED HPI GENERAL MEDICAL PROBLEM - General Chief Complaint: Respiratory Problem Stated Complaint: shortness of breath Time Seen by Provider: 06/28/19 10:57 Source of Information: Reports: Patient History Limitations: Reports: No Limitations - History of Present Illness INITIAL COMMENTS - FREE TEXT/NARRATIVE: Patient comes to ER with complaint of increasing SOB that started several weeks ago. Did have several CT studies performed last month of both chest and abdomen. Noted to have a few nodules in lungs that need further evaluation but no other acute changes per patient. Had some post-surgical changes(hx gastric bypass) and possible mild ileus noted abdominal CT. Was treated for constipation by [facility]. Still feels a bit constipated. SOB is more pronounced with activity. No change with laying down. Denies other acute changes. No weight changes. No fevers/chills/signs of acute viral or bacterial illness. HEENT negative for ESQUIVEL/URI complaints. Resp negative for cough/pleuritic pain/sputum production/chest pain CV negative for irregular heart beat/palpitations/syncope GI negative for nausea/emesis/bloody stools/loose stools/swallowing issues. Does feel a bit constipated. Stool negative for occult blood during recent [facility] evaluation for low Hgb which required blood transfusion. 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 This did not respond to endometrial ablation. Patient is now considering hysterectomy given the persistent bleeding concerns/need for transfusions. negative for UTI complaints/flank pain/hematuria MS: Patient reports increased issues with low back pain over the last 3-4 weeks for which she was referred to PT. Neuro: no acute changes/complaints. Is having menstrual cycle. - Related Data Allergies Allergy/AdvReac Type Severity Reaction Status Date / Time Latex, Natural Rubber Allergy Hives Verified 06/28/19 10:55 ondansetron Allergy Shaking,Tac Verified 06/28/19 10:55 hycardia promethazine HCl Allergy Irritabilit Verified 06/28/19 10:55 [From Phenergan] y Home Meds: Home Meds Non-Formulary Medication [NF Drug] 1 tab PO DAILY #100 09/21/16 [Rx] Potassium Chloride [Klor-Con M20] 20 meq PO BID tab.er 09/21/16 [Rx] FLUoxetine HCl [Fluoxetine HCl] 20 mg PO DAILY 07/27/18 [History] Cyanocobalamin (Vitamin B12) [Vitamin B12] 1,000 mcg IM Q30D sdv 09/29/18 [Rx] Levothyroxine [Synthroid] 100 mcg PO ACBREAKFAST 30 Days #30 tablet 09/29/18 [Rx ] Acetaminophen/Diphenhydramine [Tylenol Pm Ex-Strength Caplet] 1 tab PO BEDTIME 03/29/19 [History] Folic Acid 1 mg PO DAILY 03/29/19 [History] Magnesium Oxide 800 mg PO BEDTIME 03/29/19 [History] Aspirin/Acetaminophen/Caffeine [Migraine Relief Caplet] 2 tab PO Q4HR PRN [History] Cholecalciferol (Vitamin D3) [Vitamin D3] 2,000 unit PO DAILY 06/28/19 [History] Cyclobenzaprine [Flexeril] 5 - 10 mg PO Q8HR PRN 06/28/19 [History] Past Medical History HEENT History: Reports: Cataract, Impaired Vision, Sinusitis, Other (See Below) Other HEENT History: 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 Soft contact lenses, glasses. Bilateral cataractsmild. Cardiovascular History: Reports: Arrhythmia, High Cholesterol, Syncope, Other ( See Below) Other Cardiovascular History: History of d-dimer elevation with extensive negative workup on 02/25/19. Short GA interval. History of obesity and hyperlipidemia with fatty liver including post gastric bypass, previous recurrent syncope of unknown etiology with last episode in July 2014, chronic hypotension Respiratory History: Reports: Asthma, Bronchitis, Recurrent, Intubation, Previous, Other (See Below) Other Respiratory History: Newly diagnosed 2 mm left upper lobe and 3 mm right upper lobe benign pulmonary granulomas by CTA of the chest on 02/25/19 with previous stable right lower lobe benign pulmonary nodules/ Gastrointestinal History: Reports: Bowel Obstruction, Chronic Diarrhea, Fatty Liver, Gastritis, GERD, GI Bleed, PUD, Other (See Below) Other Gastrointestinal History: History of fatty liver with LFTs elevation including post gastric bypass surgery with secondary malabsorption syndrome as below, upper GI bleed secondary to gastric ulcer in her mid 30s with no blood transfusion required, multiple previous small bowel obstructions secondary to previous gastric bypass surgery, Genitourinary History: Reports: None [employer] History: Reports: Dysfunctional Uterine Bleeding, Fibroids, Polycystic Ovaries, Other [employer] History: Hypermenorrhea since 2018 with menses lasting usually about 7 days with probable secondary anemia. Uterine fibroid by pelvic ultrasound on 02/25/19. Full term deliveries without complications during pregnancies or deliveries. Bilateral ovarian cysts. LMP on 03/23/19 with significant bleeding as above. Musculoskeletal History: Reports: Other (See Below) Other Musculoskeletal History: Mild scoliosis. Neurological History: Reports: Headaches, Chronic, Vertigo, Other (See Below) Other Neuro History: Chronic vertigo/car sickness. Near syncopal/syncopal episodes as above. 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 Hypomagnesemia. Hypoalbuminemia. Hematologic History: Reports: Anemia, B12 Deficiency, Folic Acid, Iron Deficiency, Other (See Below) Other Hematologic History: Malabsorption syndrome secondary to her gastric bypass resulting in severe iron deficiency with additional component from her hypermenorrhea as above. Additional vitamin B-12 and folic acid deficiency. Immunologic History: Reports: None Oncologic (Cancer) History: Reports: None Dermatologic History: Reports: None - Infectious Disease History Infectious Disease History: Reports: Chicken Pox, Shingles - Past Surgical History Head Surgeries/Procedures: Reports: None HEENT Surgical History: Reports: Eye Surgery, Oral Surgery, Other (See Below) Other HEENT Surgeries/Procedures: Left eye intravitrial injection of Sepproc initiated on 08/26/18 secondary to macular edema as above. [place] teeth extraction 2 at age 20 Cardiovascular Surgical History: Reports: None Respiratory Surgical History: Reports: None GI Surgical History: Reports: Bariatric Procedure, Cholecystectomy, Colonoscopy , EGD, Hernia, Abdominal, Hernia, Inguinal, Hernia Repair/Other, Other (See Below) Other GI Surgeries/Procedures: Gastric bypass surgery with concomitant cholecystectomy on 09/09/07, patient denies previous gastric bypass revisions as per medical records although evidence of anastomosis dilatations in the past EGD , last EGD and colonoscopy on 12/07/16 with previous EGDs on 11/27/15 and . EGD in 2007 with concomitant gastric feeding tube placement at that time, laparoscopic umbilical hernia repair with mesh placement on 12/03/15, right inguinal hernia repair in 2004. Female Surgical History: Reports: Section, Tubal Ligation, Other ( See Below) Other Female Surgeries/Procedures: in 1996, 1999, 2000; tubal ligation in 2000. Endocrine Surgical History: Reports: Thyroid Biopsy, Other (See Below) Other Endocrine Surgeries/Procedures: Thyroid biopsy on 02/19/14. Neurological Surgical History: Reports: None Musculoskeletal Surgical History: Reports: None Oncologic Surgical History: Reports: None Dermatological Surgical History: Reports: Skin Biopsy, Other (See Below) - Past Imaging History Past Imaging History: Reports: Cardiac Echo (07/29/09 with ejection fraction of 68 %), CAT Scan (Negative CTA of the chest for PE on 02/25/19. CT of the brain on 09/28 and 06/20/08, CT of the abdomen and pelvis with contrast on 06/12/11, 09/08/10, and 06/20/08, CT of the head and cervical region on 07/24/09), Mammogram (Last on .), Ultrasound (Pelvic ultrasound on 02/25/19. Right breast ultrasound on 09/22/17. Thyroid ultrasounds on 06/30/16 and 12/09/13. Abdominal ultrasound on ), Venous Doppler (Negative venous Doppler studies of the legs bilaterally on 02/25/19.) Social & Family History - Family History Family Medical History: Noncontributory HEENT: Reports: Cataract, Other (See Below) Other HEENT Family History: Father with cataracts. Cardiac: Reports: High Cholesterol, Hypertension, Other (See Below) Other Cardiac Family History: Father with hyperlipidemia, hypertension in father and maternal grandfather Respiratory: Reports: Sleep Apnea, Other (See Below) Other Respiratory Family Hisory: Father with sleep apnea and history of tobacco use GI: Reports: Colon Polyps, GERD, PUD, Other (See Below) Other GI Family History: GERD in mother, father with colonic polyps and peptic ulcer disease : Reports: None OBGYN: Reports: Dysfunctional uterine bleeding, Fibroids, Recurrent Spontaneous , Other (See Below) Other OBGYN Family History: Mother with dysfunctional uterine bleeding requiring hysterectomy with additional history of recurrent SAB Musculoskeletal: Reports: Arthritis, Gout, Osteoarthritis, Other (See Below) Other Musculoskeletal Family History: Father with gout Neurological: Reports: None Psychiatric: Reports: Anxiety, Depression, Other (See Below) Other Psychiatric Family History: Anxiety depression disorder in mother, maternal great grandmother and paternal great-grandmother Endocrine/Metabolic: Reports: Diabetes, type II, Hypothyroidism, IDDM, Other ( See Below) Other Endocrine/Metabolic Family History: IDDM in maternal grandmother, paternal grandmother, maternal grandfather, and maternal great-grandmother with brother with possible hyperglycemia, father with hypothyroidism secondary to thyroid resection from metastatic renal cancer as below Hematologic: Reports: Anemia Immunologic: Reports: None Dermatologic: Reports: None Oncologic: Reports: Leukemia, Metastatic, Renal, Skin, Thyroid, Other (See Below ) Other Oncologic Family History: Mother with melanoma, paternal grandmother with basal cell carcinoma, maternal aunt with basal cell carcinoma, Cousin with leukemia, mother with multiple myeloma, father with metastatic renal cancer with metastases to the thyroid gland and lungs - Tobacco Use Smoking Status *Q: Never Smoker Second Hand Smoke Exposure: No - Caffeine Use Caffeine Use: Reports: Soda Other Caffeine Use: 2 per day Caffeine Use Comment: DAILY 2BOTTLES - Recreational Drug Use Recreational Drug Use: No - Living Situation & Occupation Living situation: Reports: (1997, 3 children), with Family ( and 3 children) 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 ED EXAM, GENERAL - Physical Exam Exam: See Below Exam Limited By: No Limitations General Appearance: Alert, WD/WN, No Apparent Distress Eye Exam: Bilateral Eye: EOMI, PERRL Ears: Hearing Grossly Normal Nose: No: Nasal Deformity, Nasal Swelling, Nasal Drainage Throat/Mouth: Normal Lips, Normal Voice, No Airway Compromise Head: Atraumatic, Normocephalic Neck: Supple, Non-Tender Respiratory/Chest: No Respiratory Distress, Lungs Clear, Normal Breath Sounds, No Accessory Muscle Use, Chest Non-Tender Cardiovascular: Normal Peripheral Pulses, Regular Rate, Rhythm, No Edema, No Murmur GI/Abdominal: Normal Bowel Sounds, Soft, Non-Tender, No Distention (Female) Exam: Deferred Rectal (Female) Exam: Deferred Back Exam: No: CVA Tenderness (L), CVA Tenderness (R), Muscle Spasm Extremities: Normal Range of Motion, Non-Tender, Normal Capillary Refill Neurological: Alert, Oriented, Normal Cognition, Normal Gait, No Motor/Sensory Deficits Psychiatric: Normal Affect, Normal Mood Skin Exam: Warm, Dry, Intact, Normal Color, No Rash Course - Vital Signs Last Recorded V/S: Last Vital Signs Temp 37.2 C 06/28/19 10:28 Pulse 95 06/28/19 10:28 Resp 20 06/28/19 10:28 BP 115/75 06/28/19 10:28 Pulse Ox 100 06/28/19 10:28 - Orders/Labs/Meds Orders: Active Orders 24 hr Category Date Time Status Patient Status [ADT] Routine ADT 06/28/19 12:16 Active Cardiac Monitoring [RC] CONTINUOUS Care 06/28/19 12:17 Active Oxygen Therapy [RC] PRN Care 06/28/19 12:16 Active Pulse Oximetry [RC] PRN Care 06/28/19 12:17 Active RT Aerosol Therapy [RC] ASDIRECTED Care 06/28/19 12:28 Active Up ad Lcuy [RC] ASDIRECTED Care 06/28/19 12:16 Active VTE/DVT Education [RC] PER UNIT ROUTINE Care 06/28/19 12:16 Active Vital Signs [RC] Q6HR Care 06/28/19 12:16 Active Regular Diet [DIET] Diet 06/28/19 Lunch Active Abdomen Series w Chest 1V [CR] Stat Exams 06/28/19 11:27 Ordered PE Chest [Ang Chest] [CT] Stat Exams 06/28/19 11:24 Ordered CBC WITH AUTO DIFF [HEME] AM Lab 06/29/19 05:15 Ordered COMPREHENSIVE METABOLIC PN,CMP [CHEM] AM Lab 06/29/19 05:11 Ordered CORONAVIRUS COVID-19 PCR PHL Routine Lab 06/28/19 11:17 Received MAGNESIUM [CHEM] AM Lab 06/29/19 05:11 Ordered POTASSIUM,K [CHEM] Routine Lab 06/28/19 20:00 Ordered TSH ULTRASENSITIVE [CHEM] Routine Lab 06/28/19 12:29 Ordered Acetaminophen/Diphenhydramine [Tylenol Pm Ex-Strength Med 06/28/19 20:00 Ordered Caplet] 1 tab PO BEDTIME Albuterol/Ipratropium [DuoNeb 3.0-0.5 MG/3 ML] Med 06/28/19 12:28 Once 3 ml NEB ONETIME ONE Aspirin/Acetaminophen/Caffeine [Migraine Relief Caplet] Med 06/28/19 12:26 Ordered 2 tab PO Q4HR PRN Cyclobenzaprine [Flexeril] Med 06/28/19 12:26 Ordered 10 mg PO Q8HR PRN FLUoxetine [PROzac] Med 06/29/19 08:00 Ordered 20 mg PO DAILY Lactulose [Cephulac] Med 06/28/19 18:00 Once 20 gm PO ONETIME ONE Levothyroxine [Synthroid] Med 06/29/19 07:30 Ordered 100 mcg PO ACBREAKFAST Magnesium Sulfate/D5W [Magnesium Sulfate in D5W 100 Med 06/28/19 12:18 Active Premix] 1 gm Premix Bag 1 bag IV ONETIME Magnesium Sulfate/D5W [Magnesium Sulfate in D5W 100 Med 06/28/19 20:00 Active Premix] 1 gm Premix Bag 1 bag IV ONETIME Potassium Chloride [Klor-Con 10] Med 06/28/19 15:00 Once 20 meq PO ONETIME ONE Potassium Chloride [Klor-Con 10] Med 06/28/19 18:00 Once 20 meq PO ONETIME ONE Potassium Chloride [Klor-Con 10] Med 06/28/19 21:00 Once 20 meq PO ONETIME ONE Potassium Chloride [Klor-Con 10] Med 06/29/19 07:00 Once 20 meq PO ONETIME ONE Sodium Chloride 0.9% [Saline Flush] Med 06/28/19 10:39 Active 10 ml FLUSH ASDIRECTED PRN Saline Lock Insert [OM.PC] Routine Oth 06/28/19 10:39 Ordered Resuscitation Status Routine Resus Stat 06/28/19 12:16 Ordered Medication Orders Albuterol/Ipratropium (Duoneb 3.0-0.5 Mg/3 Ml) 3 ml NEB ONETIME ONE Stop: 06/28/19 12:29 Cyclobenzaprine HCl (Flexeril) 10 mg PO Q8HR PRN PRN Reason: Spasms Fluoxetine HCl (Prozac) 20 mg PO DAILY [facility]ALTER Magnesium Sulfate/Dextrose 1 (gm/ Premix) 100 mls @ 100 mls/hr IV ONETIME ONE Stop: 06/28/19 13:17 Last Admin: 05/08/20 12:27 Dose: 100 mls/hr Magnesium Sulfate/Dextrose 1 (gm/ Premix) 100 mls @ 100 mls/hr IV ONETIME ONE Stop: 06/28/19 20:59 Lactulose (Cephulac) 20 gm PO ONETIME ONE Stop: 06/28/19 18:01 Levothyroxine Sodium (Synthroid) 100 mcg PO ACBREAKFAST [facility] Non-Formulary Medication (Acetaminophen/Diphenhydramine [Tylenol Pm Ex-Strength Caplet]) 1 tab PO BEDTIME [facility] Non-Formulary Medication (Aspirin/Acetaminophen/Caffeine [Migraine Relief Caplet ]) 2 tab PO Q4HR PRN PRN Reason: Headache Potassium Chloride (Klor-Con 10) 20 meq PO ONETIME ONE Stop: 06/28/19 15:01 Potassium Chloride (Klor-Con 10) 20 meq PO ONETIME ONE Stop: 06/28/19 18:01 Potassium Chloride (Klor-Con 10) 20 meq PO ONETIME ONE Stop: 06/28/19 21:01 Potassium Chloride (Klor-Con 10) 20 meq PO ONETIME ONE Stop: 06/29/19 07:01 Sodium Chloride (Saline Flush) 10 ml FLUSH ASDIRECTED PRN PRN Reason: Keep Vein Open Labs: Laboratory Tests 06/28/19 06/28/19 06/28/19 Range/Units 10:45 10:45 10:45 WBC 6.6 (4.0-10.2) K/uL RBC 3.80 (3.77-5.09) M/uL Hgb 11.0 L (11.7-15.5) g/dL Hct 33.6 L (34.0-46.0) % MCV 88.4 D (84.0-98.0) fL MCH 28.9 (28.2-33.3) pg MCHC 32.7 (31.7-36.0) g/dL RDW 15.0 H (11.2-14.1) % Plt Count 410 H D (150-350) K/uL Neut % (Auto) 58.9 (45.0-80.0) % Lymph % (Auto) 30.9 (10.0-50.0) % Saline % (Auto) 8.0 (2.0-14.0) % Eos % (Auto) 1.7 (0.0-5.0) % Baso % (Auto) 0.5 (0.0-2.0) % Neut # (Auto) 3.91 (1.40-7.00) K/uL Lymph # (Auto) 2.05 (0.50-3.50) K/uL Saline # (Auto) 0.53 (0.00-1.00) K/uL Eos # (Auto) 0.11 (0.00-0.50) K/uL Baso # (Auto) 0.03 (0.00-0.20) K/uL D-Dimer, Quantitative 810 H (0-400) ng/mL Sodium 137 (136-145) mmol/L Potassium 2.9 L* (3.5-5.1) mmol/L Chloride 102 (98-107) mmol/L Carbon Dioxide 23.8 (21.0-32.0) mmol/L BUN 15 (7-18) mg/dL Creatinine 0.95 (0.51-1.17) mg/dL Est Cr Clr Drug Dosing 61.01 mL/min Estimated GFR (MDRD) > 60 mL/min Glucose 95 (74-106) mg/dL Lactic Acid (0.4-2.0) mmol/L Calcium 8.7 (8.5-10.1) mg/dL Magnesium 1.6 L (1.8-2.4) mg/dL Total Bilirubin 0.2 (0.2-1.0) mg/dL AST 51 H (15-37) U/L ALT 63 (12-78) U/L Alkaline Phosphatase 156 H (46-116) IU/L Total Protein 6.8 (6.4-8.2) g/dL Albumin 3.7 (3.4-5.0) g/dL Specimen Type Urine Color Urine Appearance Urine pH (5.0-9.0) Ur Specific Brooks (1.005-1.030) Urine Protein (NEGATIVE) mg/dL Urine Glucose (UA) (NEGATIVE) mg/dL Urine Ketones (NEGATIVE) mg/dL Urine Occult Blood (NEGATIVE) Urine Nitrite (NEGATIVE) Urine Bilirubin (NEGATIVE) Urine Urobilinogen (0.2-1.0) E.U./dL Ur Leukocyte Esterase (NEGATIVE) U Hyaline Cast (Auto) Urine RBC /HPF Urine WBC /HPF Ur Epithelial Cells /LPF Urine Bacteria (NONE TO FEW) /HPF Urine Mucus (NEGATIVE) /LPF 06/28/19 06/28/19 Range/Units 10:45 10:52 WBC (4.0-10.2) K/uL RBC (3.77-5.09) M/uL Hgb (11.7-15.5) g/dL Hct (34.0-46.0) % MCV (84.0-98.0) fL MCH (28.2-33.3) pg MCHC (31.7-36.0) g/dL RDW (11.2-14.1) % Plt Count (150-350) K/uL Neut % (Auto) (45.0-80.0) % Lymph % (Auto) (10.0-50.0) % Saline % (Auto) (2.0-14.0) % Eos % (Auto) (0.0-5.0) % Baso % (Auto) (0.0-2.0) % Neut # (Auto) (1.40-7.00) K/uL Lymph # (Auto) (0.50-3.50) K/uL Saline # (Auto) (0.00-1.00) K/uL Eos # (Auto) (0.00-0.50) K/uL Baso # (Auto) (0.00-0.20) K/uL D-Dimer, Quantitative (0-400) ng/mL Sodium (136-145) mmol/L Potassium (3.5-5.1) mmol/L Chloride (98-107) mmol/L Carbon Dioxide (21.0-32.0) mmol/L BUN (7-18) mg/dL Creatinine (0.51-1.17) mg/dL Est Cr Clr Drug Dosing mL/min Estimated GFR (MDRD) mL/min Glucose (74-106) mg/dL Lactic Acid 1.2 (0.4-2.0) mmol/L Calcium (8.5-10.1) mg/dL Magnesium (1.8-2.4) mg/dL Total Bilirubin (0.2-1.0) mg/dL AST (15-37) U/L ALT (12-78) U/L Alkaline Phosphatase (46-116) IU/L Total Protein (6.4-8.2) g/dL Albumin (3.4-5.0) g/dL Specimen Type . Urine Color Yellow Urine Appearance Slightly cloudy Urine pH 5.5 (5.0-9.0) Ur Specific Brooks >= 1.030 (1.005-1.030) Urine Protein 100 H (NEGATIVE) mg/dL Urine Glucose (UA) Negative (NEGATIVE) mg/dL Urine Ketones Trace H (NEGATIVE) mg/dL Urine Occult Blood Trace-intact H (NEGATIVE) Urine Nitrite Negative (NEGATIVE) Urine Bilirubin Small H (NEGATIVE) Urine Urobilinogen 0.2 (0.2-1.0) E.U./dL Ur Leukocyte Esterase Negative (NEGATIVE) U Hyaline Cast (Auto) Moderate Urine RBC 0-5 /HPF Urine WBC 0-5 /HPF Ur Epithelial Cells Many H /LPF Urine Bacteria Moderate H (NONE TO FEW) /HPF Urine Mucus Many H (NEGATIVE) /LPF Meds: Medications Generic Name Dose Route Start Last Admin Trade Name Freq PRN Reason Stop Dose Admin Albuterol/Ipratropium 3 ml 06/28/19 12:28 Duoneb 3.0-0.5 Mg/3 Ml NEB 06/28/19 12:29 ONETIME ONE Cyclobenzaprine HCl 10 mg 06/28/19 12:26 Flexeril PO Q8HR PRN Spasms Fluoxetine HCl 20 mg 06/29/19 08:00 Prozac PO DAILY [facility]ALTER Magnesium Sulfate/Dextrose 1 100 mls @ 100 mls/hr 06/28/19 12:18 06/28/19 12: 27 gm/ Premix IV 06/28/19 13:17 100 mls/hr ONETIME ONE Administration Magnesium Sulfate/Dextrose 1 100 mls @ 100 mls/hr 06/28/19 20:00 gm/ Premix IV 06/28/19 20:59 ONETIME ONE Lactulose 20 gm 06/28/19 18:00 Cephulac PO 06/28/19 18:01 ONETIME ONE Levothyroxine Sodium 100 mcg 06/29/19 07:30 Synthroid PO ACBREAKFAST [facility] Non-Formulary Medication 1 tab 06/28/19 20:00 Acetaminophen/Diphenhydramine [Tylenol Pm Ex-Strength Caplet] PO BEDTIME [facility] Non-Formulary Medication 2 tab 06/28/19 12:26 Aspirin/Acetaminophen/Caffeine [Migraine Relief Caplet] PO Q4HR PRN Headache Potassium Chloride 20 meq 06/28/19 15:00 Klor-Con 10 PO 06/28/19 15:01 ONETIME ONE Potassium Chloride 20 meq 06/28/19 18:00 Klor-Con 10 PO 06/28/19 18:01 ONETIME ONE Potassium Chloride 20 meq 06/28/19 21:00 Klor-Con 10 PO 06/28/19 21:01 ONETIME ONE Potassium Chloride 20 meq 06/29/19 07:00 Klor-Con 10 PO 06/29/19 07:01 ONETIME ONE Sodium Chloride 10 ml 06/28/19 10:39 Saline Flush FLUSH ASDIRECTED PRN Keep Vein Open Discontinued Medications Generic Name Dose Route Start Last Admin Trade Name Freq PRN Reason Stop Dose Admin Iopamidol 100 ml 06/28/19 11:30 06/28/19 11:51 Isovue-370 (76%) IVPUSH 06/28/19 11:31 100 ml ONETIME STA Administration Lactulose 20 gm 06/28/19 12:21 Cephulac PO 06/28/19 12:22 ONETIME ONE Potassium Chloride 40 meq 06/28/19 12:18 06/28/19 12:28 Klor-Con M20 PO 06/28/19 12:19 40 meq ONETIME ONE Administration - Re-Assessments/Exams Free Text/Narrative Re-Assessment/Exam: 06/28/19 11:42 Vital signs stable. O2 sats on room air 100% No focal findings on physical exam. Baseline labs requested. Patient noted to have low Mg/K. DDimer elevated. Given complaint of worsening SOB it was decided to perform PE study to rule out PE. Abdominal films ordered to follow up on constipation/abdominal discomfort. Free Text/Narrative Re-Assessment/Exam: 06/28/19 12:31 CT of chest negative overall per . Some stool noted in colon, otherwise it was also overall unremarkable. Patient admitted observation for treatment of low Mg and K. No specific cause for SOB identified during ER workup. Low Magnesium has been associated with SOB sensation however. Will see if complaint improves after Magnesium correction is performed. Departure - Departure Time of Disposition: 12:00 Disposition: Refer to Observation Condition: Good Clinical Impression: Hypomagnesemia, Hypokalemia, Shortness of breath Constipation Qualifiers: Constipation type: unspecified constipation type Qualified Code(s): K59.00 - Constipation, unspecified - Discharge Information *PRESCRIPTION DRUG MONITORING PROGRAM REVIEWED*: Not Applicable *COPY OF PRESCRIPTION DRUG MONITORING REPORT IN PATIENT SAM: Not Applicable Referrals: Moriah Albrecht PA-C [Primary Care Provider] - Forms: ED Department Discharge Sepsis Event Note - Evaluation Sepsis Screening Result: No Definite Risk - Focused Exam Vital Signs: Vital Signs Temp Pulse Resp BP Pulse Ox 06/28/19 10:28 37.2 C 95 20 115/75 100 Date Exam was Performed: 06/28/19 Time Exam was Performed: 12:31 - Problem List & Annotations (1) Shortness of breath SNOMED Code(s): 369827239 Code(s): R06.02 - SHORTNESS OF BREATH Status: Acute Priority: High Current Visit: Yes Annotation/Comment:: Approx 2 week history increasing SOB. Worse with activity. No change after laxitives improved constipation. No URI complaints. No other acute respiratory changes. Unremarkable chest xray and chest CT. No evidence of PE after scanning to rule out. She does have low mag which in literature has been associated with SOB. Observe for changes. Vital signs stable, good oxygenation levels. (2) Hypomagnesemia SNOMED Code(s): 601666872 Code(s): E83.42 - HYPOMAGNESEMIA Status: Chronic Priority: Medium Current Visit: Yes Onset Date: 05/30/16 Annotation/Comment:: IV correction ordered. . (3) Hypokalemia SNOMED Code(s): 18863902 Code(s): E87.6 - HYPOKALEMIA Status: Chronic Priority: High Current Visit: Yes Onset Date: 05/30/16 Annotation/Comment:: 2.9 Will initiate more aggressive K replacement. Recheck level tonight and tomorrow morning. (4) History of gastric bypass SNOMED Code(s): 364185855 Code(s): Z98.84 - BARIATRIC SURGERY STATUS Status: Chronic Priority: Low Current Visit: Yes Annotation/Comment:: Chronic problems problems with malabsorbtion. (5) Constipation SNOMED Code(s): 15180660 Code(s): K59.00 - CONSTIPATION, UNSPECIFIED Status: Acute Priority: Low Current Visit: Yes Annotation/Comment:: Has partially respnded to interventions initiated by [facility]. Will give PO Lactulose to help promote further bowel movements. Qualifiers: Constipation type: unspecified constipation type Qualified Code(s): K59.00 - Constipation, unspecified (6) Anemia SNOMED Code(s): 376403743 Code(s): D64.9 - ANEMIA, UNSPECIFIED Status: Chronic Priority: High Current Visit: No Onset Date: ~05/30/16 Annotation/Comment:: Multifactorial etiologies to patient's current anemia, including hypermenorrhea, malabsorption syndrome, iron deficiency, vitamin D B12 deficiency, and folic acid deficiency with status post gastric bypass surgery as above. IV iron infusion and blood transfusions recently. Chronic. Seen by hemeoncology. Stable. Is planning to get seen again by ObGyn to disuss having hysterectomy Qualifiers: Anemia type: other cause Other causes of anemia: nutritional, unspecified Qualified Code(s): D53.9 - Nutritional anemia, unspecified (7) Folic acid deficiency SNOMED Code(s): 366073976 Code(s): E53.8 - DEFICIENCY OF OTHER SPECIFIED B GROUP VITAMINS Status: Chronic Priority: Low Current Visit: No Onset Date: 05/30/16 Annotation/ Comment:: Chronic/supplementation (8) Hypermenorrhea SNOMED Code(s): 718997295 Code(s): N92.0 - EXCESSIVE AND FREQUENT MENSTRUATION WITH REGULAR CYCLE Status: Chronic Priority: Low Current Visit: No Annotation/Comment:: Patient plans to see Community Living Coach again and discuss hysterectomy Qualifiers: Qualified Code(s): N92.0 - Excessive and frequent menstruation with regular cycle (9) Hypothyroidism SNOMED Code(s): 62190888 Code(s): E03.9 - HYPOTHYROIDISM, UNSPECIFIED Status: Chronic Priority: Low Current Visit: No Onset Date: 12/06/13 Annotation/Comment:: TSH to be rechecked. On supplementation. (10) Malabsorption syndrome SNOMED Code(s): 82984397 Code(s): K90.9 - INTESTINAL MALABSORPTION, UNSPECIFIED Status: Chronic Priority: Medium Current Visit: Yes Onset Date: 12/06/13 Annotation/ Comment:: iatrogenic; mineral deficiency secondary to malabsorption per ED provider documentation (11) Mixed anxiety depressive disorder SNOMED Code(s): 435008555 Code(s): F41.8 - OTHER SPECIFIED ANXIETY DISORDERS Status: Chronic Priority: Low Current Visit: No Annotation/Comment:: Stable by patient history (12) Peptic reflux disease SNOMED Code(s): 441668406 Code(s): K21.9 - GASTRO-ESOPHAGEAL REFLUX DISEASE WITHOUT ESOPHAGITIS Status: Chronic Priority: Medium Current Visit: No Annotation/Comment:: Stable by patient history. Up to date with colonoscopy and had had several upper endoscopies. Negative for occult bleed recently during [place] workup for anemia. - Problem List Review Problem List Initiated/Reviewed/Updated: Yes - My Orders Last 24 Hours: My Active Orders 06/28/19 10:39 Sodium Chloride 0.9% [Saline Flush] 10 ml FLUSH ASDIRECTED PRN Saline Lock Insert [OM.PC] Routine 06/28/19 11:17 CORONAVIRUS COVID-19 PCR PHL Routine 06/28/19 11:24 PE Chest [Ang Chest] [CT] Stat 06/28/19 11:27 Abdomen Series w Chest 1V [CR] Stat 06/28/19 12:16 Patient Status [ADT] Routine Oxygen Therapy [RC] PRN Up ad Lucy [RC] ASDIRECTED VTE/DVT Education [RC] PER UNIT ROUTINE Vital Signs [RC] Q6HR Resuscitation Status Routine 06/28/19 12:17 Cardiac Monitoring [RC] CONTINUOUS Pulse Oximetry [RC] PRN 06/28/19 12:18 Magnesium Sulfate/D5W [Magnesium Sulfate in D5W 100 Premix] 1 gm Premix Bag 1 bag IV ONETIME 06/28/19 12:26 Aspirin/Acetaminophen/Caffeine [Migraine Relief Caplet] 2 tab PO Q4HR PRN Cyclobenzaprine [Flexeril] 10 mg PO Q8HR PRN 06/28/19 12:28 RT Aerosol Therapy [RC] ASDIRECTED Albuterol/Ipratropium [DuoNeb 3.0-0.5 MG/3 ML] 3 ml NEB ONETIME ONE 06/28/19 12:29 TSH ULTRASENSITIVE [CHEM] Routine 06/28/19 15:00 Potassium Chloride [Klor-Con 10] 20 meq PO ONETIME ONE 06/28/19 18:00 Lactulose [Cephulac] 20 gm PO ONETIME ONE Potassium Chloride [Klor-Con 10] 20 meq PO ONETIME ONE 06/28/19 20:00 POTASSIUM,K [CHEM] Routine Acetaminophen/Diphenhydramine [Tylenol Pm Ex-Strength Caplet] 1 tab PO BEDTIME Magnesium Sulfate/D5W [Magnesium Sulfate in D5W 100 Premix] 1 gm Premix Bag 1 bag IV ONETIME 06/28/19 21:00 Potassium Chloride [Klor-Con 10] 20 meq PO ONETIME ONE 06/28/19 Lunch Regular Diet [DIET] 06/29/19 05:11 COMPREHENSIVE METABOLIC PN,CMP [CHEM] AM MAGNESIUM [CHEM] AM 06/29/19 05:15 CBC WITH AUTO DIFF [HEME] AM 06/29/19 07:00 Potassium Chloride [Klor-Con 10] 20 meq PO ONETIME ONE 06/29/19 07:30 Levothyroxine [Synthroid] 100 mcg PO ACBREAKFAST 06/29/19 08:00 FLUoxetine [PROzac] 20 mg PO DAILY - Assessment/Plan Admission H&P: Please use this note as an admission H&P Last 24 Hours: My Active Orders 06/28/19 10:39 Sodium Chloride 0.9% [Saline Flush] 10 ml FLUSH ASDIRECTED PRN Saline Lock Insert [OM.PC] Routine 06/28/19 11:17 CORONAVIRUS COVID-19 PCR PHL Routine 06/28/19 11:24 PE Chest [Ang Chest] [CT] Stat 06/28/19 11:27 Abdomen Series w Chest 1V [CR] Stat 06/28/19 12:16 Patient Status [ADT] Routine Oxygen Therapy [RC] PRN Up ad Lucy [RC] ASDIRECTED VTE/DVT Education [RC] PER UNIT ROUTINE Vital Signs [RC] Q6HR Resuscitation Status Routine 06/28/19 12:17 Cardiac Monitoring [RC] CONTINUOUS Pulse Oximetry [RC] PRN 06/28/19 12:18 Magnesium Sulfate/D5W [Magnesium Sulfate in D5W 100 Premix] 1 gm Premix Bag 1 bag IV ONETIME 06/28/19 12:26 Aspirin/Acetaminophen/Caffeine [Migraine Relief Caplet] 2 tab PO Q4HR PRN Cyclobenzaprine [Flexeril] 10 mg PO Q8HR PRN 06/28/19 12:28 RT Aerosol Therapy [RC] ASDIRECTED Albuterol/Ipratropium [DuoNeb 3.0-0.5 MG/3 ML] 3 ml NEB ONETIME ONE 06/28/19 12:29 TSH ULTRASENSITIVE [CHEM] Routine 06/28/19 15:00 Potassium Chloride [Klor-Con 10] 20 meq PO ONETIME ONE 06/28/19 18:00 Lactulose [Cephulac] 20 gm PO ONETIME ONE Potassium Chloride [Klor-Con 10] 20 meq PO ONETIME ONE 06/28/19 20:00 POTASSIUM,K [CHEM] Routine Acetaminophen/Diphenhydramine [Tylenol Pm Ex-Strength Caplet] 1 tab PO BEDTIME Magnesium Sulfate/D5W [Magnesium Sulfate in D5W 100 Premix] 1 gm Premix Bag 1 bag IV ONETIME 06/28/19 21:00 Potassium Chloride [Klor-Con 10] 20 meq PO ONETIME ONE 06/28/19 Lunch Regular Diet [DIET] 06/29/19 05:11 COMPREHENSIVE METABOLIC PN,CMP [CHEM] AM MAGNESIUM [CHEM] AM 06/29/19 05:15 CBC WITH AUTO DIFF [HEME] AM 06/29/19 07:00 Potassium Chloride [Klor-Con 10] 20 meq PO ONETIME ONE 06/29/19 07:30 Levothyroxine [Synthroid] 100 mcg PO ACBREAKFAST 06/29/19 08:00 FLUoxetine [PROzac] 20 mg PO DAILY Assessment:: as above Plan: as above. Anticipated 24-48 hours observation while K and Mg corrected. Will observe for changes in regards to SOB. Stable and suitable for general supervision.
[2019-06-28] MEDS ORDERED: Potassium Chloride 20 MEQ Tab.ER PO ONE (12:18)
[2019-06-28] MEDS ORDERED: Lactulose Soln 10 GM/15 ML 30 ML UD Cup PO ONE ×2 (12:21→18:00)
[2019-06-28] MEDS ORDERED: Cyclobenzaprine 10 MG Tab PO PRN (12:26)
[2019-06-28] MEDS ORDERED: Albuterol/Ipratropium 3.0-0.5 MG/3 ML Neb Soln NEB ONE (12:28)
[2019-06-28] MEDS ORDERED: Potassium Chloride 10 MEQ Tab.ER PO ONE ×3 (15:00→21:00)
[2019-06-28] MEDS: ACETAMINOPHEN PO PRN ×2 (15:25→22:14)
[2019-06-28] MEDS: ASPIRIN PO PRN ×2 (15:25→22:14)
[2019-06-28] MEDS: CAFFEINE PO PRN ×2 (15:25→22:14)
[2019-06-28] MEDS ORDERED: diphenhydrAMINE 25 MG Cap PO SCH (20:00)
[2019-06-28] MEDS ORDERED: Acetaminophen 500 MG Tab PO SCH (20:00)
[2019-06-29] MEDS: CAFFEINE PO PRN (04:41)
[2019-06-29] MEDS: ACETAMINOPHEN PO PRN (04:41)
[2019-06-29] MEDS: ASPIRIN PO PRN (04:41)
[2019-06-29] MEDS ORDERED: Potassium Chloride 10 MEQ Tab.ER PO ONE (07:00)
[2019-06-29] MEDS ORDERED: Levothyroxine 100 MCG Tab PO SCH (07:30)
[2019-06-29 07:56] LABS: CHLORIDE,CL 107 mmol/L (98-107); SODIUM,NA 138 mmol/L (136-145)
[2019-06-29] MEDS ORDERED: FLUoxetine 20 MG Cap PO SCH (08:00)
[2019-06-29] MEDS ORDERED: Potassium Chloride 10 MEQ Tab.ER ONE (09:23)
[2019-06-29 11:55] VITALS: BP 102/62; PULSE 89
[2019-06-29] MEDS ORDERED: Magnesium Citrate Solution 296 ML Bottle PO ONE (13:34)
[2019-06-29] MEDS ORDERED: Polyethylene Glycol 3350 Powder 17 GM Packet PO ONE (13:35)
--- NOTE | 2019-06-29 14:47 | PCM.DCSUM1 ---
Discharge Summary - Hospital Course Brief History: Patient admitted for complaint of SOB/abdominal discomfort/ constipation. Found to have hypokalemia in addition to low Magnesium levels. Diagnosis: Stroke: No - Discharge Data Discharge Date: 06/29/19 Discharge Disposition: Home, Self-Care 01 Condition: Good - Referral to Home Health Primary Care Physician: Moriah Albrecht PA-C - Discharge Diagnosis/Problem(s) (1) Shortness of breath SNOMED Code(s): 337545089 ICD Code: R06.02 - SHORTNESS OF BREATH Status: Acute Priority: High Current Visit: Yes Problem Details: Approx 2 week history increasing SOB. Worse with activity. No change after laxitives improved constipation. No URI complaints. No other acute respiratory changes. No evidence of PE after CT study. She was found to have low magnesium level which in literature has been associated with SOB. Correction of Magnesium performed after patient admitted to observation. She reports today that the sensation of SOB has resolved. Vital signs stable, good oxygenation levels. (2) Hypomagnesemia SNOMED Code(s): 583842207 ICD Code: E83.42 - HYPOMAGNESEMIA Status: Chronic Priority: Medium Current Visit: Yes Onset Date: 05/30/16 Problem Details: Levels just above lower level of normal this morning. Will give one additional dose of Mag prior to discharging patient home as level would likely return to subnormal levels as previous dosed Mag stabilized. Recommended patient to increase level of home supplentation and take one dose around noon and the other in the evening. She is to avoid taking it within two hours of her morning dose of thyroid medication. Recommend recheck in 1-2 weeks. (3) Hypokalemia SNOMED Code(s): 52967206 ICD Code: E87.6 - HYPOKALEMIA Status: Chronic Priority: High Current Visit: Yes Onset Date: 05/30/16 Problem Details: Normalized. Recommend recheck in 1-2 weeks. Increase daily K supplementation if levels dips downward again. (4) Constipation SNOMED Code(s): 98914008 ICD Code: K59.00 - CONSTIPATION, UNSPECIFIED Status: Acute Priority: Low Current Visit: Yes Problem Details: Has partially respnded to interventions initiated by Gust[facility]. PO Lactulose able to produce BM this morning. Will give patient single dose of Miralax mixed with MagCitrate prior to discharge. Qualifiers: Constipation type: unspecified constipation type Qualified Code(s): K59.00 - Constipation, unspecified (5) History of gastric bypass SNOMED Code(s): 590828137 ICD Code: Z98.84 - BARIATRIC SURGERY STATUS Status: Chronic Priority: Low Current Visit: Yes Problem Details: Chronic problems problems with malabsorbtion. (6) Anemia SNOMED Code(s): 240657995 ICD Code: D64.9 - ANEMIA, UNSPECIFIED Status: Chronic Priority: High Current Visit: No Onset Date: ~05/30/16 Problem Details: Multifactorial etiologies to patient's current anemia, including hypermenorrhea, malabsorption syndrome, iron deficiency, vitamin D B12 deficiency, and folic acid deficiency with status post gastric bypass surgery as above. IV iron infusion and blood transfusions recently. Chronic. Seen by hemeoncology. Stable. Is planning to get seen again by ObGyn to disuss having hysterectomy Qualifiers: Anemia type: other cause Other causes of anemia: nutritional, unspecified Qualified Code(s): D53.9 - Nutritional anemia, unspecified (7) Folic acid deficiency SNOMED Code(s): 305718862 ICD Code: E53.8 - DEFICIENCY OF OTHER SPECIFIED B GROUP VITAMINS Status: Chronic Priority: Low Current Visit: No Onset Date: 05/30/16 Problem Details: Chronic/supplementation (8) Hypermenorrhea SNOMED Code(s): 045576458 ICD Code: N92.0 - EXCESSIVE AND FREQUENT MENSTRUATION WITH REGULAR CYCLE Status: Chronic Priority: Low Current Visit: No Problem Details: Patient plans to see Phys Asst again and discuss hysterectomy (9) Hypothyroidism SNOMED Code(s): 07689851 ICD Code: E03.9 - HYPOTHYROIDISM, UNSPECIFIED Status: Chronic Priority: Low Current Visit: No Onset Date: 12/06/13 Problem Details: TSH elevated. To follow up with primary provider. Patient recommended to avoid taking Mag within 2 hours of thryroid med to avoid interference with thyroid absorption. (10) Malabsorption syndrome SNOMED Code(s): 44311959 ICD Code: K90.9 - INTESTINAL MALABSORPTION, UNSPECIFIED Status: Chronic Priority: Medium Current Visit: Yes Onset Date: 12/06/13 Problem Details: iatrogenic; mineral deficiency secondary to malabsorption per ED provider documentation (11) Mixed anxiety depressive disorder SNOMED Code(s): 087640092 ICD Code: F41.8 - OTHER SPECIFIED ANXIETY DISORDERS Status: Chronic Priority: Low Current Visit: No Problem Details: Stable by patient history (12) Peptic reflux disease SNOMED Code(s): 313331431 ICD Code: K21.9 - GASTRO-ESOPHAGEAL REFLUX DISEASE WITHOUT ESOPHAGITIS Status: Chronic Priority: Medium Current Visit: No Problem Details: Stable by patient history. Up to date with colonoscopy and had had several upper endoscopies. Negative for occult bleed recently during [place] workup for anemia. - Patient Summary/Data Hospital Course: IV Mag replacement and PO potassium replacement initiated. Levels normalized this morning when rechecked. Patient did have bowel movement. Overall feels better. Reports SOB sensation has resolved. Low mag levels have been associated with sensation of SOB so this may have been factor in patient's complaint. CT of chest negative for PE after it was noted DDimer levels elevated. No new complaints. She is to follow up closely with primary provider and get levels rechecked. Also to follow up with ObGyn concerning hysterectomy, and Misael Benitez for noted lung nodules on recent CT study. It is of note that radiologist who read yesterday's CT did not note any concerning nodule. Time spent with patient discussing implementation of anti-inflammatory diet to see if it helps with her chronic constipation and abdominal discomfort. She is interested in pursuing this. To follow up as needed if acute problems develop. - Patient Instructions Diet: Anti-Inflammatory Activity: As Tolerated, Rest and Relax Today Driving: May Drive Today Showering/Bathing: May Shower Notify Provider of: Fever, Increased Pain, Nausea and/or Vomiting Other/Special Instructions: Get your potassium and magnesium levels rechecked within 1-2 weeks. Adjust levels of supplements as needed to achieve normal levels if found to be low. Take Mag around noon and in evening to avoid thyroid medication as discussed. Recommend doubling Mag dose for now. Follow up as planned with Misael Benitez and Phys Asst. Watch for changes/new symptoms and follow up as needed if you have problems. - Discharge Plan *PRESCRIPTION DRUG MONITORING PROGRAM REVIEWED*: Not Applicable *COPY OF PRESCRIPTION DRUG MONITORING REPORT IN PATIENT SAM: Not Applicable Home Medications: Home Meds Non-Formulary Medication [NF Drug] 1 tab PO DAILY #100 09/21/16 [Rx] Potassium Chloride [Klor-Con M20] 20 meq PO BID tab.er 08/02/17 [Rx] FLUoxetine HCl [Fluoxetine HCl] 20 mg PO DAILY 07/27/18 [History] Cyanocobalamin (Vitamin B12) [Vitamin B12] 1,000 mcg IM Q30D sdv 09/29/18 [Rx] Levothyroxine [Synthroid] 100 mcg PO ACBREAKFAST 30 Days #30 tablet 09/29/18 [Rx ] Acetaminophen/Diphenhydramine [Tylenol Pm Ex-Strength Caplet] 1 tab PO BEDTIME 03/29/19 [History] Folic Acid 1 mg PO DAILY 03/29/19 [History] Magnesium Oxide 800 mg PO BEDTIME 03/29/19 [History] Aspirin/Acetaminophen/Caffeine [Migraine Relief Caplet] 2 tab PO Q4HR PRN [History] Cholecalciferol (Vitamin D3) [Vitamin D3] 2,000 unit PO DAILY 06/28/19 [History] Cyclobenzaprine [Flexeril] 5 - 10 mg PO Q8HR PRN 06/28/19 [History] Forms: ED Department Discharge, Return to Work/Inpatient LLN Referrals: Moriah Albrecht PA-C [Primary Care Provider] - - Discharge Summary/Plan Comment DC Time >30 min.: No - General Info Date of Service: 06/29/19 Admission Dx/Problem (Free Text: SOB/abdominal discomfort, low Mg/K Subjective Update: Patient feels better today. No sensation of shortness of breath. Abdominal discomfort improved. Did have bowel movement. No new changes. Functional Status: Reports: Pain Controlled, Tolerating Diet, Ambulating, Urinating. Denies: New Symptoms Numeric/FACES Score: 2 - Review of Systems General: Denies: Fever, Weakness, Fatigue, Malaise, Chills, Night Sweats HEENT: Denies: Eye Pain, Headaches, Sinus Congestion, Sore Throat, Rhinitis, Visual Changes Pulmonary: Denies: Shortness of Breath, Pleuritic Chest Pain, Cough, Sputum, Wheezing Cardiovascular: Denies: Chest Pain, Palpitations, Dyspnea on Exertion, Orthopnea , Edema, Lightheadedness Gastrointestinal: Reports: Abdominal Pain (has chronic low level abdominal discomfort due to gastric bypass surgery. ), Constipation (Chronic issues with constipation. Feels improved but not completely resolved. ). Denies: Decreased Appetite, Difficulty Swallowing, Flatus, Hematochezia, Melena, Nausea, Vomiting Genitourinary: Reports: No Symptoms Musculoskeletal: Reports: No Symptoms Skin: Reports: No Symptoms Neurological: Reports: No Symptoms Psychiatric: Reports: No Symptoms - Patient Data Vitals - Most Recent: Last Vital Signs Temp 36.5 C 06/29/19 04:45 Pulse 89 06/29/19 11:55 Resp 18 06/29/19 11:55 BP 102/62 06/29/19 11:55 Pulse Ox 100 06/29/19 11:55 Weight - Most Recent: 53.66 kg I&O - Last 24 hours: Intake & Output 06/28/19 06/29/19 06/29/19 22:59 06:59 14:59 Intake Total 540 250 Balance 540 250 Lab Results - Last 24 hrs: Laboratory Results - last 24 hr 06/28/19 06/29/19 06/29/19 Range/Units 19:55 07:29 07:29 WBC 6.5 (4.0-10.2) K/uL RBC 3.49 L (3.77-5.09) M/uL Hgb 10.0 L (11.7-15.5) g/dL Hct 31.5 L (34.0-46.0) % MCV 90.3 (84.0-98.0) fL MCH 28.7 (28.2-33.3) pg MCHC 31.7 (31.7-36.0) g/dL RDW 15.4 H (11.2-14.1) % Plt Count 408 H (150-350) K/uL Neut % (Auto) 62.2 (45.0-80.0) % Lymph % (Auto) 25.8 (10.0-50.0) % [place] % (Auto) 7.7 (2.0-14.0) % Eos % (Auto) 3.5 (0.0-5.0) % Baso % (Auto) 0.8 (0.0-2.0) % Neut # (Auto) 4.04 (1.40-7.00) K/uL Lymph # (Auto) 1.68 (0.50-3.50) K/uL [place] # (Auto) 0.50 (0.00-1.00) K/uL Eos # (Auto) 0.23 (0.00-0.50) K/uL Baso # (Auto) 0.05 (0.00-0.20) K/uL Sodium 138 (136-145) mmol/L Potassium 3.8 4.3 (3.5-5.1) mmol/L Chloride 107 (98-107) mmol/L Carbon Dioxide 22.3 (21.0-32.0) mmol/L BUN 11 (7-18) mg/dL Creatinine 0.75 (0.51-1.17) mg/dL Est Cr Clr Drug Dosing 76.61 mL/min Estimated GFR (MDRD) > 60 mL/min Glucose 88 (74-106) mg/dL Calcium 8.3 L (8.5-10.1) mg/dL Magnesium 1.9 (1.8-2.4) mg/dL Total Bilirubin 0.2 (0.2-1.0) mg/dL AST 28 (15-37) U/L ALT 47 (12-78) U/L Alkaline Phosphatase 135 H (46-116) IU/L Total Protein 6.0 L (6.4-8.2) g/dL Albumin 3.2 L (3.4-5.0) g/dL Med Orders - Current: Current Medications Acetaminophen (Tylenol Extra Strength) 500 mg PO BEDTIME [facility] Last Admin: 06/28/19 20:46 Dose: 500 mg Cyclobenzaprine HCl (Flexeril) 10 mg PO Q8HR PRN PRN Reason: Spasms Diphenhydramine HCl (Benadryl) 25 mg PO BEDTIME [facility] Last Admin: 06/28/19 20:46 Dose: 25 mg Fluoxetine HCl (Prozac) 20 mg PO DAILY [facility] Last Admin: 06/29/19 09:19 Dose: 20 mg Levothyroxine Sodium (Synthroid) 100 mcg PO ACBREAKFAST [facility] Last Admin: 06/29/19 09:19 Dose: 100 mcg Own MedMigraine Relief - Asa/Apap/Caffeine 250/250/65 Mg 2 each PO Q4H PRN PRN Reason: Headache Last Admin: 06/29/19 04:41 Dose: 2 each Sodium Chloride (Saline Flush) 10 ml FLUSH ASDIRECTED PRN PRN Reason: Keep Vein Open Last Admin: 06/29/19 14:02 Dose: 10 ml Discontinued Medications Albuterol/Ipratropium (Duoneb 3.0-0.5 Mg/3 Ml) 3 ml NEB ONETIME ONE Stop: 06/28/19 12:29 Last Admin: 06/28/19 13:16 Dose: 3 ml Magnesium Sulfate/Dextrose 1 (gm/ Premix) 100 mls @ 100 mls/hr IV ONETIME ONE Stop: 06/28/19 13:17 Last Admin: 06/28/19 12:27 Dose: 100 mls/hr Magnesium Sulfate/Dextrose 1 (gm/ Premix) 100 mls @ 100 mls/hr IV ONETIME ONE Stop: 06/28/19 20:59 Last Admin: 06/28/19 20:56 Dose: 100 mls/hr Magnesium Sulfate/Dextrose 1 (gm/ Premix) 100 mls @ 100 mls/hr IV ONETIME ONE Stop: 06/29/19 14:32 Last Admin: 06/29/19 14:01 Dose: 100 mls/hr Iopamidol (Isovue-370 (76%)) 100 ml IVPUSH ONETIME STA Stop: 06/28/19 11:31 Last Admin: 06/28/19 11:51 Dose: 100 ml Lactulose (Cephulac) 20 gm PO ONETIME ONE Stop: 06/28/19 12:22 Last Admin: 06/28/19 13:16 Dose: 20 gm Lactulose (Cephulac) 20 gm PO ONETIME ONE Stop: 06/28/19 18:01 Last Admin: 06/28/19 17:34 Dose: 20 gm Magnesium Citrate (Citrate Of Magnesia) 296 ml PO ONETIME ONE Stop: 06/29/19 13:35 Last Admin: 06/29/19 14:02 Dose: 296 ml Polyethylene Glycol (Miralax) 17 gm PO ONETIME ONE Stop: 06/29/19 13:36 Last Admin: 06/29/19 14:02 Dose: 17 gm Potassium Chloride (Klor-Con M20) 40 meq PO ONETIME ONE Stop: 06/28/19 12:19 Last Admin: 06/28/19 12:28 Dose: 40 meq Potassium Chloride (Klor-Con 10) 20 meq PO ONETIME ONE Stop: 06/28/19 15:01 Last Admin: 06/28/19 14:20 Dose: 20 meq Potassium Chloride (Klor-Con 10) 20 meq PO ONETIME ONE Stop: 06/28/19 18:01 Last Admin: 06/28/19 17:34 Dose: 20 meq Potassium Chloride (Klor-Con 10) 20 meq PO ONETIME ONE Stop: 06/28/19 21:01 Last Admin: 06/28/19 20:48 Dose: 20 meq Potassium Chloride (Klor-Con 10) 20 meq PO ONETIME ONE Stop: 06/29/19 07:01 Last Admin: 06/29/19 09:24 Dose: 20 meq Potassium Chloride (Klor-Con 10) Confirm Administered Dose 20 meq .ROUTE .STK- MED ONE Stop: 06/29/19 09:24 Last Admin: 06/29/19 09:35 Dose: Not Given - Exam General: Reports: Alert, Oriented, Cooperative, No Acute Distress HEENT: Reports: Pupils Equal, Pupils Reactive, EOMI, Mucous Membr. Moist/[place] Neck: Reports: Supple Lungs: Reports: Clear to Auscultation, Normal Respiratory Effort Cardiovascular: Reports: Regular Rate, Regular Rhythm GI/Abdominal Exam: Normal Bowel Sounds, Soft, Non-Tender, No Distention (Female) Exam: Deferred Rectal (Female) Exam: Deferred Back Exam: Denies: CVA Tenderness (L), CVA Tenderness (R), Muscle Spasm, Paraspinal Tenderness, Vertebral Tenderness Extremities: Normal Inspection, Normal Range of Motion, No Pedal Edema, Normal Capillary Refill Skin: Reports: Warm, Dry, Intact Neurological: Reports: No New Focal Deficit Psy/Mental Status: Reports: Alert, Normal Affect, Normal Mood
== END 2019-06-29 15:20 | disposition home or self-care (01) ==
LOC: LL.ED 10:25 → LL.MS 11:46 → UNDOADMOB 11:46 → LL.MS 12:16
PROVIDERS: ADMIT Emergency Medicine; ATTEND Emergency Medicine
DX: R06.02 Shortness of breath (principal); E83.42 Hypomagnesemia; E87.6 Hypokalemia; E78.00 Pure hypercholesterolemia, unspecified; E66.9 Obesity, unspecified; E78.5 Hyperlipidemia, unspecified; J45.909 Unspecified asthma, uncomplicated; K59.00 Constipation, unspecified; E53.8 Deficiency of other specified B group vitamins; D51.9 Vitamin B12 deficiency anemia, unspecified; D50.9 Iron deficiency anemia, unspecified; K90.9 Intestinal malabsorption, unspecified; N92.0 Excessive and frequent menstruation with regular cycle; E03.9 Hypothyroidism, unspecified; F41.8 Other specified anxiety disorders; K21.9 Gastro-esophageal reflux disease without esophagitis; Z79.899 Other long term (current) drug therapy; Z79.82 Long term (current) use of aspirin; Z88.8 Allergy status to other drugs, medicaments and biological substances; Z98.84 Bariatric surgery status; Z91.040 Latex allergy status; Z68.21 Body mass index [BMI] 21.0-21.9, adult
CPT/HCPCS: 36415; 71275; 74022; 80053; 81001; 83605; 83735; 84132; 84443; 85025; 85379; 94640; 96365; 96366; 96376; 99285-25; A9270-GY; G0378; J3475; J7620-GY; Q9967; U0002

== ENCOUNTER 2019-07-03 20:36 | Emergency (ER) | payer OTHER ==
[2019-07-03 20:40] VITALS: BP 111/69; PULSE 89
[2019-07-03 20:59] LABS: CHLORIDE,CL 105 mmol/L (98-107); SODIUM,NA 138 mmol/L (136-145)
--- NOTE | 2019-07-03 21:28 | EDM.PDOC ---
ED HPI GENERAL MEDICAL PROBLEM - General Chief Complaint: Gastrointestinal Problem Stated Complaint: abdominal pain Time Seen by Provider: 07/03/19 20:49 Source of Information: Reports: Patient History Limitations: Reports: No Limitations - History of Present Illness INITIAL COMMENTS - FREE TEXT/NARRATIVE: Patient returns to ER with continued complaint of pain in bilateral lower lateral rib areas. Also feels a bit short of breath. Ongoing issue for around a month. Has had negative chest CT for PE rule out last week when admitted for the pain as well as treatment of low Mg and K. Improved the following morning once these were corrected. Had two negative abdominal and pelvic CTs the last half of April. No other acute changes per patient. Pain is worse when taking bigger breath. Equal bilaterally. 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: Tramadol @ 1600 - Related Data Allergies Allergy/AdvReac Type Severity Reaction Status Date / Time Latex, Natural Rubber Allergy Hives Verified 07/03/19 20:43 ondansetron Allergy Shaking,Tac Verified 07/03/19 20:43 hycardia promethazine HCl Allergy Irritabilit Verified 07/03/19 20:43 [From Phenergan] y Home Meds: Home Meds Non-Formulary Medication [NF Drug] 1 tab PO DAILY #100 09/21/16 [Rx] Potassium Chloride [Klor-Con M20] 20 meq PO BID tab.er 09/21/16 [Rx] FLUoxetine HCl [Fluoxetine HCl] 20 mg PO DAILY 07/27/18 [History] Cyanocobalamin (Vitamin B12) [Vitamin B12] 1,000 mcg IM Q30D sdv 09/29/18 [Rx] Levothyroxine [Synthroid] 100 mcg PO ACBREAKFAST 30 Days #30 tablet 09/29/18 [Rx ] Acetaminophen/Diphenhydramine [Tylenol Pm Ex-Strength Caplet] 1 tab PO BEDTIME 03/29/19 [History] Folic Acid 1 mg PO DAILY 03/29/19 [History] Magnesium Oxide 800 mg PO BEDTIME 03/29/19 [History] Aspirin/Acetaminophen/Caffeine [Migraine Relief Caplet] 2 tab PO Q4HR PRN [History] Cholecalciferol (Vitamin D3) [Vitamin D3] 2,000 unit PO DAILY 06/28/19 [History] Cyclobenzaprine [Flexeril] 5 - 10 mg PO Q8HR PRN 06/28/19 [History] traMADol [Ultram] 1 tab PO Q6HR PRN 07/03/19 [History] Past Medical History HEENT History: Reports: Cataract, Impaired Vision, Sinusitis, Other (See Below) Other HEENT History: 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 Soft contact lenses, glasses. Bilateral cataractsmild. Cardiovascular History: Reports: Arrhythmia, High Cholesterol, Syncope, Other ( See Below) Other Cardiovascular History: History of d-dimer elevation with extensive negative workup on 02/25/19. Short HI interval. History of obesity and hyperlipidemia with fatty liver including post gastric bypass, previous recurrent syncope of unknown etiology with last episode in July 2014, chronic hypotension Respiratory History: Reports: Asthma, Bronchitis, Recurrent, Intubation, Previous, Other (See Below) Other Respiratory History: Newly diagnosed 2 mm left upper lobe and 3 mm right upper lobe benign pulmonary granulomas by CTA of the chest on 02/25/19 with previous stable right lower lobe benign pulmonary nodules/ Gastrointestinal History: Reports: Bowel Obstruction, Chronic Diarrhea, Fatty Liver, Gastritis, GERD, GI Bleed, PUD, Other (See Below) Other Gastrointestinal History: History of fatty liver with LFTs elevation including post gastric bypass surgery with secondary malabsorption syndrome as below, upper GI bleed secondary to gastric ulcer in her mid 30s with no blood transfusion required, multiple previous small bowel obstructions secondary to previous gastric bypass surgery, Genitourinary History: Reports: None COUNTRY DIRECTOR History: Reports: Dysfunctional Uterine Bleeding, Fibroids, Polycystic Ovaries, Other COUNTRY DIRECTOR History: Hypermenorrhea since 2018 with menses lasting usually about 7 days with probable secondary anemia. Uterine fibroid by pelvic ultrasound on 02/25/19. Full term deliveries without complications during pregnancies or deliveries. Bilateral ovarian cysts. LMP on 03/23/19 with significant bleeding as above. Musculoskeletal History: Reports: Other (See Below) Other Musculoskeletal History: Mild scoliosis. Neurological History: Reports: Headaches, Chronic, Vertigo, Other (See Below) Other Neuro History: Chronic vertigo/car sickness. Near syncopal/syncopal episodes as above. 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 Hypomagnesemia. Hypoalbuminemia. Hematologic History: Reports: Anemia, B12 Deficiency, Folic Acid, Iron Deficiency, Other (See Below) Other Hematologic History: Malabsorption syndrome secondary to her gastric bypass resulting in severe iron deficiency with additional component from her hypermenorrhea as above. Additional vitamin B-12 and folic acid deficiency. Immunologic History: Reports: None Oncologic (Cancer) History: Reports: None Dermatologic History: Reports: None - Infectious Disease History Infectious Disease History: Reports: Chicken Pox, Shingles - Past Surgical History Head Surgeries/Procedures: Reports: None HEENT Surgical History: Reports: Eye Surgery, Oral Surgery, Other (See Below) Other HEENT Surgeries/Procedures: Left eye intravitrial injection of Sepproc initiated on 08/26/18 secondary to macular edema as above. Orange teeth extraction 2 at age 20 Cardiovascular Surgical History: Reports: None Respiratory Surgical History: Reports: None GI Surgical History: Reports: Bariatric Procedure, Cholecystectomy, Colonoscopy , EGD, Hernia, Abdominal, Hernia, Inguinal, Hernia Repair/Other, Other (See Below) Other GI Surgeries/Procedures: Gastric bypass surgery with concomitant cholecystectomy on 09/09/07, patient denies previous gastric bypass revisions as per medical records although evidence of anastomosis dilatations in the past EGD , last EGD and colonoscopy on 12/07/16 with previous EGDs on 11/27/15 and . EGD in 2007 with concomitant gastric feeding tube placement at that time, laparoscopic umbilical hernia repair with mesh placement on 12/03/15, right inguinal hernia repair in 2004. Female Surgical History: Reports: Section, Tubal Ligation, Other ( See Below) Other Female Surgeries/Procedures: in 1996, 1999, 2000; tubal ligation in 2000. Endocrine Surgical History: Reports: Thyroid Biopsy, Other (See Below) Other Endocrine Surgeries/Procedures: Thyroid biopsy on 02/19/14. Neurological Surgical History: Reports: None Musculoskeletal Surgical History: Reports: None Oncologic Surgical History: Reports: None Dermatological Surgical History: Reports: Skin Biopsy, Other (See Below) - Past Imaging History Past Imaging History: Reports: Cardiac Echo (07/29/09 with ejection fraction of 68 %), CAT Scan (Negative CTA of the chest for PE on 02/25/19. CT of the brain on 09/28 and 06/20/08, CT of the abdomen and pelvis with contrast on 06/12/11, 09/08/10, and 06/20/08, CT of the head and cervical region on 07/24/09), Mammogram (Last on .), Ultrasound (Pelvic ultrasound on 02/25/19. Right breast ultrasound on 09/22/17. Thyroid ultrasounds on 06/30/16 and 12/09/13. Abdominal ultrasound on ), Venous Doppler (Negative venous Doppler studies of the legs bilaterally on 02/25/19.) Social & Family History - Family History Family Medical History: Noncontributory HEENT: Reports: Cataract, Other (See Below) Other HEENT Family History: Father with cataracts. Cardiac: Reports: High Cholesterol, Hypertension, Other (See Below) Other Cardiac Family History: Father with hyperlipidemia, hypertension in father and maternal grandfather Respiratory: Reports: Sleep Apnea, Other (See Below) Other Respiratory Family Hisory: Father with sleep apnea and history of tobacco use GI: Reports: Colon Polyps, GERD, PUD, Other (See Below) Other GI Family History: GERD in mother, father with colonic polyps and peptic ulcer disease : Reports: None OBGYN: Reports: Dysfunctional uterine bleeding, Fibroids, Recurrent Spontaneous , Other (See Below) Other OBGYN Family History: Mother with dysfunctional uterine bleeding requiring hysterectomy with additional history of recurrent SAB Musculoskeletal: Reports: Arthritis, Gout, Osteoarthritis, Other (See Below) Other Musculoskeletal Family History: Father with gout Neurological: Reports: None Psychiatric: Reports: Anxiety, Depression, Other (See Below) Other Psychiatric Family History: Anxiety depression disorder in mother, maternal great grandmother and paternal great-grandmother Endocrine/Metabolic: Reports: Diabetes, type II, Hypothyroidism, IDDM, Other ( See Below) Other Endocrine/Metabolic Family History: IDDM in maternal grandmother, paternal grandmother, maternal grandfather, and maternal great-grandmother with brother with possible hyperglycemia, father with hypothyroidism secondary to thyroid resection from metastatic renal cancer as below Hematologic: Reports: Anemia Immunologic: Reports: None Dermatologic: Reports: None Oncologic: Reports: Leukemia, Metastatic, Renal, Skin, Thyroid, Other (See Below ) Other Oncologic Family History: Mother with melanoma, paternal grandmother with basal cell carcinoma, maternal aunt with basal cell carcinoma, Cousin with leukemia, mother with multiple myeloma, father with metastatic renal cancer with metastases to the thyroid gland and lungs - Tobacco Use Smoking Status *Q: Never Smoker Second Hand Smoke Exposure: No - Caffeine Use Caffeine Use: Reports: Soda Other Caffeine Use: 2 per day Caffeine Use Comment: DAILY 2BOTTLES - Living Situation & Occupation Living situation: Reports: (1997, 3 children), with Family ( and 3 children) 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 Denies: Fever, Chills , Malaise, Weakness, Fatigue, Night Sweats, Diaphoresis HEENT: Reports: Glasses. Denies: Rhinitis, Sinus Problem, Throat Pain, Throat Swelling, Vision Change Respiratory: Reports: Shortness of Breath, Pleuritic Chest Pain. Denies: Wheezing, Cough, Sputum, Hemoptysis Cardiovascular: Denies: Edema, Lightheadedness, Orthopnea, Palpitations, PND, Syncope GI/Abdominal: Reports: Abdominal Pain (has come chronic issue with abdominal pain ), Decreased Appetite. Denies: Black Stool, Bloody Stool, Constipation, Diarrhea, Difficulty Swallowing, Distension, Nausea, Vomiting : Reports: No Symptoms Musculoskeletal: Reports: Other (no acute changes from baseline) Skin: Reports: No Symptoms Neurological: Reports: No Symptoms Psychiatric: Reports: No Symptoms ED EXAM, GENERAL - Physical Exam Exam: See Below Exam Limited By: No Limitations General Appearance: Mild Distress Eye Exam: Bilateral Eye: EOMI, PERRL Ears: Hearing Grossly Normal Nose: No: Nasal Deformity, Nasal Swelling, Nasal Drainage Throat/Mouth: Normal Lips, Normal Voice, No Airway Compromise Head: Atraumatic, Normocephalic Neck: Supple, Non-Tender, Full Range of Motion Respiratory/Chest: No Respiratory Distress, Lungs Clear, Normal Breath Sounds, Other (tender with palpation lateral lower ribs and soft tissue just inferiorly) Cardiovascular: Normal Peripheral Pulses, Regular Rate, Rhythm, No Murmur GI/Abdominal: Normal Bowel Sounds, Soft, Other (no focal tenderness noted). No : Guarding, Rigid, Rebound (Female) Exam: Deferred Rectal (Female) Exam: Deferred Back Exam: No: CVA Tenderness (L), CVA Tenderness (R), Muscle Spasm, Paraspinal Tenderness, Vertebral Tenderness Extremities: Normal Range of Motion, Non-Tender, Normal Capillary Refill Neurological: Alert, Oriented, Normal Cognition, Normal Gait, No Motor/Sensory Deficits Psychiatric: Normal Affect, Normal Mood Skin Exam: Warm, Dry, Intact, Normal Color Course - Vital Signs Last Recorded V/S: Last Vital Signs Temp 37.0 C 07/03/19 20:39 Pulse 89 07/03/19 20:39 Resp 16 07/03/19 20:39 BP 111/69 07/03/19 20:39 Pulse Ox 100 07/03/19 20:39 - Orders/Labs/Meds Labs: Laboratory Tests 07/03/19 07/03/19 07/03/19 Range/Units 20:35 20:35 20:35 WBC 7.4 (4.0-10.2) K/uL RBC 3.15 L (3.77-5.09) M/uL Hgb 9.2 L (11.7-15.5) g/dL Hct 28.0 L (34.0-46.0) % MCV 88.9 (84.0-98.0) fL MCH 29.2 (28.2-33.3) pg MCHC 32.9 (31.7-36.0) g/dL RDW 15.1 H (11.2-14.1) % Plt Count 510 H D (150-350) K/uL Neut % (Auto) 49.9 (45.0-80.0) % Lymph % (Auto) 36.3 (10.0-50.0) % [place] % (Auto) 7.9 (2.0-14.0) % Eos % (Auto) 5.4 H (0.0-5.0) % Baso % (Auto) 0.5 (0.0-2.0) % Neut # (Auto) 3.68 (1.40-7.00) K/uL Lymph # (Auto) 2.68 (0.50-3.50) K/uL [place] # (Auto) 0.58 (0.00-1.00) K/uL Eos # (Auto) 0.40 (0.00-0.50) K/uL Baso # (Auto) 0.04 (0.00-0.20) K/uL D-Dimer, Quantitative (0-400) ng/mL Sodium 138 (136-145) mmol/L Potassium 2.9 L* (3.5-5.1) mmol/L Chloride 105 (98-107) mmol/L Carbon Dioxide 25.4 (21.0-32.0) mmol/L BUN 18 (7-18) mg/dL Creatinine 0.80 (0.51-1.17) mg/dL Est Cr Clr Drug Dosing TNP Estimated GFR (MDRD) > 60 mL/min Glucose 100 (74-106) mg/dL Lactic Acid 1.6 (0.4-2.0) mmol/L Calcium 8.2 L (8.5-10.1) mg/dL Magnesium 1.5 L (1.8-2.4) mg/dL Total Bilirubin 0.2 (0.2-1.0) mg/dL AST 27 (15-37) U/L ALT 50 (12-78) U/L Alkaline Phosphatase 126 H (46-116) IU/L Total Protein 6.2 L (6.4-8.2) g/dL Albumin 3.4 (3.4-5.0) g/dL Specimen Type Urine Color Urine Appearance Urine pH (5.0-9.0) Ur Specific [place] (1.005-1.030) Urine Protein (NEGATIVE) mg/dL Urine Glucose (UA) (NEGATIVE) mg/dL Urine Ketones (NEGATIVE) mg/dL Urine Occult Blood (NEGATIVE) Urine Nitrite (NEGATIVE) Urine Bilirubin (NEGATIVE) Urine Urobilinogen (0.2-1.0) E.U./dL Ur Leukocyte Esterase (NEGATIVE) U Hyaline Cast (Auto) Urine RBC /HPF Urine WBC /HPF Ur Epithelial Cells /LPF Other Crystals /HPF Urine Bacteria (NONE TO FEW) /HPF Urine Mucus (NEGATIVE) /LPF 07/03/19 07/03/19 Range/Units 20:35 21:00 WBC (4.0-10.2) K/uL RBC (3.77-5.09) M/uL Hgb (11.7-15.5) g/dL Hct (34.0-46.0) % MCV (84.0-98.0) fL MCH (28.2-33.3) pg MCHC (31.7-36.0) g/dL RDW (11.2-14.1) % Plt Count (150-350) K/uL Neut % (Auto) (45.0-80.0) % Lymph % (Auto) (10.0-50.0) % [place] % (Auto) (2.0-14.0) % Eos % (Auto) (0.0-5.0) % Baso % (Auto) (0.0-2.0) % Neut # (Auto) (1.40-7.00) K/uL Lymph # (Auto) (0.50-3.50) K/uL [place] # (Auto) (0.00-1.00) K/uL Eos # (Auto) (0.00-0.50) K/uL Baso # (Auto) (0.00-0.20) K/uL D-Dimer, Quantitative 102 (0-400) ng/mL Sodium (136-145) mmol/L Potassium (3.5-5.1) mmol/L Chloride (98-107) mmol/L Carbon Dioxide (21.0-32.0) mmol/L BUN (7-18) mg/dL Creatinine (0.51-1.17) mg/dL Est Cr Clr Drug Dosing Estimated GFR (MDRD) mL/min Glucose (74-106) mg/dL Lactic Acid (0.4-2.0) mmol/L Calcium (8.5-10.1) mg/dL Magnesium (1.8-2.4) mg/dL Total Bilirubin (0.2-1.0) mg/dL AST (15-37) U/L ALT (12-78) U/L Alkaline Phosphatase (46-116) IU/L Total Protein (6.4-8.2) g/dL Albumin (3.4-5.0) g/dL Specimen Type Urinblad Urine Color Yellow Urine Appearance Clear Urine pH 5.5 (5.0-9.0) Ur Specific [place] >= 1.030 (1.005-1.030) Urine Protein Trace H (NEGATIVE) mg/dL Urine Glucose (UA) Negative (NEGATIVE) mg/dL Urine Ketones Negative (NEGATIVE) mg/dL Urine Occult Blood Trace-intact H (NEGATIVE) Urine Nitrite Negative (NEGATIVE) Urine Bilirubin Small H (NEGATIVE) Urine Urobilinogen 0.2 (0.2-1.0) E.U./dL Ur Leukocyte Esterase Negative (NEGATIVE) U Hyaline Cast (Auto) Few Urine RBC 5-10 H /HPF Urine WBC 5-10 H /HPF Ur Epithelial Cells Rare /LPF Other Crystals Rare /HPF Urine Bacteria Few (NONE TO FEW) /HPF Urine Mucus Few H (NEGATIVE) /LPF Meds: Medications Discontinued Medications Generic Name Dose Route Start Last Admin Trade Name Freq PRN Reason Stop Dose Admin Ketorolac Tromethamine 60 mg 07/03/19 21:24 07/03/19 21:49 Toradol IM 07/03/19 21:25 60 mg ONETIME ONE Administration Potassium Chloride 40 meq 07/03/19 21:25 07/03/19 21:49 Klor-Con M20 PO 07/03/19 21:26 40 meq ONETIME ONE Administration - Re-Assessments/Exams Free Text/Narrative Re-Assessment/Exam: 07/03/19 22:43 Vital signs stable, afebrile Basic labs obtained. Hgb dropped from 10 to 9.2 WBC and DDimer normal. CMP overall unremarkable except for K of 2.9 Mag also low at 1.5 PO K ordered and IM Toradol for pain. Given that patient is continuing to have these issues for over a month and has had multiple scans/workups that have not been helpful in pinpointing cause of symptoms, call placed to [facility] and spoke to in the ER. Will transfer patient to their facility for further evaluation. GI available if needed. Patient will go via private car. She is agreeable with plan. Departure - Departure Time of Disposition: 21:27 Disposition: DC/Tfer to Acute Hospital 02 Condition: Good Clinical Impression: Abdominal pain, Shortness of breath, Hypomagnesemia, Hypokalemia - Discharge Information *PRESCRIPTION DRUG MONITORING PROGRAM REVIEWED*: Not Applicable *COPY OF PRESCRIPTION DRUG MONITORING REPORT IN PATIENT SAM: Not Applicable Referrals: Moriah Albrecht, VI [Primary Care Provider] - Forms: ED Department Discharge Additional Instructions: Drive directly to [facility]. We spoke to . They are expecting you and will determine what next steps to take. Sepsis Event Note - Evaluation Sepsis Screening Result: No Definite Risk - Focused Exam Vital Signs: Vital Signs Temp Pulse Resp BP Pulse Ox 07/03/19 20:39 37.0 C 89 16 111/69 100 Date Exam was Performed: 07/03/19 Time Exam was Performed: 21:59
[2019-07-03] MEDS: Ketorolac 60 MG/2 ML SDV IM ONE (21:49)
[2019-07-03] MEDS: Potassium Chloride 20 MEQ Tab.ER PO ONE (21:49)
== END 2019-07-03 22:05 ==
LOC: LL.ED 20:36
DX: E87.6 Hypokalemia (principal); E83.42 Hypomagnesemia; R10.9 Unspecified abdominal pain; F41.9 Anxiety disorder, unspecified; F32.9 Major depressive disorder, single episode, unspecified; J45.909 Unspecified asthma, uncomplicated; M41.9 Scoliosis, unspecified; E03.9 Hypothyroidism, unspecified; E66.9 Obesity, unspecified; Z79.82 Long term (current) use of aspirin; Z91.040 Latex allergy status; Z88.8 Allergy status to other drugs, medicaments and biological substances
CPT/HCPCS: 36415; 80053; 81001; 83605; 83735; 85025; 85379; 96372; 99285; A9270-GY; J1885

== ENCOUNTER 2019-07-13 18:54 | Emergency (ER) | payer OTHER ==
[2019-07-13 18:58] VITALS: PULSE 99
[2019-07-13 19:14] VITALS: BP 108/61
--- NOTE | 2019-07-13 19:21 | EDM.PDOC ---
ED HPI GENERAL MEDICAL PROBLEM - General Chief Complaint: Abdominal Pain Stated Complaint: abdominal pain, panic attack Time Seen by Provider: 07/13/19 19:10 Source of Information: Reports: Patient, Old Records ([facility] chart/EMR), Other ([facility]) History Limitations: Reports: No Limitations - History of Present Illness INITIAL COMMENTS - FREE TEXT/NARRATIVE: The patient was brought to the emergency room via private automobile by her for evaluation of persistent and progressive intermittent 8/10 bilateral lower quadrant sharp abdominal pain and cramping with recent hospitalization at [facility] in [place] for similar type symptoms with hospital discharge on 07/05/19. Symptoms have become somewhat progressive since about 14:00 hours this afternoon with patient taking 1000 g of Tylenol at that time. She has had some nausea, however no emesis to this point. The patient did have a small bowel movement shortly prior to arrival to this facility, however she continues to have problems with some moderate constipation. She denies any gross hematuria, colic, UTI symptoms. The patient denies any chest pain/pressure , heart flutter, orthostasis, orthopnea, diaphoresis, paresthesias, recent decreased exercise tolerance, or any other anginal-type symptoms, although some nonspecific dizziness earlier today associated with some increased anxiety and a possible panic attack. No recent history of other abdominal pain, heartburn, diarrhea, melena, gross hematochezia, or any food intolerance, including fatty foods, etc.. The patient also denies any recent fever, cough, wheezing, dyspnea , etc.. Onset: Today, Gradual Onset Date: 07/13/19 Onset Time: 14:00 Duration: Getting Worse, Intermittent Location: Reports: Abdomen, Radiates to (Sides bilaterally). Denies: Head, Face , Neck, Chest, Back, Pelvis, Upper Extremity, Left, Upper Extremity, Right, Lower Extremity, Left, Lower Extremity, Right Quality: Reports: Same as Previous Episode, Sharp, Stabbing, Other (Cramping) Severity: Moderate Improves with: Reports: None Worsens with: Reports: None Context: Reports: Other (As above). Denies: Sick Contact, Trauma Associated Symptoms: Reports: Nausea/Vomiting (No emesis). Denies: Confusion, Chest Pain, Cough, Diaphoresis, Fever/Chills, Headaches, Loss of Appetite, Malaise, Rash, Shortness of Breath, Syncope, Weakness Treatments SIDE PANEL HANGER: Reports: Acetaminophen Bilateral Lower Abdominal Pain Score (Numeric/FACES): 8 - Related Data Allergies Allergy/AdvReac Type Severity Reaction Status Date / Time Latex, Natural Rubber Allergy Hives Verified 07/03/19 20:43 ondansetron Allergy Shaking,Tac Verified 07/03/19 20:43 hycardia promethazine HCl Allergy Irritabilit Verified 07/03/19 20:43 [From Phenergan] y Home Meds: Home Meds Non-Formulary Medication [NF Drug] 1 tab PO DAILY #100 09/21/16 [Rx] Potassium Chloride [Klor-Con M20] 20 meq PO BID tab.er 09/21/16 [Rx] FLUoxetine HCl [Fluoxetine HCl] 20 mg PO DAILY 07/27/18 [History] Cyanocobalamin (Vitamin B12) [Vitamin B12] 1,000 mcg IM Q30D sdv 09/29/18 [Rx] Levothyroxine [Synthroid] 100 mcg PO ACBREAKFAST 30 Days #30 tablet 09/29/18 [Rx ] Acetaminophen/Diphenhydramine [Tylenol Pm Ex-Strength Caplet] 1 tab PO BEDTIME 03/29/19 [History] Folic Acid 1 mg PO DAILY 03/29/19 [History] Magnesium Oxide 800 mg PO BEDTIME 03/29/19 [History] Aspirin/Acetaminophen/Caffeine [Migraine Relief Caplet] 2 tab PO Q4HR PRN [History] Cholecalciferol (Vitamin D3) [Vitamin D3] 2,000 unit PO DAILY 06/28/19 [History] Docusate Sodium [Colace] 100 mg PO BID #60 cap 07/13/19 [Rx] Docusate Sodium [Dulcolax Stool Softener] 3 tab PO DAILY 07/13/19 [History] Magnesium Oxide 400 mg PO DAILY@1200 #30 tab 07/13/19 [Rx] Mirtazapine [Remeron] 15 mg PO BEDTIME #14 tab.dis 07/13/19 [Rx] Zinc 0 tab PO DAILY 07/13/19 [History] polyethylene glycoL 3350 [MiraLAX] 17 gm PO TID 07/13/19 [History] Past Medical History HEENT History: Reports: Allergic Rhinitis, Cataract, Impaired Vision, Sinusitis , Other (See Below). Denies: Glaucoma, Hard of Hearing, Macular Degeneration, Otitis Media, Retinal Detachment Other HEENT History: Left retinal vein occlusion with secondary macular edema on 09/24/18 with left ocular injections with last injection on 04/02/19. Soft contact lenses, glasses. Bilateral cataractsmild. Cardiovascular History: Reports: Arrhythmia, High Cholesterol, Syncope, Other ( See Below). Denies: Afib, Aneurysm, Blood Clots/VTE/DVT, CAD, Cardiomyopathy, Heart Failure, Heart Murmur, Hypertension, DE, PVD Other Cardiovascular History: History of d-dimer elevation with extensive negative workup on 02/25/19. Short CO interval. History of obesity and hyperlipidemia with fatty liver including post gastric bypass, previous recurrent syncope of unknown etiology with last episode in July 2014, chronic hypotension Respiratory History: Reports: Asthma, Bronchitis, Recurrent, Intubation, Previous, Other (See Below). Denies: COPD, Intubation, Difficult, PE, Pneumonia , Recurrent, Pneumothorax, Sleep Apnea, TB Other Respiratory History: Newly diagnosed 2 mm left upper lobe and 3 mm right upper lobe benign pulmonary granulomas by CTA of the chest on 02/25/19 with previous stable right lower lobe benign pulmonary nodules. Gastrointestinal History: Reports: Bowel Obstruction, Chronic Constipation, Chronic Diarrhea, Fatty Liver, Gastritis, GERD, GI Bleed, Hemorrhoids, PUD, Other (See Below). Denies: Celiac Disease, Cholelithiasis, Fecal Incontinence, Hepatitis, Hiatal Hernia, Inflammatory Bowel Disease, Irritable Bowel Syndrome, Jaundice, Pancreatitis Other Gastrointestinal History: History of fatty liver with LFTs elevation including post gastric bypass surgery with secondary malabsorption syndrome as below, upper GI bleed secondary to gastric ulcer in her mid 30s with no blood transfusion required, multiple previous small bowel obstructions secondary to previous gastric bypass surgery. Previous marginal ulcer. Benign hepatic hemangiomas [address] Genitourinary History: Reports: None. Denies: Acute Renal Failure, Chronic Renal Insuffiency, Renal Calculus, Retention, Urinary, STD, Urinary Incontinence , UTI, Recurrent HAND ENGRAVER History: Reports: Dysfunctional Uterine Bleeding, Fibroids, Polycystic Ovaries, . Denies: Endometriosis, Spontaneous : 3 Para: 3 LMP (Approximate): Other (See Below) Other HAND ENGRAVER History: Previous endometrial ablation in April 2019 with history of hypermenorrhea since 2018 with menses lasting usually about 7 days with probable secondary anemia. Uterine fibroid by pelvic ultrasound on 02/25/19. Full term deliveries without complications during pregnancies or deliveries. Bilateral ovarian cysts. LMP about 2 weeks ago with no significant bleeding no intermittent vaginal spotting at this time. Musculoskeletal History: Reports: Osteoarthritis, Other (See Below). Denies: Arthritis, Back Pain, Chronic, Fracture, Gout, Neck Pain, Chronic, RA, SLE Other Musculoskeletal History: Mild scoliosis. Neurological History: Reports: Headaches, Chronic, Vertigo, Other (See Below). Denies: Concussion, CVA, Head Trauma, Migraines, MS, Neuropathy, Peripheral, Parkinson's, Seizure, TIA Other Neuro History: Chronic vertigo/car sickness. Near syncopal/syncopal episodes as above. Psychiatric History: Reports: Addiction, Anxiety, Depression, Other (See Below) . Denies: Abuse, Victim of, ADD, ADHD, Psych Hospitalization(s), Psychosis, PTSD, Schizophrenia, Suicide Attempt, Suicidal Ideation Other Psychiatric History: Tramadol use. 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 Denies: Diabetes, Gestational, Diabetes, Type I, Diabetes, Type II, Diabetes Mellitus, Type 3c, IDDM, Osteopenia, Osteoporosis Other Endocrine/Metabolic History: Previous borderline hyperglycemia secondary to obesity; borderline hypothyroidism with history of multiple benign thyroid nodules. Hypoalbuminemia. Complex left adrenal cysts by CT scan. Hematologic History: Reports: Anemia, B12 Deficiency, Folic Acid, Iron Deficiency, Other (See Below) Other Hematologic History: Malabsorption syndrome secondary to her gastric bypass resulting in severe iron deficiency with additional component from her hypermenorrhea as above. Additional vitamin B-12 and folic acid deficiency. Thrombocytosis. Immunologic History: Reports: None. Denies: AIDS, HIV, SLE Oncologic (Cancer) History: Reports: None. Denies: Basal Cell Carcinoma, Bladder, Breast, Cervix, Colon, Hodgkin's Lymphoma, Leukemia, Lymphoma, Malignant Melanoma, Non-Hodgkin's Lymphoma, Ovarian, Squamous Cell Carcinoma, Thyroid, Uterine Dermatologic History: Reports: None. Denies: Eczema, Melanoma - Infectious Disease History Infectious Disease History: Reports: Chicken Pox, Shingles. Denies: C-Difficile , Measles, Meningitis, Mononucleosis, MRSA, Mumps, Novel Coronavirus, Pertussis (Whooping Cough), Rheumatic Fever, Rubella, Scarlet Fever, TB, VRE - Past Surgical History Head Surgeries/Procedures: Reports: None HEENT Surgical History: Reports: Eye Surgery, Oral Surgery, Other (See Below). Denies: Adenoidectomy, Cataract Surgery, Laser Surgery, LASIK, Myringotomy w Tube(s), Naso-Sinus Surgery, Tonsillectomy Other HEENT Surgeries/Procedures: Left eye intravitrial injection of Sepproc initiated on 08/26/18 secondary to macular edema as above. [place] teeth extraction 2 at age 20 Cardiovascular Surgical History: Reports: None. Denies: Varicose Respiratory Surgical History: Reports: None. Denies: Thoracentesis GI Surgical History: Reports: Bariatric Procedure, Cholecystectomy, Colonoscopy , EGD, Hernia, Abdominal, Hernia, Inguinal, Hernia Repair/Other, Other (See Below). Denies: Appendectomy, Polypectomy Other GI Surgeries/Procedures: Gastric bypass surgery with concomitant cholecystectomy on 09/09/07, patient denies previous gastric bypass revisions as per medical records although evidence of anastomosis dilatations in the past EGD , last EGD and colonoscopy on 12/07/16 with previous EGDs on 11/27/15 and . EGD in 2007 with concomitant gastric feeding tube placement at that time, laparoscopic umbilical hernia repair with mesh placement on 12/03/15, right inguinal hernia repair in 2004. Female Surgical History: Reports: Section, Endometrial Ablation, Hysterectomy, Tubal Ligation, Other (See Below). Denies: D&C Other Female Surgeries/Procedures: Hysteroscopy with endometrial ablation on 04/22/19. in 1996, 1999, 2000; tubal ligation in 2000. Endocrine Surgical History: Reports: Thyroid Biopsy, Other (See Below) Other Endocrine Surgeries/Procedures: Thyroid biopsy on 02/19/14. Neurological Surgical History: Reports: None. Denies: C-Spine, Discectomy, Laminectomy, Lumbar Spine, Sacral Spine, Spinal Fusion, Thoracic Spine, Vertebroplasty Musculoskeletal Surgical History: Reports: None. Denies: Arthroscopic Procedure , Carpal Tunnel, Ganglion Cyst, Joint Replacement, Knee Replacement, ORIF, Shoulder Surgery Oncologic Surgical History: Reports: None Dermatological Surgical History: Reports: Skin Biopsy, Other (See Below) Other Dermatological Surgeries/Procedures: Multiple skin biopsies for benign disease in the right back and right hand on 09/03/18. - Past Imaging History Past Imaging History: Reports: Cardiac Echo (07/29/09 with ejection fraction of 68 %), CAT Scan (Negative CTA of the chest for PE on 06/28/19 and 02/25/19. CT of the brain on 09/28/18 and 06/20/08, CT of the abdomen and pelvis with contrast on 06/24/19 , 05/21/19, 05/09/19, 06/12/11, 09/08/10, and 06/20/08. CTA of the abdomen on . CT of the head and cervical region on 07/24/09), Mammogram (Last on 12/17/18.) , Ultrasound (Pelvic ultrasound on 02/25/19. Right breast ultrasound on 09/22/17. Thyroid ultrasounds on 06/30/16 and 12/09/13. Abdominal ultrasound on 11/06/08), Venous Doppler (Negative venous Doppler studies of the legs bilaterally on .), Other (See Below) (Nuclear medicine evaluation of the sphincter of Oddi on 06/25/19.) Social & Family History - Family History Family Medical History: Noncontributory HEENT: Reports: Cataract, Other (See Below) Other HEENT Family History: Father with cataracts. Cardiac: Reports: High Cholesterol, Hypertension, Other (See Below) Other Cardiac Family History: Father with hyperlipidemia, hypertension in father and maternal grandfather Respiratory: Reports: Sleep Apnea, Other (See Below) Other Respiratory Family Hisory: Father with sleep apnea and history of tobacco use GI: Reports: Colon Polyps, GERD, PUD, Other (See Below) Other GI Family History: GERD in mother, father with colonic polyps and peptic ulcer disease : Reports: None OBGYN: Reports: Dysfunctional uterine bleeding, Fibroids, Recurrent Spontaneous , Other (See Below) Other OBGYN Family History: Mother with dysfunctional uterine bleeding requiring hysterectomy with additional history of recurrent SAB Musculoskeletal: Reports: Arthritis, Gout, Osteoarthritis, Other (See Below) Other Musculoskeletal Family History: Father with gout Neurological: Reports: None Psychiatric: Reports: Anxiety, Depression, Other (See Below) Other Psychiatric Family History: Anxiety depression disorder in mother, maternal great grandmother and paternal great-grandmother Endocrine/Metabolic: Reports: Diabetes, type II, Hypothyroidism, IDDM, Other ( See Below) Other Endocrine/Metabolic Family History: IDDM in maternal grandmother, paternal grandmother, maternal grandfather, and maternal great-grandmother with brother with possible hyperglycemia, father with hypothyroidism secondary to thyroid resection from metastatic renal cancer as below Hematologic: Reports: Anemia Immunologic: Reports: None Dermatologic: Reports: None Oncologic: Reports: Leukemia, Metastatic, Renal, Skin, Thyroid, Other (See Below ) Other Oncologic Family History: Mother with melanoma, paternal grandmother with basal cell carcinoma, maternal aunt with basal cell carcinoma, Cousin with leukemia, mother with multiple myeloma, father with metastatic renal cancer with metastases to the thyroid gland and lungs - Caffeine Use Caffeine Use: Reports: Soda Other Caffeine Use: 2 per day Caffeine Use Comment: DAILY 2BOTTLES - Living Situation & Occupation Living situation: Reports: (1997, 3 children), with Family ( and 3 children) Occupation: Employed ([employer] at [employer]. 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 ED EXAM, GI/ABD - Physical Exam Exam: See Below Exam Limited By: No Limitations General Appearance: Alert, WD/WN, No Apparent Distress, Anxious (Moderate to severe) Eyes: Bilateral: Normal Appearance (No nystagmus), EOMI (PERRLA) Ears: Normal External Exam, Normal Canal, Hearing Grossly Normal, Normal TMs Nose: Normal Inspection, Normal Mucosa, No Blood Throat/Mouth: Normal Inspection, Normal Lips, Normal Teeth, Normal Gums, Normal Oropharynx, Normal Voice, No Airway Compromise. No: Dysphagia, Perioral Cyanosis Head: Atraumatic, Normocephalic. No: Facial Swelling, Facial Tenderness, Sinus Tenderness Neck: Normal Inspection, Supple, Non-Tender, Full Range of Motion. No: Carotid Bruit, Lymphadenopathy (L), Lymphadenopathy (R), Thyromegaly Respiratory/Chest: No Respiratory Distress, Lungs Clear, Normal Breath Sounds, No Accessory Muscle Use, Chest Non-Tender. No: Pleural Rub, Retractions Cardiovascular: Normal Peripheral Pulses, Regular Rate, Rhythm, No Edema, No Gallop, No JVD, No Murmur, No Rub. No: Gallop/S3, Gallop/S4, Friction Rub GI/Abdominal Exam: Normal Bowel Sounds, Soft, No Organomegaly, No Distention, No Abnormal Bruit, No Mass, Pelvis Stable, Tender (Borderline mild bilateral lower quadrant). No: Guarding, Rigid, Rebound, Hernia (Female) Exam: Deferred Rectal (Female) Exam: Normal Exam, Normal Rectal Tone (Although borderline increased), Black Stool (Secondary to iron supplementation), Heme + Stool, Hemorrhoids (Grade 2 internal/external). No: Bloody Stool, Mass, Rectal Fissure , Tenderness (No Gabriel space tenderness) Back Exam: Normal Inspection, Full Range of Motion. No: CVA Tenderness (L), CVA Tenderness (R), Muscle Spasm Extremities: Normal Inspection, Normal Range of Motion, Non-Tender, No Pedal Edema, Normal Capillary Refill. No: Saturnino's Sign Neurological: Alert, Oriented, CN II-XII Intact, Normal Cognition, Normal Gait, Normal Reflexes (Negative Babinski's), No Motor/Sensory Deficits Psychiatric: Anxious (Moderate to severe), Depressed Mood (Moderate with adequate eye contact), Tearful Skin Exam: Warm, Dry, Intact, No Rash, Pallor (Moderate), Tattoo(s) (multible). No: Diaphoretic, Ecchymosis, Lymphangitis, Petechiae, Wound/Incision Lymphatic: No Adenopathy Course - Vital Signs Last Recorded V/S: Last Vital Signs Temp 36.8 C 07/13/19 18:57 Pulse 99 07/13/19 19:13 Resp 24 H 07/13/19 19:13 BP 108/61 07/13/19 19:13 Pulse Ox 100 07/13/19 19:13 Vital Signs - 24 hr 07/13/19 07/13/19 18:57 19:13 Temperature [ 36.8 C Temporal] Pulse, 99 99 Peripheral [ Right Pulse Oximetry] Respiratory 20 24 H Rate Blood Pressure 124/72 108/61 [Left Upper Arm ] O2 Sat by Pulse 100 100 Oximetry - Orders/Labs/Meds Orders: Active Orders 24 hr Category Date Time Status Enema [RC] ASDIRECTED Care 07/13/19 20:54 Active Peripheral IV Care [RC] . DIRECTED Care 07/13/19 19:22 Active Nothing Per Oral Diet [DIET] Diet 07/13/19 Breakfast Active Abdomen Series w Chest 1V [CR] Stat Exams 07/13/19 19:22 Taken CULTURE URINE [RM] Stat Lab 07/13/19 19:22 Ordered UA W/MICROSCOPIC [URIN] Stat Lab 07/13/19 19:22 Ordered Sodium Chloride 0.9% [Saline Flush] Med 07/13/19 19:22 Active 10 ml FLUSH ASDIRECTED PRN Obtain Past Medical Record [OM.PC] Urgent Oth 07/13/19 19:22 Active Peripheral IV Insertion Adult [OM.PC] Stat Oth 07/13/19 19:22 Ordered Resuscitation Status Stat Resus Stat 07/13/19 19:22 Ordered Medication Orders Sodium Chloride (Saline Flush) 10 ml FLUSH ASDIRECTED PRN PRN Reason: Keep Vein Open Last Admin: 07/13/19 20:10 Dose: 10 ml Labs: Laboratory Tests 07/13/19 07/13/19 07/13/19 Range/Units 19:45 19:45 19:45 WBC 7.8 (4.0-10.2) K/uL RBC 3.30 L (3.77-5.09) M/uL Hgb 9.7 L (11.7-15.5) g/dL Hct 29.9 L (34.0-46.0) % MCV 90.6 (84.0-98.0) fL MCH 29.4 (28.2-33.3) pg MCHC 32.4 (31.7-36.0) g/dL RDW 15.1 H (11.2-14.1) % Plt Count 450 H (150-350) K/uL Neut % (Auto) 69.4 (45.0-80.0) % Lymph % (Auto) 21.6 (10.0-50.0) % Moore % (Auto) 6.4 (2.0-14.0) % Eos % (Auto) 2.1 (0.0-5.0) % Baso % (Auto) 0.5 (0.0-2.0) % Neut # (Auto) 5.39 (1.40-7.00) K/uL Lymph # (Auto) 1.68 (0.50-3.50) K/uL Moore # (Auto) 0.50 (0.00-1.00) K/uL Eos # (Auto) 0.16 (0.00-0.50) K/uL Baso # (Auto) 0.04 (0.00-0.20) K/uL PT 9.9 (9.5-12.0) SEC INR 1.0 APTT 23.8 L (24.5-32.8) SEC Sodium (136-145) mmol/L Potassium (3.5-5.1) mmol/L Chloride (98-107) mmol/L Carbon Dioxide (21.0-32.0) mmol/L BUN (7-18) mg/dL Creatinine (0.51-1.17) mg/dL Est Cr Clr Drug Dosing Estimated GFR (MDRD) mL/min Glucose (74-106) mg/dL Lactic Acid (0.4-2.0) mmol/L Uric Acid (2.6-7.2) mg/dL Calcium (8.5-10.1) mg/dL Magnesium (1.8-2.4) mg/dL Total Bilirubin (0.2-1.0) mg/dL AST (15-37) U/L ALT (12-78) U/L Alkaline Phosphatase (46-116) IU/L Total Protein (6.4-8.2) g/dL Albumin (3.4-5.0) g/dL Amylase 53 (25-115) U/L Lipase (73-393) U/L TSH, Ultra Sensitive (0.358-3.740) mIU/mL HCG, Qual (NEGATIVE) 07/13/19 07/13/19 07/13/19 Range/Units 19:45 19:45 19:45 WBC (4.0-10.2) K/uL RBC (3.77-5.09) M/uL Hgb (11.7-15.5) g/dL Hct (34.0-46.0) % MCV (84.0-98.0) fL MCH (28.2-33.3) pg MCHC (31.7-36.0) g/dL RDW (11.2-14.1) % Plt Count (150-350) K/uL Neut % (Auto) (45.0-80.0) % Lymph % (Auto) (10.0-50.0) % Moore % (Auto) (2.0-14.0) % Eos % (Auto) (0.0-5.0) % Baso % (Auto) (0.0-2.0) % Neut # (Auto) (1.40-7.00) K/uL Lymph # (Auto) (0.50-3.50) K/uL Moore # (Auto) (0.00-1.00) K/uL Eos # (Auto) (0.00-0.50) K/uL Baso # (Auto) (0.00-0.20) K/uL PT (9.5-12.0) SEC INR APTT (24.5-32.8) SEC Sodium 139 (136-145) mmol/L Potassium 3.2 L (3.5-5.1) mmol/L Chloride 102 (98-107) mmol/L Carbon Dioxide 21.1 (21.0-32.0) mmol/L BUN 21 H (7-18) mg/dL Creatinine 0.89 (0.51-1.17) mg/dL Est Cr Clr Drug Dosing TNP Estimated GFR (MDRD) > 60 mL/min Glucose 136 H (74-106) mg/dL Lactic Acid 5.1 H (0.4-2.0) mmol/L Uric Acid 4.8 (2.6-7.2) mg/dL Calcium 9.1 (8.5-10.1) mg/dL Magnesium 1.6 L (1.8-2.4) mg/dL Total Bilirubin 0.3 (0.2-1.0) mg/dL AST 37 (15-37) U/L ALT 51 (12-78) U/L Alkaline Phosphatase 165 H (46-116) IU/L Total Protein 6.4 (6.4-8.2) g/dL Albumin 3.8 (3.4-5.0) g/dL Amylase (25-115) U/L Lipase 86 (73-393) U/L TSH, Ultra Sensitive (0.358-3.740) mIU/mL HCG, Qual Negative (NEGATIVE) 07/13/19 Range/Units 19:45 WBC (4.0-10.2) K/uL RBC (3.77-5.09) M/uL Hgb (11.7-15.5) g/dL Hct (34.0-46.0) % MCV (84.0-98.0) fL MCH (28.2-33.3) pg MCHC (31.7-36.0) g/dL RDW (11.2-14.1) % Plt Count (150-350) K/uL Neut % (Auto) (45.0-80.0) % Lymph % (Auto) (10.0-50.0) % Moore % (Auto) (2.0-14.0) % Eos % (Auto) (0.0-5.0) % Baso % (Auto) (0.0-2.0) % Neut # (Auto) (1.40-7.00) K/uL Lymph # (Auto) (0.50-3.50) K/uL Moore # (Auto) (0.00-1.00) K/uL Eos # (Auto) (0.00-0.50) K/uL Baso # (Auto) (0.00-0.20) K/uL PT (9.5-12.0) SEC INR APTT (24.5-32.8) SEC Sodium (136-145) mmol/L Potassium (3.5-5.1) mmol/L Chloride (98-107) mmol/L Carbon Dioxide (21.0-32.0) mmol/L BUN (7-18) mg/dL Creatinine (0.51-1.17) mg/dL Est Cr Clr Drug Dosing Estimated GFR (MDRD) mL/min Glucose (74-106) mg/dL Lactic Acid (0.4-2.0) mmol/L Uric Acid (2.6-7.2) mg/dL Calcium (8.5-10.1) mg/dL Magnesium (1.8-2.4) mg/dL Total Bilirubin (0.2-1.0) mg/dL AST (15-37) U/L ALT (12-78) U/L Alkaline Phosphatase (46-116) IU/L Total Protein (6.4-8.2) g/dL Albumin (3.4-5.0) g/dL Amylase (25-115) U/L Lipase (73-393) U/L TSH, Ultra Sensitive 3.421 (0.358-3.740) mIU/mL HCG, Qual (NEGATIVE) Meds: Medications Generic Name Dose Route Start Last Admin Trade Name Jesus PRN Reason Stop Dose Admin Sodium Chloride 10 ml 07/13/19 19:22 07/13/19 20:10 Saline Flush FLUSH 10 ml ASDIRECTED PRN Administration Keep Vein Open Discontinued Medications Generic Name Dose Route Start Last Admin Trade Name Jesus PRN Reason Stop Dose Admin Famotidine 40 mg 07/13/19 19:22 07/13/19 20:05 Pepcid IVPUSH 07/13/19 19:23 40 mg ONETIME ONE Administration Lactated Ringer's 1,000 mls @ 999 mls/hr 07/13/19 19:22 07/13/19 20:15 Ringers, Lactated IV 07/13/19 20:22 999 mls/hr .BOLUS ONE Administration Lorazepam 0.5 mg 07/13/19 19:24 07/13/19 19:45 Ativan IVPUSH 07/13/19 19:25 0.5 mg ONETIME ONE Administration Metoclopramide HCl 10 mg 07/13/19 19:24 07/13/19 19:57 Reglan IVPUSH 07/13/19 19:25 10 mg ONETIME ONE Administration Ondansetron HCl 4 mg 07/13/19 19:22 07/13/19 20:15 Zofran IVPUSH 07/13/19 19:23 Not Given ONETIME ONE Ondansetron HCl Confirm 07/13/19 20:14 07/13/19 20:22 Zofran Administered 07/13/19 20:15 Not Given Dose 4 mg .ROUTE .STK-MED ONE Pantoprazole Sodium 40 mg 07/13/19 19:22 07/13/19 19:50 Protonix Iv IVPUSH 07/13/19 19:23 40 mg ONETIME ONE Administration Potassium Chloride 40 meq 07/13/19 20:35 07/13/19 20:43 Klor-Con M20 PO 07/13/19 20:36 40 meq ONETIME ONE Administration - Radiology Interpretation Free Text/Narrative:: Acute abdominal x-rays show evidence of some pulmonary obstructive disease with no cardiomegaly, CHF, pulmonary infiltrates, pneumothorax, etc.. Moderate diffuse bowel gaseous distention with only very occasional fluid levels and no evidence of significant ileus, obstruction, or free air. Postoperative changes noted. Moderate to severe stool noted in the distal colon and rectal vault. Departure - Departure Time of Disposition: 21:50 Disposition: Home, Self-Care 01 Condition: Good Clinical Impression: Abdominal pain, Hypothyroidism, Peptic reflux disease, Mixed anxiety depressive disorder Constipation Qualifiers: Constipation type: unspecified constipation type Qualified Code(s): K59.00 - Constipation, unspecified Anemia Qualifiers: Anemia type: other cause Other causes of anemia: nutritional, unspecified Qualified Code(s): D53.9 - Nutritional anemia, unspecified Asthma Qualifiers: Asthma severity: mild Asthma persistence: intermittent Asthma complication type : uncomplicated Qualified Code(s): J45.20 - Mild intermittent asthma, uncomplicated - Discharge Information *PRESCRIPTION DRUG MONITORING PROGRAM REVIEWED*: Not Applicable *COPY OF PRESCRIPTION DRUG MONITORING REPORT IN PATIENT SAM: Not Applicable Prescriptions: Docusate Sodium [Colace] 100 mg PO BID #60 cap Magnesium Oxide 400 mg PO DAILY@1200 #30 tab Mirtazapine [Remeron] 15 mg PO BEDTIME #14 tab.dis Instructions: Abdominal Pain, Adult, [id number] Referrals: Moriah Albrecht PA-C [Primary Care Provider] - Forms: ED Department Discharge Additional Instructions: 1. Followup with your regular provider in 10-14 days as directed with recommended repeat CBC, comprehensive metabolic panel, and magnesium level. Bring these discharge instructions with you to that visit. 2. Consider repeat TSH in 4 weeks secondary to increased magnesium supplementation today 3. Discuss with your GI specialist in [place] my recommendation for additional EGD at time of your upcoming colonoscopy 4. [place] diet including encouragement of oral fluids such as sports drinks, etc. for 24-48 hours as directed. Advance to regular high fiber diet as tolerated thereafter. 5. Bring all medications and supplements to your follow-up visit as above with medication changes to be discussed at that time. 6. Immediately after this visit verify that your cellular telephone's voicemail has been activated and is empty. Also verify that your home telephone 's answering machine is operating properly and has space to receive messages. Note that it is sometimes necessary for us to be able to contact you at a later date to discuss your medical care. 7. Please remember that we are ALWAYS here for you and want to answer any questions you may have. Feel free to call the hospital any time and we call you back ANNABEL. Sepsis Event Note - Evaluation Sepsis Screening Result: No Definite Risk - Focused Exam Vital Signs: Vital Signs Temp Pulse Resp BP Pulse Ox 07/13/19 19:13 99 24 H 108/61 100 07/13/19 18:57 36.8 C 99 20 124/72 100 Date Exam was Performed: 07/13/19 Time Exam was Performed: 22:03 - Problem List & Annotations (1) Abdominal pain SNOMED Code(s): 76430417 Code(s): R10.9 - UNSPECIFIED ABDOMINAL PAIN Status: Acute Priority: High Current Visit: No Onset Date: ~07/13/19 Annotation/Comment:: Note recent hospitalization at [facility] as above. Symptoms related to constipation at that time. She apparently has a colonoscopy scheduled in [place] in [place] on 07/17 with recommendation of an additional EGD at that time especially in light of her persistent anemia and this history of a marginal ulcer. She apparently did receive iron infusions during recent hospitalization and has been compliant with her iron sulfate supplementation. Note some improvement of her chronic anemia with hemoglobin of 9.7 in comparison to last hemoglobin of 9.2 per medical records. Note additional recent endometrial ablation. Patient apparently has already been worked up for celiac disease, which was negative by her history. Symptoms improved at discharge with IV Reglan, IV Pepcid, and IV Protonix given today. No further change in medical therapy for now until her GI workup has been completed as above. Note initiation of Prilosec and zinc at time of above hospitalization. Hemoccult-positive stool today with current iron supplementation. (2) Constipation SNOMED Code(s): 36016675 Code(s): K59.00 - CONSTIPATION, UNSPECIFIED Status: Chronic Priority: High Current Visit: No Annotation/Comment:: As above. She has been compliant with her high fiber diet, etc. Additional Colace on a twice a day regimen for now. May need to consider regularly scheduled MiraLAX. Note scheduled GI workup as above. Soapsuds enema given in the emergency room prior to discharge with good results. Qualifiers: Constipation type: unspecified constipation type Qualified Code(s): K59.00 - Constipation, unspecified (3) Anemia SNOMED Code(s): 408175235 Code(s): D64.9 - ANEMIA, UNSPECIFIED Status: Chronic Priority: High Current Visit: No Onset Date: ~05/30/16 Annotation/Comment:: As above. Note stable thrombocytosis. Qualifiers: Anemia type: other cause Other causes of anemia: nutritional, unspecified Qualified Code(s): D53.9 - Nutritional anemia, unspecified (4) Asthma SNOMED Code(s): 465235275 Code(s): J45.909 - UNSPECIFIED ASTHMA, UNCOMPLICATED Status: Chronic Priority: Medium Current Visit: No Annotation/Comment:: No recent fever or bronchitic type symptoms Qualifiers: Asthma severity: mild Asthma persistence: intermittent Asthma complication type: uncomplicated Qualified Code(s): J45.20 - Mild intermittent asthma, uncomplicated (5) Hypokalemia SNOMED Code(s): 72086271 Code(s): E87.6 - HYPOKALEMIA Status: Chronic Priority: High Current Visit: No Onset Date: 05/30/16 Annotation/Comment:: The patient has been noncompliant with her potassium supplementation since recent chart from [facility]. Medication compliance strongly encouraged. Potassium chloride given in the emergency room as above. In addition note 1 L IV bolus of lactated Ringer's was given today. (6) Hypomagnesemia SNOMED Code(s): 983851242 Code(s): E83.42 - HYPOMAGNESEMIA Status: Chronic Priority: Medium Current Visit: No Onset Date: 05/30/16 Annotation/Comment:: Increase magnesium supplementation with the patient denying noncompliance with this supplement. Additional 400 mg dose of magnesium oxide at noon secondary to her current Synthroid in the a.m. Follow-up closely by regular provider as per discharge instructions. Consider IV magnesium sulfate infusion depending on her clinical course. Note malabsorption syndrome. (7) Hypothyroidism SNOMED Code(s): 29353329 Code(s): E03.9 - HYPOTHYROIDISM, UNSPECIFIED Status: Chronic Priority: Medium Current Visit: No Onset Date: 12/06/13 Annotation/Comment:: TSH normal today. Consider repeat TSH in 4 weeks secondary to increase magnesium supplementation as above. (8) Mixed anxiety depressive disorder SNOMED Code(s): 271865355 Code(s): F41.8 - OTHER SPECIFIED ANXIETY DISORDERS Status: Chronic Priority: High Current Visit: No Annotation/Comment:: Poor control based on today's exam. Emotional support was provided. Various therapeutic options were discussed with the patient agreed to initiate additional Remeron therapy. Close follow-up by regular provider. (9) Peptic reflux disease SNOMED Code(s): 456719981 Code(s): K21.9 - GASTRO-ESOPHAGEAL REFLUX DISEASE WITHOUT ESOPHAGITIS Status: Chronic Priority: Medium Current Visit: No Annotation/Comment:: Stable by patient history. High-dose IV Pepcid and IV Protonix given as above. EGD recommended as above. - Problem List Review Problem List Initiated/Reviewed/Updated: Yes - My Orders Last 24 Hours: My Active Orders 07/13/19 19:22 Peripheral IV Care [RC] . DIRECTED Abdomen Series w Chest 1V [CR] Stat CULTURE URINE [RM] Stat UA W/MICROSCOPIC [URIN] Stat Sodium Chloride 0.9% [Saline Flush] 10 ml FLUSH ASDIRECTED PRN Obtain Past Medical Record [OM.PC] Urgent Peripheral IV Insertion Adult [OM.PC] Stat Resuscitation Status Stat 07/13/19 20:54 Enema [RC] ASDIRECTED 07/13/19 Breakfast Nothing Per Oral Diet [DIET] - Assessment/Plan Last 24 Hours: My Active Orders 07/13/19 19:22 Peripheral IV Care [RC] . DIRECTED Abdomen Series w Chest 1V [CR] Stat CULTURE URINE [RM] Stat UA W/MICROSCOPIC [URIN] Stat Sodium Chloride 0.9% [Saline Flush] 10 ml FLUSH ASDIRECTED PRN Obtain Past Medical Record [OM.PC] Urgent Peripheral IV Insertion Adult [OM.PC] Stat Resuscitation Status Stat 07/13/19 20:54 Enema [RC] ASDIRECTED 07/13/19 Breakfast Nothing Per Oral Diet [DIET] Assessment:: As above Plan: As above. Extensive precautions were given to the patient, who is in agreement with the treatment plan. See Patient Instructions for further treatment and plan.
[2019-07-13] MEDS ORDERED: Pantoprazole 40 MG Vial IVPUSH ONE (19:22)
[2019-07-13] MEDS ORDERED: Famotidine 20 MG/2 ML SDV IVPUSH ONE (19:22)
[2019-07-13] MEDS ORDERED: Lactated Ringers 1,000 ML IV ONE (19:22)
[2019-07-13] MEDS ORDERED: Ondansetron 4 MG/2 ML SDV IVPUSH ONE (19:22)
[2019-07-13] MEDS ORDERED: Sodium Chloride 0.9% 10 ML Syringe FLUSH PRN (19:22)
[2019-07-13] MEDS ORDERED: LORazepam 2 MG/ML SDV IVPUSH ONE (19:24)
[2019-07-13] MEDS ORDERED: Metoclopramide 10 MG/2 ML SDV IVPUSH ONE (19:24)
[2019-07-13 20:14] LABS: CHLORIDE,CL 102 mmol/L (98-107); SODIUM,NA 139 mmol/L (136-145)
[2019-07-13] MEDS ORDERED: Ondansetron 4 MG/2 ML SDV ONE (20:14)
[2019-07-13 20:24] LABS: PTT,PARTIAL THROMBOPLSTIN TIME 23.8 SEC (24.5-32.8)
[2019-07-13] MEDS ORDERED: Potassium Chloride 20 MEQ Tab.ER PO ONE (20:35)
== END 2019-07-13 21:50 | disposition home or self-care (01) ==
LOC: LL.ED 18:54
DX: K27.9 Peptic ulcer, site unspecified, unspecified as acute or chronic, without hemorrhage or perforation (principal); K59.00 Constipation, unspecified; E03.9 Hypothyroidism, unspecified; F41.8 Other specified anxiety disorders; J45.20 Mild intermittent asthma, uncomplicated; M19.90 Unspecified osteoarthritis, unspecified site; M41.9 Scoliosis, unspecified; F41.9 Anxiety disorder, unspecified; F32.9 Major depressive disorder, single episode, unspecified; E66.9 Obesity, unspecified; Z91.040 Latex allergy status; Z88.8 Allergy status to other drugs, medicaments and biological substances; Z79.82 Long term (current) use of aspirin; Z79.899 Other long term (current) drug therapy
CPT/HCPCS: 36415; 74022; 80053; 82150; 82272; 83605; 83690; 83735; 84443; 84550; 84703; 85025; 85610; 85730; 96361; 96374; 96375; 99284-25; A9270-GY; C9113; J2060; J2765; J3490; J7120

== ENCOUNTER 2019-07-22 08:09 | Observation (INO) | payer OTHER ==
[2019-07-22] MEDS: Sodium Chloride 0.9% 10 ML Syringe FLUSH PRN ×4 (08:45→21:38)
[2019-07-22 09:09] LABS: CHLORIDE,CL 102 mmol/L (98-107); SODIUM,NA 138 mmol/L (136-145)
--- NOTE | 2019-07-22 09:09 | EDM.PDOC ---
ED HPI GENERAL MEDICAL PROBLEM - General Chief Complaint: General Stated Complaint: dizzy, nausea Time Seen by Provider: 07/22/19 08:47 Source of Information: Reports: Patient History Limitations: Reports: No Limitations - History of Present Illness INITIAL COMMENTS - FREE TEXT/NARRATIVE: Patient comes to ER complaining of feeling light-headed/dizzy. Some nausea and chest heaviness. Has been having a lot of issues with abdominal pain/feeling SOB/chest heaviness for months. Refer to summaries of multiple ER visits. No specific cause for worsening GI problems has been found. No breakfast this morning. Tried to drink OJ prior to coming to ER Patient has been encouraged multiple times to perform elimination diet and stop drinking pop (diet Mountain Dew) and eating processed foods which she has refused to do. Recently seen by GI and is in middle of workup with them. Started on hydrocodone which she took around 10pm and again after 2am. Added a Remeron to this for sleep around 2-2:30am even though she had to get up and come to work this morning as a [employer]. Says chest heaviness is the same feeling she has been seen for in past and is unchanged. She has had PE scan for this due to elevated DDimer and that was negative. Has lost weight over the past few months but unable to say how many pounds. No fevers/chills/infectious symptoms. To start iron infusions again due to chronic anemia. Review of chart shows 8 visits to ER since beginning of year Feb 22 - elevated heart rate/SOB/dizzy Feb 25 - Dizzy/SOB/heart feels like fluttering. Found to have low Mg/ increased LFTs Mar 29 - chest tightness with nausea/dizzy/SOB May 08 - abd pain/normal abd CT May 20 - abd pain/normal abd CT June 27 - chest tight/SOB. Found to have low Mg/K July 02 - lower rib discomfort/SOB/continued abd pain--this time referred to [facility] given her repeat presentations to the ER and no overall change in complaints. Admitted obs there until July 04. July 12 - Abd pain/panic attack. Noted by provider pt not compliant with K supplement and told to increase her Mag supplement. Instructed to follow up with primary provider. When asked today how much magnesium she has been taking she was very vague and didn't know her dose, despite being told to increase daily dose by last visit. The dizziness is not new problem and has been an ongoing issue since beginning of year. Worsened today in intensity. Nausea and chest heaviness is chronic and unchanged overall. 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: Reports: Juice Abdomen Pain Score (Numeric/FACES): 2 - Related Data Allergies Allergy/AdvReac Type Severity Reaction Status Date / Time Latex, Natural Rubber Allergy Hives Verified 07/22/19 08:39 ondansetron Allergy Shaking,Tac Verified 07/22/19 08:39 hycardia promethazine HCl Allergy Irritabilit Verified 07/22/19 08:39 [From Phenergan] y Home Meds: Home Meds Non-Formulary Medication [NF Drug] 1 tab PO DAILY #100 09/21/16 [Rx] Potassium Chloride [Klor-Con M20] 20 meq PO BID tab.er 09/21/16 [Rx] FLUoxetine HCl [Fluoxetine HCl] 20 mg PO DAILY 07/27/18 [History] Cyanocobalamin (Vitamin B12) [Vitamin B12] 1,000 mcg IM Q30D sdv 09/29/18 [Rx] Levothyroxine [Synthroid] 100 mcg PO ACBREAKFAST 30 Days #30 tablet 09/29/18 [Rx ] Acetaminophen/Diphenhydramine [Tylenol Pm Ex-Strength Caplet] 1 tab PO BEDTIME 03/29/19 [History] Folic Acid 1 mg PO DAILY 03/29/19 [History] Magnesium Oxide 800 mg PO BEDTIME 03/29/19 [History] Aspirin/Acetaminophen/Caffeine [Migraine Relief Caplet] 2 tab PO Q4HR PRN [History] Cholecalciferol (Vitamin D3) [Vitamin D3] 2,000 unit PO DAILY 06/28/19 [History] Docusate Sodium [Dulcolax Stool Softener] 3 tab PO DAILY 07/13/19 [History] Magnesium Oxide 400 mg PO DAILY@1200 #30 tab 07/13/19 [Rx] Mirtazapine [Remeron] 15 mg PO BEDTIME #14 tab.dis 07/13/19 [Rx] Zinc 1 tab PO DAILY 07/13/19 [History] polyethylene glycoL 3350 [MiraLAX] 17 gm PO TID 07/13/19 [History] Loratadine [Claritin] 10 mg PO DAILY 07/14/19 [History] Hydrocodone/Acetaminophen [Hydrocodone-Acetamin 10-325 mg] 1 tab PO Q6H PRN 03/11 [History] Past Medical History HEENT History: Reports: Allergic Rhinitis, Cataract, Impaired Vision, Sinusitis , Other (See Below) Other HEENT History: Left retinal vein occlusion with secondary macular edema on 09/24/18 with left ocular injections with last injection on 04/02/19. Soft contact lenses, glasses. Bilateral cataractsmild. Cardiovascular History: Reports: Arrhythmia, High Cholesterol, Syncope, Other ( See Below) Other Cardiovascular History: History of d-dimer elevation with extensive negative workup on 02/25/19. Short ME interval. History of obesity and hyperlipidemia with fatty liver including post gastric bypass, previous recurrent syncope of unknown etiology with last episode in July 2014, chronic hypotension Respiratory History: Reports: Asthma, Bronchitis, Recurrent, Intubation, Previous, Other (See Below) Other Respiratory History: Newly diagnosed 2 mm left upper lobe and 3 mm right upper lobe benign pulmonary granulomas by CTA of the chest on 02/25/19 with previous stable right lower lobe benign pulmonary nodules. Gastrointestinal History: Reports: Bowel Obstruction, Chronic Constipation, Chronic Diarrhea, Fatty Liver, Gastritis, GERD, GI Bleed, Hemorrhoids, PUD, Other (See Below) Other Gastrointestinal History: History of fatty liver with LFTs elevation including post gastric bypass surgery with secondary malabsorption syndrome as below, upper GI bleed secondary to gastric ulcer in her mid 30s with no blood transfusion required, multiple previous small bowel obstructions secondary to previous gastric bypass surgery. Previous marginal ulcer. Benign hepatic hemangiomas [address] Genitourinary History: Reports: None FLOOR RUNNER History: Reports: Dysfunctional Uterine Bleeding, Fibroids, Polycystic Ovaries, Other FLOOR RUNNER History: Previous endometrial ablation in April 2019 with history of hypermenorrhea since 2018 with menses lasting usually about 7 days with probable secondary anemia. Uterine fibroid by pelvic ultrasound on 02/25/19. Full term deliveries without complications during pregnancies or deliveries. Bilateral ovarian cysts. LMP about 2 weeks ago with no significant bleeding no intermittent vaginal spotting at this time. Musculoskeletal History: Reports: Osteoarthritis, Other (See Below) Other Musculoskeletal History: Mild scoliosis. Neurological History: Reports: Headaches, Chronic, Vertigo, Other (See Below) Other Neuro History: Chronic vertigo/car sickness. Near syncopal/syncopal episodes as above. Psychiatric History: Reports: Addiction, Anxiety, Depression, Other (See Below) Other Psychiatric History: Tramadol use. 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 Hypoalbuminemia. Complex left adrenal cysts by CT scan. Hematologic History: Reports: Anemia, B12 Deficiency, Folic Acid, Iron Deficiency, Other (See Below) Other Hematologic History: Malabsorption syndrome secondary to her gastric bypass resulting in severe iron deficiency with additional component from her hypermenorrhea as above. Additional vitamin B-12 and folic acid deficiency. Thrombocytosis. Immunologic History: Reports: None Oncologic (Cancer) History: Reports: None Dermatologic History: Reports: None - Infectious Disease History Infectious Disease History: Reports: Chicken Pox, Shingles. Denies: C-Difficile , Measles, Meningitis, Mononucleosis, MRSA, Mumps, Novel Coronavirus, Pertussis (Whooping Cough), Rheumatic Fever, Rubella, Scarlet Fever, TB, VRE - Past Surgical History Head Surgeries/Procedures: Reports: None HEENT Surgical History: Reports: Eye Surgery, Oral Surgery, Other (See Below) Other HEENT Surgeries/Procedures: Left eye intravitrial injection of Sepproc initiated on 08/26/18 secondary to macular edema as above. [place] teeth extraction 2 at age 20 Cardiovascular Surgical History: Reports: None Respiratory Surgical History: Reports: None GI Surgical History: Reports: Bariatric Procedure, Cholecystectomy, Colonoscopy , EGD, Hernia, Abdominal, Hernia, Inguinal, Hernia Repair/Other, Other (See Below) Other GI Surgeries/Procedures: Gastric bypass surgery with concomitant cholecystectomy on 09/09/07, patient denies previous gastric bypass revisions as per medical records although evidence of anastomosis dilatations in the past EGD , last EGD and colonoscopy on 07/15/2019 with previous EGDs on 11/27/15 and . EGD in 2007 with concomitant gastric feeding tube placement at that time, laparoscopic umbilical hernia repair with mesh placement on 12/03/15, right inguinal hernia repair in 2004. Female Surgical History: Reports: Section, Endometrial Ablation, Hysterectomy, Tubal Ligation, Other (See Below) Other Female Surgeries/Procedures: Hysteroscopy with endometrial ablation on 04/22/19. in 1996, 1999, 2000; tubal ligation in 2000. Endocrine Surgical History: Reports: Thyroid Biopsy, Other (See Below) Other Endocrine Surgeries/Procedures: Thyroid biopsy on 02/19/14. Neurological Surgical History: Reports: None Musculoskeletal Surgical History: Reports: None Oncologic Surgical History: Reports: None Dermatological Surgical History: Reports: Skin Biopsy, Other (See Below) - Past Imaging History Past Imaging History: Reports: Cardiac Echo (07/29/09 with ejection fraction of 68 %), CAT Scan (Negative CTA of the chest for PE on 06/28/19 and 02/25/19. CT of the brain on 09/28/18 and 06/20/08, CT of the abdomen and pelvis with contrast on 06/24/19 , 05/21/19, 05/09/19, 06/12/11, 09/08/10, and 06/20/08. CTA of the abdomen on . CT of the head and cervical region on 07/24/09), Mammogram (Last on 12/17/18.) , Ultrasound (Pelvic ultrasound on 02/25/19. Right breast ultrasound on 09/22/17. Thyroid ultrasounds on 06/30/16 and 12/09/13. Abdominal ultrasound on 11/06/08), Venous Doppler (Negative venous Doppler studies of the legs bilaterally on .), Other (See Below) (Nuclear medicine evaluation of the sphincter of Oddi on 06/25/19.) - History Comment History Comment: Noncompliant with dietary changes recommended/elimination diet. Can be concompliant with medications/supplements. Social & Family History - Family History Family Medical History: Noncontributory HEENT: Reports: Cataract, Other (See Below) Other HEENT Family History: Father with cataracts. Cardiac: Reports: High Cholesterol, Hypertension, Other (See Below) Other Cardiac Family History: Father with hyperlipidemia, hypertension in father and maternal grandfather Respiratory: Reports: Sleep Apnea, Other (See Below) Other Respiratory Family Hisory: Father with sleep apnea and history of tobacco use GI: Reports: Colon Polyps, GERD, PUD, Other (See Below) Other GI Family History: GERD in mother, father with colonic polyps and peptic ulcer disease : Reports: None OBGYN: Reports: Dysfunctional uterine bleeding, Fibroids, Recurrent Spontaneous , Other (See Below) Other OBGYN Family History: Mother with dysfunctional uterine bleeding requiring hysterectomy with additional history of recurrent SAB Musculoskeletal: Reports: Arthritis, Gout, Osteoarthritis, Other (See Below) Other Musculoskeletal Family History: Father with gout Neurological: Reports: None Psychiatric: Reports: Anxiety, Depression, Other (See Below) Other Psychiatric Family History: Anxiety depression disorder in mother, maternal great grandmother and paternal great-grandmother Endocrine/Metabolic: Reports: Diabetes, type II, Hypothyroidism, IDDM, Other ( See Below) Other Endocrine/Metabolic Family History: IDDM in maternal grandmother, paternal grandmother, maternal grandfather, and maternal great-grandmother with brother with possible hyperglycemia, father with hypothyroidism secondary to thyroid resection from metastatic renal cancer as below Hematologic: Reports: Anemia Immunologic: Reports: None Dermatologic: Reports: None Oncologic: Reports: Leukemia, Metastatic, Renal, Skin, Thyroid, Other (See Below ) Other Oncologic Family History: Mother with melanoma, paternal grandmother with basal cell carcinoma, maternal aunt with basal cell carcinoma, Cousin with leukemia, mother with multiple myeloma, father with metastatic renal cancer with metastases to the thyroid gland and lungs - Tobacco Use Smoking Status *Q: Never Smoker Second Hand Smoke Exposure: No - Caffeine Use Caffeine Use: Reports: Soda Other Caffeine Use: 2 per day Caffeine Use Comment: DAILY 2BOTTLES - Recreational Drug Use Recreational Drug Use: No Drug Use in Last 12 Months: No - Living Situation & Occupation Living situation: Reports: (1997, 3 children), with Family ( and 3 children) Occupation: Employed ([employer] at [employer]. 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 Denies: Fever, Chills, Malaise, Weakness, Night Sweats HEENT: Denies: Rhinitis, Sinus Problem, Vertigo, Vision Change Respiratory: Reports: Shortness of Breath (chronic/unchanged). Denies: Wheezing , Pleuritic Chest Pain, Cough, Sputum, Hemoptysis Cardiovascular: Reports: Lightheadedness (chronic issues since winter, was worse in intensity today), Other (chest has felt tight for months/unchanged today). Denies: Edema, Palpitations, Syncope GI/Abdominal: Reports: Abdominal Pain (chronic/waxing and waning. Hx gastric bypass. Not exacerbation noted today), Nausea. Denies: Black Stool, Bloody Stool, Vomiting : Reports: No Symptoms Musculoskeletal: Reports: Other (no acute changes from baseline) Skin: Reports: No Symptoms Neurological: Reports: Dizziness. Denies: Confusion, Headache, Numbness, Paresthesia, Syncope, Weakness, Change in Speech, Gait Disturbance Psychiatric: Reports: Anxiety Hematologic/Lymphatic: Reports: No Symptoms ED EXAM, GENERAL - Physical Exam Exam: See Below Exam Limited By: No Limitations General Appearance: Alert, WD/WN, No Apparent Distress Eye Exam: Bilateral Eye: EOMI, PERRL Ears: Normal External Exam, Hearing Grossly Normal Nose: No: Nasal Deformity, Nasal Swelling, Nasal Drainage Throat/Mouth: Normal Lips, Normal Voice, No Airway Compromise Head: Atraumatic, Normocephalic Neck: Normal Inspection, Supple, Non-Tender, Full Range of Motion Respiratory/Chest: No Respiratory Distress, Lungs Clear, Normal Breath Sounds, No Accessory Muscle Use, Chest Non-Tender Cardiovascular: Regular Rate, Rhythm (rate in 90s), No Edema, No Murmur GI/Abdominal: Normal Bowel Sounds, Soft, No Distention, Other (no focal increased tenderness noted). No: Guarding, Rigid, Rebound (Female) Exam: Deferred Rectal (Female) Exam: Deferred Back Exam: No: CVA Tenderness (L), CVA Tenderness (R), Muscle Spasm, Paraspinal Tenderness, Vertebral Tenderness Extremities: Normal Range of Motion, Normal Capillary Refill Neurological: Alert, Oriented, Normal Cognition, Normal Gait, No Motor/Sensory Deficits Psychiatric: Other (somewhat flatter affect) Skin Exam: Warm, Dry, Intact, Normal Color EKG INTERPRETATION EKG Date: 07/22/19 Time: 08:40 Rhythm: Other (sinus tach) Rate (Beats/Min): 101 [place]: Normal P-Wave: Present QRS: Normal ST-T: Normal QT: Normal Comparison: Other: (increased rate noted today. Had short ME noted on previous EKG) Course - Vital Signs Last Recorded V/S: Last Vital Signs Temp 36.3 C 07/22/19 08:12 Pulse 96 07/22/19 09:20 Resp 20 07/22/19 08:12 BP 119/82 07/22/19 09:20 Pulse Ox 100 07/22/19 09:20 - Orders/Labs/Meds Orders: Active Orders 24 hr Category Date Time Status Patient Status [ADT] Routine ADT 07/22/19 10:47 Active EKG Documentation Completion [RC] ASDIRECTED Care 07/22/19 08:21 Active Height and Weight [RC] UPON Care 07/22/19 10:47 Active May Shower [RC] ASDIRECTED Care 07/22/19 10:47 Active Pulse Oximetry [RC] PRN Care 07/22/19 10:48 Active Up ad Lucy [RC] ASDIRECTED Care 07/22/19 10:47 Active Vital Signs [RC] Q8HR Care 07/22/19 10:47 Active Gluten Free Diet [DIET] Diet 07/22/19 Lunch Active Chest 2V [CR] Stat Exams 07/22/19 08:49 Ordered MAGNESIUM [CHEM] AM Lab 07/23/19 05:11 Ordered UA RFX DAVID AND CULT IF INDIC [URIN] Urgent Lab 07/22/19 08:20 Ordered Acetaminophen/Diphenhydramine [Tylenol Pm Ex-Strength Med 07/22/19 20:00 Ordered Caplet] 1 tab PO BEDTIME Aspirin/Acetaminophen/Caffeine [Migraine Relief Caplet] Med 07/22/19 10:49 Ordered 2 tab PO Q4HR PRN Docusate Sodium [Colace] Med 07/22/19 18:00 Ordered 100 mg PO BID Docusate Sodium [Colace] Med 07/23/19 08:00 Ordered 300 mg PO DAILY FLUoxetine [PROzac] Med 07/23/19 08:00 Ordered 20 mg PO DAILY Levothyroxine [Synthroid] Med 07/23/19 07:30 Ordered 100 mcg PO ACBREAKFAST Loratadine [Claritin] Med 07/23/19 08:00 Ordered 10 mg PO DAILY Magnesium Oxide Med 07/22/19 12:00 Ordered 400 mg PO DAILY@1200 Magnesium Oxide Med 07/22/19 20:00 Ordered 800 mg PO BEDTIME Magnesium Sulfate/D5W [Magnesium Sulfate in D5W 100 Med 07/22/19 10:51 Ordered Premix] 1 gm Premix Bag 1 bag IV ONETIME Magnesium Sulfate/D5W [Magnesium Sulfate in D5W 100 Med 07/22/19 16:00 Ordered Premix] 1 gm Premix Bag 1 bag IV ONETIME Magnesium Sulfate/D5W [Magnesium Sulfate in D5W 100 Med 07/22/19 22:00 Ordered Premix] 1 gm Premix Bag 1 bag IV ONETIME Potassium Chloride [Klor-Con M20] Med 07/22/19 18:00 Ordered 20 meq PO BID Sodium Chloride 0.9% [Saline Flush] Med 07/22/19 08:22 Active 10 ml FLUSH ASDIRECTED PRN polyethylene glycoL 3350 [MiraLAX] Med 07/22/19 12:00 Ordered 17 gm PO TID Saline Lock Insert [OM.PC] Routine Oth 07/22/19 08:22 Ordered Medication Orders Docusate Sodium (Colace) 100 mg PO BID [facility] Docusate Sodium (Colace) 300 mg PO DAILY [facility] Fluoxetine HCl (Prozac) 20 mg PO DAILY [facility] Magnesium Sulfate/Dextrose 1 (gm/ Premix) 100 mls @ 100 mls/hr IV ONETIME ONE Stop: 07/22/19 11:50 Magnesium Sulfate/Dextrose 1 (gm/ Premix) 100 mls @ 100 mls/hr IV ONETIME ONE Stop: 07/22/19 16:59 Magnesium Sulfate/Dextrose 1 (gm/ Premix) 100 mls @ 100 mls/hr IV ONETIME ONE Stop: 07/22/19 22:59 Levothyroxine Sodium (Synthroid) 100 mcg PO ACBREAKFAST [facility] Loratadine (Claritin) 10 mg PO DAILY [facility] Magnesium Oxide (Magnesium Oxide) 400 mg PO DAILY@1200 [facility] Magnesium Oxide (Magnesium Oxide) 800 mg PO BEDTIME [facility]TER Non-Formulary Medication (Acetaminophen/Diphenhydramine [Tylenol Pm Ex-Strength Caplet]) 1 tab PO BEDTIME [facility]TER Non-Formulary Medication (Aspirin/Acetaminophen/Caffeine [Migraine Relief Caplet ]) 2 tab PO Q4HR PRN PRN Reason: Headache Polyethylene Glycol (Miralax) 17 gm PO TID [facility] Potassium Chloride (Klor-Con M20) 20 meq PO BID [facility] Sodium Chloride (Saline Flush) 10 ml FLUSH ASDIRECTED PRN PRN Reason: Keep Vein Open Last Admin: 07/22/19 08:45 Dose: 10 ml Labs: Laboratory Tests 07/22/19 07/22/19 07/22/19 Range/Units 08:30 08:30 08:30 WBC 5.2 (4.0-10.2) K/uL RBC 2.86 L (3.77-5.09) M/uL Hgb 8.3 L (11.7-15.5) g/dL Hct 26.7 L (34.0-46.0) % MCV 93.4 (84.0-98.0) fL MCH 29.0 (28.2-33.3) pg MCHC 31.0 L (31.7-36.0) g/dL RDW 15.4 H (11.2-14.1) % Plt Count 337 D (150-350) K/uL Neut % (Auto) 77.7 (45.0-80.0) % Lymph % (Auto) 12.9 (10.0-50.0) % [place] % (Auto) 6.9 (2.0-14.0) % Eos % (Auto) 2.1 (0.0-5.0) % Baso % (Auto) 0.4 (0.0-2.0) % Neut # (Auto) 4.04 (1.40-7.00) K/uL Lymph # (Auto) 0.67 (0.50-3.50) K/uL [place] # (Auto) 0.36 (0.00-1.00) K/uL Eos # (Auto) 0.11 (0.00-0.50) K/uL Baso # (Auto) 0.02 (0.00-0.20) K/uL D-Dimer, Quantitative (0-400) ng/mL Sodium 138 (136-145) mmol/L Potassium 3.7 (3.5-5.1) mmol/L Chloride 102 (98-107) mmol/L Carbon Dioxide 23.0 (21.0-32.0) mmol/L BUN 15 (7-18) mg/dL Creatinine 0.79 (0.51-1.17) mg/dL Est Cr Clr Drug Dosing 73.37 mL/min Estimated GFR (MDRD) > 60 mL/min Glucose 200 H (74-106) mg/dL Hemoglobin A1c (4.3-5.7) % Calcium 8.8 (8.5-10.1) mg/dL Magnesium 1.4 L (1.8-2.4) mg/dL Total Bilirubin 0.2 (0.2-1.0) mg/dL AST 29 (15-37) U/L ALT 80 H (12-78) U/L Alkaline Phosphatase 253 H (46-116) IU/L Troponin I (0.000-0.056) ng/mL Total Protein 6.0 L (6.4-8.2) g/dL Albumin 3.1 L (3.4-5.0) g/dL HCG, Qual Negative (NEGATIVE) 07/22/19 07/22/19 07/22/19 Range/Units 08:30 08:30 08:30 WBC (4.0-10.2) K/uL RBC (3.77-5.09) M/uL Hgb (11.7-15.5) g/dL Hct (34.0-46.0) % MCV (84.0-98.0) fL MCH (28.2-33.3) pg MCHC (31.7-36.0) g/dL RDW (11.2-14.1) % Plt Count (150-350) K/uL Neut % (Auto) (45.0-80.0) % Lymph % (Auto) (10.0-50.0) % [place] % (Auto) (2.0-14.0) % Eos % (Auto) (0.0-5.0) % Baso % (Auto) (0.0-2.0) % Neut # (Auto) (1.40-7.00) K/uL Lymph # (Auto) (0.50-3.50) K/uL [place] # (Auto) (0.00-1.00) K/uL Eos # (Auto) (0.00-0.50) K/uL Baso # (Auto) (0.00-0.20) K/uL D-Dimer, Quantitative < 100 (0-400) ng/mL Sodium (136-145) mmol/L Potassium (3.5-5.1) mmol/L Chloride (98-107) mmol/L Carbon Dioxide (21.0-32.0) mmol/L BUN (7-18) mg/dL Creatinine (0.51-1.17) mg/dL Est Cr Clr Drug Dosing mL/min Estimated GFR (MDRD) mL/min Glucose (74-106) mg/dL Hemoglobin A1c 4.2 L (4.3-5.7) % Calcium (8.5-10.1) mg/dL Magnesium (1.8-2.4) mg/dL Total Bilirubin (0.2-1.0) mg/dL AST (15-37) U/L ALT (12-78) U/L Alkaline Phosphatase (46-116) IU/L Troponin I 0.000 (0.000-0.056) ng/mL Total Protein (6.4-8.2) g/dL Albumin (3.4-5.0) g/dL HCG, Qual (NEGATIVE) Meds: Medications Generic Name Dose Route Start Last Admin Trade Name Freq PRN Reason Stop Dose Admin Docusate Sodium 100 mg 07/22/19 18:00 Colace PO BID [facility] Docusate Sodium 300 mg 07/23/19 08:00 Colace PO DAILY [facility] Fluoxetine HCl 20 mg 07/23/19 08:00 Prozac PO DAILY [facility] Magnesium Sulfate/Dextrose 1 100 mls @ 100 mls/hr 07/22/19 10:51 gm/ Premix IV 07/22/19 11:50 ONETIME ONE Magnesium Sulfate/Dextrose 1 100 mls @ 100 mls/hr 07/22/19 16:00 gm/ Premix IV 07/22/19 16:59 ONETIME ONE Magnesium Sulfate/Dextrose 1 100 mls @ 100 mls/hr 07/22/19 22:00 gm/ Premix IV 07/22/19 22:59 ONETIME ONE Levothyroxine Sodium 100 mcg 07/23/19 07:30 Synthroid PO ACBREAKFAST [facility] Loratadine 10 mg 07/23/19 08:00 Claritin PO DAILY [facility]TER Magnesium Oxide 400 mg 07/22/19 12:00 Magnesium Oxide PO DAILY@1200 [facility]TER Magnesium Oxide 800 mg 07/22/19 20:00 Magnesium Oxide PO BEDTIME [facility]TER Non-Formulary Medication 1 tab 07/22/19 20:00 Acetaminophen/Diphenhydramine [Tylenol Pm Ex-Strength Caplet] PO BEDTIME [facility]TER Non-Formulary Medication 2 tab 07/22/19 10:49 Aspirin/Acetaminophen/Caffeine [Migraine Relief Caplet] PO Q4HR PRN Headache Polyethylene Glycol 17 gm 07/22/19 12:00 Miralax PO TID [facility]TER Potassium Chloride 20 meq 07/22/19 18:00 Klor-Con M20 PO BID [facility]TER Sodium Chloride 10 ml 07/22/19 08:22 07/22/19 08:45 Saline Flush FLUSH 10 ml ASDIRECTED PRN Administration Keep Vein Open - Radiology Interpretation Free Text/Narrative:: Chest xray unremarkable per Radiology - Re-Assessments/Exams Free Text/Narrative Re-Assessment/Exam: Chest xray, EKG, labs ordered given patient's complaints. Chest xray unremarkable. EKG showed mildly elevated rate but no other acute changes. CBC/chem/mg/trop/ddimer ordered. Current hgb is 8.3, down from last measurement of 9.7 No obvious changes per patient such as darkened stools/obvious blood in stool. Mag is back down to 1.4 Alt and Alk Phos continue to be elevated. Trop/DDimer normal range. Normal hgb A1c, however glucose 200 Plan at this time is to admit observation for Mag replacement. Suspect dizziness most likely secondary to patient starting to use the hydrocodone/taking two doses overnight, added with Remeron that patient took despite only being 4 hours from alarm time. Low mag may also be contributing to the dizziness. Departure - Departure Time of Disposition: 09:38 Disposition: Refer to Observation Condition: Good Clinical Impression: Dizziness, Hypomagnesemia - Discharge Information *PRESCRIPTION DRUG MONITORING PROGRAM REVIEWED*: Not Applicable *COPY OF PRESCRIPTION DRUG MONITORING REPORT IN PATIENT SAM: Not Applicable Referrals: Moriah Albrecht PA-C [Primary Care Provider] - Forms: ED Department Discharge Sepsis Event Note - Evaluation Sepsis Screening Result: No Definite Risk - Focused Exam Vital Signs: Vital Signs Temp Pulse Resp BP Pulse Ox 07/22/19 09:20 96 119/82 100 07/22/19 09:05 96 121/75 99 07/22/19 08:50 98 112/78 99 07/22/19 08:35 103 H 114/81 99 07/22/19 08:20 102 H 117/84 99 07/22/19 08:12 36.3 C 115 H 20 134/78 100 Date Exam was Performed: 07/22/19 Time Exam was Performed: 10:53 - Problem List & Annotations (1) Dizziness SNOMED Code(s): 402637445, 775535510 Code(s): R42 - DIZZINESS AND GIDDINESS Status: Chronic Priority: High Current Visit: Yes Annotation/Comment:: Ongoing chronic dizziness with worsening today. Hx also chronic vertigo/carsickness. Suspect hydrocodone may be adding to this issue, along with fact that she took Remeron around 0230 and had to get up around 6am today to come to work. Chronic anemia and low mag may also be contributing. Observe for improvement with Mag replacement. Remeron and hydrocodone on hold. (2) Hypomagnesemia SNOMED Code(s): 484775985 Code(s): E83.42 - HYPOMAGNESEMIA Status: Chronic Priority: Medium Current Visit: Yes Onset Date: 05/30/16 Annotation/Comment:: Was to increase magnesium supplementation with the patient denying noncompliance with this supplement. Patient completely unaware of her current dosing however. Will give IV replacement at this time. (3) Abdominal pain SNOMED Code(s): 27205385 Code(s): R10.9 - UNSPECIFIED ABDOMINAL PAIN Status: Chronic Priority: High Current Visit: No Onset Date: ~07/13/19 Annotation/Comment:: Chronic waxing/waning abdominal pain for past months. Note recent hospitalization at [facility] as above. Symptoms felt related to constipation at that time. Currently being evaluated by [facility] for this. Note additional recent endometrial ablation. Patient apparently has already been worked up for celiac disease, which was negative by her history. (4) Shortness of breath SNOMED Code(s): 041230697 Code(s): R06.02 - SHORTNESS OF BREATH Status: Chronic Priority: High Current Visit: No Annotation/Comment:: Present in some degree since early February. Worse with activity. No URI complaints. No other acute respiratory changes. No evidence of PE after CT study. She has been found to have low magnesium levels which in literature has been associated with SOB. Correction of Magnesium during observation admission led to improved breathing sensation. Uncertain etiology, may be exacerbated by her anemia. (5) Anemia SNOMED Code(s): 797463845 Code(s): D64.9 - ANEMIA, UNSPECIFIED Status: Chronic Priority: High Current Visit: No Onset Date: ~05/30/16 Annotation/Comment:: Chronic. Hx heavy periods/malabsorption syndrome/Fe deficiency/low B12 and folic acid. Working with GI currently, no site of GI bleed identified so far. She apparently did receive iron infusions during recent hospitalization and has been compliant with her iron sulfate supplementation. To start oupatient iron infusions. Hgb 8.3 today Qualifiers: Anemia type: other cause Other causes of anemia: nutritional, unspecified Qualified Code(s): D53.9 - Nutritional anemia, unspecified (6) Constipation SNOMED Code(s): 76998232 Code(s): K59.00 - CONSTIPATION, UNSPECIFIED Status: Chronic Priority: High Current Visit: No Annotation/Comment:: Chronic. She states has been compliant with her high fiber diet, but has not performed an elimination diet to look for triggering foods. Regularly scheduled MiraLAX. Qualifiers: Constipation type: unspecified constipation type Qualified Code(s): K59.00 - Constipation, unspecified (7) Folic acid deficiency SNOMED Code(s): 573434411 Code(s): E53.8 - DEFICIENCY OF OTHER SPECIFIED B GROUP VITAMINS Status: Chronic Priority: Low Current Visit: No Onset Date: 05/30/16 Annotation/ Comment:: Chronic/supplementation (8) History of gastric bypass SNOMED Code(s): 798825278 Code(s): Z98.84 - BARIATRIC SURGERY STATUS Status: Chronic Priority: Low Current Visit: No Annotation/Comment:: Chronic problems problems with malabsorbtion. (9) Hypothyroidism SNOMED Code(s): 80220988 Code(s): E03.9 - HYPOTHYROIDISM, UNSPECIFIED Status: Chronic Priority: Medium Current Visit: No Onset Date: 12/06/13 Annotation/Comment:: TSH normal recently. Consider repeat TSH in 4 weeks secondary to increase magnesium supplementation as above. (10) Iron deficiency SNOMED Code(s): 44661561 Code(s): E61.1 - IRON DEFICIENCY Status: Chronic Priority: High Current Visit: No Onset Date: 05/30/16 Annotation/Comment:: As above (11) Malabsorption syndrome SNOMED Code(s): 61210837 Code(s): K90.9 - INTESTINAL MALABSORPTION, UNSPECIFIED Status: Chronic Priority: Medium Current Visit: No Onset Date: 12/06/13 Annotation/Comment :: s/p gastric bypass (12) Mixed anxiety depressive disorder SNOMED Code(s): 567224279 Code(s): F41.8 - OTHER SPECIFIED ANXIETY DISORDERS Status: Chronic Priority: High Current Visit: No Annotation/Comment:: Poor control based on today's exam. Patient advised again to clean up her diet and avoid processed/ high sugar foods and her Mountain Dew as that can contribute to anxiety. Close follow-up by regular provider. (13) Peptic reflux disease SNOMED Code(s): 701526993 Code(s): K21.9 - GASTRO-ESOPHAGEAL REFLUX DISEASE WITHOUT ESOPHAGITIS Status: Chronic Priority: Medium Current Visit: No Annotation/Comment:: Stable by patient history. High-dose IV Pepcid and IV Protonix given as above. Working with GI at [facility] for this. Advised again to eat a clean diet with minially processed foods/no pop. (14) Dietary noncompliance SNOMED Code(s): 494264797 Code(s): Z91.11 - PATIENT'S NONCOMPLIANCE WITH DIETARY REGIMEN Status: Chronic Priority: Medium Current Visit: Yes Annotation/Comment:: Advised multiple times to initiate elimination diet and stop consumption of junk food/ processed food/soda to see if this helps her chronic abdominal pain/heartburn. Patient so far has refused to do this. - Problem List Review Problem List Initiated/Reviewed/Updated: Yes - My Orders Last 24 Hours: My Active Orders 07/22/19 08:20 UA RFX DAVID AND CULT IF INDIC [URIN] Urgent 07/22/19 08:21 EKG Documentation Completion [RC] ASDIRECTED 07/22/19 08:22 Sodium Chloride 0.9% [Saline Flush] 10 ml FLUSH ASDIRECTED PRN Saline Lock Insert [OM.PC] Routine 07/22/19 08:49 Chest 2V [CR] Stat 07/22/19 10:47 Patient Status [ADT] Routine Height and Weight [RC] UPON June Shower [RC] ASDIRECTED Up ad Lucy [RC] ASDIRECTED Vital Signs [RC] Q8HR 07/22/19 10:48 Pulse Oximetry [RC] PRN 07/22/19 10:49 Aspirin/Acetaminophen/Caffeine [Migraine Relief Caplet] 2 tab PO Q4HR PRN 07/22/19 10:51 Magnesium Sulfate/D5W [Magnesium Sulfate in D5W 100 Premix] 1 gm Premix Bag 1 bag IV ONETIME 07/22/19 12:00 Magnesium Oxide 400 mg PO DAILY@1200 polyethylene glycoL 3350 [MiraLAX] 17 gm PO TID 07/22/19 16:00 Magnesium Sulfate/D5W [Magnesium Sulfate in D5W 100 Premix] 1 gm Premix Bag 1 bag IV ONETIME 07/22/19 18:00 Docusate Sodium [Colace] 100 mg PO BID Potassium Chloride [Klor-Con M20] 20 meq PO BID 07/22/19 20:00 Acetaminophen/Diphenhydramine [Tylenol Pm Ex-Strength Caplet] 1 tab PO BEDTIME Magnesium Oxide 800 mg PO BEDTIME 07/22/19 22:00 Magnesium Sulfate/D5W [Magnesium Sulfate in D5W 100 Premix] 1 gm Premix Bag 1 bag IV ONETIME 07/22/19 Lunch Gluten Free Diet [DIET] 07/23/19 05:11 MAGNESIUM [CHEM] AM 07/23/19 07:30 Levothyroxine [Synthroid] 100 mcg PO ACBREAKFAST 07/23/19 08:00 Docusate Sodium [Colace] 300 mg PO DAILY FLUoxetine [PROzac] 20 mg PO DAILY Loratadine [Claritin] 10 mg PO DAILY - Assessment/Plan Admission H&P: Please use this note as an admission H&P Last 24 Hours: My Active Orders 07/22/19 08:20 UA RFX DAVID AND CULT IF INDIC [URIN] Urgent 07/22/19 08:21 EKG Documentation Completion [RC] ASDIRECTED 07/22/19 08:22 Sodium Chloride 0.9% [Saline Flush] 10 ml FLUSH ASDIRECTED PRN Saline Lock Insert [OM.PC] Routine 07/22/19 08:49 Chest 2V [CR] Stat 07/22/19 10:47 Patient Status [ADT] Routine Height and Weight [RC] UPON May Shower [RC] ASDIRECTED Up ad Lucy [RC] ASDIRECTED Vital Signs [RC] Q8HR 07/22/19 10:48 Pulse Oximetry [RC] PRN 07/22/19 10:49 Aspirin/Acetaminophen/Caffeine [Migraine Relief Caplet] 2 tab PO Q4HR PRN 07/22/19 10:51 Magnesium Sulfate/D5W [Magnesium Sulfate in D5W 100 Premix] 1 gm Premix Bag 1 bag IV ONETIME 07/22/19 12:00 Magnesium Oxide 400 mg PO DAILY@1200 polyethylene glycoL 3350 [MiraLAX] 17 gm PO TID 07/22/19 16:00 Magnesium Sulfate/D5W [Magnesium Sulfate in D5W 100 Premix] 1 gm Premix Bag 1 bag IV ONETIME 07/22/19 18:00 Docusate Sodium [Colace] 100 mg PO BID Potassium Chloride [Klor-Con M20] 20 meq PO BID 07/22/19 20:00 Acetaminophen/Diphenhydramine [Tylenol Pm Ex-Strength Caplet] 1 tab PO BEDTIME Magnesium Oxide 800 mg PO BEDTIME 07/22/19 22:00 Magnesium Sulfate/D5W [Magnesium Sulfate in D5W 100 Premix] 1 gm Premix Bag 1 bag IV ONETIME 07/22/19 Lunch Gluten Free Diet [DIET] 07/23/19 05:11 MAGNESIUM [CHEM] AM 07/23/19 07:30 Levothyroxine [Synthroid] 100 mcg PO ACBREAKFAST 07/23/19 08:00 Docusate Sodium [Colace] 300 mg PO DAILY FLUoxetine [PROzac] 20 mg PO DAILY Loratadine [Claritin] 10 mg PO DAILY Assessment:: as above, stable and suitable for general supervision Plan: as above. Anticipate likely discharge home tomorrow if Mag levels are corrected and patient remains stable/no additional changes. Close follow up with primary provider and GI.
[2019-07-22 09:52] LABS: HEMOGLOBIN A1C 4.2 % (4.3-5.7)
[2019-07-22] MEDS ORDERED: [UNRECOGNIZED DRUG - OTHER] PO PRN (10:49)
[2019-07-22] MEDS ORDERED: CAFFEINE PO PRN (10:49)
[2019-07-22] MEDS ORDERED: ASPIRIN PO PRN (10:49)
[2019-07-22] MEDS ORDERED: ACETAMINOPHEN PO PRN (10:49)
[2019-07-22] MEDS ORDERED: Magnesium Oxide 400 MG Tab PO SCH ×2 (12:00→20:00)
[2019-07-22] MEDS: Polyethylene Glycol 3350 Powder 17 GM Packet PO SCH ×2 (12:03→17:10)
[2019-07-22] MEDS: Potassium Chloride 20 MEQ Tab.ER PO SCH (17:10)
[2019-07-22] MEDS ORDERED: Docusate Sodium 100 MG Cap PO SCH (18:00)
[2019-07-22] MEDS ORDERED: diphenhydrAMINE 25 MG Cap PO SCH (20:00)
[2019-07-22] MEDS ORDERED: Acetaminophen 500 MG Tab PO SCH (20:00)
[2019-07-22] MEDS ORDERED: Acetaminophen/HYDROcodone 325-10 MG Tab PO PRN (21:13)
[2019-07-22] MEDS ORDERED: Ketorolac 30 MG/ML SDV IVPUSH PRN (21:13)
[2019-07-23] MEDS: Sodium Chloride 0.9% 10 ML Syringe FLUSH PRN (03:43)
[2019-07-23] MEDS ORDERED: Magnesium Hydroxide 400 MG/5 ML Susp 30 ML Cup PO PRN (03:51)
[2019-07-23] MEDS ORDERED: Levothyroxine 100 MCG Tab PO SCH (07:30)
[2019-07-23 07:45] VITALS: BP 121/94; PULSE 100
[2019-07-23] MEDS: Polyethylene Glycol 3350 Powder 17 GM Packet PO SCH ×2 (07:46→12:49)
[2019-07-23] MEDS: Potassium Chloride 20 MEQ Tab.ER PO SCH (07:46)
[2019-07-23] MEDS ORDERED: FLUoxetine 20 MG Cap PO SCH (08:00)
[2019-07-23] MEDS ORDERED: Loratadine 10 MG Tab PO SCH (08:00)
[2019-07-23] MEDS ORDERED: Docusate Sodium 100 MG Cap PO SCH (08:00)
--- NOTE | 2019-07-23 12:40 | PCM.DCSUM1 ---
Discharge Summary - Hospital Course Brief History: Admitted overnight observation while receiving Mag replacement due to complaint of dizziness/low Mag Diagnosis: Stroke: No - Discharge Data Discharge Date: 07/23/19 Discharge Disposition: Home, Self-Care 01 Condition: Good - Referral to Home Health Primary Care Physician: Moriah Albrecht PA-C - Discharge Diagnosis/Problem(s) (1) Dizziness SNOMED Code(s): 999846238, 557716248 ICD Code: R42 - DIZZINESS AND GIDDINESS Status: Chronic Priority: High Current Visit: Yes Problem Details: Ongoing chronic dizziness with worsening yesterday. Significantly improved today after receiving IV Mag replacement. Currently resolved. Hx also chronic vertigo/carsickness. Suspect newly added hydrocodone may be adding to this issue, along with fact that she took Remeron around 0230 the morning of presentation to ER and had to get up around 6am to come to work. Anemia may also be contributing factor. (2) Hypomagnesemia SNOMED Code(s): 891003012 ICD Code: E83.42 - HYPOMAGNESEMIA Status: Chronic Priority: Medium Current Visit: Yes Onset Date: 05/30/16 Problem Details: Corrected after receiving IV replacement. Patient to make certain she is taking her 800mg dose twice a day at noon and suppertime with very close follow up by primary provider for ongoing serum Mag rechecks/dose adjustements given how symptomatic she appears to become when low. (3) Abdominal pain SNOMED Code(s): 37250801 ICD Code: R10.9 - UNSPECIFIED ABDOMINAL PAIN Status: Chronic Priority: High Current Visit: No Onset Date: ~07/13/19 Problem Details: Chronic waxing/waning abdominal pain for past months. Note recent hospitalization at [facility] as above. Symptoms felt related to constipation at that time. Currently being evaluated by [facility] for this. Note additional recent endometrial ablation. Patient apparently has already been worked up for celiac disease, which was negative by her history. Constipation is continuing contributing factor. Has not tried elimination diet that has been recommended multiple times to her over the past winter/spring. High processed food intake/ mountain dew. Currently pain-free. (4) Shortness of breath SNOMED Code(s): 570547983 ICD Code: R06.02 - SHORTNESS OF BREATH Status: Chronic Priority: High Current Visit: No Problem Details: Improved today after Mag replacement. Present in some degree since early February. Worse with activity. No URI complaints. No other acute respiratory changes. No evidence of PE after CT study. She has been found to have low magnesium levels which in literature has been associated with SOB. Correction of Magnesium during previous observation admission led to improved breathing sensation. Uncertain firmly identified etiology, may be exacerbated by her anemia. (5) Anemia SNOMED Code(s): 270518932 ICD Code: D64.9 - ANEMIA, UNSPECIFIED Status: Chronic Priority: High Current Visit: No Onset Date: ~05/30/16 Problem Details: Chronic. Hx heavy periods/malabsorption syndrome/Fe deficiency/low B12 and folic acid. Working with GI currently, no site of GI bleed identified so far. She apparently did receive iron infusions during recent hospitalization and has been compliant with her iron sulfate supplementation. To start oupatient iron infusions. Hgb 8.3 during this visit. To follow up closely with primary provider. Qualifiers: Anemia type: other cause Other causes of anemia: nutritional, unspecified Qualified Code(s): D53.9 - Nutritional anemia, unspecified (6) Constipation SNOMED Code(s): 45329815 ICD Code: K59.00 - CONSTIPATION, UNSPECIFIED Status: Chronic Priority: High Current Visit: No Problem Details: Chronic. She states has been compliant with her high fiber diet, but has not performed an elimination diet to look for triggering foods. Regularly scheduled MiraLAX. Qualifiers: Constipation type: unspecified constipation type Qualified Code(s): K59.00 - Constipation, unspecified (7) Folic acid deficiency SNOMED Code(s): 596046830 ICD Code: E53.8 - DEFICIENCY OF OTHER SPECIFIED B GROUP VITAMINS Status: Chronic Priority: Low Current Visit: No Onset Date: 05/30/16 Problem Details: Chronic/supplementation (8) History of gastric bypass SNOMED Code(s): 984322186 ICD Code: Z98.84 - BARIATRIC SURGERY STATUS Status: Chronic Priority: Low Current Visit: No Problem Details: Chronic problems problems with malabsorbtion. (9) Hypothyroidism SNOMED Code(s): 24888647 ICD Code: E03.9 - HYPOTHYROIDISM, UNSPECIFIED Status: Chronic Priority: Medium Current Visit: No Onset Date: 12/06/13 Problem Details: TSH normal recently. Consider repeat TSH in 4 weeks secondary to increase magnesium supplementation as above. (10) Iron deficiency SNOMED Code(s): 89443674 ICD Code: E61.1 - IRON DEFICIENCY Status: Chronic Priority: High Current Visit: No Onset Date: 05/30/16 Problem Details: As above (11) Malabsorption syndrome SNOMED Code(s): 93878184 ICD Code: K90.9 - INTESTINAL MALABSORPTION, UNSPECIFIED Status: Chronic Priority: Medium Current Visit: No Onset Date: 12/06/13 Problem Details: s /p gastric bypass (12) Mixed anxiety depressive disorder SNOMED Code(s): 710594495 ICD Code: F41.8 - OTHER SPECIFIED ANXIETY DISORDERS Status: Chronic Priority: High Current Visit: No Problem Details: Poor control based on today's exam. Patient advised again to clean up her diet and avoid processed/ high sugar foods and her Mountain Dew as that can contribute to anxiety. Close follow-up by regular provider. (13) Peptic reflux disease SNOMED Code(s): 273554037 ICD Code: K21.9 - GASTRO-ESOPHAGEAL REFLUX DISEASE WITHOUT ESOPHAGITIS Status: Chronic Priority: Medium Current Visit: No Problem Details: Stable by patient history. High-dose IV Pepcid and IV Protonix given as above. Working with GI at [facility] for this. Advised again to eat a clean diet with minially processed foods/no pop. (14) Dietary noncompliance SNOMED Code(s): 385791802 ICD Code: Z91.11 - PATIENT'S NONCOMPLIANCE WITH DIETARY REGIMEN Status: Chronic Priority: Medium Current Visit: Yes Problem Details: Advised multiple times to initiate elimination diet and stop consumption of junk food/ processed food/soda to see if this helps her chronic abdominal pain/heartburn. Patient so far has refused to do this. - Patient Summary/Data Complications: None Hospital Course: Patient received three separate IV Mag infusions over last 24 hours. Had abdominal pain exacerbation last evening that responded to her prescribed Hydrocodone. Today feels much better. No dizziness/pain complaint. Mag is normal level at 2.2. OK to go home. Precautions reviewed. Patient aware that we still recommend elimination diet and sticking to whole foods. She is to make certain she is taking her 800mg Mag at noon and in the evening. Not to take it in the morning when she takes Thyroid med due to absorption issues. Recommend follow up with primary provider in one week to get Mag and Hgb levels rechecked. To continue follow up with GI as scheduled. - Patient Instructions Diet: Elimination Diet (recommend elmination diet/anti-inflammatory foods. ) Activity: As Tolerated Driving: May Drive Today Showering/Bathing: May Shower Other/Special Instructions: Make appointment for next week to get your Hemoglobin and Magnesium levels rechecked. Adjust Mag supplements as needed to get level to stay in theraputic range. For now take the 800mg at lunch and dinner. Avoid breakfast time when you take your Thyroid medication. Follow up with GI as scheduled. Follow up otherwise as needed if you have sudden worsening problems. Avoid using Hydrocodone for pain too often as it is addicting in nature and leads to dependency. Do NOT take your sleeping pill unless you do it with 8 hours available for sleep. Taking it in the middle of the night will only mess you up. - Discharge Plan *PRESCRIPTION DRUG MONITORING PROGRAM REVIEWED*: Not Applicable *COPY OF PRESCRIPTION DRUG MONITORING REPORT IN PATIENT SAM: Not Applicable Home Medications: Home Meds Non-Formulary Medication [NF Drug] 1 tab PO DAILY #100 09/21/16 [Rx] Potassium Chloride [Klor-Con M20] 20 meq PO BID tab.er 09/21/16 [Rx] FLUoxetine HCl [Fluoxetine HCl] 20 mg PO DAILY 07/27/18 [History] Cyanocobalamin (Vitamin B12) [Vitamin B12] 1,000 mcg IM Q30D sdv 09/29/18 [Rx] Levothyroxine [Synthroid] 100 mcg PO ACBREAKFAST 30 Days #30 tablet 09/29/18 [Rx ] Acetaminophen/Diphenhydramine [Tylenol Pm Ex-Strength Caplet] 1 tab PO BEDTIME 03/29/19 [History] Folic Acid 1 mg PO DAILY 03/29/19 [History] Magnesium Oxide 800 mg PO BEDTIME 03/29/19 [History] Aspirin/Acetaminophen/Caffeine [Migraine Relief Caplet] 2 tab PO Q4HR PRN [History] Cholecalciferol (Vitamin D3) [Vitamin D3] 2,000 unit PO DAILY 06/28/19 [History] Docusate Sodium [Dulcolax Stool Softener] 2 tab PO DAILY 07/13/19 [History] Mirtazapine [Remeron] 15 mg PO BEDTIME #14 tab.dis 07/13/19 [Rx] Zinc 1 tab PO DAILY 07/13/19 [History] polyethylene glycoL 3350 [MiraLAX] 17 gm PO TID 07/13/19 [History] Loratadine [Claritin] 10 mg PO DAILY 07/14/19 [History] Hydrocodone/Acetaminophen [Hydrocodone-Acetamin 10-325 mg] 1 tab PO Q6H PRN 03/11 [History] Magnesium Oxide 800 mg PO DAILY@1200 #30 tab 07/23/19 [Rx] Forms: ED Department Discharge Referrals: Moriah Albrecht PA-C [Primary Care Provider] - - Discharge Summary/Plan Comment DC Time >30 min.: No - General Info Date of Service: 07/23/19 Admission Dx/Problem (Free Text: Dizziness, low magnesium Subjective Update: Patient is feeling good this morning. No complaint of dizziness. No complaint of abdominal pain. Eating and drinking well. No new complaints. Would like to be able to go home. Functional Status: Reports: Pain Controlled, Tolerating Diet, Ambulating, Urinating. Denies: New Symptoms - Review of Systems General: Reports: No Symptoms HEENT: Reports: Glasses Pulmonary: Reports: Shortness of Breath (chronic/improved) Gastrointestinal: Reports: Abdominal Pain (chronic/improved), Constipation ( chronic/improved). Denies: Melena, Nausea, Vomiting Genitourinary: Reports: No Symptoms Musculoskeletal: Reports: No Symptoms Skin: Reports: No Symptoms Neurological: Reports: No Symptoms. Denies: Dizziness Psychiatric: Reports: No Symptoms - Patient Data Vitals - Most Recent: Last Vital Signs Temp 36.8 C 07/23/19 07:44 Pulse 100 07/23/19 07:44 Resp 16 07/23/19 07:44 BP 121/94 H 07/23/19 07:44 Pulse Ox 98 07/23/19 07:44 Weight - Most Recent: 51.528 kg I&O - Last 24 hours: Intake & Output 07/22/19 07/23/19 07/23/19 22:59 06:59 14:59 Intake Total 1040 720 220 Balance 1040 720 220 Lab Results - Last 24 hrs: Laboratory Results - last 24 hr 07/22/19 07/23/19 Range/Units 12:38 07:06 Magnesium 2.2 (1.8-2.4) mg/dL Specimen Type . Urine Color Yellow (YELLOW) Urine Appearance Clear (CLEAR) Urine pH 6.0 (5.0-9.0) Ur Specific [place] 1.025 (1.005-1.030) Urine Protein Negative (NEGATIVE) mg/dL Urine Glucose (UA) Negative (NEGATIVE) mg/dL Urine Ketones Negative (NEGATIVE) mg/dL Urine Occult Blood Negative (NEGATIVE) Urine Nitrite Negative (NEGATIVE) Urine Bilirubin Negative (NEGATIVE) Urine Urobilinogen 0.2 (0.2-1.0) E.U./dL Ur Leukocyte Esterase Negative (NEGATIVE) Med Orders - Current: Current Medications Acetaminophen (Tylenol Extra Strength) 500 mg PO BEDTIME [facility] Last Admin: 07/22/19 21:37 Dose: 500 mg Hydrocodone Bitart/Acetaminophen ([place] 325-10 Mg) 1 tab PO Q6H PRN PRN Reason: Pain Last Admin: 07/22/19 21:37 Dose: 1 tab Diphenhydramine HCl (Benadryl) 25 mg PO BEDTIME [facility] Last Admin: 07/22/19 21:37 Dose: 25 mg Docusate Sodium (Colace) 200 mg PO DAILY [facility] Last Admin: 07/23/19 07:46 Dose: 200 mg Fluoxetine HCl (Prozac) 20 mg PO DAILY [facility] Last Admin: 07/23/19 07:46 Dose: 20 mg Ketorolac Tromethamine (Toradol) 30 mg IVPUSH Q6H PRN PRN Reason: Pain Stop: 07/27/19 21:13 Last Admin: 07/23/19 03:43 Dose: 30 mg Levothyroxine Sodium (Synthroid) 100 mcg PO ACBREAKFAST [facility] Last Admin: 07/23/19 07:46 Dose: 100 mcg Loratadine (Claritin) 10 mg PO DAILY [facility] Last Admin: 07/23/19 07:47 Dose: 10 mg Magnesium Hydroxide (Milk Of Magnesia) 30 ml PO DAILY PRN PRN Reason: Constipation Non-Formulary Medication (Aspirin/Acetaminophen/Caffeine [Migraine Relief Caplet ]) 2 tab PO Q4HR PRN PRN Reason: Headache Polyethylene Glycol (Miralax) 17 gm PO TID [facility] Last Admin: 07/23/19 07:46 Dose: 17 gm Potassium Chloride (Klor-Con M20) 20 meq PO BID [facility] Last Admin: 07/23/19 07:46 Dose: 20 meq Sodium Chloride (Saline Flush) 10 ml FLUSH ASDIRECTED PRN PRN Reason: Keep Vein Open Last Admin: 07/23/19 03:43 Dose: 10 ml Discontinued Medications Magnesium Sulfate/Dextrose 1 (gm/ Premix) 100 mls @ 100 mls/hr IV ONETIME ONE Stop: 07/22/19 11:59 Last Infusion: 07/22/19 12:47 Dose: Infused Magnesium Sulfate/Dextrose 1 (gm/ Premix) 100 mls @ 100 mls/hr IV ONETIME ONE Stop: 07/22/19 16:59 Last Infusion: 07/22/19 17:11 Dose: Infused Magnesium Sulfate/Dextrose 1 (gm/ Premix) 100 mls @ 100 mls/hr IV ONETIME ONE Stop: 07/22/19 22:59 Last Admin: 07/22/19 21:38 Dose: 100 mls/hr Magnesium Oxide (Magnesium Oxide) 400 mg PO DAILY@1200 [facility] Magnesium Oxide (Magnesium Oxide) 800 mg PO BEDTIME [facility] - Exam General: Reports: Alert, Oriented, Cooperative, No Acute Distress HEENT: Reports: Pupils Equal, EOMI, Mucous Membr. Moist/[place] Lungs: Reports: Normal Respiratory Effort Neurological: Reports: No New Focal Deficit Psy/Mental Status: Reports: Alert, Normal Affect, Normal Mood
== END 2019-07-23 13:10 | disposition home or self-care (01) ==
LOC: LL.ED 08:09 → UNDOADMOB 09:35 → LL.MS 09:35
PROVIDERS: ADMIT Emergency Medicine; ATTEND Emergency Medicine
DX: R42 Dizziness and giddiness (principal); E83.42 Hypomagnesemia; R10.9 Unspecified abdominal pain; R06.02 Shortness of breath; D53.9 Nutritional anemia, unspecified; K59.00 Constipation, unspecified; J45.909 Unspecified asthma, uncomplicated; E66.9 Obesity, unspecified; F41.9 Anxiety disorder, unspecified; F32.9 Major depressive disorder, single episode, unspecified; E11.9 Type 2 diabetes mellitus without complications; E03.9 Hypothyroidism, unspecified; E78.00 Pure hypercholesterolemia, unspecified; I10 Essential (primary) hypertension; E53.8 Deficiency of other specified B group vitamins; E61.1 Iron deficiency; K90.9 Intestinal malabsorption, unspecified; F41.8 Other specified anxiety disorders; K21.9 Gastro-esophageal reflux disease without esophagitis; Z91.11 Patient's noncompliance with dietary regimen; Z91.040 Latex allergy status; Z98.84 Bariatric surgery status; Z88.8 Allergy status to other drugs, medicaments and biological substances; Z79.890 Hormone replacement therapy; Z79.899 Other long term (current) drug therapy; Z79.82 Long term (current) use of aspirin; Z68.31 Body mass index [BMI] 31.0-31.9, adult
CPT/HCPCS: 36415; 71046; 80053; 81003; 83036; 83735; 84484; 84703; 85025; 85379; 93005; 96365; 96366; 96375; 99285-25; A9270-GY; G0378; J1885; J3475

== ENCOUNTER 2020-02-27 14:49 | Emergency (ER) | payer OTHER ==
--- NOTE | 2020-02-27 15:03 | EDM.PDOC ---
ED HPI GENERAL MEDICAL PROBLEM - General Chief Complaint: General Stated Complaint: weakness, shortness of breath Time Seen by Provider: 02/27/20 15:00 Source of Information: Reports: Patient, Family (), Old Records ([facility] chart/EMR), Other ([facility] reviewed) History Limitations: Reports: No Limitations - History of Present Illness INITIAL COMMENTS - FREE TEXT/NARRATIVE: Patient was brought to the emergency room via private automobile by her for evaluation of a 2-day history of nonspecific fatigue, dizziness, dyspnea, and generalized weakness. Note patient did have her standard every other week chemotherapy at [facility] on 02/18/2020 with additional Neulasta injection 2 days thereafter as per their standard protocol. The patient denies any chest pain/pressure, heart flutter, orthostasis, orthopnea, diaphoresis, paresthesias, recent decreased exercise tolerance, or any other anginal-type symptoms. No recent history of abdominal pain, heartburn, nausea, diarrhea, melena, gross hematochezia, or any food intolerance, including fatty foods, etc. with normal bowel movement earlier today. She denies any gross hematuria, colic, or other UTI symptoms. The patient also denies any recent fever, cough, wheezing, etc.. She did receive her influenza booster this season and has been following the CDC guidelines for COVID-19. She denies any other pain or discomfort with no medications taken for her symptoms to this point. Patient has not measured her temperature. Onset: Gradual Onset Date: 02/25/20 Duration: Getting Worse Location: Reports: Other (No pain) Quality: Reports: Same as Previous Episode Severity: Moderate Improves with: Reports: None Worsens with: Reports: None Context: Reports: Other (As above). Denies: Sick Contact, Trauma Associated Symptoms: Reports: Shortness of Breath, Weakness. Denies: Confusion, Chest Pain, Cough, Diaphoresis, Fever/Chills, Headaches, Loss of Appetite, Nausea/Vomiting, Rash, Seizure Treatments RN HEDIS: Reports: Other (see below) (None) - Related Data Allergies Allergy/AdvReac Type Severity Reaction Status Date / Time Latex, Natural Rubber Allergy Hives Verified 02/27/20 15:35 ondansetron Allergy Shaking,Tac Verified 02/27/20 15:35 hycardia promethazine HCl Allergy Irritabilit Verified 02/27/20 15:35 [From Phenergan] y Home Meds: Home Meds Non-Formulary Medication [NF Drug] 1 tab PO DAILY #100 09/21/16 [Rx] Cyanocobalamin (Vitamin B12) [Vitamin B12] 1,000 mcg IM Q30D sdv 09/29/18 [Rx] Magnesium Oxide 800 mg PO BID 03/29/19 [History] Mirtazapine [Remeron] 15 mg PO BEDTIME #14 tab.dis 07/13/19 [Rx] Loratadine [Claritin] 10 mg PO BID 07/14/19 [History] Hydrocodone/Acetaminophen [Hydrocodone-Acetamin 10-325 mg] 1 tab PO Q6H PRN 07/22/19 [History] Gabapentin [Neurontin] 300 mg PO TID PRN 11/14/19 [History] Morphine [MS Contin] 30 mg PO BEDTIME 11/14/19 [History] Prochlorperazine Maleate [Compazine] 10 mg PO Q6HR PRN 11/14/19 [History] Cyproheptadine HCl 4 mg PO DAILY 02/27/20 [History] Morphine Sulfate [Morphine Sulfate ER] 15 mg PO DAILY 02/27/20 [History] Nortriptyline HCl [Pamelor] 50 mg PO DAILY 02/27/20 [History] Potassium Chloride [Klor-Con M20] 40 meq PO BID 02/27/20 [History] dronabinoL [Dronabinol] 1 cap PO DAILY 02/27/20 [History] Past Medical History HEENT History: Reports: Allergic Rhinitis, Cataract, Impaired Vision, Sinusitis, Other (See Below). Denies: Glaucoma, Hard of Hearing, Macular Degeneration, Otitis Media, Retinal Detachment Other HEENT History: Left retinal vein occlusion with secondary macular edema on 09/24/18 with left ocular injections with last injection on 04/02/19. Soft contact lenses, glasses. Bilateral cataractsmild. Cardiovascular History: Reports: Arrhythmia, High Cholesterol, Syncope, Other (See Below). Denies: Afib, Blood Clots/VTE/DVT, CAD, Heart Failure, Heart Murmur, Hypertension, [place] Other Cardiovascular History: History of d-dimer elevation with extensive negative workup on 02/25/19. Short [place] interval. History of obesity and hyperlipidemia with fatty liver including post gastric bypass, previous recurrent syncope of unknown etiology with last episode in July 2014, chronic hypotension Respiratory History: Reports: Asthma, Bronchitis, Recurrent, Intubation, Previous, Other (See Below). Denies: COPD, Intubation, Difficult, PE, Pneumonia, Recurrent, Pneumothorax, Sleep Apnea, TB Other Respiratory History: Newly diagnosed 2 mm left upper lobe and 3 mm right upper lobe benign pulmonary granulomas by CTA of the chest on 02/25/19 with previous stable right lower lobe benign pulmonary nodules. Gastrointestinal History: Reports: Bowel Obstruction, Chronic Constipation, Chronic Diarrhea, Fatty Liver, Gastritis, GERD, GI Bleed, Hemorrhoids, PUD, Other (See Below). Denies: Celiac Disease, Cholelithiasis, Colon Polyp, Fecal Incontinence, Hepatitis, Hiatal Hernia, Inflammatory Bowel Disease, Irritable Bowel Syndrome, Jaundice, Pancreatitis Other Gastrointestinal History: History of fatty liver with LFTs elevation inclu ding post gastric bypass surgery with secondary malabsorption syndrome as below, upper GI bleed secondary to gastric ulcer in her mid 30s with no blood transfusion required, multiple previous small bowel obstructions secondary to previous gastric bypass surgery. Previous marginal ulcer. Benign hepatic hemangiomas [address] No history of pancreatitis despite pancreatic cancer as below. Genitourinary History: Reports: None. 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 Denies: Spontaneous , Therapeutic : 3 Para: 3 LMP (Approximate): Other (See Below) Other LABORATORY MACHINIST History: Previous endometrial ablation in April 2019 with history of hypermenorrhea since 2018 with menses lasting usually about 7 days with probable secondary anemia. Uterine fibroid by pelvic ultrasound on 02/25/19. Full term deliveries by C-sections as below without complications during pregnancies or deliveries. Bilateral ovarian cysts. Amenorrhea likely secondary to chemotherapy with LMP in about July 2019. Musculoskeletal History: Reports: Arthritis, Osteoarthritis, Other (See Below). Denies: Amputation, Back Pain, Chronic, Fracture, Gout, Neck Pain, Chronic, RA, SLE Other Musculoskeletal History: Mild scoliosis. Neurological History: Reports: Headaches, Chronic, Neuropathy, Peripheral, Vertigo, Other (See Below). 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 Chronic vertigo/car sickness. Near syncopal/syncopal episodes as above. Psychiatric History: Reports: Addiction, Anxiety, Depression, Other (See Below). Denies: Abuse, Victim of, ADD, ADHD, Psych Hospitalization(s), PTSD, Suicide Attempt, Suicidal Ideation Other Psychiatric History: Current morphine use with previous tramadol use. 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 Denies: Diabetes, Gestational, Diabetes, Type I, Diabetes, Type II, Diabetes Mellitus, Type 3c, IDDM, Osteopenia Other Endocrine/Metabolic History: Previous borderline hyperglycemia secondary to obesity; borderline hypothyroidism with history of multiple benign thyroid nodules. Hypoalbuminemia. Complex left adrenal cysts by CT scan. Hematologic History: Reports: Anemia, B12 Deficiency, Blood Transfusion(s), Fol ic Acid, Iron Deficiency, Other (See Below) Other Hematologic History: Malabsorption syndrome secondary to her gastric bypass resulting in severe iron deficiency with additional component from her hypermenorrhea as above. Additional vitamin B-12 and folic acid deficiency. Previous blood transfusion and iron infusions secondary to her chemotherapy, iron deficiency, etc. as above. Thrombocytosis. Immunologic History: Reports: Immunosuppression, Other (See Below). Denies: AIDS, HIV, SLE Other Immunologic History: Current chemotherapy. Oncologic (Cancer) History: Reports: Metastatic, Pancreatic, Other (See Below). Denies: Basal Cell Carcinoma, Bladder, Brain, Breast (The cancer spread in you r), Cervix, Colon, Hodgkin's Lymphoma, Leukemia, Lymphoma, Malignant Melanoma, Non-Hodgkin's Lymphoma, Ovarian, Squamous Cell Carcinoma, Thyroid, Uterine Other Oncologic History: Metastatic pancreatic cancer including probable hepatic and possibly pulmonary metastases initially diagnosed in August 2019 and confirmed by biopsy with current chemotherapy but no surgery to this point. Dermatologic History: Reports: None. Denies: Eczema, Psoriasis, Venous Stasis Dermatitis - Infectious Disease History Infectious Disease History: Reports: Chicken Pox, Shingles (Left shoulder region in June 2018.). Denies: C-Difficile, Measles, Meningitis, Mononucleosis, MRSA, Mumps, Novel Coronavirus, Pertussis (Whooping Cough), Rheumatic Fever, Rubella, Scarlet Fever, TB, VRE - Past Surgical History Head Surgeries/Procedures: Reports: None HEENT Surgical History: Reports: Eye Surgery, Oral Surgery, Other (See Below). Denies: Adenoidectomy, Cataract Surgery, Laser Surgery, Myringotomy w Tube(s), Naso-Sinus Surgery, Tonsillectomy Other HEENT Surgeries/Procedures: Left eye intravitrial injection of Sepproc initiated on 08/26/18 secondary to macular edema as above. [place] teeth extraction 2 at age 20 Cardiovascular Surgical History: Reports: Other (See Below). Denies: Varicose Other Cardiovascular Surgeries/Procedures: Right-sided Port-A-Cath placement in August 2019. Respiratory Surgical History: Reports: None. Denies: Thoracentesis GI Surgical History: Reports: Bariatric Procedure, Cholecystectomy, Colonoscopy, EGD, Hernia, Abdominal, Hernia, Inguinal, Hernia Repair/Other, Other (See Below). Denies: Appendectomy, Colon, Polypectomy Other GI Surgeries/Procedures: Gastric bypass surgery with concomitant incidental cholecystectomy on 09/09/07, patient denies previous gastric bypass revisions as per medical records although evidence of anastomosis dilatations in the past by EGD, last EGD on 08/31/2019 with last colonoscopy on 07/18/2019 with previous EGDs on 11/27/15 and 08/02/11. EGD in 2007 with concomitant gastric feeding tube placement at that time, laparoscopic umbilical hernia repair with mesh placement on 12/03/15, right inguinal hernia repair in 2004. Female Surgical History: Reports: Section, Endometrial Ablation, Hysterectomy, Tubal Ligation, Other (See Below). Denies: Breast Biopsy, D&C, Salpingo-Oophorectomy Other Female Surgeries/Procedures: Hysteroscopy with endometrial ablation on 04/22/19. in 1996, 1999, 2000; tubal ligation in 2000. Endocrine Surgical History: Reports: Thyroid Biopsy, Other (See Below) Other Endocrine Surgeries/Procedures: Thyroid biopsy on 02/19/14. Neurological Surgical History: Reports: None. Denies: C-Spine, Discectomy, Laminectomy, Lumbar Spine, Sacral Spine, Spinal Fusion, Thoracic Spine, V ertebroplasty Musculoskeletal Surgical History: Reports: None. Denies: Arthroscopic Knee, Arthroscopic Procedure, Carpal Tunnel, Ganglion Cyst, Joint Replacement, Knee Replacement, ORIF, Shoulder Surgery Oncologic Surgical History: Reports: Other (See Below) Other Oncologic Surgeries/Procedures: Lymph node biopsy of the left supraclavicular lymph node on 09/02/2019, which was positive for pancreatic cancer as above. Dermatological Surgical History: Reports: Skin Biopsy, Other (See Below) Other Dermatological Surgeries/Procedures: Multiple skin biopsies for benign disease in the right back and right hand on 09/03/2018 - Past Imaging History Past Imaging History: Reports: Cardiac Echo (07/29/09 with ejection fraction of 68%), CAT Scan (Soft tissue CT of the neck on 01/06/2020. CT of the chest, abdomen, and pelvis with IV contrast on 09/01/2019. CT of the abdomen and pelvis on 07/16/2019. CT of the chest on 07/10/2019. Negative CTA of the chest for PE on 06/28/19 and 02/25/19. CT of the brain on 09/28/18 and 06/20/08, CT of the abdomen and pelvis with contrast on 06/24/19, 05/21/19, 05/09/19, 06/12/11, 09/08/10, and 06/20/08. CTA of the abdomen on 06/13/19. CT of the head and cervical region on 07/24/09), Mammogram (Last on 12/17/18.), MRI (MRI of the lumbar and thoracic spines on 08/31/2019.), PET (Whole body PET scan on 09/12/2019.), Ultrasound (Pelvic ultrasound on 02/25/19. Right breast ultrasound on 09/22/17. Thyroid ultrasounds on 06/30/16 and 12/09/13. Abdominal ultrasound on 11/06/08), Venous Doppler (Negative venous Doppler studies of the legs bilaterally on 02/25/19.), Other (See Below) (Nuclear medicine evaluation of the sphincter of Oddi on 06/25/19.) - History Comment History Comment: Noncompliant with dietary changes recommended/elimination diet. Can be concompliant with medications/supplements. Social & Family History - Family History Family Medical History: No Pertinent Family History HEENT: Reports: Cataract, Other (See Below) Other HEENT Family History: Father with cataracts. Cardiac: Reports: High Cholesterol, Hypertension, Other (See Below) Other Cardiac Family History: Father with hyperlipidemia, hypertension in father and maternal grandfather Respiratory: Reports: Sleep Apnea, Other (See Below) Other Respiratory Family Hisory: Father with sleep apnea and history of tobacco use GI: Reports: Colon Polyps, GERD, PUD, Other (See Below) Other GI Family History: GERD in mother, father with colonic polyps and peptic ulcer disease : Reports: None OBGYN: Reports: Dysfunctional uterine bleeding, Fibroids, Recurrent Spontaneous , Other (See Below) Other OBGYN Family History: Mother with dysfunctional uterine bleeding requiring hysterectomy with additional history of recurrent SAB Musculoskeletal: Reports: Arthritis, Gout, Osteoarthritis, Other (See Below) Other Musculoskeletal Family History: Father with gout Neurological: Reports: None Psychiatric: Reports: Anxiety, Depression, Other (See Below) Other Psychiatric Family History: Anxiety depression disorder in mother, maternal great grandmother and paternal great-grandmother Endocrine/Metabolic: Reports: Diabetes, type II, Hypothyroidism, IDDM, Other (See Below) Other Endocrine/Metabolic Family History: IDDM in maternal grandmother, paternal grandmother, maternal grandfather, and maternal great-grandmother with brother with possible hyperglycemia, father with hypothyroidism secondary to thyroid resection from metastatic renal cancer as below Hematologic: Reports: Anemia Immunologic: Reports: None Dermatologic: Reports: None Oncologic: Reports: Leukemia, Metastatic, Renal, Skin, Thyroid, Other (See Below) Other Oncologic Family History: Mother with melanoma, paternal grandmother with basal cell carcinoma, maternal aunt with basal cell carcinoma, Cousin with leukemia, mother with multiple myeloma, father with metastatic renal cancer with metastases to the thyroid gland and lungs - Tobacco Use Tobacco Use Status *Q: Never Tobacco User Tobacco Use Within Last Twelve Months: No Used Tobacco, but Quit: No Smoking Cessation Information Provided To Patient: No Second Hand Smoke Exposure: No Second Hand Smoke Education Provided: No - Caffeine Use Caffeine Use: Reports: None - Alcohol Use Alcohol Use History: No Days Per Week of Alcohol Use: 0 Number of Drinks Per Day: 0 Number of Drinks Per Day Comment: No previous DWIs, problems with alcohol abuse, etc. Total Drinks Per Week: 0 Alcohol Use in Last Twelve Months: No - Recreational Drug Use Recreational Drug Use: Yes Drug Use in Last 12 Months: Yes Recreational Drug Type: Reports: Marijuana/Hashish (Started using synthetic marijuana in January 2020 secondary to her pancreatic cancer). 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 ED EXAM, GENERAL - Physical Exam Exam: See Below Exam Limited By: Other (Severe generalized cachexia) General Appearance: Alert, WD/WN, No Apparent Distress Eye Exam: Bilateral Eye: EOMI, Normal Inspection (The patient is wearing glasses. No vertigo or nystagmus.) Ears: Normal External Exam, Normal Canal, Hearing Grossly Normal, Normal TMs Throat/Mouth: Normal Inspection, Normal Lips, Normal Teeth (Occasional missing teeth), Normal Gums, Normal Oropharynx, Normal Voice, No Airway Compromise. No: Dysphagia, Perioral Cyanosis Head: Atraumatic, Normocephalic. No: Facial Swelling, Facial Tenderness, Sinus Tenderness Neck: Normal Inspection, Supple, Non-Tender, Full Range of Motion. No: Carotid Bruit, Lymphadenopathy (L), Lymphadenopathy (R), Thyromegaly Respiratory/Chest: No Respiratory Distress, Lungs Clear, Normal Breath Sounds, No Accessory Muscle Use, Chest Non-Tender. No: Accessory Muscle Use, Retraction s, Prolonged Expiration Cardiovascular: Normal Peripheral Pulses, Regular Rate, Rhythm, No Edema, No Gallop, No JVD, No Murmur, No Rub. No: Gallop/S3, Gallop/S4, Friction Rub Peripheral Pulses: 2+: Radial (L), Radial (R), Dorsalis Pedis (L), Dorsalis Pedis (R) GI/Abdominal: Normal Bowel Sounds, Soft, Non-Tender, No Organomegaly, No Distention, No Abnormal Bruit, No Mass. No: Guarding (Female) Exam: Deferred Rectal (Female) Exam: Deferred Back Exam: Normal Inspection, Full Range of Motion. No: CVA Tenderness (L), CVA Tenderness (R), Muscle Spasm Extremities: Normal Inspection, Normal Range of Motion, Non-Tender, No Pedal Edema, Normal Capillary Refill. No: Saturnino's Sign Neurological: Alert, Oriented, CN II-XII Intact, Normal Cognition, Normal Gait, Normal Reflexes (Negative Babinski's), No Motor/Sensory Deficits Psychiatric: Normal Affect, Normal Mood Skin Exam: Warm, Dry, Intact, No Rash, Pallor (Severe), Tattoo(s) (Multiple). No: Diaphoretic, Wound/Incision #1 Interpretation EKG Date: 02/27/20 Time: 15:22 Rhythm: NSR (Borderline tachycardia resolved/improved) Rate (Beats/Min): 100 [place]: Normal (Neutral) P-Wave: Present QRS: Normal (0.06 seconds) ST-T: Other (with new nonspecific ST changes including ST inversion in leads II, III, and V1 through V5 with additional possible similar beginning changes in lead aVF.) QT: Normal WY/PQ Interval: 0.11 seconds representing a stable short WY interval with no delta waves noted. Stable extreme poor R wave progression in the anterior leads. Comparison: Change From Previous EKG (As above since 07/22/2019) EKG Interpretation Comments: 1. Diffuse cardiac ischemia 2. Short WY interval 3. Borderline tachycardia Course - Vital Signs Last Recorded V/S: Last Vital Signs Temp 36.7 C 02/27/20 17:45 Pulse 75 02/27/20 17:45 Resp 13 02/27/20 17:45 BP 83/58 L 02/27/20 17:45 Pulse Ox 99 02/27/20 17:45 Vital Signs - 24 hr 02/27/20 02/27/20 02/27/20 14:49 14:50 15:04 Temperature [ 36.8 C Temporal] Pulse, 106 H 105 H Peripheral [ Right Pulse Oximetry] Respiratory 14 14 Rate Blood Pressure 86/58 L 78/60 L [Right Upper Arm] O2 Sat by Pulse 100 100 Oximetry O2 Sat by Pulse 100 Oximetry [Room Air] 02/27/20 02/27/20 02/27/20 15:20 15:40 15:46 Temperature [ 36.8 C Temporal] Pulse, 91 89 105 H Peripheral [ Right Pulse Oximetry] Respiratory 13 14 13 Rate Blood Pressure 81/58 L 81/60 L 86/58 L [Right Upper Arm] O2 Sat by Pulse 99 100 100 Oximetry O2 Sat by Pulse Oximetry [Room Air] 02/27/20 02/27/20 02/27/20 16:05 16:19 16:35 Temperature [ Temporal] Pulse, 74 73 70 Peripheral [ Right Pulse Oximetry] Respiratory 11 L 13 14 Rate Blood Pressure 81/56 L 80/56 L 80/55 L [Right Upper Arm] O2 Sat by Pulse 100 100 99 Oximetry O2 Sat by Pulse Oximetry [Room Air] 02/27/20 17:45 Temperature [ 36.7 C Temporal] Pulse, 75 Peripheral [ Right Pulse Oximetry] Respiratory 13 Rate Blood Pressure 83/58 L [Right Upper Arm] O2 Sat by Pulse 99 Oximetry O2 Sat by Pulse Oximetry [Room Air] - Orders/Labs/Meds Orders: Active Orders 24 hr Category Date Time Status Cardiac Monitoring [RC] . DIRECTED Care 02/27/20 15:04 Active Communication Order [RC] ROUTINE Care 02/27/20 15:06 Active EKG Documentation Completion [RC] ASDIRECTED Care 02/27/20 15:04 Active Oxygen Therapy, ED [RC] PRN Care 02/27/20 15:04 Active Pulse Oximetry [RC] CONTINUOUS Care 02/27/20 15:04 Active Up With Assistance [RC] PFP Care 02/27/20 15:04 Active Vital Signs [RC] PFP Care 02/27/20 15:04 Active Nothing per Oral Now Diet [DIET] Diet 02/27/20 Breakfast Active Chest 1V Frontal [CR] Stat Exams 02/27/20 15:04 Taken CULTURE BLOOD [BC] Stat Lab 02/27/20 15:17 Received CULTURE BLOOD [BC] Stat Lab 02/27/20 15:21 Received CULTURE URINE [RM] Routine Lab 02/27/20 16:33 Ordered Sodium Chloride 0.9% [Saline Flush] Med 02/27/20 15:04 Active 10 ml FLUSH ASDIRECTED PRN Blood Culture x2 Reflex Set [OM.PC] Urgent Oth 02/27/20 15:08 Ordered Isolation [COMM] Routine Oth 02/27/20 15:04 Active Obtain Past Medical Record [OM.PC] Urgent Oth 02/27/20 15:04 Active Resuscitation Status Stat Resus Stat 02/27/20 15:04 Ordered EKG 12 Lead [EK] Stat Ther 02/27/20 15:04 Ordered Medication Orders Sodium Chloride (Saline Flush) 10 ml FLUSH ASDIRECTED PRN PRN Reason: Keep Vein Open Last Admin: 02/27/20 15:39 Dose: 10 ml Documented by: CAROLYNE Labs: Laboratory Tests 02/27/20 02/27/20 02/27/20 Range/Units 15:03 15:17 15:17 WBC 0.5 L* (4.0-10.2) K/uL RBC 2.33 L (3.77-5.09) M/uL Hgb 7.3 L* D (11.7-15.5) g/dL Hct 22.0 L* (34.0-46.0) % MCV 94.4 D (84.0-98.0) fL MCH 31.3 (28.2-33.3) pg MCHC 33.2 (31.7-36.0) g/dL RDW 18.7 H (11.2-14.1) % Plt Count 28 L* D (150-350) K/uL Neut % (Auto) 15.6 L (45.0-80.0) % Lymph % (Auto) 51.1 H (10.0-50.0) % [place] % (Auto) 31.1 H (2.0-14.0) % Eos % (Auto) 0.0 (0.0-5.0) % Baso % (Auto) 2.2 H (0.0-2.0) % Neut # (Auto) 0.07 L (1.40-7.00) K/uL Lymph # (Auto) 0.23 L (0.50-3.50) K/uL [place] # (Auto) 0.14 (0.00-1.00) K/uL Eos # (Auto) 0.00 (0.00-0.50) K/uL Baso # (Auto) 0.01 (0.00-0.20) K/uL PT 11.7 (9.5-12.0) SEC INR 1.2 APTT 33.5 H (24.5-32.8) SEC D-Dimer, Quantitative (0-400) ng/mL Sodium (136-145) mmol/L Potassium (3.5-5.1) mmol/L Chloride (98-107) mmol/L Carbon Dioxide (21.0-32.0) mmol/L BUN (7-18) mg/dL Creatinine (0.51-1.17) mg/dL Est Cr Clr Drug Dosing mL/min Estimated GFR (MDRD) mL/min Glucose (74-106) mg/dL Lactic Acid (0.4-2.0) mmol/L Uric Acid (2.6-7.2) mg/dL Calcium (8.5-10.1) mg/dL Magnesium (1.8-2.4) mg/dL Total Bilirubin (0.2-1.0) mg/dL AST (15-37) U/L ALT (12-78) U/L Alkaline Phosphatase (46-116) IU/L Creatine Kinase (26-308) U/L Creatine Kinase Index (0.0-2.5) % CK-MB (CK-2) (0.00-3.60) ng/mL Troponin I (0.000-0.056) ng/mL NT-Pro-B Natriuret Pep (0-125) pg/mL Total Protein (6.4-8.2) g/dL Albumin (3.4-5.0) g/dL Amylase (25-115) U/L Lipase (73-393) U/L TSH, Ultra Sensitive (0.358-3.740) mIU/mL Specimen Type Urine Color Urine Appearance Urine pH (5.0-9.0) Ur Specific [place] (1.005-1.030) Urine Protein (NEGATIVE) mg/dL Urine Glucose (UA) (NEGATIVE) mg/dL Urine Ketones (NEGATIVE) mg/dL Urine Occult Blood (NEGATIVE) Urine Nitrite (NEGATIVE) Urine Bilirubin (NEGATIVE) Urine Urobilinogen (0.2-1.0) E.U./dL Ur Leukocyte Esterase (NEGATIVE) Urine RBC /HPF Urine WBC /HPF Urine Bacteria (NONE TO FEW) /HPF SARS-CoV-2 RNA (SANTI) Negative (NEGATIVE) 02/27/20 02/27/20 02/27/20 Range/Units 15:17 15:17 15:17 WBC (4.0-10.2) K/uL RBC (3.77-5.09) M/uL Hgb (11.7-15.5) g/dL Hct (34.0-46.0) % MCV (84.0-98.0) fL MCH (28.2-33.3) pg MCHC (31.7-36.0) g/dL RDW (11.2-14.1) % Plt Count (150-350) K/uL Neut % (Auto) (45.0-80.0) % Lymph % (Auto) (10.0-50.0) % [place] % (Auto) (2.0-14.0) % Eos % (Auto) (0.0-5.0) % Baso % (Auto) (0.0-2.0) % Neut # (Auto) (1.40-7.00) K/uL Lymph # (Auto) (0.50-3.50) K/uL [place] # (Auto) (0.00-1.00) K/uL Eos # (Auto) (0.00-0.50) K/uL Baso # (Auto) (0.00-0.20) K/uL PT (9.5-12.0) SEC INR APTT (24.5-32.8) SEC D-Dimer, Quantitative 685 H (0-400) ng/mL Sodium 127 L D (136-145) mmol/L Potassium 3.3 L (3.5-5.1) mmol/L Chloride 92 L D (98-107) mmol/L Carbon Dioxide 24.8 (21.0-32.0) mmol/L BUN 30 H (7-18) mg/dL Creatinine 1.08 (0.51-1.17) mg/dL Est Cr Clr Drug Dosing 41.84 mL/min Estimated GFR (MDRD) 55 mL/min Glucose 174 H (74-106) mg/dL Lactic Acid 2.3 H (0.4-2.0) mmol/L Uric Acid 5.0 (2.6-7.2) mg/dL Calcium 8.1 L (8.5-10.1) mg/dL Magnesium 1.0 L (1.8-2.4) mg/dL Total Bilirubin 0.5 (0.2-1.0) mg/dL AST 15 (15-37) U/L ALT 24 (12-78) U/L Alkaline Phosphatase 131 H (46-116) IU/L Creatine Kinase 24 L (26-308) U/L Creatine Kinase Index 0.0 (0.0-2.5) % CK-MB (CK-2) 0.00 (0.00-3.60) ng/mL Troponin I 0.006 (0.000-0.056) ng/mL NT-Pro-B Natriuret Pep 1144 H (0-125) pg/mL Total Protein 5.7 L (6.4-8.2) g/dL Albumin 2.4 L (3.4-5.0) g/dL Amylase (25-115) U/L Lipase (73-393) U/L TSH, Ultra Sensitive 2.774 (0.358-3.740) mIU/mL Specimen Type Urine Color Urine Appearance Urine pH (5.0-9.0) Ur Specific [place] (1.005-1.030) Urine Protein (NEGATIVE) mg/dL Urine Glucose (UA) (NEGATIVE) mg/dL Urine Ketones (NEGATIVE) mg/dL Urine Occult Blood (NEGATIVE) Urine Nitrite (NEGATIVE) Urine Bilirubin (NEGATIVE) Urine Urobilinogen (0.2-1.0) E.U./dL Ur Leukocyte Esterase (NEGATIVE) Urine RBC /HPF Urine WBC /HPF Urine Bacteria (NONE TO FEW) /HPF SARS-CoV-2 RNA (SANTI) (NEGATIVE) 02/27/20 02/27/20 Range/Units 15:17 17:15 WBC (4.0-10.2) K/uL RBC (3.77-5.09) M/uL Hgb (11.7-15.5) g/dL Hct (34.0-46.0) % MCV (84.0-98.0) fL MCH (28.2-33.3) pg MCHC (31.7-36.0) g/dL RDW (11.2-14.1) % Plt Count (150-350) K/uL Neut % (Auto) (45.0-80.0) % Lymph % (Auto) (10.0-50.0) % [place] % (Auto) (2.0-14.0) % Eos % (Auto) (0.0-5.0) % Baso % (Auto) (0.0-2.0) % Neut # (Auto) (1.40-7.00) K/uL Lymph # (Auto) (0.50-3.50) K/uL [place] # (Auto) (0.00-1.00) K/uL Eos # (Auto) (0.00-0.50) K/uL Baso # (Auto) (0.00-0.20) K/uL PT (9.5-12.0) SEC INR APTT (24.5-32.8) SEC D-Dimer, Quantitative (0-400) ng/mL Sodium (136-145) mmol/L Potassium (3.5-5.1) mmol/L Chloride (98-107) mmol/L Carbon Dioxide (21.0-32.0) mmol/L BUN (7-18) mg/dL Creatinine (0.51-1.17) mg/dL Est Cr Clr Drug Dosing mL/min Estimated GFR (MDRD) mL/min Glucose (74-106) mg/dL Lactic Acid (0.4-2.0) mmol/L Uric Acid (2.6-7.2) mg/dL Calcium (8.5-10.1) mg/dL Magnesium (1.8-2.4) mg/dL Total Bilirubin (0.2-1.0) mg/dL AST (15-37) U/L ALT (12-78) U/L Alkaline Phosphatase (46-116) IU/L Creatine Kinase (26-308) U/L Creatine Kinase Index (0.0-2.5) % CK-MB (CK-2) (0.00-3.60) ng/mL Troponin I (0.000-0.056) ng/mL NT-Pro-B Natriuret Pep (0-125) pg/mL Total Protein (6.4-8.2) g/dL Albumin (3.4-5.0) g/dL Amylase 31 (25-115) U/L Lipase 46 L (73-393) U/L TSH, Ultra Sensitive (0.358-3.740) mIU/mL Specimen Type Urinqcath Urine Color Yellow Urine Appearance Clear Urine pH 5.5 (5.0-9.0) Ur Specific [place] 1.020 (1.005-1.030) Urine Protein Negative (NEGATIVE) mg/dL Urine Glucose (UA) Negative (NEGATIVE) mg/dL Urine Ketones Negative (NEGATIVE) mg/dL Urine Occult Blood Trace-intact H (NEGATIVE) Urine Nitrite Negative (NEGATIVE) Urine Bilirubin Negative (NEGATIVE) Urine Urobilinogen 0.2 (0.2-1.0) E.U./dL Ur Leukocyte Esterase Negative (NEGATIVE) Urine RBC 0-5 /HPF Urine WBC 0-5 /HPF Urine Bacteria Rare (NONE TO FEW) /HPF SARS-CoV-2 RNA (SANTI) (NEGATIVE) Blood cultures x2 were collected Quick cath UA specimen was set up for culture and sensitivity Microbiology 02/27/20 15:03 Influenza Type A Antigen Screen - Final Nasal, Unspecified NEGATIVE INFLUENZA A VIRUS AG REFERENCE RANGE: NEGATIVE Influenza Type B Antigen Screen - Final NEGATIVE INFLUENZA B VIRUS AG REFERENCE RANGE: NEGATIVE Meds: Medications Generic Name Dose Route Start Last Admin Trade Name Freq PRN Reason Stop Dose Admin Sodium Chloride 10 ml 02/27/20 15:04 02/27/20 15:39 Saline Flush FLUSH 10 ml ASDIRECTED PRN Administration Keep Vein Open Discontinued Medications Generic Name Dose Route Start Last Admin Trade Name Freq PRN Reason Stop Dose Admin Famotidine 40 mg 02/27/20 15:04 02/27/20 15:39 Pepcid IVPUSH 02/27/20 15:05 40 mg ONETIME ONE Administration Lactated Ringer's 1,000 mls @ 999 mls/hr 02/27/20 15:07 02/27/20 15:36 Ringers, Lactated IV 02/27/20 16:07 999 mls/hr .BOLUS ONE Administration Piperacillin Sod/Tazobactam 100 mls @ 200 mls/hr 02/27/20 16:34 02/27/20 17:20 Sod 3.375 gm/ Sodium Chloride IV 02/27/20 17:03 200 mls/hr ONETIME ONE Administration - Radiology Interpretation Free Text/Narrative:: threat monitoring analyst shows normal sinus rhythm with average heart rate in the 80s to 90s with no ectopy or arrhythmia. Chest x-ray, portable, shows Port-A-Cath present in the right upper lobe with additional mild pulmonary obstructive changes but no evidence of pulmonary infiltrates, pneumothorax, cardiomegaly, CHF, etc. Departure - Departure Time of Disposition: 17:55 Disposition: DC/Tfer to Acute Hospital 02 Condition: Fair Clinical Impression: Pancytopenia, Elevated lactic acid level, Mixed anxiety depressive disorder, Hypokalemia, Hypoalbuminemia, Hypomagnesemia, D-dimer, elevated, Hyponatremia CHF (congestive heart failure) Qualifiers: Heart failure type: unspecified Heart failure chronicity: acute Qualified Code(s): I50.9 - Heart failure, unspecified Pancreatic cancer Qualifiers: Pancreatic malignancy location: unspecified Qualified Code(s): C25.9 - Malignant neoplasm of pancreas, unspecified Hypotension Qualifiers: Hypotension type: other hypotension type Qualified Code(s): I95.89 - Other hypotension - Discharge Information *PRESCRIPTION DRUG MONITORING PROGRAM REVIEWED*: Not Applicable *COPY OF PRESCRIPTION DRUG MONITORING REPORT IN PATIENT SAM: Not Applicable Referrals: Cornelius Murry MD [Primary Care Provider] - Forms: ED Department Discharge, Interfacility Transfer [facility] Sepsis Event Note (ED) - Focused Exam Vital Signs: Vital Signs Temp Pulse Resp BP Pulse Ox Pulse Ox 02/27/20 17:45 36.7 C 75 13 83/58 L 99 02/27/20 16:35 70 14 80/55 L 99 02/27/20 16:19 73 13 80/56 L 100 02/27/20 16:05 74 11 L 81/56 L 100 02/27/20 15:46 36.8 C 105 H 13 86/58 L 100 02/27/20 15:40 89 14 81/60 L 100 02/27/20 15:20 91 13 81/58 L 99 02/27/20 15:04 100 02/27/20 14:50 105 H 14 78/60 L 100 02/27/20 14:49 36.8 C 106 H 14 86/58 L 100 - Problem List & Annotations (1) Pancreatic cancer SNOMED Code(s): 387365686 Code(s): C25.9 - MALIGNANT NEOPLASM OF PANCREAS, UNSPECIFIED Status: Acute Priority: High Current Visit: Yes Annotation/Comment:: Initially diagnosed in August 2019 with patient currently undergoing chemotherapy with no previous acuna rgeries, including Whipple procedure, etc. to this point as above. Note significant pancytopenia as below. Initial telephone consultation with [facility] in [place] at 4:05 PM. Subsequent telephone consultation at 4:[address] oRbles, hospitalist, who does accept the patient for direct admission. Aggressive IV hydration will be continued in route as below with additional initiation of IV Zosyn prior to transfer per the recommendations of Dr. Robles. Note that urine specimen for culture and sensitivity and blood cultures x2 were collected prior to initiation of antibiotic therapy with one of the blood cultures obtained from her Port-A-Cath. Ambulance transfer with day habilitation supervisor accompaniment with stable and improved vital signs and clinical exam prior to patient's transfer. Qualifiers: Pancreatic malignancy location: unspecified Qualified Code(s): C25.9 - Malignant neoplasm of pancreas, unspecified (2) CHF (congestive heart failure) SNOMED Code(s): 35996091 Code(s): I50.9 - HEART FAILURE, UNSPECIFIED Status: Acute Priority: High Current Visit: Yes Onset Date: 02/27/20 Annotation/Comment:: No clinical evidence of significant CHF either by clinical exam or today's chest x-ray. Note new diffuse ischemic nonspecific ST changes in today's EKG with moderate BNP elevation, however overall normal cardiac enzymes to this point. She denies any chest pain or anginal type symptoms with chest pain protocol not initiated in the emergency room. Consider echocardiogram, cardiology consultation, etc. by accepting providers especially in light of her current chemotherapy. Note hypotension on arrival with improvement with IV fluids as above. Qualifiers: Heart failure type: unspecified Heart failure chronicity: acute Qualified Code(s): I50.9 - Heart failure, unspecified (3) Elevated lactic acid level SNOMED Code(s): 4179795 Code(s): R79.89 - OTHER SPECIFIED ABNORMAL FINDINGS OF BLOOD CHEMISTRY Status: Acute Priority: High Current Visit: Yes Onset Date: 02/27/20 Annotation/Comment:: Note borderline tachycardia and hypotension with only mild lactic acid elevation and no recent history of fever, known exposure to infection, etc. Patient does have significant pancytopenia, however, with blood cultures x2 collected. Note negative influenza screen and rapid COVID-19 test in this facility prior to patient's transfer. 1 L lactated Ringer's given by means of IV bolus in the emergency room with subsequent initiation of IV Zosyn therapy in route as above and subsequent additional 1 L IV bolus of lactated Ringer's thereafter in route. Otherwise continue normal sepsis protocol including recommended lactic acid level in about 3 hours by accepting providers. (4) Hypotension SNOMED Code(s): 46026333 Code(s): I95.9 - HYPOTENSION, UNSPECIFIED Status: Acute Priority: High Current Visit: Yes Onset Date: 02/27/20 Annotation/Comment:: Significant hypotension on patient's arrival with improvement with IV fluids as above. Patient does have a long history of chronic hypotension and previous near syncopal episodes. Continue aggressive hydration in route and by accepting providers as above. Consider vasopressors depending on her clinical course. Qualifiers: Hypotension type: other hypotension type Qualified Code(s): I95.89 - Other hypotension (5) Pancytopenia SNOMED Code(s): 975137785 Code(s): D61.818 - OTHER PANCYTOPENIA Status: Acute Priority: High Current Visit: Yes Onset Date: 02/27/20 Annotation/Comment:: As above. Note the patient did receive a Neulasta injection last week as above. Oncology consultation as above. (6) Hypoalbuminemia SNOMED Code(s): 235731733 Code(s): E88.09 - OTH DISORDERS OF PLASMA-PROTEIN METABOLISM, NEC Status: Chronic Priority: Medium Current Visit: Yes Annotation/Comment:: Patient admits to significant decreased generalized oral intake secondary to nonspecific intolerance without evidence of pancreatitis today. Note significant progressive cachexia secondary to pancreatic cancer. Compliance with high- protein Glucerna supplements as snacks and her previously recommended diet once again strongly encouraged. (7) Hypokalemia SNOMED Code(s): 43224582 Code(s): E87.6 - HYPOKALEMIA Status: Chronic Priority: High Current Visit: Yes Onset Date: 05/30/16 Annotation/Comment:: IV lactated Ringer's initiated as above. 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 (8) Hypomagnesemia SNOMED Code(s): 003524255 Code(s): E83.42 - HYPOMAGNESEMIA Status: Chronic Priority: Medium Current Visit: Yes Onset Date: 05/30/16 Annotation/Comment:: Patient denies noncompliance with her oral magnesium sulfate. Note malabsorption syndrome as above. Patient may need IV magnesium sulfate supplementation, however note hypotension at this point. (9) Mixed anxiety depressive disorder SNOMED Code(s): 392194969 Code(s): F41.8 - OTHER SPECIFIED ANXIETY DISORDERS Status: Chronic Priority: High Current Visit: Yes Annotation/Comment:: Stable by history despite patient's current diagnosis of pancreatic cancer. Continue to observe closely by her accepting and regular providers. Emotional support was provided. (10) Peptic reflux disease SNOMED Code(s): 521871616 Code(s): K21.9 - GASTRO-ESOPHAGEAL REFLUX DISEASE WITHOUT ESOPHAGITIS Status: Chronic Priority: Medium Current Visit: Yes Annotation/Comment:: Stable by patient history. High-dose IV Pepcid as GI prophylaxis. No abdominal complaints at this time. (11) D-dimer, elevated SNOMED Code(s): 516441351 Code(s): R79.89 - OTHER SPECIFIED ABNORMAL FINDINGS OF BLOOD CHEMISTRY Status: Chronic Priority: High Current Visit: Yes Annotation/Comment:: Long history of D-dimer elevation with negative work-up last year as above. No clinical evidence of DVT or PE despite patient's history of pancreatic cancer. No pancytopenia as above. (12) Hypocalcemia SNOMED Code(s): 3603285 Code(s): E83.51 - HYPOCALCEMIA Status: Acute Priority: Medium Current Visit: Yes Onset Date: 02/27/20 Annotation/Comment:: Observe for now. (13) Hyponatremia SNOMED Code(s): 22526951 Code(s): E87.1 - HYPO-OSMOLALITY AND HYPONATREMIA Status: Acute Priority: Medium Current Visit: Yes Onset Date: 02/27/20 Annotation/Comment:: Moderate hyponatremia. Aggressive IV lactated Ringer's hydration as above. Patient may need 3% sodium chloride infusion depending on her clinical course. No significant confusion, etc. at this time. - Problem List Review Problem List Initiated/Reviewed/Updated: Yes - My Orders Last 24 Hours: My Active Orders 02/27/20 Breakfast Nothing per Oral Now Diet [DIET] 02/27/20 15:04 Cardiac Monitoring [RC] . DIRECTED EKG Documentation Completion [RC] ASDIRECTED Oxygen Therapy, ED [RC] PRN Pulse Oximetry [RC] CONTINUOUS Up With Assistance [RC] PFP Vital Signs [RC] PFP Chest 1V Frontal [CR] Stat Sodium Chloride 0.9% [Saline Flush] 10 ml FLUSH ASDIRECTED PRN Isolation [COMM] Routine Obtain Past Medical Record [OM.PC] Urgent Resuscitation Status Stat EKG 12 Lead [EK] Stat 02/27/20 15:06 Communication Order [RC] ROUTINE 02/27/20 15:08 Blood Culture x2 Reflex Set [OM.PC] Urgent 02/27/20 15:17 CULTURE BLOOD [BC] Stat 02/27/20 15:21 CULTURE BLOOD [BC] Stat 02/27/20 16:33 CULTURE URINE [RM] Routine - Assessment/Plan Last 24 Hours: My Active Orders 02/27/20 Breakfast Nothing per Oral Now Diet [DIET] 02/27/20 15:04 Cardiac Monitoring [RC] . DIRECTED EKG Documentation Completion [RC] ASDIRECTED Oxygen Therapy, ED [RC] PRN Pulse Oximetry [RC] CONTINUOUS Up With Assistance [RC] PFP Vital Signs [RC] PFP Chest 1V Frontal [CR] Stat Sodium Chloride 0.9% [Saline Flush] 10 ml FLUSH ASDIRECTED PRN Isolation [COMM] Routine Obtain Past Medical Record [OM.PC] Urgent Resuscitation Status Stat EKG 12 Lead [EK] Stat 02/27/20 15:06 Communication Order [RC] ROUTINE 02/27/20 15:08 Blood Culture x2 Reflex Set [OM.PC] Urgent 02/27/20 15:17 CULTURE BLOOD [BC] Stat 02/27/20 15:21 CULTURE BLOOD [BC] Stat 02/27/20 16:33 CULTURE URINE [RM] Routine Assessment:: As above Plan: As above. Extensive precautions were given to the patient and her , who are in agreement with the treatment plan. Ambulance transfer with day habilitation supervisor accompaniment to [facility] in [place] as above.
[2020-02-27] MEDS ORDERED: Famotidine 20 MG/2 ML SDV IVPUSH ONE (15:04)
[2020-02-27] MEDS ORDERED: Sodium Chloride 0.9% 10 ML Syringe FLUSH PRN (15:04)
[2020-02-27] MEDS ORDERED: Lactated Ringers 1,000 ML IV ONE ×2 (15:07→16:30)
[2020-02-27 15:43] LABS: PTT,PARTIAL THROMBOPLSTIN TIME 33.5 SEC (24.5-32.8)
[2020-02-27] MEDS ORDERED: Piperacillin/Tazobactam 3.375 GM in Sodium Chloride 0.9% 100 ML IV ONE (16:34)
[2020-02-27 18:39] VITALS: BP 83/58; PULSE 75
== END 2020-02-27 17:55 ==
LOC: LL.ED 14:49
DX: I50.9 Heart failure, unspecified (principal); D61.818 Other pancytopenia; F41.8 Other specified anxiety disorders; E87.6 Hypokalemia; E88.09 Other disorders of plasma-protein metabolism, not elsewhere classified; E83.42 Hypomagnesemia; R79.1 Abnormal coagulation profile; E87.1 Hypo-osmolality and hyponatremia; I95.89 Other hypotension; C25.9 Malignant neoplasm of pancreas, unspecified; J45.909 Unspecified asthma, uncomplicated; E66.9 Obesity, unspecified; M41.9 Scoliosis, unspecified; Z20.822 Contact with and (suspected) exposure to COVID-19; Z91.040 Latex allergy status; Z88.8 Allergy status to other drugs, medicaments and biological substances; Z79.899 Other long term (current) drug therapy; Z68.1 Body mass index [BMI] 19.9 or less, adult
CPT/HCPCS: 36415; 71045; 80053; 81001; 82150; 82550; 82553; 83605; 83690; 83735; 83880; 84443; 84484; 84550; 85025; 85379; 85610; 85730; 87040; 87086; 87804; 93005; 96361; 96365; 96375; 99285-25; J2543; J3490; J7120; U0002

== ENCOUNTER 2020-07-24 12:43 | Emergency (ER) | payer OTHER ==
[2020-07-24] MEDS ORDERED: Sodium Chloride 0.9% 10 ML Syringe FLUSH PRN (12:47)
--- NOTE | 2020-07-24 12:47 | EDM.PDOC ---
ED HPI GENERAL MEDICAL PROBLEM - General Chief Complaint: General Stated Complaint: tongue bleeding/syncopal episode. Time Seen by Provider: 07/24/20 12:45 Source of Information: Reports: Patient, EMS, Family (), Old Records ([facility] chart/EMR), Other ([place] EMR reviewed on 02/27/2020). Denies: EMS Notes Reviewed ([facility] records not available at time of dictation, however EMT records reviewed) History Limitations: Reports: No Limitations - History of Present Illness INITIAL COMMENTS - FREE TEXT/NARRATIVE: The patient was brought to the emergency room via ambulance with gis scientist accompaniment after EMT interception. The patient apparently had a [place] seizure with some postictal sedation and additional tongue biting at about 11:30 AM this morning. This was observed by her daughter with the patient sitting on the couch with no history of fall, neck/back pain, injury, etc. No apparent urinary or stool incontinence with patient not having seizures in the past. No history of recent headaches, visual changes, diplopia, change in mental status, or other change in neurological status. The patient also denies any recent fever, cough, wheezing, dyspnea, etc.. No recent history of abdominal pain, heartburn, emesis, diarrhea, melena, gross hematochezia, or any food intolerance, including fatty foods, etc., although she did have some mild nausea in route secondary to riding in the ambulance and swallowing some blood. No known history of aspiration with resolution of nausea time of arrival to this facility. She denies any gross hematuria, colic, or other UTI symptoms. She currently complains of 7/10 tongue pain with no significant bleeding at this time. Onset: Today, Sudden Onset Date: 07/24/20 Onset Time: 11:30 Duration: Constant Location: Reports: Other (Tongue pain as above). Denies: Head, Face, Neck, Chest, Abdomen, Back, Pelvis, Upper Extremity, Left, Upper Extremity, Right, Lower Extremity, Left, Lower Extremity, Right, Radiates to Quality: Reports: Ache Severity: Moderate Improves with: Reports: None Worsens with: Reports: None Context: Reports: Other (As above). Denies: Sick Contact, Trauma Associated Symptoms: Reports: Confusion (Postictal sedation as above with significant improvement at time of arrival to our facility), Malaise (As above), Seizure. 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) - Related Data Allergies Allergy/AdvReac Type Severity Reaction Status Date / Time Latex, Natural Rubber Allergy Hives Verified 07/24/20 14:38 ondansetron Allergy Shaking,Tac Verified 07/24/20 14:38 hycardia promethazine HCl Allergy Irritabilit Verified 07/24/20 14:38 [From Phenergan] y Home Meds: Home Meds Cyanocobalamin (Vitamin B12) [Vitamin B12] 1,000 mcg IM Q30D sdv 09/29/18 [Rx] Loratadine [Claritin] 10 mg PO DAILY PRN 07/14/19 [History] Hydrocodone/Acetaminophen [Hydrocodone-Acetamin 10-325 mg] 1 tab PO Q6H PRN 07/22/19 [History] Prochlorperazine Maleate [Compazine] 10 mg PO Q6HR PRN 11/14/19 [History] Nortriptyline HCl [Pamelor] 50 mg PO DAILY PRN 02/27/20 [History] Potassium Chloride [Klor-Con M20] 40 meq PO BID 02/27/20 [History] Mirtazapine [Remeron] 15 mg PO BEDTIME PRN 03/19/20 [History] Non-Formulary Medication [NF Drug] 1 tab PO BID 03/19/20 [History] Cholecalciferol (Vitamin D3) [Vitamin D3] 1,000 unit PO DAILY 07/24/20 [History] FLUoxetine HCl [Prozac] 20 mg PO DAILY 07/24/20 [History] Folic Acid 1 mg PO DAILY 07/24/20 [History] Levothyroxine Sodium [Synthroid] 100 mcg PO BEDTIME #60 tab 07/24/20 [Rx] Magnesium Oxide 800 mg PO TID #1 tablet 07/24/20 [Rx] Morphine [MS Contin] 15 mg PO BID 07/24/20 [History] Omeprazole 20 mg PO DAILY 07/24/20 [History] Tamsulosin HCl [Flomax] 0.4 mg PO DAILY 07/24/20 [History] Past Medical History HEENT History: Reports: Allergic Rhinitis, Cataract, Impaired Vision, Sinusitis, Other (See Below). Denies: Epistaxis, Glaucoma, Hard of Hearing, Macular Degeneration, Otitis Media, Retinal Detachment Other HEENT History: Left retinal vein occlusion with secondary macular edema on 09/24/18 with left ocular injections with last injection on 04/02/19. Soft contact lenses, glasses. Bilateral cataractsmild. Cardiovascular History: Reports: Arrhythmia, Heart Failure, High Cholesterol, Syncope, Other (See Below). Denies: Afib, Aneurysm, Automatic Implantable Cardioverter Defibrillators, CAD, Heart Murmur, Hypertension, NM, PVD Other Cardiovascular History: History of d-dimer elevation with extensive negative workup on 02/25/19. Short TN interval. History of obesity and hyperlipidemia with fatty liver including post gastric bypass, previous recurrent syncope of unknown etiology with last episode in July 2014, chronic hypotension Respiratory History: Reports: Asthma, Bronchitis, Recurrent, Intubation, Previous, Other (See Below). Denies: COPD, Intubation, Difficult, PE, Pneumonia, Recurrent, Pneumothorax, Sleep Apnea, TB Other Respiratory History: Newly diagnosed 2 mm left upper lobe and 3 mm right upper lobe benign pulmonary granulomas by CTA of the chest on 02/25/19 with previous stable right lower lobe benign pulmonary nodules. Gastrointestinal History: Reports: Bowel Obstruction, Chronic Constipation, Chronic Diarrhea, Fatty Liver, Gastritis, GERD, GI Bleed, Hemorrhoids, PUD, Oth er (See Below). Denies: Celiac Disease, Cholelithiasis, Colon Polyp, Fecal Incontinence, Hepatitis, Irritable Bowel Syndrome, Jaundice, Pancreatitis Other Gastrointestinal History: History of fatty liver with LFTs elevation including post gastric bypass surgery with secondary malabsorption syndrome as below, upper GI bleed secondary to gastric ulcer in her mid 30s with no blood transfusion required, multiple previous small bowel obstructions secondary to previous gastric bypass surgery. Previous marginal ulcer. Benign hepatic hemangiomas [address] No history of pancreatitis despite pancreatic cancer as below, which is now in remission. Genitourinary History: Reports: None. 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 Uterine fibroid by pelvic ultrasound on 02/25/19. Full term deliveries by C-sections as below without complications during pregnancies or deliveries. Bilateral ovarian cysts. Amenorrhea likely secondary to chemotherapy with LMP in about July 2019. Musculoskeletal History: Reports: Arthritis, Osteoarthritis, Other (See Below). Denies: Amputation, Back Pain, Chronic, Fracture, Gout, Neck Pain, Chronic, Osteoporosis, RA, SLE Other Musculoskeletal History: Mild scoliosis. Neurological History: Reports: Headaches, Chronic, Neuropathy, Peripheral, Vertigo, Other (See Below). 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 Chronic vertigo/car sickness. Near syncopal/syncopal episodes as above. Psychiatric History: Reports: Addiction, Anxiety, Depression, Other (See Below). Denies: Abuse, Victim of, ADD, ADHD, Psych Hospitalization(s), Psychosis, PTSD, Suicide Attempt, Suicidal Ideation Other Psychiatric History: Current morphine use with previous tramadol use. 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 Denies: Diabetes, Gestational, Diabetes, Type I, Diabetes, Type II, Diabetes Mellitus, Type 3c, IDDM, Osteopenia, Osteoporosis Other Endocrine/Metabolic History: Previous borderline hyperglycemia secondary to obesity; borderline hypothyroidism with history of multiple benign thyroid nodules. Hypoalbuminemia. Complex left adrenal cysts by CT scan. Hematologic History: Reports: Anemia, B12 Deficiency, Blood Transfusion(s), Folic Acid, Iron Deficiency, Other (See Below) Other Hematologic History: Pancytopenia secondary to chemotherapy. Malabsorption syndrome secondary to her gastric bypass resulting in severe iron deficiency with additional component from her hypermenorrhea as above. Additional vitamin B-12 and folic acid deficiency. Previous blood transfusion and iron infusions secondary to her chemotherapy, iron deficiency, etc. as above. Thrombocytosis. Immunologic History: Reports: Immunosuppression, Other (See Below). Denies: AIDS, SLE Other Immunologic History: Previous chemotherapy. Oncologic (Cancer) History: Reports: Metastatic, Pancreatic, Other (See Below). Denies: Basal Cell Carcinoma, Breast, Cervix, Colon, Leukemia, Lung, Lymphoma, Malignant Melanoma, Non-Hodgkin's Lymphoma, Ovarian, Squamous Cell Carcinoma, Uterine Other Oncologic History: Metastatic pancreatic cancer including probable hepatic and possibly pulmonary metastases initially diagnosed in August 2019 and confirmed by biopsy with chemotherapy completed in May 2020 but no surgery to this point. Dermatologic History: Reports: None. Denies: Eczema, Psoriasis - Infectious Disease History Infectious Disease History: Reports: Chicken Pox, Shingles. Denies: C- Difficile, Influenza, Measles, Meningitis, Mononucleosis, MRSA, Mumps, Novel Coronavirus (Patient has received her first COVID-19 immunization), Pertussis (Whooping Cough), Rheumatic Fever, Rubella, Scarlet Fever, TB, VRE - Past Surgical History Head Surgeries/Procedures: Reports: None HEENT Surgical History: Reports: Eye Surgery, Oral Surgery, Other (See Below). Denies: Adenoidectomy, Cataract Surgery, Detached Retina, Laser Surgery, LASIK, Myringotomy w Tube(s), Naso-Sinus Surgery, Tonsillectomy Other HEENT Surgeries/Procedures: Left eye intravitrial injection of Sepproc initiated on 08/26/18 secondary to macular edema as above. [place] teeth extraction 2 at age 20 Cardiovascular Surgical History: Reports: Other (See Below). Denies: Varicose Other Cardiovascular Surgeries/Procedures: Right-sided Port-A-Cath placement in August 2019. Respiratory Surgical History: Reports: None GI Surgical History: Reports: Bariatric Procedure, Cholecystectomy, Colonoscopy, EGD, Hernia, Abdominal, Hernia, Inguinal, Hernia Repair/Other, Other (See Below). Denies: Appendectomy Other GI Surgeries/Procedures: PEG placement in early 2020. Gastric bypass surgery with concomitant incidental cholecystectomy on 09/09/07, patient denies previous gastric bypass revisions as per medical records although evidence of anastomosis dilatations in the past by EGD, last EGD on 08/31/2019 with last colonoscopy on 07/18/2019 with previous EGDs on 11/27/15 and 08/02/11. EGD in 2007 with concomitant gastric feeding tube placement at that time, laparoscopic umbilical hernia repair with mesh placement on 12/03/15, right inguinal hernia repair in 2004. Female Surgical History: Reports: Section, Endometrial Ablation, Hysterectomy, Tubal Ligation, Other (See Below). Denies: Breast Biopsy, D&C, Salpingo-Oophorectomy Other Female Surgeries/Procedures: Hysteroscopy with endometrial ablation on 04/22/19. in 1996, 1999, 2000; tubal ligation in 2000. Endocrine Surgical History: Reports: Thyroid Biopsy, Other (See Below) Other Endocrine Surgeries/Procedures: Thyroid biopsy on 02/19/14. Neurological Surgical History: Reports: None. Denies: C-Spine, Discectomy, Laminectomy, Lumbar Spine, Sacral Spine, Spinal Fusion, Thoracic Spine, Vertebroplasty Musculoskeletal Surgical History: Reports: None. Denies: Arthroscopic Pr ocedure, Carpal Tunnel, Ganglion Cyst, Joint Replacement, ORIF, Shoulder Surgery Oncologic Surgical History: Reports: Other (See Below) Other Oncologic Surgeries/Procedures: Lymph node biopsy of the left supraclavicular lymph node on 09/02/2019, which was positive for pancreatic cancer as above. Dermatological Surgical History: Reports: Skin Biopsy, Other (See Below) Other Dermatological Surgeries/Procedures: Multiple skin biopsies for benign disease in the right back and right hand on 09/03/2018. - Past Imaging History Past Imaging History: Reports: Cardiac Echo (07/29/09 with ejection fraction of 68%), CAT Scan (Soft tissue CT of the neck on 01/06/2020. CT of the chest, abdomen, and pelvis with IV contrast on 09/01/2019. CT of the abdomen and pelvis on 07/16/2019. CT of the chest on 07/10/2019. Negative CTA of the chest for PE on 06/28/19 and 02/25/19. CT of the brain on 09/28/18 and 06/20/08, CT of the abdomen and pelvis with contrast on 06/24/19, 05/21/19, 05/09/19, 06/12/11, 09/08/10, and 06/20/08. CTA of the abdomen on 06/13/19. CT of the head and cervical region on 07/24/09), Mammogram (Last on 12/17/18.), MRI (MRI of the lumbar and thoracic spines on 08/31/2019.), PET (Whole body PET scan on 09/12/2019.), Ultrasound (Pelvic ultrasound on 02/25/19. Right breast ultrasound on 09/22/17. Thyroid ultrasounds on 06/30/16 and 12/09/13. Abdominal ultrasound on 11/06/08), Venous Doppler (Negative venous Doppler studies of the legs bilaterally on 02/25/19.), Other (See Below) (Nuclear medicine evaluation of the sphincter of Oddi on 06/25/19.) - History Comment History Comment: Noncompliant with dietary changes recommended/elimination diet. Can be concompliant with medications/supplements. Social & Family History - Family History Family Medical History: No Pertinent Family History HEENT: Reports: Cataract, Other (See Below) Other HEENT Family History: Father with cataracts. Cardiac: Reports: High Cholesterol, Hypertension, Other (See Below) Other Cardiac Family History: Father with hyperlipidemia, hypertension in father and maternal grandfather Respiratory: Reports: Sleep Apnea, Other (See Below) Other Respiratory Family Hisory: Father with sleep apnea and history of tobacco use GI: Reports: Colon Polyps, GERD, PUD, Other (See Below) Other GI Family History: GERD in mother, father with colonic polyps and peptic ulcer disease : Reports: None OBGYN: Reports: Dysfunctional uterine bleeding, Fibroids, Recurrent Spontaneous , Other (See Below) Other OBGYN Family History: Mother with dysfunctional uterine bleeding requiring hysterectomy with additional history of recurrent SAB Musculoskeletal: Reports: Arthritis, Gout, Osteoarthritis, Other (See Below) Other Musculoskeletal Family History: Father with gout Neurological: Reports: None Psychiatric: Reports: Anxiety, Depression, Other (See Below) Other Psychiatric Family History: Anxiety depression disorder in mother, maternal great grandmother and paternal great-grandmother Endocrine/Metabolic: Reports: Diabetes, type II, Hypothyroidism, IDDM, Other (See Below) Other Endocrine/Metabolic Family History: IDDM in maternal grandmother, paternal grandmother, maternal grandfather, and maternal great-grandmother with brother with possible hyperglycemia, father with hypothyroidism secondary to thyroid resection from metastatic renal cancer as below Hematologic: Reports: Anemia Immunologic: Reports: None Dermatologic: Reports: None Oncologic: Reports: Leukemia, Metastatic, Renal, Skin, Thyroid, Other (See Below) Other Oncologic Family History: Mother with melanoma, paternal grandmother with basal cell carcinoma, maternal aunt with basal cell carcinoma, Cousin with leukemia, mother with multiple myeloma, father with metastatic renal cancer with metastases to the thyroid gland and lungs - Tobacco Use Tobacco Use Status *Q: Never Tobacco User ([place] over there does not still does not use tobacco or I) Tobacco Use Within Last Twelve Months: No Used Tobacco, but Quit: No Smoking Cessation Information Provided To Patient: No Second Hand Smoke Exposure: No Second Hand Smoke Education Provided: No - Caffeine Use Caffeine Use: Reports: Soda (12 sodas per day). Denies: Coffee, Energy Drinks, Tea - Alcohol Use Alcohol Use History: No Days Per Week of Alcohol Use: 0 Number of Drinks Per Day: 0 Number of Drinks Per Day Comment: No previous DWIs, problems with alcohol abuse, etc. 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 ED EXAM, GENERAL - Physical Exam Exam: See Below Exam Limited By: No Limitations General Appearance: Alert, WD/WN, No Apparent Distress, Cachetic (Improved with intentional 20 pound weight gain during the last few months after PEG tube placement) Eye Exam: Bilateral Eye: EOMI, Normal Fundi, Normal Inspection (The patient is wearing glasses. No vertigo or nystagmus.), PERRL Ears: Normal External Exam, Normal Canal, Hearing Grossly Normal, Normal TMs Nose: Normal Inspection, Normal Mucosa, No Blood Throat/Mouth: Normal Inspection, Normal Lips, Normal Gums, Normal Oropharynx, Normal Voice, No Airway Compromise, Other (Bilateral lateral anterior mild tongue lacerations with no acute bleeding). No: Normal Teeth (New minimal right upper incisor chip with no localized tenderness), Dysphagia, Inflammation, Perioral Cyanosis Head: Atraumatic, Normocephalic. No: Facial Swelling, Facial Tenderness, Sinus Tenderness Neck: Normal Inspection, Supple, Non-Tender, Full Range of Motion. No: Carotid Bruit, Lymphadenopathy (L), Lymphadenopathy (R), Thyromegaly Respiratory/Chest: No Respiratory Distress, Lungs Clear, Normal Breath Sounds, No Accessory Muscle Use, Chest Non-Tender, Other (Right-sided port noted). No: Pleural Rub, Retractions Cardiovascular: Normal Peripheral Pulses, Regular Rate, Rhythm, No Edema, No Gallop, No JVD, No Murmur, No Rub. No: Gallop/S3, Gallop/S4, Friction Rub Peripheral Pulses: 2+: Radial (L), Radial (R), Dorsalis Pedis (L), Dorsalis Pedis (R) GI/Abdominal: Normal Bowel Sounds, Soft, Non-Tender, No Organomegaly, No Abnormal Bruit, No Mass, Distended (Mild stable by history), Other (Left superior PEG tube noted). No: Guarding, Rebound, Abnormal Bowel Sounds (Female) Exam: Deferred Rectal (Female) Exam: Deferred Back Exam: Normal Inspection, Full Range of Motion, Other (Mild scoliosis). No: CVA Tenderness (L), CVA Tenderness (R), Muscle Spasm Extremities: Normal Inspection, Normal Range of Motion, Non-Tender, No Pedal Edema, Normal Capillary Refill. No: Saturnino's Sign Neurological: Alert, Oriented, CN II-XII Intact, Normal Cognition, Normal Gait, Normal Reflexes (Negative Babinski's, finger to nose, and pronator rotation tests. No evidence of facial paresis, tongue deviation, orthostasis, etc.. Excellent reverse thought processes.), No Motor/Sensory Deficits Psychiatric: Normal Affect, Normal Mood Skin Exam: Warm, Dry, Intact, No Rash, Pallor (Moderate), Tattoo(s) (Multiple). No: Diaphoretic, Ecchymosis, Petechiae, Wound/Incision Lymphatic: No Adenopathy #1 Interpretation EKG Date: 07/24/20 Time: 12:58 Rhythm: NSR Rate (Beats/Min): 86 [place]: Normal (Change from previous neutral cardiac axis) P-Wave: Present QRS: Normal (0.07 seconds) ST-T: Normal (With resolution of previous diffuse nonspecific ST changes/T wave inversions with possible inferolateral cardiac ischemia at that time) QT: Normal TN/PQ Interval: 0.11 seconds representing a stable short TN interval with no delta waves noted. Improved/resolved poor R wave progression in the anterior leads. Comparison: Change From Previous EKG (As above since 02/27/2020) EKG Interpretation Comments: 1. No acute ischemic changes 2. Short TN interval Course - Vital Signs Last Recorded V/S: Last Vital Signs Temp 36.2 C 07/24/20 14:37 Pulse 76 07/24/20 14:52 Resp 14 07/24/20 14:52 BP 110/82 07/24/20 14:52 Pulse Ox 100 07/24/20 14:52 Vital Signs - 24 hr 07/24/20 07/24/20 07/24/20 12:45 14:00 14:37 Temperature [ 36.2 C 36.2 C Temporal] Pulse, 75 78 74 Peripheral [ Pulse Oximetry] Respiratory 16 15 15 Rate Blood Pressure 102/50 L 114/82 [Left Upper Arm ] O2 Sat by Pulse 99 100 99 Oximetry 07/24/20 14:52 Temperature [ Temporal] Pulse, 76 Peripheral [ Pulse Oximetry] Respiratory 14 Rate Blood Pressure 110/82 [Left Upper Arm ] O2 Sat by Pulse 100 Oximetry - Orders/Labs/Meds Orders: Active Orders 24 hr Category Date Time Status Chest 1V Frontal [CR] Stat Exams 07/24/20 12:48 Taken Head wo Cont [CT] Stat Exams 07/24/20 12:48 Taken PROLACTIN [REF] Stat Lab 07/24/20 13:05 Received Obtain Past Medical Record [OM.PC] Stat Oth 07/24/20 12:48 Active Peripheral IV Insertion Adult [OM.PC] Stat Oth 07/24/20 12:48 Ordered Resuscitation Status Stat Resus Stat 07/24/20 12:47 Ordered Labs: Laboratory Tests 07/24/20 07/24/20 07/24/20 Range/Units 13:05 13:05 13:05 WBC 5.3 (4.0-10.2) K/uL RBC 3.14 L (3.77-5.09) M/uL Hgb 10.9 L (11.7-15.5) g/dL Hct 33.0 L (34.0-46.0) % MCV 105.1 H D (84.0-98.0) fL MCH 34.7 H (28.2-33.3) pg MCHC 33.0 (31.7-36.0) g/dL RDW 13.0 (11.2-14.1) % Plt Count 166 D (150-350) K/uL Neut % (Auto) 74.6 (45.0-80.0) % Lymph % (Auto) 16.2 (10.0-50.0) % [place] % (Auto) 8.6 (2.0-14.0) % Eos % (Auto) 0.4 (0.0-5.0) % Baso % (Auto) 0.2 (0.0-2.0) % Neut # (Auto) 3.93 (1.40-7.00) K/uL Lymph # (Auto) 0.85 (0.50-3.50) K/uL [place] # (Auto) 0.45 (0.00-1.00) K/uL Eos # (Auto) 0.02 (0.00-0.50) K/uL Baso # (Auto) 0.01 (0.00-0.20) K/uL PT 9.9 (9.5-12.0) SEC INR 1.0 APTT 23.9 L (24.5-32.8) SEC D-Dimer, Quantitative 210 (0-400) ng/mL Sodium (136-145) mmol/L Potassium (3.5-5.1) mmol/L Chloride (98-107) mmol/L Carbon Dioxide (21.0-32.0) mmol/L BUN (7-18) mg/dL Creatinine (0.51-1.17) mg/dL Est Cr Clr Drug Dosing Estimated GFR (MDRD) mL/min Glucose (70-99) mg/dL Lactic Acid (0.4-2.0) mmol/L Uric Acid (2.6-7.2) mg/dL Calcium (8.5-10.1) mg/dL Magnesium (1.8-2.4) mg/dL Total Bilirubin (0.2-1.0) mg/dL AST (15-37) U/L ALT (12-78) U/L Alkaline Phosphatase (46-116) IU/L Creatine Kinase (26-308) U/L Creatine Kinase Index (0.0-2.5) % CK-MB (CK-2) (0.00-3.60) ng/mL Troponin I (0.000-0.056) ng/mL NT-Pro-B Natriuret Pep (0-125) pg/mL Total Protein (6.4-8.2) g/dL Albumin (3.4-5.0) g/dL TSH, Ultra Sensitive (0.358-3.740) mIU/mL SARS-CoV-2 RNA (SANTI) (NEGATIVE) 07/24/20 07/24/20 07/24/20 Range/Units 13:05 13:05 14:10 WBC (4.0-10.2) K/uL RBC (3.77-5.09) M/uL Hgb (11.7-15.5) g/dL Hct (34.0-46.0) % MCV (84.0-98.0) fL MCH (28.2-33.3) pg MCHC (31.7-36.0) g/dL RDW (11.2-14.1) % Plt Count (150-350) K/uL Neut % (Auto) (45.0-80.0) % Lymph % (Auto) (10.0-50.0) % [place] % (Auto) (2.0-14.0) % Eos % (Auto) (0.0-5.0) % Baso % (Auto) (0.0-2.0) % Neut # (Auto) (1.40-7.00) K/uL Lymph # (Auto) (0.50-3.50) K/uL [place] # (Auto) (0.00-1.00) K/uL Eos # (Auto) (0.00-0.50) K/uL Baso # (Auto) (0.00-0.20) K/uL PT (9.5-12.0) SEC INR APTT (24.5-32.8) SEC D-Dimer, Quantitative (0-400) ng/mL Sodium 138 (136-145) mmol/L Potassium 4.5 (3.5-5.1) mmol/L Chloride 105 (98-107) mmol/L Carbon Dioxide 26.1 (21.0-32.0) mmol/L BUN 24 H (7-18) mg/dL Creatinine 0.68 (0.51-1.17) mg/dL Est Cr Clr Drug Dosing TNP Estimated GFR (MDRD) > 60 mL/min Glucose 103 H (70-99) mg/dL Lactic Acid 1.2 (0.4-2.0) mmol/L Uric Acid 5.5 (2.6-7.2) mg/dL Calcium 8.3 L (8.5-10.1) mg/dL Magnesium 1.6 L (1.8-2.4) mg/dL Total Bilirubin 0.2 (0.2-1.0) mg/dL AST 55 H (15-37) U/L ALT 119 H (12-78) U/L Alkaline Phosphatase 119 H (46-116) IU/L Creatine Kinase 39 (26-308) U/L Creatine Kinase Index 3.3 H (0.0-2.5) % CK-MB (CK-2) 1.30 (0.00-3.60) ng/mL Troponin I 0.005 (0.000-0.056) ng/mL NT-Pro-B Natriuret Pep 267 H (0-125) pg/mL Total Protein 5.1 L (6.4-8.2) g/dL Albumin 2.3 L (3.4-5.0) g/dL TSH, Ultra Sensitive 12.336 H (0.358-3.740) mIU/mL SARS-CoV-2 RNA (SANTI) Negative (NEGATIVE) Prolactin level drawn with results pending Meds: Medications Discontinued Medications Generic Name Dose Route Start Last Admin Trade Name Jesus PRN Reason Stop Dose Admin Famotidine 40 mg 07/24/20 12:47 07/24/20 13:57 Famotidine 20 Mg/2 Ml Sdv IVPUSH 07/24/20 12:48 40 mg ONETIME ONE Administration Heparin Sodium (Porcine) 500 units 07/24/20 15:01 07/24/20 15:06 Heparin Sodium 100 Units/Ml 5 Ml Syringe FLUSH 500 units ASDIRECTED PRN Administration Other Lactated Ringer's 1,000 mls @ 999 mls/hr 07/24/20 12:52 07/24/20 13:15 Ringers, Lactated IV 07/24/20 13:52 999 mls/hr .BOLUS ONE Administration Sodium Chloride 10 ml 07/24/20 12:47 Sodium Chloride 0.9% 10 Ml Syringe FLUSH ASDIRECTED PRN Keep Vein Open - Radiology Interpretation Free Text/Narrative:: 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 Incidental finding of moderate diffuse increased bowel gaseous pattern without free air or evidence of obstruction. Note abdominal PEG tube and right Port-A-Cath are present. CT scan scan of the head without contrast was normal. Preliminary verbal report from the radiology department at [facility] was not received as requested. Departure - Departure Time of Disposition: 15:37 Disposition: Home, Self-Care 01 Condition: Fair Clinical Impression: Grand mal seizure, Mixed anxiety depressive disorder, Peptic reflux disease, Hypomagnesemia, Hypoalbuminemia, Elevated LFTs, Hypothyroidism, Hypocalcemia Pancreatic cancer Qualifiers: Pancreatic malignancy location: unspecified Qualified Code(s): C25.9 - Mal ignant neoplasm of pancreas, unspecified Asthma Qualifiers: Asthma severity: mild Asthma persistence: intermittent Asthma complication type: uncomplicated Qualified Code(s): J45.20 - Mild intermittent asthma, uncomplicated Anemia Qualifiers: Anemia type: other cause Other causes of anemia: nutritional, unspecified Qualified Code(s): D53.9 - Nutritional anemia, unspecified - Discharge Information *PRESCRIPTION DRUG MONITORING PROGRAM REVIEWED*: Not Applicable *COPY OF PRESCRIPTION DRUG MONITORING REPORT IN PATIENT SAM: Not Applicable Prescriptions: Magnesium Oxide 800 mg PO TID #1 tablet Levothyroxine Sodium [Synthroid] 100 mcg PO BEDTIME #60 tab Instructions: Magnetic Resonance Imaging, Seizure, Adult, [id number] Referrals: Moriah Albrecht PA-C [Primary Care Provider] - Forms: ED Department Discharge Additional Instructions: 1. Followup with your regular provider in 7-10 days as directed for reevaluation and recommended repeat CBC, comprehensive metabolic panel, amylase, lipase, and magnesium level. Bring these discharge instructions with you to that visit. 2. Discuss prolactin blood test results from today and MRI of the brain results, which will be conducted in this facility on 07/27. 3. Discussed possible neurology referral at time of the above follow-up visit. 4. TSH should be repeated in 4 weeks by your regular provider 5. Strict no driving, fall/injury precautions, etc. at least for 6 months and as directed by your regular provider/neurologist secondary to your newly diagnosed seizure. 6. Immediately after this visit verify that your cellular telephone's voicemail has been activated and is empty. Also verify that your home telephone's answering machine is operating properly and has space to receive messages. Note that it is sometimes necessary for us to be able to contact you at a later date to discuss your medical care. 7. Please remember that we are ALWAYS here for you and want to answer any questions you may have. Feel free to call the hospital any time and we call you back ANNABEL. 8. Listerine gargles four times per day, after meals and at bedtime, with additional Chloroseptic lozenges or spray as needed for 10 days and/or until symptoms resolve. Sepsis Event Note (ED) - Focused Exam Vital Signs: Vital Signs Temp Pulse Resp BP Pulse Ox 07/24/20 14:52 76 14 110/82 100 07/24/20 14:37 36.2 C 74 15 99 07/24/20 14:00 78 15 114/82 100 07/24/20 12:45 36.2 C 75 16 102/50 L 99 - Problem List & Annotations (1) Grand mal seizure SNOMED Code(s): 94446364 Code(s): G40.409 - OTH GENERALIZED EPILEPSY, NOT INTRACTABLE, W/O STAT EPI Status: Acute Priority: High Onset Date: 07/24/20 Annotation/Comment:: Newly diagnosed. No significant fall or injury. Driving restrictions, fall precautions, etc. discussed with probable neurology referral by her regular provider at follow-up as per discharge instructions. MRI of the brain in this facility on 07/26/2020. Prolactin level drawn with results pending. Possible of additional EEG, etc. per recommendations from neurology. Clinical exam, vital signs, etc. are stable at time of discharge with no neurological deficits or postictal sedation. Her bitten tongue does not require any additional treatment. (2) Pancreatic cancer SNOMED Code(s): 923362342 Code(s): C25.9 - MALIGNANT NEOPLASM OF PANCREAS, UNSPECIFIED Status: Acute Priority: High Annotation/Comment:: In remission with 20 pound weight gain over the last few months with PEG tube apparently to be DC'd in the near future. Her pancreatic cancer was initially diagnosed in August 2019 with patient currently undergoing chemotherapy with no previous surgeries, including Whipple procedure, etc. to this point as above. Note significant pancytopenia secondary to chemotherapy in the past, which has since resolved. Stable chronic anemia by medical records. Initial telephone consultation with [facility] in [place] at 4:05 PM. Subsequent telephone consultation at 4:[address] Robles, hospitalist, who does accept the patient for direct admission. Aggressive IV hydration will be continued in route as below with additional initiation of IV Zosyn prior to transfer per the recommendations of Dr. Robles. Note that urine specimen for culture and sensitivity and blood cultures x2 were collected prior to initiation of antibiotic therapy with one of the blood cultures obtained from her Port-A-Cath. Ambulance transfer with gis scientist accompaniment with stable and improved vital signs and clinical exam prior to patient's transfer. Qualifiers: Pancreatic malignancy location: unspecified Qualified Code(s): C25.9 - Malignant neoplasm of pancreas, unspecified (3) Hypothyroidism SNOMED Code(s): 66271784 Code(s): E03.9 - HYPOTHYROIDISM, UNSPECIFIED Status: Chronic Priority: Medium Onset Date: 12/06/13 Annotation/Comment:: TSH moderately elevated once again with reinitiation of previous Synthroid supplementation, which has apparently been discontinued for an unknown reason. Close follow-up by regular provider including repeat TSH in 4 weeks. (4) Elevated LFTs SNOMED Code(s): 552925319 Code(s): R79.89 - OTHER SPECIFIED ABNORMAL FINDINGS OF BLOOD CHEMISTRY Status: Chronic Priority: Medium Annotation/Comment:: Note history of pancreatic cancer. Observe closely by regular provider and oncologist with no further work-up for now (5) Mixed anxiety depressive disorder SNOMED Code(s): 454720086 Code(s): F41.8 - OTHER SPECIFIED ANXIETY DISORDERS Status: Chronic Priority: High Annotation/Comment:: Stable by history despite patient's current diagnosis of pancreatic cancer. Continue to observe closely by her accepting and regular providers. Emotional support was provided. (6) Hypocalcemia SNOMED Code(s): 5895057 Code(s): E83.51 - HYPOCALCEMIA Status: Chronic Priority: Medium Onset Date: 02/27/20 Annotation/Comment:: Observe for now. (7) Asthma SNOMED Code(s): 018060388 Code(s): J45.909 - UNSPECIFIED ASTHMA, UNCOMPLICATED Status: Chronic Priority: Medium Annotation/Comment:: No recent fever or bronchitic type symptoms Qualifiers: Asthma severity: mild Asthma persistence: intermittent Asthma complication type: uncomplicated Qualified Code(s): J45.20 - Mild intermittent asthma, uncomplicated (8) Hypoalbuminemia SNOMED Code(s): 554059006 Code(s): E88.09 - OTH DISORDERS OF PLASMA-PROTEIN METABOLISM, NEC Status: Chronic Priority: Medium Annotation/Comment:: Stable by history. Note previous PEG feeding tube feedings with with 20 pound intentional weight gain recently as above. Continue to observe closely by regular provider. (9) Hypomagnesemia SNOMED Code(s): 909759790 Code(s): E83.42 - HYPOMAGNESEMIA Status: Chronic Priority: Medium Onset Date: 05/30/16 Annotation/Comment:: Patient denies noncompliance with her oral magnesium sulfate. Note malabsorption syndrome as above. Her magnesium oxide will be increased to 3 times daily regimen with close follow-up by regular provider. Patient may need IV magnesium sulfate supplementation, however note hypotension at this point. (10) Peptic reflux disease SNOMED Code(s): 831253385 Code(s): K21.9 - GASTRO-ESOPHAGEAL REFLUX DISEASE WITHOUT ESOPHAGITIS Status: Chronic Priority: Medium Annotation/Comment:: Stable by patient history. High-dose IV Pepcid as GI prophylaxis. No abdominal complaints at this time. (11) Anemia SNOMED Code(s): 751741084 Code(s): D64.9 - ANEMIA, UNSPECIFIED Status: Chronic Priority: High Onset Date: ~05/30/16 Annotation/Comment:: Chronic with history of malabsorption syndrome, iron deficiency, vitamin B12, folic acid deficiency. Stable per medical records. Qualifiers: Anemia type: other cause Other causes of anemia: nutritional, unspecified Qualified Code(s): D53.9 - Nutritional anemia, unspecified - Problem List Review Problem List Initiated/Reviewed/Updated: Yes - My Orders Last 24 Hours: My Active Orders 07/24/20 12:47 Resuscitation Status Stat 07/24/20 12:48 Chest 1V Frontal [CR] Stat Head wo Cont [CT] Stat Obtain Past Medical Record [OM.PC] Stat Peripheral IV Insertion Adult [OM.PC] Stat 07/24/20 13:05 PROLACTIN [REF] Stat - Assessment/Plan Last 24 Hours: My Active Orders 07/24/20 12:47 Resuscitation Status Stat 07/24/20 12:48 Chest 1V Frontal [CR] Stat Head wo Cont [CT] Stat Obtain Past Medical Record [OM.PC] Stat Peripheral IV Insertion Adult [OM.PC] Stat 07/24/20 13:05 PROLACTIN [REF] Stat Assessment:: As above Plan: As above. Extensive precautions were given to the patient and her , who are in agreement with the treatment plan. See Patient Instructions for further treatment and plan.
[2020-07-24] MEDS: Lactated Ringers 1,000 ML IV ONE (13:15)
[2020-07-24 13:35] LABS: PTT,PARTIAL THROMBOPLSTIN TIME 23.9 SEC (24.5-32.8)
[2020-07-24 13:57] LABS: CHLORIDE,CL 105 mmol/L (98-107); SODIUM,NA 138 mmol/L (136-145)
[2020-07-24] MEDS: Famotidine 20 MG/2 ML SDV IVPUSH ONE (13:57)
[2020-07-24 14:54] VITALS: BP 110/82; PULSE 76
== END 2020-07-24 15:37 | disposition home or self-care (01) ==
LOC: LL.ED 12:43
DX: G40.409 Other generalized epilepsy and epileptic syndromes, not intractable, without status epilepticus (principal); F41.8 Other specified anxiety disorders; C25.9 Malignant neoplasm of pancreas, unspecified; J45.20 Mild intermittent asthma, uncomplicated; D64.9 Anemia, unspecified; K21.9 Gastro-esophageal reflux disease without esophagitis; E83.42 Hypomagnesemia; E88.09 Other disorders of plasma-protein metabolism, not elsewhere classified; E03.9 Hypothyroidism, unspecified; E83.51 Hypocalcemia; R79.89 Other specified abnormal findings of blood chemistry; Z20.822 Contact with and (suspected) exposure to COVID-19
CPT/HCPCS: 70450; 71045; 80053; 82550; 82553; 83605; 83735; 83880; 84146; 84443; 84484; 84550; 85025; 85379; 85610; 85730; 93005; 93010; 96374; 99285; 99285-25; J1642; J3490; J7120; U0002

== ENCOUNTER 2021-04-28 10:22 | Emergency (ER) | payer OTHER ==
[2021-04-28 10:27] VITALS: BP 106/67; PULSE 80
[2021-04-28] MEDS ORDERED: Lactated Ringers 1,000 ML IV ONE (10:57)
[2021-04-28] MEDS ORDERED: Sodium Chloride 0.9% 10 ML Syringe FLUSH PRN (10:57)
[2021-04-28 11:52] LABS: ANION GAP 6.2 meq/L (7-15); CHLORIDE,CL 102 mmol/L (98-107); SODIUM,NA 138 mmol/L (136-145)
[2021-04-28] MEDS ORDERED: Heparin Sodium 10 Units/ML 5 ML Syringe FLUSH PRN (14:49)
== END 2021-04-28 15:25 | disposition home or self-care (01) ==
LOC: LL.ED 10:22
DX: F11.23 Opioid dependence with withdrawal (principal); G89.3 Neoplasm related pain (acute) (chronic); D72.829 Elevated white blood cell count, unspecified; J45.909 Unspecified asthma, uncomplicated; M19.90 Unspecified osteoarthritis, unspecified site; E66.9 Obesity, unspecified; E78.00 Pure hypercholesterolemia, unspecified; E03.9 Hypothyroidism, unspecified; Z68.1 Body mass index [BMI] 19.9 or less, adult; Z91.040 Latex allergy status; Z88.8 Allergy status to other drugs, medicaments and biological substances; Z79.899 Other long term (current) drug therapy
CPT/HCPCS: 36415; 80053; 81003; 83605; 83735; 85025; 87040; 99283; 99284; J1642; J7120

== ENCOUNTER 2022-08-04 19:06 | Emergency (ER) | payer OTHER ==
[2022-08-04 19:30] LABS: BASOPHILS ABSOLUTE AUTO 0.02 K/uL (0.00-0.20); BASOPHILS PERCENT AUTO 0.4 % (0.0-2.0); EOSINOPHILS ABSOLUTE AUTO 0.35 K/uL (0.00-0.50); EOSINOPHILS PERCENT AUTO 6.8 % (0.0-5.0); HEMATOCRIT 36.2 % (34.0-46.0); HEMOGLOBIN 11.8 g/dL (11.7-15.5); LYMPHOCYTES ABSOLUTE AUTO 1.38 K/uL (0.50-3.50); MEAN CORPUSCULAR HEMOGLOBIN 32.2 pg (28.2-33.3); MEAN CORPUSCULAR HGB CONC 32.6 g/dL (31.7-36.0); MEAN CORPUSCULAR VOLUME 98.6 fL (84.0-98.0); MONOCYTES ABSOLUTE AUTO 0.43 K/uL (0.00-1.00); MONOCYTES PERCENT AUTO 8.4 % (2.0-14.0); NEUTROPHILS ABSOLUTE AUTO 2.93 K/uL (1.40-7.00); NEUTROPHILS PERCENT AUTO 57.4 % (45.0-80.0); PLATELET COUNT,PLT 209 K/uL (150-350); RED BLOOD CELL COUNT 3.67 M/uL (3.77-5.09); WHITE BLOOD CELL COUNT,WBC 5.1 K/uL (4.0-10.2)
[2022-08-04 19:32] VITALS: BP 102/64; PULSE 70
[2022-08-04 19:45] LABS: ALANINE AMINOTRANSFERASE,ALT 101 U/L (12-78); ALBUMIN 3.2 g/dL (3.4-5.0); ALKALINE PHOSPHATASE 171 IU/L (46-116); ASPARTATE AMNIOTRANSFERASE,AST 76 U/L (15-37); BILIRUBIN TOTAL 0.3 mg/dL (0.2-1.0); BLOOD UREA NITROGEN,BUN 14 mg/dL (7-18); CALCIUM 8.8 mg/dL (8.5-10.1); CARBON DIOXIDE,CO2 29.5 mmol/L (21.0-32.0); CHLORIDE,CL 100 mmol/L (98-107); CREATININE 1.01 mg/dL (0.51-1.17); ESTIMATED GFR 70 mL/min (>=60); GLUCOSE RANDOM 127 mg/dL (70-99); LIPASE 46 U/L (73-393); POTASSIUM,K 4.5 mmol/L (3.5-5.1); PROTEIN TOTAL,TP 6.1 g/dL (6.4-8.2); SODIUM,NA 135 mmol/L (136-145)
[2022-08-04] MEDS: HYDROmorphone 0.5 MG/0.5 ML Syringe IVPUSH PRN (19:54)
[2022-08-04] MEDS: Sodium Chloride 0.9% 10 ML Syringe FLUSH PRN (19:57)
[2022-08-04] MEDS: Iopamidol 612 MG/ML 100 ML Bottle ONE (20:00)
== END 2022-08-04 20:52 | disposition home or self-care (01) ==
LOC: LL.ED 19:06
DX: R10.12 Left upper quadrant pain (principal); I88.8 Other nonspecific lymphadenitis; I50.9 Heart failure, unspecified; J45.909 Unspecified asthma, uncomplicated; E66.9 Obesity, unspecified; Z91.040 Latex allergy status; Z88.8 Allergy status to other drugs, medicaments and biological substances; Z90.49 Acquired absence of other specified parts of digestive tract; Z98.890 Other specified postprocedural states
CPT/HCPCS: 36415; 74177; 80053; 83605; 83690; 85025; 96374; 99284; 99284-25; J1170; J3490; Q9967

== ENCOUNTER 2022-12-20 19:46 | Emergency (ER) | payer OTHER ==
[2022-12-20 20:03] VITALS: PULSE 88
[2022-12-20 20:19] LABS: BASOPHILS ABSOLUTE AUTO 0.01 K/uL (0.00-0.20); BASOPHILS PERCENT AUTO 0.2 % (0.0-2.0); EOSINOPHILS ABSOLUTE AUTO 0.19 K/uL (0.00-0.50); HEMATOCRIT 35.9 % (34.0-46.0); HEMOGLOBIN 11.5 g/dL (11.7-15.5); LYMPHOCYTES PERCENT AUTO 34.2 % (10.0-50.0); MEAN CORPUSCULAR HEMOGLOBIN 32.2 pg (28.2-33.3); MEAN CORPUSCULAR VOLUME 100.6 fL (84.0-98.0); MONOCYTES ABSOLUTE AUTO 0.57 K/uL (0.00-1.00); MONOCYTES PERCENT AUTO 8.9 % (2.0-14.0); NEUTROPHILS ABSOLUTE AUTO 3.46 K/uL (1.40-7.00); NEUTROPHILS PERCENT AUTO 53.7 % (45.0-80.0); PLATELET COUNT,PLT 155 K/uL (150-350); RED BLOOD CELL COUNT 3.57 M/uL (3.77-5.09); RED CELL DISTRIBUTION WIDTH 14.4 % (11.2-14.1); WHITE BLOOD CELL COUNT,WBC 6.4 K/uL (4.0-10.2)
[2022-12-20 20:34] LABS: ALANINE AMINOTRANSFERASE,ALT 21 U/L (12-78); ALBUMIN 3.3 g/dL (3.4-5.0); ALKALINE PHOSPHATASE 244 IU/L (46-116); ASPARTATE AMNIOTRANSFERASE,AST 36 U/L (15-37); BILIRUBIN TOTAL 0.2 mg/dL (0.2-1.0); BLOOD UREA NITROGEN,BUN 19 mg/dL (7-18); CALCIUM 7.9 mg/dL (8.5-10.1); CARBON DIOXIDE,CO2 23.1 mmol/L (21.0-32.0); CHLORIDE,CL 104 mmol/L (98-107); CREATININE 1.19 mg/dL (0.51-1.17); GLUCOSE RANDOM 121 mg/dL (70-99); POTASSIUM,K 3.3 mmol/L (3.5-5.1); PROTEIN TOTAL,TP 5.9 g/dL (6.4-8.2); SODIUM,NA 138 mmol/L (136-145)
[2022-12-20 20:40] LABS: ANION GAP 14.2 meq/L (7-15); ESTIMATED GFR 57 mL/min (>=60)
[2022-12-20 21:18] VITALS: BP 111/75
[2022-12-20] MEDS ORDERED: Potassium Chloride 10 MEQ Tab.ER PO ONE (21:30)
== END 2022-12-20 22:20 | disposition home or self-care (01) ==
LOC: LL.ED 19:46
DX: G40.409 Other generalized epilepsy and epileptic syndromes, not intractable, without status epilepticus (principal); S01.512A Laceration without foreign body of oral cavity, initial encounter; Z88.8 Allergy status to other drugs, medicaments and biological substances; Z91.040 Latex allergy status; X58.XXXA Exposure to other specified factors, initial encounter
CPT/HCPCS: 36415; 70450; 80053; 85025; 99284; A9270-GY

== ENCOUNTER 2023-02-05 12:03 | Emergency (ER) | payer OTHER ==
[2023-02-05 12:07] VITALS: BP 94/48; PULSE 80
== END 2023-02-05 14:00 | disposition left against medical advice (07) ==
LOC: LL.ED 12:03
DX: Z53.21 Procedure and treatment not carried out due to patient leaving prior to being seen by health care provider (principal)

== ENCOUNTER 2023-11-04 12:14 | Emergency (ER) | payer BC, OTHER ==
[2023-11-04] MEDS: Sodium Chloride 0.9% 1,000 ML IV ONE ×2 (12:41→13:45)
[2023-11-04 12:48] LABS: BASOPHILS ABSOLUTE AUTO 0.01 K/uL (0.00-0.20); BASOPHILS PERCENT AUTO 0.2 % (0.0-2.0); EOSINOPHILS ABSOLUTE AUTO 0.01 K/uL (0.00-0.50); EOSINOPHILS PERCENT AUTO 0.2 % (0.0-5.0); HEMOGLOBIN 10.6 g/dL (11.7-15.5); LYMPHOCYTES ABSOLUTE AUTO 0.69 K/uL (0.50-3.50); LYMPHOCYTES PERCENT AUTO 14.3 % (10.0-50.0); MEAN CORPUSCULAR HEMOGLOBIN 31.5 pg (28.2-33.3); MEAN CORPUSCULAR HGB CONC 32.1 g/dL (31.7-36.0); MEAN CORPUSCULAR VOLUME 97.9 fL (84.0-98.0); MONOCYTES ABSOLUTE AUTO 0.24 K/uL (0.00-1.00); NEUTROPHILS ABSOLUTE AUTO 3.89 K/uL (1.40-7.00); NEUTROPHILS PERCENT AUTO 80.3 % (45.0-80.0); PLATELET COUNT,PLT 70 K/uL (150-350); RED BLOOD CELL COUNT 3.37 M/uL (3.77-5.09); RED CELL DISTRIBUTION WIDTH 14.9 % (11.2-14.1); WHITE BLOOD CELL COUNT,WBC 4.8 K/uL (4.0-10.2)
[2023-11-04 13:08] LABS: LACTIC ACID 2.4 mmol/L (0.4-2.0)
[2023-11-04 13:29] LABS: ALBUMIN 2.6 g/dL (3.4-5.0); ANION GAP 5.5 meq/L (7-15); BILIRUBIN TOTAL 0.5 mg/dL (0.2-1.0); CALCIUM 7.6 mg/dL (8.5-10.1); CARBON DIOXIDE,CO2 27.5 mmol/L (21.0-32.0); CREATININE 1.35 mg/dL (0.51-1.17); EST CRCL DRUG DOSING (CG) 40.74 mL/min; POTASSIUM,K 3.5 mmol/L (3.5-5.1); PROTEIN TOTAL,TP 5.4 g/dL (6.4-8.2)
[2023-11-04] MEDS ORDERED: Sodium Chloride 0.9% 10 ML Syringe FLUSH PRN (15:50)
[2023-11-04 16:41] VITALS: BP 95/65; PULSE 71
== END 2023-11-04 15:55 | disposition home or self-care (01) ==
LOC: LL.ED 12:14
DX: E86.0 Dehydration (principal); I50.9 Heart failure, unspecified; J45.909 Unspecified asthma, uncomplicated; E03.9 Hypothyroidism, unspecified; E66.9 Obesity, unspecified; Z90.49 Acquired absence of other specified parts of digestive tract; Z90.710 Acquired absence of both cervix and uterus; Z79.899 Other long term (current) drug therapy; Z79.890 Hormone replacement therapy; Z91.040 Latex allergy status; Z88.8 Allergy status to other drugs, medicaments and biological substances; Z79.891 Long term (current) use of opiate analgesic
CPT/HCPCS: 36415; 80053; 83605; 85025; 87635; 96360; 96361; 99284; J1642; J7030; U0002

== ENCOUNTER 2024-01-21 13:08 | Emergency (ER) | payer BC, OTHER ==
[2024-01-21 15:19] VITALS: BP 99/75; PULSE 83
== END 2024-01-21 14:46 | disposition home or self-care (01) ==
LOC: LL.ED 13:08
DX: C25.9 Malignant neoplasm of pancreas, unspecified (principal); I10 Essential (primary) hypertension; E78.00 Pure hypercholesterolemia, unspecified; E11.9 Type 2 diabetes mellitus without complications; E03.9 Hypothyroidism, unspecified; K21.9 Gastro-esophageal reflux disease without esophagitis; Z79.899 Other long term (current) drug therapy; Z91.040 Latex allergy status; Z88.8 Allergy status to other drugs, medicaments and biological substances
CPT/HCPCS: 99283; 99284

== ENCOUNTER 2024-01-23 16:41 | Emergency (ER) | payer BC, OTHER ==
[2024-01-23 16:54] LABS: APPEARANCE,URINE SLIGHTLY CLOUDY; BILIRUBIN,URINE MODERATE (NEGATIVE); COLOR,URINE DARK YELLOW; GLUCOSE,URINE NEGATIVE (NEGATIVE); KETONES,URINE 15 mg/dL (NEGATIVE); LEUKOCYTE ESTERASE,URINE SMALL (NEGATIVE); NITRITE,URINE NEGATIVE (NEGATIVE); OCCULT BLOOD,URINE NEGATIVE (NEGATIVE); PH,URINE 5.5 (5.0-9.0); PROTEIN,URINE NEGATIVE (NEGATIVE)
[2024-01-23 16:57] VITALS: BP 103/73; PULSE 88
[2024-01-23 17:15] LABS: HEMOGLOBIN 8.3 g/dL (11.7-15.5); IMMATURE GRAN ABSOLUTE AUTO 0.09 10^3/uL (0.00-0.50); IMMATURE GRAN PERCENT AUTO 1.2 % (0.0-5.0); LYMPHOCYTES ABSOLUTE AUTO 0.89 K/uL (0.50-3.50); LYMPHOCYTES PERCENT AUTO 12.2 % (10.0-50.0); MEAN CORPUSCULAR HEMOGLOBIN 36.2 pg (28.2-33.3); MEAN CORPUSCULAR HGB CONC 33.9 g/dL (31.7-36.0); MONOCYTES PERCENT AUTO 1.4 % (2.0-14.0); NEUTROPHILS ABSOLUTE AUTO 6.22 K/uL (1.40-7.00); NEUTROPHILS PERCENT AUTO 85.2 % (45.0-80.0); PLATELET COUNT,PLT 180 K/uL (150-350); RED BLOOD CELL COUNT 2.29 M/uL (3.77-5.09); RED CELL DISTRIBUTION WIDTH 17.6 % (11.2-14.1); WHITE BLOOD CELL COUNT,WBC 7.3 K/uL (4.0-10.2)
[2024-01-23 17:25] LABS: BACTERIA,URINE FEW /HPF (NONE TO FEW); EPITHELIAL CELLS,URINE FEW /LPF; MUCUS,URINE FEW /LPF (NEGATIVE); RBC,URINE 0-5 /HPF
[2024-01-23 17:35] LABS: ALANINE AMINOTRANSFERASE,ALT 85 U/L (12-78); ALBUMIN 1.8 g/dL (3.4-5.0); ALKALINE PHOSPHATASE 154 IU/L (46-116); ANION GAP 9.3 meq/L (7-15); ASPARTATE AMNIOTRANSFERASE,AST 74 U/L (15-37); BILIRUBIN TOTAL 2.6 mg/dL (0.2-1.0); BLOOD UREA NITROGEN,BUN 17 mg/dL (7-18); CALCIUM 7.5 mg/dL (8.5-10.1); CARBON DIOXIDE,CO2 23.7 mmol/L (21.0-32.0); CHLORIDE,CL 105 mmol/L (98-107); CREATININE 0.96 mg/dL (0.51-1.17); GLUCOSE RANDOM 99 mg/dL (70-99); POTASSIUM,K 3.8 mmol/L (3.5-5.1); PROTEIN TOTAL,TP 4.6 g/dL (6.4-8.2); SODIUM,NA 138 mmol/L (136-145)
[2024-01-23 17:40] LABS: LACTIC ACID 1.9 mmol/L (0.4-2.0)
[2024-01-23 17:45] LABS: INR 2.3 (0.9-1.1); PROTHROMBIN TIME 22.2 SEC (9.0-11.1)
[2024-01-23 17:50] LABS: ESTIMATED GFR 73 mL/min (>=60)
[2024-01-23 17:53] LABS: HEMATOCRIT 24.5 % (34.0-46.0)
[2024-01-23] MEDS: Take Home: Nitrofurantoin Monohydrate/Macrocrystalline 100 MG, 6 Cap Pack PO ONE (21:18)
== END 2024-01-23 21:00 | disposition home or self-care (01) ==
LOC: LL.ED 16:41
DX: N30.00 Acute cystitis without hematuria (principal); C25.9 Malignant neoplasm of pancreas, unspecified; I50.9 Heart failure, unspecified; E03.9 Hypothyroidism, unspecified; E66.9 Obesity, unspecified; Z90.49 Acquired absence of other specified parts of digestive tract; Z90.710 Acquired absence of both cervix and uterus; Z79.899 Other long term (current) drug therapy; Z79.890 Hormone replacement therapy; Z91.040 Latex allergy status; Z88.8 Allergy status to other drugs, medicaments and biological substances
CPT/HCPCS: 36415; 80053; 81001; 83605; 85025; 85610; 87086; 87088; 87147; 87186; 99283; A9270; 99284

== ENCOUNTER 2024-02-01 09:02 | Emergency (ER) | payer BC, OTHER ==
[2024-02-01] MEDS: Lactated Ringers 1,000 ML IV SCH ×2 (09:36→12:49)
[2024-02-01 09:41] LABS: BASOPHILS ABSOLUTE AUTO 0.01 K/uL (0.00-0.20); BASOPHILS PERCENT AUTO 0.1 % (0.0-2.0); HEMOGLOBIN 7.6 g/dL (11.7-15.5); IMMATURE GRAN ABSOLUTE AUTO 1.66 10^3/uL (0.00-0.50); IMMATURE GRAN PERCENT AUTO 9.8 % (0.0-5.0); LYMPHOCYTES ABSOLUTE AUTO 0.66 K/uL (0.50-3.50); LYMPHOCYTES PERCENT AUTO 3.9 % (10.0-50.0); MEAN CORPUSCULAR HEMOGLOBIN 37.6 pg (28.2-33.3); MEAN CORPUSCULAR HGB CONC 34.2 g/dL (31.7-36.0); MEAN CORPUSCULAR VOLUME 109.9 fL (84.0-98.0); MONOCYTES ABSOLUTE AUTO 0.27 K/uL (0.00-1.00); MONOCYTES PERCENT AUTO 1.6 % (2.0-14.0); NEUTROPHILS ABSOLUTE AUTO 14.29 K/uL (1.40-7.00); NEUTROPHILS PERCENT AUTO 84.6 % (45.0-80.0); RED BLOOD CELL COUNT 2.02 M/uL (3.77-5.09); RED CELL DISTRIBUTION WIDTH 20.4 % (11.2-14.1); WHITE BLOOD CELL COUNT,WBC 16.9 K/uL (4.0-10.2)
[2024-02-01 09:59] LABS: HEMATOCRIT 22.2 % (34.0-46.0)
[2024-02-01] MEDS ORDERED: Acetaminophen 325 MG Tab PO PRN (10:00)
[2024-02-01 10:08] LABS: ALANINE AMINOTRANSFERASE,ALT 74 U/L (12-78); ALBUMIN 1.6 g/dL (3.4-5.0); ALKALINE PHOSPHATASE 261 IU/L (46-116); ASPARTATE AMNIOTRANSFERASE,AST 55 U/L (15-37); BILIRUBIN TOTAL 2.9 mg/dL (0.2-1.0); BLOOD UREA NITROGEN,BUN 36 mg/dL (7-18); C-REACTIVE PROTEIN 2.75 mg/dL (0.05-0.30); CARBON DIOXIDE,CO2 20.5 mmol/L (21.0-32.0); CHLORIDE,CL 104 mmol/L (98-107); CREATININE 2.87 mg/dL (0.51-1.17); GLUCOSE RANDOM 96 mg/dL (70-99); POTASSIUM,K 4.1 mmol/L (3.5-5.1); PROTEIN TOTAL,TP 4.4 g/dL (6.4-8.2); SODIUM,NA 135 mmol/L (136-145)
[2024-02-01 10:10] LABS: ANION GAP 14.6 meq/L (7-15); ESTIMATED GFR 20 mL/min (>=60)
[2024-02-01 10:32] LABS: PLATELET COUNT,PLT 25 K/uL (150-350)
[2024-02-01] MEDS: cefTRIAXone 2 GM Vial IVPUSH ONE (11:42)
[2024-02-01] MEDS: Sodium Chloride 0.9% 10 ML Syringe FLUSH PRN (11:43)
[2024-02-01 12:59] LABS: APPEARANCE,URINE SLIGHTLY CLOUDY; BILIRUBIN,URINE NEGATIVE (NEGATIVE); COLOR,URINE YELLOW; GLUCOSE,URINE NEGATIVE (NEGATIVE); KETONES,URINE NEGATIVE (NEGATIVE); LEUKOCYTE ESTERASE,URINE NEGATIVE (NEGATIVE); NITRITE,URINE NEGATIVE (NEGATIVE); OCCULT BLOOD,URINE NEGATIVE (NEGATIVE); PH,URINE 5.5 (5.0-9.0); PROTEIN,URINE NEGATIVE (NEGATIVE); UROBILINOGEN,URINE 0.2 E.U./dL (0.2-1.0)
[2024-02-01] MEDS: Norepinephrine Bit/D5W Premix 250 ML IV SCH (13:46)
[2024-02-01 14:55] LABS: BASOPHILS ABSOLUTE AUTO 0.01 K/uL (0.00-0.20); EOSINOPHILS ABSOLUTE AUTO 0.01 K/uL (0.00-0.50); HEMOGLOBIN 7.7 g/dL (11.7-15.5); IMMATURE GRAN ABSOLUTE AUTO 2.65 10^3/uL (0.00-0.50); IMMATURE GRAN PERCENT AUTO 11.6 % (0.0-5.0); LYMPHOCYTES PERCENT AUTO 3.9 % (10.0-50.0); MEAN CORPUSCULAR HEMOGLOBIN 37.2 pg (28.2-33.3); MEAN CORPUSCULAR HGB CONC 33.6 g/dL (31.7-36.0); MEAN CORPUSCULAR VOLUME 110.6 fL (84.0-98.0); MONOCYTES ABSOLUTE AUTO 0.55 K/uL (0.00-1.00); MONOCYTES PERCENT AUTO 2.4 % (2.0-14.0); NEUTROPHILS ABSOLUTE AUTO 18.67 K/uL (1.40-7.00); NEUTROPHILS PERCENT AUTO 82.1 % (45.0-80.0); RED BLOOD CELL COUNT 2.07 M/uL (3.77-5.09); RED CELL DISTRIBUTION WIDTH 20.6 % (11.2-14.1); WHITE BLOOD CELL COUNT,WBC 22.8 K/uL (4.0-10.2)
[2024-02-01 15:12] LABS: HEMATOCRIT 22.9 % (34.0-46.0); PLATELET COUNT,PLT 25 K/uL (150-350)
[2024-02-01 15:18] LABS: ALANINE AMINOTRANSFERASE,ALT 77 U/L (12-78); ALBUMIN 1.6 g/dL (3.4-5.0); ALKALINE PHOSPHATASE 288 IU/L (46-116); ASPARTATE AMNIOTRANSFERASE,AST 49 U/L (15-37); BILIRUBIN TOTAL 2.6 mg/dL (0.2-1.0); BLOOD UREA NITROGEN,BUN 32 mg/dL (7-18); CALCIUM 8.2 mg/dL (8.5-10.1); CARBON DIOXIDE,CO2 21.8 mmol/L (21.0-32.0); CHLORIDE,CL 103 mmol/L (98-107); CREATININE 2.66 mg/dL (0.51-1.17); GLUCOSE RANDOM 133 mg/dL (70-99); POTASSIUM,K 4.1 mmol/L (3.5-5.1); PROTEIN TOTAL,TP 4.6 g/dL (6.4-8.2); SODIUM,NA 135 mmol/L (136-145)
[2024-02-01 15:20] LABS: ANION GAP 14.3 meq/L (7-15); ESTIMATED GFR 22 mL/min (>=60)
[2024-02-01] MEDS: Morphine 15 MG Tab.ER PO ONE (15:55)
[2024-02-01] MEDS: Azithromycin 250 MG Tab PO ONE (16:42)
[2024-02-01 18:21] VITALS: BP 95/69; PULSE 90
[2024-02-01] MEDS ORDERED: Morphine 15 MG Tab.ER PO SCH ×2 (20:00)
[2024-02-02] MEDS ORDERED: Morphine 15 MG Tab.ER PO SCH (08:00)
== END 2024-02-01 18:44 ==
LOC: LL.ED 09:02
DX: A41.9 Sepsis, unspecified organism (principal); N17.9 Acute kidney failure, unspecified; C25.9 Malignant neoplasm of pancreas, unspecified; I50.9 Heart failure, unspecified; I95.89 Other hypotension; E86.0 Dehydration; D53.9 Nutritional anemia, unspecified; F41.8 Other specified anxiety disorders; Z79.84 Long term (current) use of oral hypoglycemic drugs; E03.9 Hypothyroidism, unspecified; E66.9 Obesity, unspecified; Z90.49 Acquired absence of other specified parts of digestive tract; Z90.710 Acquired absence of both cervix and uterus; Z79.890 Hormone replacement therapy; Z79.899 Other long term (current) drug therapy; Z91.040 Latex allergy status; Z88.8 Allergy status to other drugs, medicaments and biological substances
CPT/HCPCS: 36415; 71045; 80053; 81003; 83605; 85025; 86140; 87040; 96361; 96365; 96366; 96375; 99285-25; A9270-GY; J0696; J3490; J7120